=== PATIENT | male | born 1940 | race Caucasian/White ===

== ENCOUNTER 2016-07-23 20:40 | Inpatient (IN) | payer MEDICARE, OTHER ==
[~2016-07-23] VITALS: Ht 177.8 cm; Wt 120.0 kg
[~2016-07-23 20:40] MED LIST: ACET325T PO; ATOR10TA15 PO; BAZACRE TOP; CULT10CA4 PO; DILT60TA PO; DULC10SU3 PR; FLEEENE3 PR; ISOS30TA3 PO; LEVO137T2 PO; LEXA10TA PO; LOSA25TA PO; MILKSUS PO; MULTTAB62 PO; NIAC500 PO; PIPE4INJ IV; SOTA120T PO; SPIR25 PO; SPIRCAP INH; VANC500I3 PO; VENTAER INH; WARF-23 PO
[2016-07-23 21:45] VITALS: BP 111/61; PULSE 67; RESP 24; TEMP 100.3; O2SAT 99
[2016-07-23 21:53] VITALS: O2SAT 100
--- NOTE | 2016-07-23 21:55 | PD ---
HPI Chief Complaint: Abdominal Pain Time Seen by Provider: 21:49 Travel History International Travel<30 days: No Contact w/Intl Traveler<30days: No Traveled to known affect area: No History of Present Illness HPI Patient comes in complaining of low back pain ongoing for approximately 3 weeks abdominal pain going on for 5 days. Patient states he was recently on antibiotics for UTI last dose was yesterday. Patient states he has not been eating or drinking much in the past for 5 days secondary to the abdominal discomfort. Patient describes a cramping aching pain throughout his abdomen. Patient denies anything making it better or worse. Patient denies any chest pain, shortness of breath, nausea, vomiting, or headaches. Patient reports continues to pass gas but not as much as normal. Patient's at bedside reports patient did have a small bowel movement yesterday and states patient's complaining of abdominal pain ever since being on recent antibiotic of Macrobid. Patient reports frequent urinary incontinence secondary to muscular dystrophy and is wheelchair-bound. Patient reports history of chronic back pain , hypothyroidism, A. fib, COPD, hyperlipidemia, diverticulitis, hypothyroidism, pneumonia, and recurrent UTIs. PFSH Past Medical History Arthritis: Yes Atrial Fibrillation: Yes Autoimmune Disease: No Blood Disorders: No Anxiety: Yes Depression: Yes Heart Rhythm Problems: Yes (A-FIB) Cancer: No Cardiac Catheterization: Yes (HAS 60% IN ONE ARTERY MONITORED FOR SINCE 2003) Cardiovascular Problems: Yes (A-FIB RVR, CHF ) High Cholesterol: Yes Chest Pain: Yes Congestive Heart Failure: Yes COPD: Yes Diabetes: Yes Diminished Hearing: No Endocrine: No Gastrointestinal Disorders: Yes (enterocolitis due to c-diff, CONSTIOATION, HEMORRHOIDS, NAUSEA/VOMITING) GERD: Yes Genitourinary: No Hypertension: Yes Immune Disorder: No Implanted Vascular Access Dvce: Yes Musculoskeletal: Yes (MUSCULAR DYSTROPHY) Neurologic: No Psychiatric: No Respiratory: Yes (RESPIRATORY FAILURE, PNEUMONIA ) Pneumonia: Yes Thyroid Disease: Yes (LESION ON THYROID) Past Surgical History Abdominal Surgery: Yes (DIVERTICULITIS;HERNIA) Appendectomy: Yes Cardiac Surgery: Yes (CARDIAC CATHETERIZATION ', PACEMAKER) Ear Surgery: No Endocrine Surgery: No Eye Surgery: No Genitourinary Surgery: No Gynecologic Surgery: No Oral Surgery: No Pacemaker: Yes Thoracic Surgery: No Other Surgery: Yes Social History Alcohol Use: No Tobacco Use: No Substance Use: No Allergies-Medications (Allergen,Severity, Reaction): Coded Allergies: No Known Allergies (Verified , PER H/P, 07/23/16) Reported Meds & Prescriptions Reported Meds & Active Scripts Active Vancomycin Inj (Vancomycin HCl) 500 Mg Inj 125 Mg PO QID 9 Days until 01/04/16 Reported Piperacillin-Tazobactam Inj 4-0.5 Gm Inj 4.5 Gm IV Q6HR 9 Days Milk of Magnesia Liq (Magnesium Hydroxide) 400 Mg/5 Ml Susp 30 Ml PO DAILY PRN Fleet Enema Rectal (Sodium Phosphates Rectal) 7-19 Gm/118 Ml Enem 1 Applic DC ON 4TH DAY PRN Dulcolax Supp (Bisacodyl) 10 Mg Supp 10 Mg DC DAILY PRN Maryjo Protect (Skin Protectants, Misc.) 1 Cre Cre 1 Applic TOP Q8HR Apply to buttocks q-shift and prn rash Multi-Vitamin/Minerals (Multiple Vitamins W/ Minerals) 1 Tab Tab 1 Tab PO DAILY Sotalol (Sotalol HCl) 120 Mg Tab 120 Mg PO BID Acetaminophen 325 Mg Tab 325 Mg PO Q6HR Culturelle (Lactobacillus Rhamnosus (GG)) 10 B Cell Cap 1 Cap PO DAILY Lexapro (Escitalopram Oxalate) 10 Mg Tab 10 Mg PO DAILY Diltiazem (Diltiazem HCl) 60 Mg Tab 60 Mg PO TID Warfarin 5 Mg Tab 5 Mg PO DAILY Spiriva Handihaler (Tiotropium Inh) 18 Mcg Cap 2 Puff INH DAILY 1 capsule = 18 mcg Ventolin Hfa 18 GM Inh (Albuterol Sulfate) 90 Mcg/Act Aer 2 Puff INH Q6HR PRN Aldactone (Spironolactone) 25 Mg Tab 25 Mg PO BID @,18 Losartan (Losartan Potassium) 25 Mg Tab 25 Mg PO DAILY Atorvastatin (Atorvastatin Calcium) 10 Mg Tab 10 Mg PO HS Isosorbide Mononitrate ER (Isosorbide Mononitrate) 30 Mg Adam 30 Mg PO DAILY Niaspan (Niacin) 500 Mg Tab 500 Mg PO HS Levothyroxine (Levothyroxine Sodium) 137 Mcg Tab 137 Mcg PO DAILY Review of Systems Except as stated in HPI: all other systems reviewed are Neg Physical Exam Narrative GENERAL: Well-developed, overly nourished, in no acute distress, and non-ill appearing. SKIN: Focused skin assessment warm and dry. HEAD: Atraumatic. Normocephalic. EYES: Pupils equal and round. EOMI. No scleral icterus. No injection or drainage. ENT: No nasal bleeding or discharge. Mucous membranes pink and moist. NECK: Trachea midline. Supple. No nuclear rigidity. CARDIOVASCULAR: Regular rate and rhythm. No murmur appreciated. RESPIRATORY: No accessory muscle use. No respiratory distress. Clear to auscultation. Breath sounds equal bilaterally. GASTROINTESTINAL: Abdomen soft, nondistended. Hepatic and splenic margins not palpable. Hypoactive bowel sounds 4. No pulsatile mass. Patient reports there is palpation tenderness over suprapubic. MUSCULOSKELETAL: No obvious deformities. No clubbing. No cyanosis. Full range of motion bilateral upper extremities. There is no tenderness crepitus or midline lumbar spine. Patient reports tenderness to palpation right lower paravertebral spell muscle. NEUROLOGICAL: Awake and alert. No obvious cranial nerve deficits. Motor grossly within normal limits. Normal speech. PSYCHIATRIC: Appropriate mood and affect; insight and judgment normal. Data Data Last Documented VS Vital Signs Date Time Temp Pulse Resp B/P Pulse Ox O2 Delivery O2 Flow Rate FiO2 07/23/16 22:45 68 18 113/68 99 Room Air 07/23/16 21:53 2 07/23/16 21:45 100.3 Orders Complete Blood Count With Diff (07/23/16 21:46) Comprehensive Metabolic Panel (07/23/16 21:46) Lipase (07/23/16 21:46) Prothrombin Time / Inr (Pt) (07/23/16 21:46) Act Partial Throm Time (Ptt) (07/23/16 21:46) Urinalysis - C+S If Indicated (07/23/16 21:46) Ct Abd/Pel W/O Iv Contrast (07/23/16 21:46) Iv Access Insert/Monitor (07/23/16 21:46) Ecg Monitoring (07/23/16 21:46) Oximetry (07/23/16 21:46) Morphine Inj (Morphine Inj) (07/23/16 22:00) Ondansetron Inj (Zofran Inj) (07/23/16 22:00) Sodium Chloride 0.9% Flush (Ns Flush) (07/23/16 22:00) Sodium Chlorid 0.9% 500 Ml Inj (Ns 500 M (07/23/16 22:00) Lactic Acid (07/23/16 22:52) Blood Culture (07/23/16 22:52) Acetaminophen (Tylenol) (07/23/16 23:00) Labs Laboratory Tests Test 07/23/16 21:55 White Blood Count 13.1 TH/MM3 Red Blood Count 4.67 MIL/MM3 Hemoglobin 12.3 GM/DL Hematocrit 37.0 % Mean Corpuscular Volume 79.3 FL Mean Corpuscular Hemoglobin 26.3 PG Mean Corpuscular Hemoglobin 33.2 % Concent Red Cell Distribution Width 14.8 % Platelet Count 212 TH/MM3 Mean Platelet Volume 8.0 FL Neutrophils (%) (Auto) 85.0 % Lymphocytes (%) (Auto) 6.2 % Monocytes (%) (Auto) 8.5 % Eosinophils (%) (Auto) 0.1 % Basophils (%) (Auto) 0.2 % Neutrophils # (Auto) 11.1 TH/MM3 Lymphocytes # (Auto) 0.8 TH/MM3 Monocytes # (Auto) 1.1 TH/MM3 Eosinophils # (Auto) 0.0 TH/MM3 Basophils # (Auto) 0.0 TH/MM3 CBC Comment DIFF FINAL Differential Comment MDM Medical Decision Making Medical Screen Exam Complete: Yes Emergency Medical Condition: Yes Interpretation(s) CT abdomen and pelvis read by the radiologist shows: 1. Stranding associated with the right kidney with mild pelvocaliectasis. This can relate to a recently passed stone or could relate to an acute inflammatory or infectious process. 2. 5.1 cm ascending aortic aneurysm partially seen. 3. Cholelithiasis. No acute inflammation. 4. 2.5 cm splenic cyst or hemangioma is stable. 5. Exophytic 4.5 cm lesion from the lower pole the left kidney not felt to relate to a simple cyst. This could relate to a complex cyst or solid lesion. Ultrasound of the kidneys as an outpatient as suggested. 6. Diverticulosis of the colon without acute abnormality. Differential Diagnosis UTI, colitis, colitis, dehydration, constipation, ileus, obstruction, mass, other Narrative Course Patient was seen and examined. Initial laboratory radiological studies were ordered. IV was established. Patient was on cardiac monitoring and continuous pulse ox monitoring. Patient was given IV fluids, Zofran, and morphine for pain. Patient was signed out to Dr. Liu at the end of my shift. Please see his documentation for final diagnosis and disposition. Gurdeep Merino July 23, 2016 21:55
[2016-07-23] MEDS ORDERED: MORPHINE SULFATE 4 MG/ML INJ IV PUSH ONE (22:00)
[2016-07-23] MEDS ORDERED: ONDANSETRON HCL 4 MG/2 ML VIAL IVP ONE (22:00)
[2016-07-23] MEDS ORDERED: SODIUM CHLORIDE 0.9% FLUSH 10 ML FLUSH IV FLUSH PRN (22:00)
[2016-07-23] MEDS ORDERED: SODIUM CHLORID 0.9% 500 ML INJ 500 ML IV ONE (22:00)
[2016-07-23 22:33] LABS: AUTOMATED NEUTROPHIL # 11.1 TH/MM3 (1.8-7.7); BASOPHIL % 0.2 % (0.0-2.0); EOSINOPHIL % 0.1 % (0.0-4.0); HEMO FLAGS DIFF FINAL; LYMPH % 6.2 % (9.0-44.0); LYMPHOCYTE # 0.8 TH/MM3 (1.0-4.8); MEAN CELL VOLUME 79.3 FL (80.0-100.0); MEAN CORPUSCULAR HEMOGLOBIN 26.3 PG (27.0-34.0); MEAN CORPUSCULAR HGB CONC 33.2 % (32.0-36.0); MONO % 8.5 % (0.0-8.0); PLATELET COUNT 212 TH/MM3 (150-450); RED BLOOD COUNT 4.67 MIL/MM3 (4.50-5.90); RED CELL DISTRIBUTION WIDTH 14.8 % (11.6-17.2); WHITE BLOOD COUNT 13.1 TH/MM3 (4.0-11.0)
--- NOTE | 2016-07-23 22:39 | RADRPT ---
EXAM DATE/TIME: 07/23/2016 22:19 [facility] COMPARISON: CT ABDOMEN & PELVIS W/O CONTRAST, September 13, 2015, 17:00. INDICATIONS : Diffuse abdominal pain. ORAL CONTRAST: No oral contrast ingested. RADIATION DOSE: 22.00 CTDIvol (mGy) MEDICAL HISTORY : Hypertension. Gastroesophageal reflux disease. Diverticulitis.COPD. Diabetes. Hernia. SURGICAL HISTORY : Pacemaker. Appendectomy. ENCOUNTER: Initial ACUITY: 1 week PAIN SCALE: 5/10 LOCATION: All quadrants. TECHNIQUE: Volumetric scanning of the abdomen and pelvis was performed. Using automated exposure control and ad justment of the mA and/or kV according to patient size, radiation dose was kept as low as reasonably achievable to obtain optimal diagnostic quality images. FINDINGS: LOWER LUNGS: Bibasilar atelectasis. Mild cardiomegaly. Coronary artery atherosclerotic calcifications. Aneurysmal change of the visualized portions of the ascending aorta. This measures 5.1 cm. LIVER: Homogeneous density without lesion. There is no dilation of the biliary tree. Multiple small gallsto melida layering within an otherwise normal-appearing gallbladder. SPLEEN: A 2.5 cm low-density lesion is stable when compared to the prior study. PANCREAS: Within normal limits. KIDNEYS: There is stranding involving the perinephric fat on the right. This is asymmetrical. It is more prono unced adjacent to the upper pole. Mild pelvocaliectasis without lauren hydronephrosis or hydroureter. No renal or ureteral stones observed. There is an exophytic lesion from the lower pole of the left ki dney which measures 4.5 cm in size. Hounsfield units are 12. Left upper pole renal cyst is also noted . ADRENAL GLANDS: Within normal limits. VASCULAR: There is no aortic aneurysm. BOWEL/MESENTERY: The stomach, small bowel, and colon demonstrate no acute abnormality. There is no free intraperitone al air or fluid. Colonic diverticulosis. No acute inflammation appreciated. ABDOMINAL WALL: Within normal limits. RETROPERITONEUM: There is no lymphadenopathy. BLADDER: No wall thickening or mass. There is a diverticulum arising from the right anterolateral portion of t he urinary bladder. No bladder stones. REPRODUCTIVE: Within normal limits. INGUINAL: There is no lymphadenopathy or hernia. MUSCULOSKELETAL: Within normal limits for patient age. CONCLUSION: 1. Stranding associated with the right kidney with mild pelvocaliectasis. This can relate to a recent ly passed stone or could relate to an acute inflammatory or infectious process. 2. 5.1 cm ascending aortic aneurysm partially seen. 3. Cholelithiasis. No acute inflammation. 4. 2.5 cm splenic cyst or hemangioma is stable. 5. Exophytic 4.5 cm lesion from the lower pole the left kidney not felt to relate to a simple cyst. T his could relate to a complex cyst or solid lesion. Ultrasound of the kidneys as an outpatient as sug gested. 6. Diverticulosis of the colon without acute abnormality. Enrique Henderson Jr., MD on July 23, 2016 at 22:29 Board Certified Radiologist. This report was verified electronically.
[2016-07-23 22:45] VITALS: BP 113/68; PULSE 68; RESP 18; O2SAT 99
--- NOTE | 2016-07-23 22:51 | PD ---
Physical Exam Date Seen by Provider: July 23, 2016 Time Seen by Provider: 22:49 Narrative The patient is a 76-year-old male was initially evaluated by the mid-level provider. Please refer to the initial history, physical, diagnostic evaluation , treatment modality plan. The patient was signed out 11 PM with UA pending. Data Data Last Documented VS Vital Signs Date Time Temp Pulse Resp B/P Pulse Ox O2 Delivery O2 Flow Rate FiO2 07/23/16 22:45 68 18 113/68 99 Room Air 07/23/16 21:53 2 07/23/16 21:45 100.3 Orders Complete Blood Count With Diff (07/23/16 21:46) Comprehensive Metabolic Panel (07/23/16 21:46) Lipase (07/23/16 21:46) Prothrombin Time / Inr (Pt) (07/23/16 21:46) Act Partial Throm Time (Ptt) (07/23/16 21:46) Urinalysis - C+S If Indicated (07/23/16 21:46) Ct Abd/Pel W/O Iv Contrast (07/23/16 21:46) Iv Access Insert/Monitor (07/23/16 21:46) Ecg Monitoring (07/23/16 21:46) Oximetry (07/23/16 21:46) Morphine Inj (Morphine Inj) (07/23/16 22:00) Ondansetron Inj (Zofran Inj) (07/23/16 22:00) Sodium Chloride 0.9% Flush (Ns Flush) (07/23/16 22:00) Sodium Chlorid 0.9% 500 Ml Inj (Ns 500 M (07/23/16 22:00) Lactic Acid (07/23/16 22:52) Blood Culture (07/23/16 22:52) Acetaminophen (Tylenol) (07/23/16 23:00) Urine Culture (07/23/16 23:03) Ceftriaxone Inj (Rocephin Inj) (07/23/16 23:45) Admit Order (Ed Use Only) (07/23/16 23:47) Admit To Inpatient (07/23/16 ) Vital Signs (Adult) Q4H (07/23/16 23:47) Activity Oob With Assistance (07/23/16 23:47) Loan Interviewer / Telemetry .CONTINUOUS (07/23/16 23:47) Intake + Output HENNA.QSHIFT (07/23/16 23:47) Diet Heart Healthy (07/24/16 Breakfast) Sodium Chloride 0.9% Flush (Ns Flush) (07/24/16 00:00) Sodium Chloride 0.9% Flush (Ns Flush) (07/24/16 09:00) Basic Metabolic Panel (Bmp) (07/24/16 06:00) Complete Blood Count With Diff (07/24/16 06:00) Pt Request For Service (07/23/16 23:47) Case Management Consult (07/23/16 23:47) Naloxone Inj (Narcan Inj) (07/24/16 00:00) Inpatient Certification (07/23/16 ) Piperacil-Tazo 4.5 Gm Premix (Zosyn 4.5 (07/24/16 00:00) ^ Watch For Or Notify (07/23/16 23:50) Labs Laboratory Tests Test 07/23/16 07/23/16 21:55 23:03 White Blood Count 13.1 TH/MM3 Red Blood Count 4.67 MIL/MM3 Hemoglobin 12.3 GM/DL Hematocrit 37.0 % Mean Corpuscular Volume 79.3 FL Mean Corpuscular Hemoglobin 26.3 PG Mean Corpuscular Hemoglobin 33.2 % Concent Red Cell Distribution Width 14.8 % Platelet Count 212 TH/MM3 Mean Platelet Volume 8.0 FL Neutrophils (%) (Auto) 85.0 % Lymphocytes (%) (Auto) 6.2 % Monocytes (%) (Auto) 8.5 % Eosinophils (%) (Auto) 0.1 % Basophils (%) (Auto) 0.2 % Neutrophils # (Auto) 11.1 TH/MM3 Lymphocytes # (Auto) 0.8 TH/MM3 Monocytes # (Auto) 1.1 TH/MM3 Eosinophils # (Auto) 0.0 TH/MM3 Basophils # (Auto) 0.0 TH/MM3 CBC Comment DIFF FINAL Differential Comment Prothrombin Time 52.2 SEC Prothromb Time International 4.4 RATIO Ratio Activated Partial 59.9 SEC Thromboplast Time Sodium Level 131 MEQ/L Potassium Level 4.8 MEQ/L Chloride Level 96 MEQ/L Carbon Dioxide Level 30.3 MEQ/L Anion Gap 5 MEQ/L Blood Urea Nitrogen 40 MG/DL Creatinine 0.91 MG/DL Estimat Glomerular Filtration 81 ML/MIN Rate Random Glucose 156 MG/DL Calcium Level 9.1 MG/DL Total Bilirubin 0.7 MG/DL Aspartate Amino Transf 25 U/L (AST/SGOT) Alanine Aminotransferase 22 U/L (ALT/SGPT) Alkaline Phosphatase 122 U/L Total Protein 6.9 GM/DL Albumin 2.8 GM/DL Lipase 65 U/L Urine Color LIGHT-ORANGE Urine Turbidity CLOUDY Urine pH 6.0 Urine Specific [place] 1.012 Urine Protein 100 mg/dL Urine Glucose (UA) NEG mg/dL Urine Ketones NEG mg/dL Urine Occult Blood MOD Urine Nitrite NEG Urine Bilirubin NEG Urine Urobilinogen LESS THAN 2.0 MG/DL Urine Leukocyte Esterase LARGE Urine RBC 121 /hpf Urine WBC /hpf Urine WBC Clumps MANY Urine Bacteria MANY /hpf Microscopic Urinalysis Comment CULTURE INDICATED MDM Medical Record Reviewed: Yes Supervised Visit with KIKE: Yes Interpretation(s) CT of the abdomen and pelvis reveals stranding associated with the right kidney with mild pelvocaliectasis. This can related to recently passed stone or could relate to an acute inflammatory infectious process. 5.1 cm ascending a aneurysm partially seen. Cholelithiasis, no acute inflammation. 2.5 splenic cyst or hemangioma is stable. Exophytic 4.5 cm lesion from the lower pole of the left kidney not felt to relate to a simple cyst. This could relate to a complex cyst or solid lesion. Ultrasound of the kidneys as an outpatient as suggested. Diverticulosis of the colon without acute abnormality. Laboratory Tests Test 07/23/16 07/23/16 21:55 23:03 White Blood Count 13.1 TH/MM3 Red Blood Count 4.67 MIL/MM3 Hemoglobin 12.3 GM/DL Hematocrit 37.0 % Mean Corpuscular Volume 79.3 FL Mean Corpuscular Hemoglobin 26.3 PG Mean Corpuscular Hemoglobin 33.2 % Concent Red Cell Distribution Width 14.8 % Platelet Count 212 TH/MM3 Mean Platelet Volume 8.0 FL Neutrophils (%) (Auto) 85.0 % Lymphocytes (%) (Auto) 6.2 % Monocytes (%) (Auto) 8.5 % Eosinophils (%) (Auto) 0.1 % Basophils (%) (Auto) 0.2 % Neutrophils # (Auto) 11.1 TH/MM3 Lymphocytes # (Auto) 0.8 TH/MM3 Monocytes # (Auto) 1.1 TH/MM3 Eosinophils # (Auto) 0.0 TH/MM3 Basophils # (Auto) 0.0 TH/MM3 CBC Comment DIFF FINAL Differential Comment Prothrombin Time 52.2 SEC Prothromb Time International 4.4 RATIO Ratio Activated Partial 59.9 SEC Thromboplast Time Sodium Level 131 MEQ/L Potassium Level 4.8 MEQ/L Chloride Level 96 MEQ/L Carbon Dioxide Level 30.3 MEQ/L Anion Gap 5 MEQ/L Blood Urea Nitrogen 40 MG/DL Creatinine 0.91 MG/DL Estimat Glomerular Filtration 81 ML/MIN Rate Random Glucose 156 MG/DL Calcium Level 9.1 MG/DL Total Bilirubin 0.7 MG/DL Aspartate Amino Transf 25 U/L (AST/SGOT) Alanine Aminotransferase 22 U/L (ALT/SGPT) Alkaline Phosphatase 122 U/L Total Protein 6.9 GM/DL Albumin 2.8 GM/DL Lipase 65 U/L Urine Color LIGHT-ORANGE Urine Turbidity CLOUDY Urine pH 6.0 Urine Specific [place] 1.012 Urine Protein 100 mg/dL Urine Glucose (UA) NEG mg/dL Urine Ketones NEG mg/dL Urine Occult Blood MOD Urine Nitrite NEG Urine Bilirubin NEG Urine Urobilinogen LESS THAN 2.0 MG/DL Urine Leukocyte Esterase LARGE Urine RBC 121 /hpf Urine WBC /hpf Urine WBC Clumps MANY Urine Bacteria MANY /hpf Microscopic Urinalysis Comment CULTURE INDICATED Differential Diagnosis Differential diagnoses includes UTI, pyelonephritis, cholecystitis, AAA, pancreatitis, partial small bowel obstruction, constipation, chronic back pain. Narrative Course I, Dr. Liu, have reviewed the advance practice practitioner's documentation and am in agreement, met with the patient face to face, made the diagnosis, and the medical decision making was done by me. *My assessment and Findings: The patient is a 76-year-old male was initially evaluated by the mid-level provider, please refer to the initial history, physical, diagnostic evaluation, and treatment modality plan. CT the abdomen and pelvis was reviewed. Patient did have a temperature of 100.3 and mildly elevated white count, was unable to pass urine. Therefore, Mishra catheter was placed, the patient had 200 cc of output with thick and purulent urine. Therefore, UA was sent to lab which reveals innumerable WBCs consistent with infection. CT of the abdomen and pelvis reveals no free changes consistent with pyelonephritis, the patient just finished antibiotics yesterday, will need IV antibiotics. Therefore, patient was administered Rocephin 1 g intravenously. The patient will be admitted for pyelonephritis and urinary retention, he just finished antibiotics and failed outpatient therapy. Sepsis Criteria SIRS Criteria (2 or more): WBC > 33251, < 4000 or > 10% bands Physician Communication Physician Communication [facility] a Behavioral Hospitalist were paged for admission. I discussed the patient with Dr. Hurtado who agrees with admission. Diagnosis Primary Impression: Pyelonephritis Additional Impression: Urinary retention Condition: Stable Danny Liu MD July 23, 2016 22:51
[2016-07-23 22:54] LABS: INTERNATIONAL NORMALIZED RATIO 4.4 RATIO; PROTHROMBIN TIME - PATIENT 52.2 SEC (9.8-11.6)
[2016-07-23 22:55] LABS: APTT (PATIENT) 59.9 SEC (24.3-30.1)
[2016-07-23] MEDS ORDERED: ACETAMINOPHEN 325 MG TAB PO ONE (23:00)
[2016-07-23 23:19] LABS: BACTERIA, URINE MANY /hpf; BLOOD, URINE MOD (NEG); COMMENT (UR) CULTURE INDICATED; CULTURE IF INDICATED CULTURE INDICATED; GLUCOSE,URINE NEG (NEG); KETONE, URINE NEG (NEG); NITRITE,URINE NEG (NEG)
[2016-07-23 23:20] LABS: URINE COLOR LIGHT-ORANGE (YELLW/STRAW)
[2016-07-23 23:31] LABS: ALT (GPT) 22 U/L (12-78); ANION GAP 5 MEQ/L (5-15); AST (GOT) 25 U/L (15-37); BICARBONATE 30.3 MEQ/L (21.0-32.0); BLOOD UREA NITROGEN 40 MG/DL (7-18); CHLORIDE 96 MEQ/L (98-107); GLOMERULAR FILTRATION RATE 81 ML/MIN (>89); POTASSIUM 4.8 MEQ/L (3.5-5.1); SODIUM (NA) 131 MEQ/L (136-145)
[2016-07-23 23:34] LABS: ALKALINE PHOSPHATASE 122 U/L (45-117); TOTAL BILIRUBIN ADULT 0.7 MG/DL (0.2-1.0)
[2016-07-23] MEDS ORDERED: cefTRIAXone INJ 1,000 MG in SODIUM CHLORIDE 0.9% INJ 100 ML IV ONE (23:45)
[2016-07-24] VITALS (7 sets, daily range): BP systolic 88–141; BP diastolic 51–63; PULSE 62–69; RESP 16–20; TEMP 95.5–98.8; O2SAT 95–100
[2016-07-24] MEDS ORDERED: NALOXONE HCL 0.4 MG/ML AMP IV PRN
[2016-07-24] MEDS ORDERED: SODIUM CHLORIDE 0.9% FLUSH 10 ML FLUSH IV FLUSH PRN
[2016-07-24] MEDS: PIPERACIL-TAZO 4.5 GM PREMIX 100 ML IV SCH ×4 (01:35→20:02)
--- NOTE | 2016-07-24 05:07 | HHI.HP ---
[facility] Service [place] [facility] Primary Care Physician Michael Arreola MD Admission Diagnosis pyelonephritis felt outpatient therapy, urinary retention Diagnoses: Chief Complaint: Pain in my abdomen Travel History International Travel<30 Days: No Contact w/Intl Traveler <30 Da: No Traveled to Known Affected Are: No History of Present Illness History from patient, ER physician communication, and review of medical records. Patient is extremely poor historian at the time of my exam. He is sleeping and clearly his sleeping pattern is that of a severe sleep apnea patient. He would wake up in between to answer questions and falls right back asleep. When he is awake though, he is appropriate and alert. He tells me that he came to the hospital because he was having pain in the lower abdomen. Bilaterally. She states the pain was there for 3 weeks. Also reports of pain in his bilateral flank pain. Denies any nausea. Denies vomiting. Reports of diarrhea as well. No fever. Not able to quantify the amount of diarrhea. As per ER report, patient was started on Macrobid as an outpatient for this. He also does have history of urinary frequency secondary to muscular dystrophy and is wheelchair-bound. Review of Systems ROS Limitations: Poor Historian (limited ROS as above) Past Family Social History Past Medical History Diabetes CHF Atrial fibrillation COPD Sleep apnea Hyperlipidemia Chronic back pain History of diverticulitis Hypothyroidism History of recurrent UTIs History of pneumonia History of C. difficile History of muscular dystrophy Past Surgical History Pacemaker placement Coronary angiogram Left knee surgery Allergies: Coded Allergies: No Known Allergies (Verified , PER H/P, 07/23/16) Family History Unknown. Patient is not able to recall Social History Denies smoking/alcohol abuse/drug abuse. Physical Exam Vital Signs Vital Signs Date Time Temp Pulse Resp B/P Pulse Ox O2 Delivery O2 Flow Rate FiO2 07/24/16 04:53 98.8 18 141/51 97 07/24/16 00:16 62 16 108/56 100 Room Air 07/23/16 22:45 68 18 113/68 99 Room Air 07/23/16 21:53 100 2 07/23/16 21:45 100.3 67 24 111/61 99 Physical Exam GENERAL: This is a well-nourished, well-developed patient, in no apparent distress. He however is quite sleepy and required multiple prompting to answer questions. Also definitely has sleep apnea. SKIN: No rashes, ecchymoses or lesions. Cool and dry. HEAD: Atraumatic. Normocephalic. No temporal or scalp tenderness. EYES: No scleral icterus. No injection or drainage. ENT: Nose without bleeding, purulent drainage or septal hematoma. Airway patent. NECK: Trachea midline. No JVD CARDIOVASCULAR: Irregularly irregular, has systolic murmur at precordium mostly at the aortic and pulmonic area. RESPIRATORY: Clear to auscultation. Decreased air entry bilaterally. GASTROINTESTINAL: Abdomen soft, non-tender, nondistended. No hepato-splenomegaly , or palpable masses. No guarding. MUSCULOSKELETAL: Extremities without clubbing, cyanosis, or edema. No calf tenderness. NEUROLOGICAL: Somewhat sleepy. But is oriented to time place and person. Normal speech. Laboratory Laboratory Tests Test 07/23/16 07/23/16 07/23/16 21:55 23:03 23:20 White Blood Count 13.1 Red Blood Count 4.67 Hemoglobin 12.3 Hematocrit 37.0 Mean Corpuscular Volume 79.3 Mean Corpuscular Hemoglobin 26.3 Mean Corpuscular Hemoglobin 33.2 Concent Red Cell Distribution Width 14.8 Platelet Count 212 Mean Platelet Volume 8.0 Neutrophils (%) (Auto) 85.0 Lymphocytes (%) (Auto) 6.2 Monocytes (%) (Auto) 8.5 Eosinophils (%) (Auto) 0.1 Basophils (%) (Auto) 0.2 Neutrophils # (Auto) 11.1 Lymphocytes # (Auto) 0.8 Monocytes # (Auto) 1.1 Eosinophils # (Auto) 0.0 Basophils # (Auto) 0.0 CBC Comment DIFF FINAL Differential Comment Prothrombin Time 52.2 Prothromb Time International 4.4 Ratio Activated Partial 59.9 Thromboplast Time Sodium Level 131 Potassium Level 4.8 Chloride Level 96 Carbon Dioxide Level 30.3 Anion Gap 5 Blood Urea Nitrogen 40 Creatinine 0.91 Estimat Glomerular Filtration 81 Rate Random Glucose 156 Calcium Level 9.1 Total Bilirubin 0.7 Aspartate Amino Transf 25 (AST/SGOT) Alanine Aminotransferase 22 (ALT/SGPT) Alkaline Phosphatase 122 Total Protein 6.9 Albumin 2.8 Lipase 65 Urine Color LIGHT-ORANGE Urine Turbidity CLOUDY Urine pH 6.0 Urine Specific [place] 1.012 Urine Protein 100 Urine Glucose (UA) NEG Urine Ketones NEG Urine Occult Blood MOD Urine Nitrite NEG Urine Bilirubin NEG Urine Urobilinogen LESS THAN 2.0 Urine Leukocyte Esterase LARGE Urine RBC 121 Urine WBC Urine WBC Clumps MANY Urine Bacteria MANY Microscopic Urinalysis Comment CULTURE INDICATED Lactic Acid Level 0.9 Date/Time Procedure Status Source Growth 07/23/16 23:20 Aerobic Blood Culture Received Blood Peripheral Pending 07/23/16 23:20 Anaerobic Blood Culture Received Blood Peripheral Pending 07/23/16 23:03 Urine Culture Received Urine Clean Catch Pending Result Diagram: 07/23/16215407/23/162154 Imaging Last 48 hours Impressions Chest X-Ray 07/24/16 0000 Signed Impressions: Service Date/Time: July 05:23 - CONCLUSION: Basilar infiltrates and probable small effusions Sherwin Castillo MD Abdomen/Pelvis CT 07/23/162145 Signed Impressions: Service Date/Time: Saturday, July 23, 2016 22:19 - CONCLUSION: 1. Stranding associated with the right kidney with mild pelvocaliectasis. This can relate to a recently passed stone or could relate to an acute inflammatory or infectious process. 2. 5.1 cm ascending aortic aneurysm partially seen. 3. Cholelithiasis. No acute inflammation. 4. 2.5 cm splenic cyst or hemangioma is stable. 5. Exophytic 4.5 cm lesion from the lower pole the left kidney not felt to relate to a simple cyst. This could relate to a complex cyst or solid lesion. Ultrasound of the kidneys as an outpatient as suggested. 6. Diverticulosis of the colon without acute abnormality. Enrique Henderson Jr., MD Assessment and Plan Problem List: (1) Pyelonephritis ICD Code: N12 Status: Acute (2) Urinary retention ICD Code: R33.9 Status: Acute Assessment and Plan Impression: Pyelonephritisfailed outpatient therapy Supratherapeutic INR Leukocytosis with left shift. Possible urinary retention. Patient's Mishra catheter was placed in ER. I am not sure how much was drained immediately at the time of insertion. However patient's CDU nurse reported that patient had 1550 in the back upon arrival to CDU. Diabetes CHF Atrial fibrillation COPD Sleep apnea Hyperlipidemia Chronic back pain History of diverticulitis Hypothyroidism History of recurrent UTIs History of pneumonia History of C. difficile History of muscular dystrophy Plan: Patient was started on Rocephin in ER. Was started on Zosyn 4.5 g IV every 6 hours for pseudomonas coverage. Patient is Mishra catheter just placed in ER likely. We'll need to find out whether this was secondary to urinary retention as well. Patient has had 1550 of urine draining by the time he arrived CDU. Hydrate patient already. We'll monitor fingersticks and cover with sliding-scale coverage. Hold long-acting insulin and oral hypoglycemics. Hold Coumadin. Will monitor INR. Obtain patient's med rec. Orders have been written to do so. DVT prophylaxiscurrently supratherapeutic. Discussed Condition With Patient, BARB Maguire, Nursing staff Physician Certification 2 Midnight Certification Type: Admission for Inpatient Services Order for Inpatient Services The services are ordered in accordance with Medicare regulations or non- Medicare payer requirements, as applicable. In the case of services not specified as inpatient-only, they are appropriately provided as inpatient services in accordance with the 2-midnight benchmark. Estimated LOS (days): 3 days is the estimated time the patient will need to remain in the hospital, assuming treatment plan goals are met and no additional complications. Post-Hospital Plan: Home Veronica Hurtado MD Jul 24, 2016 05:06
--- NOTE | 2016-07-24 05:43 | RADRPT ---
EXAM DATE/TIME: 07/24/2016 05:23 [facility] COMPARISON: CT ABDOMEN & PELVIS W/O CONTRAST, July 23, 2016, 22:19. CHEST SINGLE AP, December 27, 2015, 11:55. INDICATIONS : Shortness of breath. MEDICAL HISTORY : Diabetes mellitus type II. Chronic obstructive pulmonary disease. Congestive heart failure. SURGICAL HISTORY : Pacemaker. ENCOUNTER: Initial ACUITY: 1 day PAIN SCORE: Non-responsive. LOCATION: Bilateral chest FINDINGS: Pacemaker device is noted with control pack over the left chest. Basilar infiltrates and effusions ar e present. The cardiac rotation, the cardiac contours appear stable. CONCLUSION: Basilar infiltrates and probable small effusions Sherwin Castillo MD on July 24, 2016 at 5:40 Board Certified Radiologist. This report was verified electronically.
[2016-07-24 07:28] LABS: AUTOMATED NEUTROPHIL # 13.4 TH/MM3 (1.8-7.7); BASOPHIL % 0.1 % (0.0-2.0); EOSINOPHIL % 0.1 % (0.0-4.0); HEMATOCRIT 36.9 % (39.0-51.0); HEMO FLAGS DIFF FINAL; LYMPH % 6.4 % (9.0-44.0); MEAN CELL VOLUME 81.6 FL (80.0-100.0); MEAN CORPUSCULAR HEMOGLOBIN 25.7 PG (27.0-34.0); MEAN CORPUSCULAR HGB CONC 31.6 % (32.0-36.0); MONO % 8.5 % (0.0-8.0); NEUT % 84.9 % (16.0-70.0); PLATELET COUNT 199 TH/MM3 (150-450); RED BLOOD COUNT 4.52 MIL/MM3 (4.50-5.90); RED CELL DISTRIBUTION WIDTH 14.6 % (11.6-17.2); WHITE BLOOD COUNT 15.8 TH/MM3 (4.0-11.0)
[2016-07-24 07:47] LABS: BICARBONATE 28.3 MEQ/L (21.0-32.0); POTASSIUM 4.6 MEQ/L (3.5-5.1)
[2016-07-24] MEDS: SODIUM CHLORIDE 0.9% FLUSH 10 ML FLUSH IV FLUSH SCH ×2 (10:54→20:27)
[2016-07-24] MEDS ORDERED: BISACODYL 10 MG SUPP RECTAL PRN (17:00)
[2016-07-24] MEDS ORDERED: MAGNESIUM HYDROXIDE SUSP 30 ML CUP PO PRN (17:00)
--- NOTE | 2016-07-24 17:14 | HHI.PR ---
Subjective Remarks seen with at bedside no fever or chills no complains, per though with poor po appetite abdominal pain resolved with insertion of cortez catheter Objective Vitals Vital Signs Date Time Temp Pulse Resp B/P Pulse Ox O2 Delivery O2 Flow Rate FiO2 07/24/16 16:00 96.2 64 18 106/63 95 07/24/16 14:30 95.5 63 20 96/55 97 07/24/16 11:34 97.6 63 18 102/56 98 07/24/16 08:02 97.8 64 18 88/54 98 07/24/16 04:53 98.8 18 141/51 97 07/24/16 00:16 62 16 108/56 100 Room Air 07/23/16 22:45 68 18 113/68 99 Room Air 07/23/16 21:53 100 2 07/23/16 21:45 100.3 67 24 111/61 99 I/O 07/23/16 07/23/16 07/23/16 07/24/16 07/24/16 07/24/16 07:00 15:00 23:00 07:00 15:00 23:00 Output Total 1550 ml 350 ml Balance -1550 ml -350 ml Output Urine Total 1550 ml 350 ml Result Diagram: 07/24/16 0632 07/24/16 0632 Imaging Last Impressions Chest X-Ray 07/24/16 0000 Signed Impressions: Service Date/Time: July 05:23 - CONCLUSION: Basilar infiltrates and probable small effusions Sherwin Castillo MD Abdomen/Pelvis CT 07/23/16 2146 Signed Impressions: Service Date/Time: Saturday, July 23, 2016 22:19 - CONCLUSION: 1. Stranding associated with the right kidney with mild pelvocaliectasis. This can relate to a recently passed stone or could relate to an acute inflammatory or infectious process. 2. 5.1 cm ascending aortic aneurysm partially seen. 3. Cholelithiasis. No acute inflammation. 4. 2.5 cm splenic cyst or hemangioma is stable. 5. Exophytic 4.5 cm lesion from the lower pole the left kidney not felt to relate to a simple cyst. This could relate to a complex cyst or solid lesion. Ultrasound of the kidneys as an outpatient as suggested. 6. Diverticulosis of the colon without acute abnormality. Enrique Henderson Jr., MD Objective Remarks awake and alert, NAD anicteric, very dry oral lungs no rales or wheezes regular rhythm abdomen soft, good bowel sousnds, no tenderness, no CVA tenderness cortez in place extremities no edema, no calf swelling, good peripheral pulses Urinary Catheter: Yes Assessment to: Continue Cortez insert reason: Obstruction/Retention Date of Insertion: Jul 24, 2016 A/P Problem List: (1) Pyelonephritis ICD Code: N12 Status: Acute (2) Urinary retention ICD Code: R33.9 Status: Acute Assessment and Plan 76 years old male with history of muscular dystrophy, total care but baseline states continent of urine and stools, history of recurrent UTI had 3 different courses of antiibotics this past month came in with increasing abdominal discomfort, incomplete bladder emptying sensation with difficulty initiating urine on ER- cortez inserted Acute Urinary retention-likely underlying neurogenic bladder keep cortez. Start Flomax 0,4 mg po hs . trial voiding in 3 days. d/w with and patient that if fails- will require chronic cortez. states he ff up with Dr. Morejon as OP. GEt US of kidney/bladder. REcurrent UTI by history. Continue on Zosyn. Review old admissions- history of Pseudomonas UTI.. FF C and S CRISTAL- pre renal- patient appears dry from obstructive uropathy- gentle IVF. FF BMP. Hold Torsemide for now History of atrial fibrillation S/P PM placement. continue on meds Coumadin excess- recheck INR in am History of Muscular dystrophy. neuro stable History of BALJIT- instructed to bring Bipap for use here reviewed meds with . on Torsemide 10 mg - Mw,W, F- hold for now continue . Atorvastatin 10, Ismo 30, synthrif 137, sotalol 120 bid, singulari Coumadin 4 mg/6 mg- on hold due to elevated NR ASA 81 mg, Vit D, Lexapro. Lyle Corey MD Jul 24, 2016 17:14
[2016-07-24] MEDS ORDERED: ALBUTEROL SULFATE 90 MCG/ACT HFA 18 GM INHALER INH PRN (17:45)
[2016-07-24] MEDS: SODIUM CHLOR 0.9% 1000 ML INJ 1,000 ML IV SCH (18:02)
[2016-07-24] MEDS: ACETAMINOPHEN 325 MG TAB PO SCH (18:03)
--- NOTE | 2016-07-24 18:55 | RADRPT ---
EXAM DATE/TIME: 07/24/2016 18:03 [facility] COMPARISON: No previous studies available for comparison. INDICATIONS : Obstruction. MEDICAL HISTORY : Congestive heart failure. Hypercholesterolemia. Hypertension. Thyroid disease. Atrial fibrillation. H yperlipidemia. COPD. Asthma. GERD. Arthritis. Muscular dystrophy. SURGICAL HISTORY : Appendectomy. Cardiac catheterization. Pacemaker. Hernia repair. ENCOUNTER: Initial ACUITY: 3 days PAIN SCORE: 3/10 LOCATION: Bilateral flank MEASUREMENTS: RIGHT KIDNEY: 13.9 x 7.8 x 7.1 cm LEFT KIDNEY: 13.8 x 5.2 x 6.8 cm FINDINGS: RIGHT KIDNEY: Renal cortex is normal in thickness and echotexture. No hydronephrosis, stone, or mass. LEFT KIDNEY: Renal cortex is normal in thickness and echotexture. No hydronephrosis, stone, or mass. 2 anechoic f oci are seen involving the left kidney consistent with simple cysts. The largest is exophytic from th e lower pole measuring 5 cm. Within the midpole this measures 2.7 cm BLADDER: Urinary bladder not visualized. CONCLUSION: 1. 2 small simple cysts involve the left kidney correlate to the findings on the recent CT. 2. No hydronephrosis involving either kidney. 3. Urinary bladder not visualized. Enrique Henderson Jr., MD on July 24, 2016 at 18:51 Board Certified Radiologist. This report was verified electronically.
[2016-07-24] MEDS: ATORVASTATIN 10 MG TAB PO SCH (20:35)
[2016-07-24] MEDS: TAMSULOSIN HCL 0.4 MG CAP PO SCH (20:35)
[2016-07-24] MEDS: SOTALOL HCL 80 MG TAB PO SCH (20:40)
[2016-07-24] MEDS ORDERED: SOTALOL 120 MG PO SCH (21:00)
[2016-07-25] VITALS (9 sets, daily range): BP systolic 99–148; BP diastolic 56–81; PULSE 59–69; RESP 18–21; TEMP 96.4–97.2; O2SAT 95–100
[2016-07-25] MEDS: PIPERACIL-TAZO 4.5 GM PREMIX 100 ML IV SCH ×5 (00:53→23:21)
[2016-07-25] MEDS: ACETAMINOPHEN 325 MG TAB PO SCH ×5 (00:55→23:22)
[2016-07-25] MEDS: LEVOTHYROXINE SODIUM 112 MCG TAB PO SCH (05:00)
[2016-07-25] MEDS: LEVOTHYROXINE SODIUM 25 MCG TAB PO SCH (05:00)
[2016-07-25] MEDS: SODIUM CHLORIDE 0.9% FLUSH 10 ML FLUSH IV FLUSH SCH ×2 (07:59→20:54)
[2016-07-25] MEDS: ISOSORBIDE MONONITRATE 30 MG TAB PO SCH (08:23)
[2016-07-25] MEDS: TIOTROPIUM BROMIDE 18 MCG INH INH SCH (08:23)
[2016-07-25] MEDS: MULTIVITAMINS/MINERALS THERAPEUTIC TAB PO SCH (08:23)
[2016-07-25] MEDS: LACTOBACILLUS ACIDOPHILUS TAB PO SCH (08:23)
[2016-07-25] MEDS: TAMSULOSIN HCL 0.4 MG CAP PO SCH (08:23)
[2016-07-25] MEDS: SOTALOL HCL 80 MG TAB PO SCH ×2 (08:23→20:54)
[2016-07-25] MEDS: ESCITALOPRAM OXALATE 10 MG TAB PO SCH (08:23)
--- NOTE | 2016-07-25 08:30 | HHI.PR ---
Subjective Remarks awake and alert, no abdominal pain feeling short of breath- requesting for nebulizers Objective Vitals Vital Signs Date Time Temp Pulse Resp B/P Pulse Ox O2 Delivery O2 Flow Rate FiO2 07/25/16 04:49 97.2 60 18 104/57 97 07/25/16 04:17 60 07/25/16 00:04 96.9 60 21 148/81 95 07/24/16 20:36 97.5 69 17 125/55 97 07/24/16 16:00 96.2 64 18 106/63 95 07/24/16 14:30 95.5 63 20 96/55 97 07/24/16 11:34 97.6 63 18 102/56 98 I/O 07/24/16 07/24/16 07/24/16 07/25/16 07/25/16 07/25/16 07:00 15:00 23:00 07:00 15:00 23:00 Intake Total 240 ml 1125 ml Output Total 1550 ml 350 ml 500 ml 500 ml Balance -1550 ml -350 ml -260 ml 625 ml Intake Oral 240 ml 360 ml IV Total 765 ml Output Urine Total 1550 ml 350 ml 500 ml 500 ml Result Diagram: 07/24/16 0632 07/24/16 0632 Imaging Last Impressions Renal Ultrasound 07/24/16 0000 Signed Impressions: Service Date/Time: July 18:03 - CONCLUSION: 1. 2 small simple cysts involve the left kidney correlate to the findings on the recent CT. 2. No hydronephrosis involving either kidney. 3. Urinary bladder not visualized. Enrique Henderson Jr., MD Chest X-Ray 07/24/16 0000 Signed Impressions: Service Date/Time: July 05:23 - CONCLUSION: Basilar infiltrates and probable small effusions Sherwin Castillo MD Abdomen/Pelvis CT 07/23/16 2146 Signed Impressions: Service Date/Time: Saturday, July 23, 2016 22:19 - CONCLUSION: 1. Stranding associated with the right kidney with mild pelvocaliectasis. This can relate to a recently passed stone or could relate to an acute inflammatory or infectious process. 2. 5.1 cm ascending aortic aneurysm partially seen. 3. Cholelithiasis. No acute inflammation. 4. 2.5 cm splenic cyst or hemangioma is stable. 5. Exophytic 4.5 cm lesion from the lower pole the left kidney not felt to relate to a simple cyst. This could relate to a complex cyst or solid lesion. Ultrasound of the kidneys as an outpatient as suggested. 6. Diverticulosis of the colon without acute abnormality. Enrique Henderson Jr., MD Objective Remarks awake and alert, NAD, appears anxious anicteric, very dry oral lungs no rales or wheezes, good air exchange regular rhythm abdomen soft, good bowel sounds, no tenderness, no CVA tenderness cortez in place extremities no edema, no calf swelling, good peripheral pulses moves toes freely Urinary Catheter: Yes Assessment to: Continue Cortez insert reason: Obstruction/Retention Date of Insertion: Jul 24, 2016 A/P Problem List: (1) Pyelonephritis ICD Code: N12 Status: Acute (2) Urinary retention ICD Code: R33.9 Status: Acute Assessment and Plan 76 years old male with history of muscular dystrophy, total care - baseline states continent of urine and stools, history of recurrent UTI had 3 different courses of antibotics this past month came in with increasing abdominal discomfort, incomplete bladder emptying sensation with difficulty initiating urine on ER- cortez inserted- drained large amount of urine Acute Urinary retention- keep cortez. Possible Neurogenic bladder with history of Muscular dystrophy Started Flomax 0,4 mg po hs 07/24. . trial voiding in next few days days. d/w with and patient that if fails- will require chronic cortez. states he ff up with Dr. Morejon as OP.- consulted REcurrent UTI by history. Continue on Zosyn. Review old admissions- history of Pseudomonas UTI.. FF C and S CRISTAL- pre renal- patient appears dry from obstructive uropathy- gentle IVF. FF BMP. Hold Torsemide for now History of atrial fibrillation S/P PM placement. in SR. continue on meds- decrease sotalol to 80 mg po bid with borderline BPs Coumadin excess- recheck INR today History of Muscular dystrophy. neuro stable History of BALJIT- instructed to bring Bipap for use here. prn nebulization. continue MDIs. continue home meds reviewed meds with . on Torsemide 10 mg - Mw,W, F- hold for now continue . Atorvastatin 10, Ismo 30, [id number], sotalol 120 bid- decrease dose, Singulair. oumadin 4 mg/6 mg- on hold due to elevated NR ASA 81 mg, Vit D, Lexapro. Lyle Corey MD Jul 25, 2016 08:30
[2016-07-25] MEDS ORDERED: NON-FORMULARY DRUG (Levothyroxine 137 MCG) PO SCH (09:00)
[2016-07-25] MEDS ORDERED: NON-FORMULARY DRUG (Lactobacillus Rhamnosus (GG) (Culturelle) 1 CAP) PO SCH (09:00)
[2016-07-25] MEDS ORDERED: MINERALS PO SCH (09:00)
[2016-07-25] MEDS ORDERED: MULTIPLE VITAMINS PO SCH (09:00)
[2016-07-25] MEDS: RESP: ALBUTEROL 2.5 MG/IPRATROPIUM 0.5 MG NEB (SCH) NEB ×4 (09:27→19:23)
[2016-07-25] MEDS ORDERED: RESP: ALBUTEROL 2.5 MG/IPRATROPIUM 0.5 MG NEB (SCH) NEB (12:00)
[2016-07-25] MEDS: SODIUM CHLOR 0.9% 1000 ML INJ 1,000 ML IV SCH (13:06)
--- NOTE | 2016-07-25 19:21 | MB ---
cc: SRINIVAS VILLALPANDO MD DATE OF CONSULTATION: 07/25/2016 REASON FOR CONSULTATION 1. Urinary retention. 2. UTI. 3. History muscular dystrophy. HISTORY OF PRESENT ILLNESS The patient is a 76-year-old male with a history of muscular dystrophy who came to the hospital yesterday with complaints of pain in his lower abdomen and across his lower back. He states the pain has been there for about three weeks. Denied any fevers, chills, nausea or vomiting at that time. The patient stated that he has been having a difficult time urinating and dribbling from time to time. The patient had a Mishra catheter placed for an unknown amount but approximately 1500 came out while sitting down in the ER. He was started on Flomax and Urology was consulted for acute urinary retention. The patient is known to Dr. Morejon and he was last seen approximately six months ago. The patient denies any trouble urinating but he does urinate quite frequently. Denies taking any medications for his prostate in the past. He denies hematuria or a history of kidney stones. He currently still states he has lower back pain but he thinks it is related to him laying in the bed. He is not sure if he has felt better once the catheter was placed yesterday morning. He had a renal ultrasound done which shows a simple renal cyst but no evidence of any hydronephrosis. REVIEW OF SYSTEMS See HPI otherwise review of systems was performed and otherwise was negative. PAST HISTORY Significant for - 1. Diabetes. 2. CHF. 3. Atrial fibrillation. 4. COPD. 5. Sleep apnea. 6. Hyperlipidemia. 7. Chronic back pain. 8. History of diverticulitis. 9. Hypothyroid. 10. History of recurrent UTIs. 11. Muscular dystrophy. 12. C. Diff. PAST SURGICAL HISTORY 1. He has had a pacemaker placement. 2. Coronary angiogram. 3. Left knee surgery. ALLERGIES NO KNOWN DRUG ALLERGIES. FAMILY HISTORY Denies urolithiasis. Negative genitourinary issues. SOCIAL HISTORY Denies smoking, alcohol or drug abuse. He is wheelchair bound. PHYSICAL EXAMINATION VITAL SIGNS: Temperature 96.6, pulse 59, respiratory rate 19, BP 102/58, satting 96% on room air. GENERAL: He is alert and oriented x3, in no acute distress, a pleasant and cooperative gentleman. HEAD, EYES, EARS, NOSE AND THROAT: Head is normocephalic, atraumatic. Mucous membranes are pink and moist. SKIN: No ulcers or rashes visible. LUNGS: Clear to auscultation bilaterally. No wheezes, rales or rhonchi. HEART: Regular, rate and rhythm. No murmurs, gallops or rubs. ABDOMEN: Soft but obese, nontender, nondistended. Positive bowel sounds. GENITOURINARY: His penis is uncircumcised. His testes are descended bilaterally, normal in size and consistency with a Mishra catheter draining clear yellow urine. EXTREMITIES: Nontender with 2+ edema. No clubbing or cyanosis. PSYCHIATRIC: Flat affect. LABORATORY DATA White count of 15.8, hemoglobin 11.7, hematocrit 36.9, platelet count 199. Calcium 134, potassium 4.6, chloride 99, bicarb 28.3, BUN 43, creatinine 0.75, glucose 142. Urine showed large leukocyte esterase, moderate blood with many bacteria. His urine and blood are both growing gram-negative rods. IMAGING STUDIES Renal ultrasound images were reviewed, agree with radiologist's report. The patient has a small simple cyst on his left kidney. No evidence of hydronephrosis or stones. CT of the abdomen and pelvis without contrast was evaluated. It notes he had some stranding of the right kidney with no evidence of hydronephrosis or hydroureter. ASSESSMENT The patient is a 76-year-old male with a history of muscular dystrophy who presents with bilateral flank pain with urinary retention and found to have urosepsis. PLAN I recommend continue Mishra catheter for a minimum of one week and then undergo a void trial. Recommend continuing Flomax 0.4 mg daily. Continue Zosyn as prescribed pending the results of the cultures. He can followup with Dr. Morejon as an outpatient. Srinivas Villalpando MD EMJoann/TIO /5:54 PM /6:20 PM
[2016-07-25] MEDS: ATORVASTATIN 10 MG TAB PO SCH (20:54)
[2016-07-25] MEDS: MONTELUKAST SODIUM 10 MG TAB PO SCH (20:54)
[2016-07-26] VITALS (8 sets, daily range): BP systolic 109–152; BP diastolic 63–83; PULSE 60–69; RESP 17–21; TEMP 95.7–97.4; O2SAT 96–99
[2016-07-26 01:25] LABS: HEMATOCRIT 31.6 % (39.0-51.0); MEAN CELL VOLUME 79.7 FL (80.0-100.0); MEAN CORPUSCULAR HEMOGLOBIN 26.5 PG (27.0-34.0); MEAN CORPUSCULAR HGB CONC 33.2 % (32.0-36.0); PLATELET COUNT 229 TH/MM3 (150-450); RED BLOOD COUNT 3.97 MIL/MM3 (4.50-5.90); RED CELL DISTRIBUTION WIDTH 14.6 % (11.6-17.2); REVIEW FLAG FINAL; WHITE BLOOD COUNT 11.4 TH/MM3 (4.0-11.0)
[2016-07-26 01:30] LABS: INTERNATIONAL NORMALIZED RATIO 2.2 RATIO; PROTHROMBIN TIME - PATIENT 24.7 SEC (9.8-11.6)
[2016-07-26 01:35] LABS: BICARBONATE 29.2 MEQ/L (21.0-32.0); POTASSIUM 4.3 MEQ/L (3.5-5.1)
[2016-07-26] MEDS: SODIUM CHLOR 0.9% 1000 ML INJ 1,000 ML IV SCH ×2 (03:20→06:25)
[2016-07-26] MEDS: LEVOTHYROXINE SODIUM 112 MCG TAB PO SCH (06:12)
[2016-07-26] MEDS: ACETAMINOPHEN 325 MG TAB PO SCH ×3 (06:12→16:30)
[2016-07-26] MEDS: LEVOTHYROXINE SODIUM 25 MCG TAB PO SCH (06:12)
[2016-07-26] MEDS: PIPERACIL-TAZO 4.5 GM PREMIX 100 ML IV SCH ×2 (06:13→11:52)
[2016-07-26] MEDS ORDERED: ENOXAPARIN SODIUM 40 MG/0.4 ML SYRINGE SQ SCH (08:45)
--- NOTE | 2016-07-26 08:48 | HHI.PR ---
Subjective Remarks no respiratory complains no fever or chills good po, no nausea or vomiting calmer now Objective Vitals Vital Signs Date Time Temp Pulse Resp B/P Pulse Ox O2 Delivery O2 Flow Rate FiO2 07/26/16 04:08 96.9 68 17 118/68 98 07/26/16 00:00 97.4 66 21 109/63 99 07/25/16 20:49 96.4 69 21 109/63 99 07/25/16 16:00 96.6 59 19 102/58 96 07/25/16 15:42 99 Nasal Cannula 2.00 07/25/16 12:00 96.7 60 19 99/56 97 I/O 07/25/16 07/25/16 07/25/16 07/26/16 07/26/16 07/26/16 07:00 15:00 23:00 07:00 15:00 23:00 Intake Total 1125 ml 200 ml 1469 ml 818 ml Output Total 500 ml 240 ml 1050 ml Balance 625 ml 200 ml 1229 ml -232 ml Intake Oral 360 ml 200 ml 380 ml 360 ml IV Total 765 ml 1089 ml 458 ml Output Urine Total 500 ml 240 ml 1050 ml Bladder Scan Volume Amount 966 ml # Voids 1 # Bowel Movements 1 Result Diagram: 07/26/16 0055 07/26/16 0055 Imaging Last Impressions Renal Ultrasound 07/24/16 0000 Signed Impressions: Service Date/Time: July 18:03 - CONCLUSION: 1. 2 small simple cysts involve the left kidney correlate to the findings on the recent CT. 2. No hydronephrosis involving either kidney. 3. Urinary bladder not visualized. Enrique Henderson Jr., MD Chest X-Ray 07/24/16 0000 Signed Impressions: Service Date/Time: July 05:23 - CONCLUSION: Basilar infiltrates and probable small effusions Sherwin Castillo MD Abdomen/Pelvis CT 07/23/16 2146 Signed Impressions: Service Date/Time: Saturday, July 23, 2016 22:19 - CONCLUSION: 1. Stranding associated with the right kidney with mild pelvocaliectasis. This can relate to a recently passed stone or could relate to an acute inflammatory or infectious process. 2. 5.1 cm ascending aortic aneurysm partially seen. 3. Cholelithiasis. No acute inflammation. 4. 2.5 cm splenic cyst or hemangioma is stable. 5. Exophytic 4.5 cm lesion from the lower pole the left kidney not felt to relate to a simple cyst. This could relate to a complex cyst or solid lesion. Ultrasound of the kidneys as an outpatient as suggested. 6. Diverticulosis of the colon without acute abnormality. Enrique Henderson Jr., MD Objective Remarks awake and alert, NAD, calm anicteric, very dry oral lungs no rales or wheezes, good air exchange regular rhythm abdomen soft, good bowel sounds, no tenderness, no CVA tenderness cortez in place extremities no edema, no calf swelling, good peripheral pulses moves toes freely Urinary Catheter: Yes Assessment to: Continue Cortez insert reason: Obstruction/Retention Date of Insertion: Jul 24, 2016 A/P Problem List: (1) Pyelonephritis ICD Code: N12 Status: Acute (2) Urinary retention ICD Code: R33.9 Status: Acute Assessment and Plan 76 years old male with history of muscular dystrophy is a total care - baseline states continent of urine and stools, history of recurrent UTI had 3 different courses of antibiotics this past month came in with increasing abdominal discomfort, incomplete bladder emptying sensation with difficulty initiating urine on ER- cortez inserted- drained large amount of urine Acute Urinary retention- likely underlying Neurogenic bladder with history of Muscular dystrophy keep cortez. Started Flomax 0,4 mg po hs 07/24. . trial voiding next few days - d/w with and patient that if fails- will require chronic cortez. states he ff up with Dr. Morejon as OP. Bladder US/Renal US - no hydronephrosis seen by Dr. Fagan Klebsiella sepsis secondary to UTI underlying likely neurogenic bladder- Review old admissions- history of recurrent UTI - Pseudomonas UTI.. FF C and S ID consult for recommendation-- duration need for ? PICC currently on Zosyn recheck Blood cultures to ensure clearance CRISTAL- pre renal- patient appears dry from obstructive uropathy- gentle IVF. FF BMP. Hold Torsemide for now History of atrial fibrillation S/P PM placement. in SR. continue on meds- on sotalol 120 mg bid as OP - decrease here to 80 mg po bid - d borderline BPs Coumadin excess- corrected- as OP on 4 mg/6 mg restart Coumadin today. FF INR on antibiotics. start at 5 mg daily History of Muscular dystrophy. neuro stable- most;y WC bound History of BALJIT- instructed to bring Bipap for use here. prn nebulization. continue MDIs. continue home meds Hyperglycemia on labs- states history of "borderline diabetes" last A1C- 6.0 place on ADA diet. FF blood sugar bid and record DVT prophylaxis - Patient on coumadin 07/25 reviewed meds with . on Torsemide 10 mg - Mw,W, F- hold for now continue . Atorvastatin 10, Ismo 30, [id number], sotalol 120 bid- decrease dose, Singulair. hold Coumadin 4 mg/6 mg- on hold due to elevated NR ASA 81 mg, Vit D, Lexapro. Lyle Corey MD Jul 26, 2016 08:48
[2016-07-26] MEDS: SODIUM CHLORIDE 0.9% FLUSH 10 ML FLUSH IV FLUSH SCH ×2 (09:00→21:00)
[2016-07-26] MEDS: RESP: ALBUTEROL 2.5 MG/IPRATROPIUM 0.5 MG NEB (SCH) NEB ×4 (09:16→20:49)
[2016-07-26] MEDS: SOTALOL HCL 80 MG TAB PO SCH ×2 (09:42→22:01)
[2016-07-26] MEDS: ISOSORBIDE MONONITRATE 30 MG TAB PO SCH (09:43)
[2016-07-26] MEDS: MULTIVITAMINS/MINERALS THERAPEUTIC TAB PO SCH (09:43)
[2016-07-26] MEDS: LACTOBACILLUS ACIDOPHILUS TAB PO SCH (09:43)
[2016-07-26] MEDS: ESCITALOPRAM OXALATE 10 MG TAB PO SCH (09:43)
[2016-07-26] MEDS: TAMSULOSIN HCL 0.4 MG CAP PO SCH (09:43)
[2016-07-26] MEDS: TIOTROPIUM BROMIDE 18 MCG INH INH SCH (09:45)
--- NOTE | 2016-07-26 14:41 | PD.ID.CON ---
History of Present Illness Service ID Consult Requested By Reason for Consult Evaluation and Mment of Sepsis, Kleb Pneumo bacteremia in a patient with pacemaker. Primary Care Physician Michael Arreola MD Diagnoses: History of Present Illness Mr. Walker is a 76-year-old male with past medical history significant for muscular dystrophy, recurrent urinary tract infections, multiple courses of antibiotics, history of C. difficile, coronary artery disease, CHF, atrial fibrillation, status post pacemaker placement in 2003. At baseline patient is mostly bedbound and his family transports him using a wheelchair. Patient can use his upper extremity for using the remote of the wheelchair but is unable to use his upper extremities for transfer self from one place to another. Patient reports that approximately for 3 weeks now he has been on Macrobid for urinary tract infection with not much improvement. Patient's daughter reports that his urine color has been yellowish goins in color despite antibiotics and his urologist was made aware of this. Patient presented to the emergency department with abdominal pain and discomfort in the suprapubic area and dribbling possibly overflow incontinence. Patient wears diapers at baseline. Upon presentation when a Mishra catheter was placed in the emergency department 1500 cc of urine was collected. Patient was started on Flomax and urology was consulted for acute urinary retention. Patient reports frequent wetting of his diapers. Denies taking any medications for prostate issues. Is unsure if patient has been worked up for neurogenic bladder given his muscular dystrophy and neurological issues. Patient reports a chronic back pain. A CT of the abdomen pelvis was done which showed stranding of the right kidney. Urology has been consulted. On presentation patient met sepsis criteria and blood cultures and urine cultures were obtained. Blood cultures and urine cultures on admission are now positive for Klebsiella pneumonia which is pretty pansensitive. Rashes disease is consulted for evaluation and management of sepsis, clubbing or bacteremia and patient with pacemaker. Review of Systems Constitutional: COMPLAINS OF: Fever, DENIES: Diaphoretic episodes, Fatigue, Weight gain, Weight loss, Chills, Dizziness, Change in appetite, Night Sweats Endocrine: DENIES: Heat/cold intolerance, Polydipsia, Polyuria, Polyphagia Eyes: DENIES: Blurred vision, Diplopia, Eye inflammation, Eye pain, Vision loss , Photosensitivity, Double Vision Ears, nose, mouth, throat: DENIES: Tinnitus, Hearing loss, Vertigo, Nasal discharge, Oral lesions, Throat pain, Hoarseness, Ear Pain, Running Nose, Epistaxis, Sinus Pain, Toothache, Odynophagia Respiratory: DENIES: Apneas, Cough, Snoring, Wheezing, Hemoptysis, Sputum production, Shortness of breath Cardiovascular: DENIES: Chest pain, Palpitations, Syncope, Dyspnea on Exertion , PND, Lower Extremity Edema, Orthopnea, Claudication Gastrointestinal: COMPLAINS OF: Abdominal pain, DENIES: Black stools, Bloody stools, Constipation, Diarrhea, Nausea, Vomiting, Difficulty Swallowing, Anorexia Genitourinary: COMPLAINS OF: Urinary frequency, Urinary incontinence, DENIES: Sexual dysfunction, Urgency, Hematuria, Dysuria, Nocturia, Penile Discharge, Testicular Pain, Testicular Swelling Musculoskeletal: COMPLAINS OF: Back pain, DENIES: Joint pain, Muscle aches, Stiffness, Joint Swelling, Neck pain Integumentary: DENIES: Abnormal pigmentation, Nail changes, Pruritus, Rash Hematologic/lymphatic: DENIES: Bruising, Lymphadenopathy Immunologic/allergic: DENIES: Eczema, Urticaria Psychiatric: DENIES: Anxiety, Confusion, Mood changes, Depression, Hallucinations, Agitation, Suicidal Ideation, Homicidal Ideation, Delusions Except as stated in HPI: all other systems reviewed are Neg Lower limb not much function is wheel chair dependent. Past Family Social History Allergies: Coded Allergies: No Known Allergies (Verified , PER H/P, 07/23/16) Past Medical History 1. Diabetes. 2. CHF. 3. Atrial fibrillation. 4. COPD. 5. Sleep apnea. 6. Hyperlipidemia. 7. Chronic back pain. 8. History of diverticulitis. 9. Hypothyroid. 10. History of recurrent UTIs. 11. Muscular dystrophy. 12. C. Diff. Past Surgical History 1. He has had a pacemaker placement. 2. Coronary angiogram. 3. Left knee surgery. Reported Medications Reported Meds & Active Scripts Active Reported Piperacillin-Tazobactam Inj 4-0.5 Gm Inj 4.5 Gm IV Q6HR 9 Days Milk of Magnesia Liq (Magnesium Hydroxide) 400 Mg/5 Ml Susp 30 Ml PO DAILY PRN Fleet Enema Rectal (Sodium Phosphates Rectal) 7-19 Gm/118 Ml Enem 1 Applic KS ON 4TH DAY PRN Dulcolax Supp (Bisacodyl) 10 Mg Supp 10 Mg KS DAILY PRN Maryjo Protect (Skin Protectants, Misc.) 1 Cre Cre 1 Applic TOP Q8HR Apply to buttocks q-shift and prn rash Multi-Vitamin/Minerals (Multiple Vitamins W/ Minerals) 1 Tab Tab 1 Tab PO DAILY Acetaminophen 325 Mg Tab 325 Mg PO Q6HR Culturelle (Lactobacillus Rhamnosus (GG)) 10 B Cell Cap 1 Cap PO DAILY Lexapro (Escitalopram Oxalate) 10 Mg Tab 10 Mg PO DAILY Warfarin 5 Mg Tab 5 Mg PO DAILY Spiriva Handihaler (Tiotropium Inh) 18 Mcg Cap 2 Puff INH DAILY 1 capsule = 18 mcg Ventolin Hfa 18 GM Inh (Albuterol Sulfate) 90 Mcg/Act Aer 2 Puff INH Q6HR PRN Losartan (Losartan Potassium) 25 Mg Tab 25 Mg PO DAILY Atorvastatin (Atorvastatin Calcium) 10 Mg Tab 10 Mg PO HS Isosorbide Mononitrate ER (Isosorbide Mononitrate) 30 Mg Adam 30 Mg PO DAILY Levothyroxine (Levothyroxine Sodium) 137 Mcg Tab 137 Mcg PO DAILY Active Ordered Medications Current Medications Medications (Trade) Dose Ordered Sig/Yolanda Route Start Time Stop Time Status Last Admin (NS Flush) 2 ml UNSCH PRN IV FLUSH 07/24/16 00:00 (NS Flush) 2 ml BID IV FLUSH 07/24/16 09:00 07/24/16 10:54 Naloxone HCl 0.4 mg 0.4 mg UNSCH PRN IV 07/24/16 00:00 Piperacillin Sod/ Tazobactam Sod 100 ml @ 200 mls/hr Q6H IV 07/24/16 00:00 07/26/16 11:52 (NS 1000 ml Inj) 1,000 ml @ 60 mls/hr [id number] IV 07/24/16 18:00 07/25/16 13:06 (Tylenol) 325 mg Q6HR PO 07/24/16 18:00 07/26/16 11:51 (Ventolin Hfa Inh) 2 puff Q6HR PRN INH 07/24/16 17:45 (Lipitor) 10 mg HS PO 07/24/16 21:00 07/25/16 20:54 (Dulcolax Supp) 10 mg DAILY PRN RECTAL 07/24/16 17:00 (Lexapro) 10 mg DAILY PO 07/25/16 09:00 07/26/16 09:43 (Imdur) 30 mg DAILY PO 07/25/16 09:00 07/26/16 09:43 (Milk Of Magnesia Liq) 30 ml DAILY PRN PO 07/24/16 17:00 (Spiriva Inh) 18 mcg DAILY INH 07/25/16 09:00 07/26/16 09:45 (Betapace) 80 mg Q12HR PO 07/24/16 21:00 07/26/16 09:42 (Flomax) 0.4 mg DAILY PO 07/24/16 21:00 07/26/16 09:43 (Theragran M Tab) 1 tab DAILY PO 07/25/16 09:00 07/26/16 09:43 (Lactinex) 1 tab DAILY PO 07/25/16 09:00 07/26/16 09:43 (Synthroid) 112 mcg DAILY@06 PO 07/25/16 06:00 07/26/16 06:12 (Synthroid) 25 mcg DAILY@06 PO 07/25/16 06:00 07/26/16 06:12 (Singulair) 10 mg HS PO 07/25/16 21:00 07/25/16 20:54 (Coumadin) 4 mg DAILY@16 PO 07/26/16 16:00 (Coumadin Booklet) 1 ONCE ONCE OTHER 07/26/16 16:00 07/26/16 16:01 Family History reviewed and MD Social History Denies smoking, alcohol or drug abuse. He is wheelchair bound. Physical Exam Vital Signs Vital Signs Date Time Temp Pulse Resp B/P Pulse Ox O2 Delivery O2 Flow Rate FiO2 07/26/16 12:00 95.7 69 20 130/73 97 07/26/16 09:16 98 Nasal Cannula 2.00 07/26/16 08:00 96.1 62 20 125/69 96 07/26/16 04:08 96.9 68 17 118/68 98 07/26/16 00:00 97.4 66 21 109/63 99 07/25/16 20:49 96.4 69 21 109/63 99 07/25/16 16:00 96.6 59 19 102/58 96 07/25/16 15:42 99 Nasal Cannula 2.00 Physical Exam GENERAL: This is a well-nourished, well-developed patient, in no apparent distress. SKIN: No rashes, ecchymoses or lesions. Cool and dry. HEAD: Atraumatic. Normocephalic. No temporal or scalp tenderness. EYES: Pupils equal round and reactive. Extraocular motions intact. No scleral icterus. No injection or drainage. ENT: Nose without bleeding, purulent drainage or septal hematoma. Throat without erythema, tonsillar hypertrophy or exudate. Uvula midline. Airway patent. NECK: Trachea midline. Supple, nontender, no meningeal signs. CARDIOVASCULAR: HUs audible. RESPIRATORY: Clear to auscultation. Breath sounds equal bilaterally. No wheezes , rales, or rhonchi. GASTROINTESTINAL: Abdomen soft, non-tender, nondistended. MUSCULOSKELETAL: Extremities without clubbing, cyanosis, or edema. Chronic discoloration and skin changes. NEUROLOGICAL: Awake and alert. Grossly non focal Psych cooperative IV line sites with no e/o infection. Laboratory Laboratory Tests Test 07/26/16 00:55 White Blood Count 11.4 Red Blood Count 3.97 Hemoglobin 10.5 Hematocrit 31.6 Mean Corpuscular Volume 79.7 Mean Corpuscular Hemoglobin 26.5 Mean Corpuscular Hemoglobin 33.2 Concent Red Cell Distribution Width 14.6 Platelet Count 229 Mean Platelet Volume 7.9 Prothrombin Time 24.7 Prothromb Time International 2.2 Ratio Sodium Level 135 Potassium Level 4.3 Chloride Level 100 Carbon Dioxide Level 29.2 Anion Gap 6 Blood Urea Nitrogen 41 Creatinine 0.65 Estimat Glomerular Filtration 119 Rate Random Glucose 225 Calcium Level 8.4 Thyroid Stimulating Hormone 0.505 3rd Gen Date/Time Procedure Status Source Growth 07/26/16 11:00 Aerobic Blood Culture Received Blood Peripheral Pending 07/26/16 11:00 Anaerobic Blood Culture Received Blood Peripheral Pending 07/23/16 23:20 Aerobic Blood Culture - Final Complete Blood Peripheral Klebsiella Pneumoniae 07/23/16 23:20 Anaerobic Blood Culture - Final Complete Klebsiella Pneumoniae 07/23/16 23:03 Urine Culture - Final Complete Urine Clean Catch Klebsiella Pneumoniae Result Diagram: 07/26/16 0055 07/26/16 0055 Imaging Last Impressions Renal Ultrasound 07/24/16 0000 Signed Impressions: Service Date/Time: July 18:03 - CONCLUSION: 1. 2 small simple cysts involve the left kidney correlate to the findings on the recent CT. 2. No hydronephrosis involving either kidney. 3. Urinary bladder not visualized. Enrique Henderson Jr., MD Chest X-Ray 07/24/16 0000 Signed Impressions: Service Date/Time: July 05:23 - CONCLUSION: Basilar infiltrates and probable small effusions Sherwin Castillo MD Abdomen/Pelvis CT 07/23/16 2146 Signed Impressions: Service Date/Time: Saturday, July 23, 2016 22:19 - CONCLUSION: 1. Stranding associated with the right kidney with mild pelvocaliectasis. This can relate to a recently passed stone or could relate to an acute inflammatory or infectious process. 2. 5.1 cm ascending aortic aneurysm partially seen. 3. Cholelithiasis. No acute inflammation. 4. 2.5 cm splenic cyst or hemangioma is stable. 5. Exophytic 4.5 cm lesion from the lower pole the left kidney not felt to relate to a simple cyst. This could relate to a complex cyst or solid lesion. Ultrasound of the kidneys as an outpatient as suggested. 6. Diverticulosis of the colon without acute abnormality. Enrique Henderson Jr., MD Assessment and Plan Assessment and Plan Sepsis present on admission Klebsiella pneumoniae bacteremia Kleb pneumo cystitis, pyelonephritis. Acute retention of urine: ? BPH, ? neurogenic bladder Recs DC Zosyn IV Start Ceftriaxone IV Follow cultures Follow clinically. If repeat cultures positive will need endovascular workup as patient has a pacemaker. No PICC. Possible discharge on oral antibiotics if bacteremia is transient. d/w hospitalist. Sarita Heath MD Jul 26, 2016 14:41
[2016-07-26] MEDS ORDERED: WARFARIN SOD 4 MG TAB PO SCH (16:00)
[2016-07-26] MEDS: cefTRIAXone INJ 2,000 MG in SODIUM CHLORIDE 0.9% INJ 100 ML IV SCH (16:30)
[2016-07-26] MEDS: ATORVASTATIN 10 MG TAB PO SCH (22:01)
[2016-07-26] MEDS: MONTELUKAST SODIUM 10 MG TAB PO SCH (22:01)
[2016-07-27] VITALS (9 sets, daily range): BP systolic 124–155; BP diastolic 69–81; PULSE 59–62; RESP 18–20; TEMP 96–99.3; O2SAT 95–100
[2016-07-27] MEDS: ACETAMINOPHEN 325 MG TAB PO SCH ×6 (02:01→23:17)
[2016-07-27 05:05] LABS: INTERNATIONAL NORMALIZED RATIO 1.6 RATIO; PROTHROMBIN TIME - PATIENT 17.7 SEC (9.8-11.6)
[2016-07-27] MEDS: LEVOTHYROXINE SODIUM 25 MCG TAB PO SCH (06:25)
[2016-07-27] MEDS: LEVOTHYROXINE SODIUM 112 MCG TAB PO SCH (06:25)
--- NOTE | 2016-07-27 08:05 | HHI.PR ---
Subjective Remarks no complains, slept well, no nausea or vomiting no fever or chills Objective Vitals Vital Signs Date Time Temp Pulse Resp B/P Pulse Ox O2 Delivery O2 Flow Rate FiO2 07/27/16 07:25 18 07/27/16 04:00 96.7 60 19 124/72 97 07/27/16 00:00 96.0 62 19 130/79 97 07/26/16 20:49 96 BiPAP 3.00 07/26/16 20:00 95.8 64 19 152/83 97 07/26/16 16:00 97.0 60 20 115/69 98 07/26/16 12:00 95.7 69 20 130/73 97 07/26/16 09:16 98 Nasal Cannula 2.00 I/O 07/26/16 07/26/16 07/26/16 07/27/16 07/27/16 07/27/16 07:00 15:00 23:00 07:00 15:00 23:00 Intake Total 818 ml 784 ml 240 ml 1050 ml Output Total 1050 ml 1150 ml 550 ml Balance -232 ml 784 ml -910 ml 500 ml Intake Oral 360 ml 240 ml 240 ml IV Total 458 ml 784 ml 810 ml Output Urine Total 1050 ml 1150 ml 550 ml Bladder Scan Volume Amount 966 ml # Bowel Movements 3 Result Diagram: 07/26/16 0055 07/26/16 0055 Imaging Last Impressions Renal Ultrasound 07/24/16 0000 Signed Impressions: Service Date/Time: July 18:03 - CONCLUSION: 1. 2 small simple cysts involve the left kidney correlate to the findings on the recent CT. 2. No hydronephrosis involving either kidney. 3. Urinary bladder not visualized. Enrique Henderson Jr., MD Chest X-Ray 07/24/16 0000 Signed Impressions: Service Date/Time: July 05:23 - CONCLUSION: Basilar infiltrates and probable small effusions Sherwin Castillo MD Abdomen/Pelvis CT 07/23/166 Signed Impressions: Service Date/Time: Saturday, July 23, 2016 22:19 - CONCLUSION: 1. Stranding associated with the right kidney with mild pelvocaliectasis. This can relate to a recently passed stone or could relate to an acute inflammatory or infectious process. 2. 5.1 cm ascending aortic aneurysm partially seen. 3. Cholelithiasis. No acute inflammation. 4. 2.5 cm splenic cyst or hemangioma is stable. 5. Exophytic 4.5 cm lesion from the lower pole the left kidney not felt to relate to a simple cyst. This could relate to a complex cyst or solid lesion. Ultrasound of the kidneys as an outpatient as suggested. 6. Diverticulosis of the colon without acute abnormality. Enrique Henderson Jr., MD Objective Remarks awake and alert, NAD, anicteric, very dry oral lungs no rales or wheezes, good air exchange regular rhythm abdomen soft, good bowel sounds, no tenderness, no CVA tenderness cortez in place extremities no edema, no calf swelling, good peripheral pulses moves toes freely Urinary Catheter: Yes Assessment to: Continue Cortez insert reason: Obstruction/Retention Date of Insertion: Jul 24, 2016 A/P Problem List: (1) Pyelonephritis ICD Code: N12 Status: Acute (2) Urinary retention ICD Code: R33.9 Status: Acute Assessment and Plan 76 years old male with history of muscular dystrophy is a total care - baseline states continent of urine and stools, history of recurrent UTI had 3 different courses of antibiotics this past month came in with increasing abdominal discomfort, incomplete bladder emptying sensation with difficulty initiating urine on ER- cortez inserted- drained large amount of urine Acute Urinary retention- likely underlying Neurogenic bladder with history of Muscular dystrophy Started Flomax 0,4 mg po hs 07/24. . Bladder US/Renal US - no hydronephrosis seen by Dr. Fagan plan to keep cortez for 1 week then voiding trial Klebsiella sepsis secondary to UTI underlying likely neurogenic bladder- Review old admissions- history of recurrent UTI - Pseudomonas UTI.. FF C and S ID consult for recommendation-- duration need for ? PICC on Zosyn- changed to Ceftriaxone 2 gm IV daily recheck Blood cultures to ensure clearance CRISTAL- pre renal- patient appears dry from obstructive uropathy- gentle IVF. FF BMP. Hold Torsemide for now History of atrial fibrillation S/P PM placement. in SR. continue on meds- on sotalol 120 mg bid as OP - decrease here to 80 mg po bid - d borderline BPs Coumadin excess- corrected- as OP on 4 mg/6 mg restart Coumadin today. FF INR on antibiotics. start at 5 mg daily History of Muscular dystrophy. neuro stable- most;y WC bound History of BALJIT- instructed to bring Bipap for use here. prn nebulization. continue MDIs. continue home meds Hypothyroidism on synthroid Hyperglycemia on labs- states history of "borderline diabetes" last A1C- 6.0 place on ADA diet. FF blood sugar bid and record DVT prophylaxis - Patient on coumadin 07/25 reviewed meds with . on Torsemide 10 mg - Mw,W, F- hold for now continue . Atorvastatin 10, Ismo 30, [id number], sotalol 120 bid- decrease dose, Singulair. hold Coumadin 4 mg/6 mg- on hold due to elevated NR ASA 81 mg, Vit D, Lexapro. Lyle Corey MD Jul 27, 2016 08:05 Lyle Corey MD Jul 27, 2016 08:05
[2016-07-27] MEDS: TIOTROPIUM BROMIDE 18 MCG INH INH SCH (08:14)
[2016-07-27] MEDS: MULTIVITAMINS/MINERALS THERAPEUTIC TAB PO SCH (08:16)
[2016-07-27] MEDS: ISOSORBIDE MONONITRATE 30 MG TAB PO SCH (08:16)
[2016-07-27] MEDS: ESCITALOPRAM OXALATE 10 MG TAB PO SCH (08:16)
[2016-07-27] MEDS: LACTOBACILLUS ACIDOPHILUS TAB PO SCH (08:16)
[2016-07-27] MEDS: TAMSULOSIN HCL 0.4 MG CAP PO SCH (08:16)
[2016-07-27] MEDS: SOTALOL HCL 80 MG TAB PO SCH ×2 (08:16→20:51)
[2016-07-27] MEDS: SODIUM CHLORIDE 0.9% FLUSH 10 ML FLUSH IV FLUSH SCH ×2 (08:17→20:52)
[2016-07-27] MEDS: RESP: ALBUTEROL 2.5 MG/IPRATROPIUM 0.5 MG NEB (SCH) NEB ×4 (08:24→20:09)
[2016-07-27 09:57] LABS: HEMOGLOBIN A1b 1.9 %; HEMOGLOBIN Ao 82.6 %; HEMOGLOBIN LA1C 2.8 %; HEMOGLOBIN P3 6.3 %
[2016-07-27] MEDS: SODIUM CHLOR 0.9% 1000 ML INJ 1,000 ML IV SCH (12:40)
[2016-07-27] MEDS: cefTRIAXone INJ 2,000 MG in SODIUM CHLORIDE 0.9% INJ 100 ML IV SCH (14:39)
[2016-07-27] MEDS: WARFARIN SOD 5 MG TAB PO SCH (16:08)
[2016-07-27] MEDS: MONTELUKAST SODIUM 10 MG TAB PO SCH (20:51)
[2016-07-27] MEDS: ATORVASTATIN 10 MG TAB PO SCH (20:52)
[2016-07-28] VITALS (9 sets, daily range): BP systolic 124–157; BP diastolic 67–83; PULSE 58–67; RESP 17–20; TEMP 97.5–98.4; O2SAT 95–100
[2016-07-28] MEDS: SODIUM CHLOR 0.9% 1000 ML INJ 1,000 ML IV SCH ×2 (04:00→16:14)
[2016-07-28] MEDS: LEVOTHYROXINE SODIUM 25 MCG TAB PO SCH (06:54)
[2016-07-28] MEDS: LEVOTHYROXINE SODIUM 112 MCG TAB PO SCH (06:54)
[2016-07-28] MEDS: ACETAMINOPHEN 325 MG TAB PO SCH ×3 (06:55→18:00)
--- NOTE | 2016-07-28 07:51 | HHI.PR ---
Subjective Remarks slept well overnight, no fever or chills complains of discomfort - bed uncomfortable- has hospital bed at home with an air bed Objective Vitals Vital Signs Date Time Temp Pulse Resp B/P Pulse Ox O2 Delivery O2 Flow Rate FiO2 07/28/16 04:00 97.6 61 17 157/77 97 07/28/16 00:17 18 07/28/16 00:00 98.4 60 17 131/71 100 07/27/16 20:09 99 Nasal Cannula 3.00 07/27/16 20:00 99.3 62 18 155/76 100 07/27/16 16:35 96.4 61 20 144/69 96 07/27/16 12:00 96.0 60 20 135/81 95 07/27/16 08:24 99 Nasal Cannula 3.00 07/27/16 08:10 59 07/27/16 08:00 96.1 59 20 135/77 100 I/O 07/27/16 07/27/16 07/27/16 07/28/16 07/28/16 07/28/16 07:00 15:00 23:00 07:00 15:00 23:00 Intake Total 1050 ml 655 ml 240 ml 240 ml Output Total 550 ml 300 ml 850 ml Balance 500 ml 655 ml -60 ml -610 ml Intake Oral 240 ml 240 ml 240 ml 240 ml IV Total 810 ml 415 ml Output Urine Total 550 ml 300 ml 850 ml # Bowel Movements 1 Result Diagram: 07/26/16 0055 07/26/16 0055 Imaging Last Impressions Renal Ultrasound 07/24/16 0000 Signed Impressions: Service Date/Time: July 18:03 - CONCLUSION: 1. 2 small simple cysts involve the left kidney correlate to the findings on the recent CT. 2. No hydronephrosis involving either kidney. 3. Urinary bladder not visualized. Enrique Henderson Jr., MD Chest X-Ray 07/24/16 0000 Signed Impressions: Service Date/Time: July 05:23 - CONCLUSION: Basilar infiltrates and probable small effusions Sherwin Castillo MD Abdomen/Pelvis CT 07/23/16 2146 Signed Impressions: Service Date/Time: Saturday, July 23, 2016 22:19 - CONCLUSION: 1. Stranding associated with the right kidney with mild pelvocaliectasis. This can relate to a recently passed stone or could relate to an acute inflammatory or infectious process. 2. 5.1 cm ascending aortic aneurysm partially seen. 3. Cholelithiasis. No acute inflammation. 4. 2.5 cm splenic cyst or hemangioma is stable. 5. Exophytic 4.5 cm lesion from the lower pole the left kidney not felt to relate to a simple cyst. This could relate to a complex cyst or solid lesion. Ultrasound of the kidneys as an outpatient as suggested. 6. Diverticulosis of the colon without acute abnormality. Enrique Henderson Jr., MD Objective Remarks awake and alert, NAD, anicteric, lungs no rales or wheezes, good air exchange regular rhythm abdomen soft, good bowel sounds, no tenderness, no CVA tenderness cortez in place extremities no edema, no calf swelling, good peripheral pulses moves toes and feet Urinary Catheter: Yes Cortez insert reason: Obstruction/Retention Date of Insertion: Jul 24, 2016 A/P Problem List: (1) Pyelonephritis ICD Code: N12 Status: Acute (2) Urinary retention ICD Code: R33.9 Status: Acute Assessment and Plan 76 years old male with history of muscular dystrophy is a total care - baseline states continent of urine and stools, history of recurrent UTI had 3 different courses of antibiotics this past month came in with increasing abdominal discomfort, incomplete bladder emptying sensation with difficulty initiating urine on ER- cortez inserted- drained large amount of urine Acute Urinary retention- likely underlying Neurogenic bladder with history of Muscular dystrophy Started Flomax 0,4 mg po hs 07/24. . Bladder US/Renal US - no hydronephrosis seen by Dr. Fagan plan to keep cortez - pl;aced 07/24 for 1 week then voiding trial Klebsiella sepsis secondary to UTI underlying likely neurogenic bladder- Review old admissions- history of recurrent UTI - Pseudomonas UTI.. FF C and S ID consult for recommendation-- duration need for ? PICC on Ceftriaxone 2 gm IV daily- 07/26 (received Zosyn prior) repeat blood cultures so far no growth- ff CRISTAL- pre renal- patient appears dry from obstructive uropathy- gentle IVF. FF BMP. Hold Torsemide for now History of atrial fibrillation S/P PM placement. in SR. continue on meds- on sotalol 120 mg bid as OP - decrease here to 80 mg po bid - borderline BPs Coumadin excess- corrected- as OP on 4 mg/6 mg restart Coumadin today. FF INR on antibiotics. started t 5 mg daily History of Muscular dystrophy. neuro stable- mostly WC bound History of BALJIT- instructed to bring Bipap for use here. prn nebulization. continue MDIs. continue home meds Hypothyroidism on synthroid DM type 2- A1C - 6.4 states history of "borderline diabetes" last A1C- 6.0 place on ADA diet. FF blood sugar bid and record states was on metformin in the past and developed pain- which was attributed to this drug trail of Actos daily and monitor DVT prophylaxis - Patient on coumadin 07/25 reviewed meds with . on Torsemide 10 mg - Mw,W, F- hold for now continue . Atorvastatin 10, Ismo 30, [id number], sotalol 120 bid- decrease dose, Singulair. hold Coumadin 4 mg/6 mg- on hold due to elevated NR ASA 81 mg, Vit D, Lexapro. Lyle Corey MD Jul 28, 2016 07:51
[2016-07-28] MEDS: RESP: ALBUTEROL 2.5 MG/IPRATROPIUM 0.5 MG NEB (SCH) NEB ×4 (08:02→19:27)
[2016-07-28] MEDS: ESCITALOPRAM OXALATE 10 MG TAB PO SCH (08:32)
[2016-07-28] MEDS: LACTOBACILLUS ACIDOPHILUS TAB PO SCH (08:32)
[2016-07-28] MEDS: SOTALOL HCL 80 MG TAB PO SCH ×2 (08:32→22:02)
[2016-07-28] MEDS: ISOSORBIDE MONONITRATE 30 MG TAB PO SCH (08:32)
[2016-07-28] MEDS: TAMSULOSIN HCL 0.4 MG CAP PO SCH (08:32)
[2016-07-28] MEDS: TIOTROPIUM BROMIDE 18 MCG INH INH SCH (08:33)
[2016-07-28] MEDS: SODIUM CHLORIDE 0.9% FLUSH 10 ML FLUSH IV FLUSH SCH ×2 (08:33→22:01)
[2016-07-28] MEDS: MULTIVITAMINS/MINERALS THERAPEUTIC TAB PO SCH (08:33)
[2016-07-28] MEDS: PIOGLITAZONE HCL 15 MG TAB PO SCH (09:56)
[2016-07-28 10:39] LABS: AUTOMATED NEUTROPHIL # 5.7 TH/MM3 (1.8-7.7); BASOPHIL % 0.3 % (0.0-2.0); EOSINOPHIL # 0.1 TH/MM3 (0-0.4); HEMATOCRIT 32.6 % (39.0-51.0); HEMO FLAGS DIFF FINAL; LYMPH % 16.9 % (9.0-44.0); LYMPHOCYTE # 1.3 TH/MM3 (1.0-4.8); MEAN CELL VOLUME 81.7 FL (80.0-100.0); MEAN CORPUSCULAR HEMOGLOBIN 25.8 PG (27.0-34.0); MEAN CORPUSCULAR HGB CONC 31.6 % (32.0-36.0); MONO % 9.1 % (0.0-8.0); NEUT % 72.7 % (16.0-70.0); PLATELET COUNT 236 TH/MM3 (150-450); RED BLOOD COUNT 3.99 MIL/MM3 (4.50-5.90); RED CELL DISTRIBUTION WIDTH 14.9 % (11.6-17.2); WHITE BLOOD COUNT 7.9 TH/MM3 (4.0-11.0)
[2016-07-28 11:04] LABS: BICARBONATE 30.5 MEQ/L (21.0-32.0)
[2016-07-28 11:10] LABS: INTERNATIONAL NORMALIZED RATIO 1.7 RATIO; PROTHROMBIN TIME - PATIENT 19.8 SEC (9.8-11.6)
--- NOTE | 2016-07-28 14:03 | HHI.IDPN ---
Subjective Subjective Remarks Mr. Walker is a 76-year-old male with past medical history significant for muscular dystrophy, recurrent urinary tract infections, multiple courses of antibiotics, history of C. difficile, coronary artery disease, CHF, atrial fibrillation, status post pacemaker placement in 2003. At baseline patient is mostly bedbound and his family transports him using a wheelchair. Patient can use his upper extremity for using the remote of the wheelchair but is unable to use his upper extremities for transfer self from one place to another. Patient reports that approximately for 3 weeks now he has been on Macrobid for urinary tract infection with not much improvement. Patient's daughter reports that his urine color has been yellowish goins in color despite antibiotics and his urologist was made aware of this. Patient presented to the emergency department with abdominal pain and discomfort in the suprapubic area and dribbling possibly overflow incontinence. Patient wears diapers at baseline. Upon presentation when a Mishra catheter was placed in the emergency department 1500 cc of urine was collected. Patient was started on Flomax and urology was consulted for acute urinary retention. Patient reports frequent wetting of his diapers. Denies taking any medications for prostate issues. Is unsure if patient has been worked up for neurogenic bladder given his muscular dystrophy and neurological issues. Patient reports a chronic back pain. A CT of the abdomen pelvis was done which showed stranding of the right kidney. Urology has been consulted. On presentation patient met sepsis criteria and blood cultures and urine cultures were obtained. Blood cultures and urine cultures on admission are now positive for Klebsiella pneumonia which is pretty pansensitive. Rashes disease is consulted for evaluation and management of sepsis, clubbing or bacteremia and patient with pacemaker. Overnight events reviewed. No fever No rash No diarrhea Complains of back pain. Antibiotics Ceftriaxone IV Lines Line sites with no e.o infection Past Medical History reviewed. Allergies: Coded Allergies: No Known Allergies (Verified , PER H/P, 07/23/16) Objective . Vital Signs Date Time Temp Pulse Resp B/P Pulse Ox O2 Delivery O2 Flow Rate FiO2 07/28/16 12:00 97.8 58 20 124/67 98 07/28/16 09:27 64 07/28/16 08:11 97 Nasal Cannula 3.00 07/28/16 08:00 98.1 60 20 132/72 95 07/28/16 07:55 18 07/28/16 04:00 97.6 61 17 157/77 97 07/28/16 00:00 98.4 60 17 131/71 100 07/27/16 20:09 99 Nasal Cannula 3.00 07/27/16 20:00 99.3 62 18 155/76 100 07/27/16 16:35 96.4 61 20 144/69 96 07/27/16 07/27/16 07/28/16 15:00 23:00 07:00 Intake Total 655 ml 240 ml 240 ml Output Total 300 ml 850 ml Balance 655 ml -60 ml -610 ml Intake Oral 240 ml 240 ml 240 ml IV Total 415 ml Output Urine Total 300 ml 850 ml # Bowel Movements 1 . Laboratory Tests Test 07/28/16 10:04 White Blood Count 7.9 TH/MM3 Red Blood Count 3.99 MIL/MM3 Hemoglobin 10.3 GM/DL Hematocrit 32.6 % Mean Corpuscular Volume 81.7 FL Mean Corpuscular Hemoglobin 25.8 PG Mean Corpuscular Hemoglobin 31.6 % Concent Red Cell Distribution Width 14.9 % Platelet Count 236 TH/MM3 Mean Platelet Volume 7.5 FL Neutrophils (%) (Auto) 72.7 % Lymphocytes (%) (Auto) 16.9 % Monocytes (%) (Auto) 9.1 % Eosinophils (%) (Auto) 1.0 % Basophils (%) (Auto) 0.3 % Neutrophils # (Auto) 5.7 TH/MM3 Lymphocytes # (Auto) 1.3 TH/MM3 Monocytes # (Auto) 0.7 TH/MM3 Eosinophils # (Auto) 0.1 TH/MM3 Basophils # (Auto) 0.0 TH/MM3 CBC Comment DIFF FINAL Differential Comment Laboratory Tests Test 07/28/16 10:04 Sodium Level 140 MEQ/L Potassium Level 4.0 MEQ/L Chloride Level 105 MEQ/L Carbon Dioxide Level 30.5 MEQ/L Anion Gap 5 MEQ/L Blood Urea Nitrogen 14 MG/DL Creatinine 0.42 MG/DL Estimat Glomerular Filtration 197 ML/MIN Rate Random Glucose 182 MG/DL Calcium Level 8.4 MG/DL Microbiology Date/Time Procedure Status Source Growth 07/26/16 10:53 Aerobic Blood Culture - Preliminary Resulted Blood Peripheral NO GROWTH IN 2 DAYS 07/26/16 10:53 Anaerobic Blood Culture - Preliminary Resulted Blood Peripheral NO GROWTH IN 2 DAYS 07/26/16 11:00 Aerobic Blood Culture - Preliminary Resulted Blood Peripheral NO GROWTH IN 2 DAYS 07/26/16 11:00 Anaerobic Blood Culture - Final Resulted Blood Peripheral QNS - SEE AEROBE REPORT Imaging Last Impressions Renal Ultrasound 07/24/16 0000 Signed Impressions: Service Date/Time: July 18:03 - CONCLUSION: 1. 2 small simple cysts involve the left kidney correlate to the findings on the recent CT. 2. No hydronephrosis involving either kidney. 3. Urinary bladder not visualized. Enrique Henderson Jr., MD Chest X-Ray 07/24/16 0000 Signed Impressions: Service Date/Time: July 05:23 - CONCLUSION: Basilar infiltrates and probable small effusions Sherwin Castillo MD Abdomen/Pelvis CT [id number]/23/162145 Signed Impressions: Service Date/Time: Saturday, July 23, 2016 22:19 - CONCLUSION: 1. Stranding associated with the right kidney with mild pelvocaliectasis. This can relate to a recently passed stone or could relate to an acute inflammatory or infectious process. 2. 5.1 cm ascending aortic aneurysm partially seen. 3. Cholelithiasis. No acute inflammation. 4. 2.5 cm splenic cyst or hemangioma is stable. 5. Exophytic 4.5 cm lesion from the lower pole the left kidney not felt to relate to a simple cyst. This could relate to a complex cyst or solid lesion. Ultrasound of the kidneys as an outpatient as suggested. 6. Diverticulosis of the colon without acute abnormality. Enrique Henderson Jr., MD Physical Exam GENERAL: This is a well-nourished, well-developed patient, in no apparent distress. SKIN: No rashes, ecchymoses or lesions. Cool and dry. HEAD: Atraumatic. Normocephalic. No temporal or scalp tenderness. EYES: Pupils equal round and reactive. Extraocular motions intact. No scleral icterus. No injection or drainage. ENT: Nose without bleeding, purulent drainage or septal hematoma. Throat without erythema, tonsillar hypertrophy or exudate. Uvula midline. Airway patent. NECK: Trachea midline. Supple, nontender, no meningeal signs. CARDIOVASCULAR: HS audible. RESPIRATORY: Clear to auscultation. Breath sounds equal bilaterally. No wheezes , rales, or rhonchi. GASTROINTESTINAL: Abdomen soft, non-tender, nondistended. MUSCULOSKELETAL: Extremities without clubbing, cyanosis, or edema. Chronic discoloration and skin changes. NEUROLOGICAL: Awake and alert. Grossly non focal Psych cooperative IV line sites with no e/o infection. Assessment & Plan Remarks Sepsis present on admission Klebsiella pneumoniae bacteremia Kleb pneumo cystitis, pyelonephritis. Acute retention of urine: ? BPH, ? neurogenic bladder Recs Continue Ceftriaxone IV If back pain persists will d.w Radiology about MRI or other imaging of spine for infection. Follow cultures Follow clinically. If repeat cultures positive will need endovascular workup as patient has a pacemaker. No PICC. Possible discharge on oral antibiotics if bacteremia is transient. d/w hospitalist. Sarita Heath MD Jul 28, 2016 14:03
[2016-07-28] MEDS: cefTRIAXone INJ 2,000 MG in SODIUM CHLORIDE 0.9% INJ 100 ML IV SCH (15:24)
[2016-07-28] MEDS ORDERED: WARFARIN SOD 2 MG TAB PO ONE (16:00)
[2016-07-28] MEDS: WARFARIN SOD 5 MG TAB PO SCH (16:09)
[2016-07-28] MEDS: MONTELUKAST SODIUM 10 MG TAB PO SCH (22:02)
[2016-07-28] MEDS: ATORVASTATIN 10 MG TAB PO SCH (22:02)
[2016-07-29] VITALS: BP 158/85; PULSE 65; RESP 20; TEMP 98.1; O2SAT 97
[2016-07-29] MEDS: ACETAMINOPHEN 325 MG TAB PO SCH ×5 (01:02→18:03)
[2016-07-29 04:00] VITALS: BP 182/94; PULSE 60; RESP 18; TEMP 99.3; O2SAT 96
[2016-07-29] MEDS: LEVOTHYROXINE SODIUM 25 MCG TAB PO SCH (04:55)
[2016-07-29] MEDS: LEVOTHYROXINE SODIUM 112 MCG TAB PO SCH (04:56)
[2016-07-29 08:00] VITALS: BP 140/71; PULSE 61; RESP 17; TEMP 96.6; O2SAT 94
[2016-07-29] MEDS: PIOGLITAZONE HCL 15 MG TAB PO SCH (08:00)
--- NOTE | 2016-07-29 08:03 | HHI.PR ---
Subjective Remarks patient had a good night, much more comfortable now with an air mattress no complains of pain BP up early 4 am some loose stools rechecked now- 140/71 patient feels that he can't lay still [facility]- claustrophobic- told him that we can give him something prior but states does not matter he can;t lay still Objective Vitals Vital Signs Date Time Temp Pulse Resp B/P Pulse Ox O2 Delivery O2 Flow Rate FiO2 07/29/16 04:00 99.3 60 18 182/94 96 07/29/16 00:00 98.1 65 20 158/85 97 07/28/16 20:00 97.5 61 18 138/77 95 07/28/16 16:00 97.9 67 20 140/83 97 07/28/16 15:49 98 own cpap 3.00 07/28/16 13:16 18 07/28/16 12:00 97.8 58 20 124/67 98 07/28/16 09:27 64 07/28/16 08:11 97 Nasal Cannula 3.00 I/O 07/28/16 07/28/16 07/28/16 07/29/16 07/29/16 07/29/16 07:00 15:00 23:00 07:00 15:00 23:00 Intake Total 240 ml 1337 ml 488 ml 502 ml Output Total 850 ml Balance -610 ml 1337 ml 488 ml 502 ml Intake Oral 240 ml IV Total 1337 ml 488 ml 502 ml Output Urine Total 850 ml # Bowel Movements 1 Result Diagram: 07/28/16 1004 07/28/16 1004 Imaging Last Impressions Renal Ultrasound 07/24/16 0000 Signed Impressions: Service Date/Time: July 18:03 - CONCLUSION: 1. 2 small simple cysts involve the left kidney correlate to the findings on the recent CT. 2. No hydronephrosis involving either kidney. 3. Urinary bladder not visualized. Enrique Henderson Jr., MD Chest X-Ray 07/24/16 0000 Signed Impressions: Service Date/Time: July 05:23 - CONCLUSION: Basilar infiltrates and probable small effusions Sherwin Castillo MD Abdomen/Pelvis CT 07/23/16 2146 Signed Impressions: Service Date/Time: Saturday, July 23, 2016 22:19 - CONCLUSION: 1. Stranding associated with the right kidney with mild pelvocaliectasis. This can relate to a recently passed stone or could relate to an acute inflammatory or infectious process. 2. 5.1 cm ascending aortic aneurysm partially seen. 3. Cholelithiasis. No acute inflammation. 4. 2.5 cm splenic cyst or hemangioma is stable. 5. Exophytic 4.5 cm lesion from the lower pole the left kidney not felt to relate to a simple cyst. This could relate to a complex cyst or solid lesion. Ultrasound of the kidneys as an outpatient as suggested. 6. Diverticulosis of the colon without acute abnormality. nErique Henderson Jr., MD Objective Remarks awake and alert, NAD, anicteric, lungs no rales or wheezes, good air exchange regular rhythm abdomen soft, good bowel sounds, no tenderness, no CVA tenderness cortez in place extremities no edema, no calf swelling, good peripheral pulses moves toes and feet Urinary Catheter: Yes Assessment to: Continue Cortez insert reason: Obstruction/Retention Date of Insertion: Jul 24, 2016 A/P Problem List: (1) Pyelonephritis ICD Code: N12 Status: Acute (2) Urinary retention ICD Code: R33.9 Status: Acute Assessment and Plan 76 years old male with history of muscular dystrophy is a total care - baseline states continent of urine and stools, history of recurrent UTI had 3 different courses of antibiotics this past month came in with increasing abdominal discomfort, incomplete bladder emptying sensation with difficulty initiating urine on ER- cortez inserted- drained large amount of urine Acute Urinary retention- likely underlying Neurogenic bladder with history of Muscular dystrophy Started Flomax 0,4 mg po hs 07/24. . Bladder US/Renal US - no hydronephrosis seen by Dr. Fagan plan to keep cortez - placed 07/24 for 1 week then voiding trial Klebsiella sepsis secondary to UTI underlying likely neurogenic bladder- Review old admissions- history of recurrent UTI - Pseudomonas UTI.. ID ff, Ordered for Ceretec scan on Ceftriaxone 2 gm IV daily- 07/26 (received Zosyn prior) repeat blood cultures so far no growth-- continue to ff Diarrhea- loose stools reported. start Lactinex 1 tab po bid CRISTAL- pre renal- patient appears dry from obstructive uropathy- gentle IVF. FF BMP. Hold Torsemide for now History of atrial fibrillation S/P PM placement. in SR. continue on meds- rate controlled on sotalol 120 mg bid as OP - decrease here to 80 mg po bid - borderline BPs on admission Coumadin excess- corrected- as OP on 4 mg/6 mg restarted Coumadin 5 mg 6/5- ff INR History of Muscular dystrophy. neuro stable- mostly WC bound History of BALJIT- on home BiPAP at hs. prn nebulization. continue MDIs. continue home meds Hypothyroidism on synthroid DM type 2- A1C - 6.4 states history of "borderline diabetes" last A1C- 6.0 place on ADA diet. FF blood sugar bid and record states was on metformin in the past and developed pain- which was attributed to this drug started on Actos 15 mg daily 07/28- ff DVT prophylaxis - Patient on coumadin- ff INR 6/2 reviewed meds with . on Torsemide 10 mg - Mw,W, F- hold for now continue . Atorvastatin 10, Ismo 30, [id number], sotalol 120 bid- decrease dose, Singulair. hold Coumadin 4 mg/6 mg- on hold due to elevated NR ASA 81 mg, Vit D, Lexapro. Lyle Corey MD Jul 29, 2016 08:03
[2016-07-29] MEDS: RESP: ALBUTEROL 2.5 MG/IPRATROPIUM 0.5 MG NEB (SCH) NEB (08:05)
[2016-07-29] MEDS: TIOTROPIUM BROMIDE 18 MCG INH INH SCH (08:32)
[2016-07-29] MEDS: LACTOBACILLUS ACIDOPHILUS TAB PO SCH ×3 (08:33→20:00)
[2016-07-29] MEDS: TAMSULOSIN HCL 0.4 MG CAP PO SCH (08:33)
[2016-07-29] MEDS: SOTALOL HCL 80 MG TAB PO SCH ×2 (08:33→20:00)
[2016-07-29] MEDS: ISOSORBIDE MONONITRATE 30 MG TAB PO SCH (08:33)
[2016-07-29] MEDS: ESCITALOPRAM OXALATE 10 MG TAB PO SCH (08:34)
[2016-07-29] MEDS: SODIUM CHLORIDE 0.9% FLUSH 10 ML FLUSH IV FLUSH SCH ×2 (08:34→20:00)
[2016-07-29] MEDS: MULTIVITAMINS/MINERALS THERAPEUTIC TAB PO SCH (08:38)
[2016-07-29 10:03] LABS: PROTHROMBIN TIME - PATIENT 22.9 SEC (9.8-11.6)
[2016-07-29] MEDS: RESP: ALBUTEROL 2.5 MG/IPRATROPIUM 0.5 MG NEB (PRN) NEB (11:06)
[2016-07-29 12:00] VITALS: BP 139/78; PULSE 62; RESP 18; TEMP 97.5; O2SAT 95
[2016-07-29] MEDS: SODIUM CHLOR 0.9% 1000 ML INJ 1,000 ML IV SCH (14:23)
[2016-07-29] MEDS ORDERED: LEVO750T3 PO (14:48)
--- NOTE | 2016-07-29 14:54 | HHI.IDPN ---
Subjective Subjective Remarks Mr. Walker is a 76-year-old male with past medical history significant for muscular dystrophy, recurrent urinary tract infections, multiple courses of antibiotics, history of C. difficile, coronary artery disease, CHF, atrial fibrillation, status post pacemaker placement in 2003. At baseline patient is mostly bedbound and his family transports him using a wheelchair. Patient can use his upper extremity for using the remote of the wheelchair but is unable to use his upper extremities for transfer self from one place to another. Patient reports that approximately for 3 weeks now he has been on Macrobid for urinary tract infection with not much improvement. Patient's daughter reports that his urine color has been yellowish goins in color despite antibiotics and his urologist was made aware of this. Patient presented to the emergency department with abdominal pain and discomfort in the suprapubic area and dribbling possibly overflow incontinence. Patient wears diapers at baseline. Upon presentation when a Mishra catheter was placed in the emergency department 1500 cc of urine was collected. Patient was started on Flomax and urology was consulted for acute urinary retention. Patient reports frequent wetting of his diapers. Denies taking any medications for prostate issues. Is unsure if patient has been worked up for neurogenic bladder given his muscular dystrophy and neurological issues. Patient reports a chronic back pain. A CT of the abdomen pelvis was done which showed stranding of the right kidney. Urology has been consulted. On presentation patient met sepsis criteria and blood cultures and urine cultures were obtained. Blood cultures and urine cultures on admission are now positive for Klebsiella pneumonia which is pretty pansensitive. Rashes disease is consulted for evaluation and management of sepsis, clubbing or bacteremia and patient with pacemaker. Overnight events reviewed. No fever No rash No diarrhea Back pain better. Antibiotics Ceftriaxone IV Lines Line sites with no e.o infection Past Medical History reviewed. Allergies: Coded Allergies: No Known Allergies (Verified , PER H/P, 07/23/16) Objective . Vital Signs Date Time Temp Pulse Resp B/P Pulse Ox O2 Delivery O2 Flow Rate FiO2 07/29/16 13:04 18 07/29/16 12:00 97.5 62 18 139/78 95 07/29/16 08:08 Nasal Cannula 3.00 07/29/16 08:00 96.6 61 17 140/71 94 07/29/16 04:00 99.3 60 18 182/94 96 07/29/16 00:00 98.1 65 20 158/85 97 07/28/16 20:00 97.5 61 18 138/77 95 07/28/16 16:00 97.9 67 20 140/83 97 07/28/16 15:49 98 own cpap 3.00 07/28/16 07/28/16 07/29/16 15:00 23:00 07:00 Intake Total 1337 ml 488 ml 502 ml Balance 1337 ml 488 ml 502 ml IV Total 1337 ml 488 ml 502 ml . Laboratory Tests Test 07/28/16 10:04 White Blood Count 7.9 TH/MM3 Red Blood Count 3.99 MIL/MM3 Hemoglobin 10.3 GM/DL Hematocrit 32.6 % Mean Corpuscular Volume 81.7 FL Mean Corpuscular Hemoglobin 25.8 PG Mean Corpuscular Hemoglobin 31.6 % Concent Red Cell Distribution Width 14.9 % Platelet Count 236 TH/MM3 Mean Platelet Volume 7.5 FL Neutrophils (%) (Auto) 72.7 % Lymphocytes (%) (Auto) 16.9 % Monocytes (%) (Auto) 9.1 % Eosinophils (%) (Auto) 1.0 % Basophils (%) (Auto) 0.3 % Neutrophils # (Auto) 5.7 TH/MM3 Lymphocytes # (Auto) 1.3 TH/MM3 Monocytes # (Auto) 0.7 TH/MM3 Eosinophils # (Auto) 0.1 TH/MM3 Basophils # (Auto) 0.0 TH/MM3 CBC Comment DIFF FINAL Differential Comment Laboratory Tests Test 07/28/16 10:04 Sodium Level 140 MEQ/L Potassium Level 4.0 MEQ/L Chloride Level 105 MEQ/L Carbon Dioxide Level 30.5 MEQ/L Anion Gap 5 MEQ/L Blood Urea Nitrogen 14 MG/DL Creatinine 0.42 MG/DL Estimat Glomerular Filtration 197 ML/MIN Rate Random Glucose 182 MG/DL Calcium Level 8.4 MG/DL Imaging Last Impressions Renal Ultrasound 07/24/16 0000 Signed Impressions: Service Date/Time: July 18:03 - CONCLUSION: 1. 2 small simple cysts involve the left kidney correlate to the findings on the recent CT. 2. No hydronephrosis involving either kidney. 3. Urinary bladder not visualized. Enrique Henderson Jr., MD Chest X-Ray 07/24/16 0000 Signed Impressions: Service Date/Time: July 05:23 - CONCLUSION: Basilar infiltrates and probable small effusions Sherwin Castillo MD Abdomen/Pelvis CT 07/23/162145 Signed Impressions: Service Date/Time: Saturday, July 23, 2016 22:19 - CONCLUSION: 1. Stranding associated with the right kidney with mild pelvocaliectasis. This can relate to a recently passed stone or could relate to an acute inflammatory or infectious process. 2. 5.1 cm ascending aortic aneurysm partially seen. 3. Cholelithiasis. No acute inflammation. 4. 2.5 cm splenic cyst or hemangioma is stable. 5. Exophytic 4.5 cm lesion from the lower pole the left kidney not felt to relate to a simple cyst. This could relate to a complex cyst or solid lesion. Ultrasound of the kidneys as an outpatient as suggested. 6. Diverticulosis of the colon without acute abnormality. Enrique Henderson Jr., MD Physical Exam GENERAL: This is a well-nourished, well-developed patient, in no apparent distress. SKIN: No rashes, ecchymoses or lesions. Cool and dry. HEAD: Atraumatic. Normocephalic. No temporal or scalp tenderness. EYES: Pupils equal round and reactive. Extraocular motions intact. No scleral icterus. No injection or drainage. ENT: Nose without bleeding, purulent drainage or septal hematoma. Throat without erythema, tonsillar hypertrophy or exudate. Uvula midline. Airway patent. NECK: Trachea midline. Supple, nontender, no meningeal signs. CARDIOVASCULAR: HS audible. RESPIRATORY: Clear to auscultation. Breath sounds equal bilaterally. No wheezes , rales, or rhonchi. GASTROINTESTINAL: Abdomen soft, non-tender, nondistended. MUSCULOSKELETAL: Extremities without clubbing, cyanosis, or edema. Chronic discoloration and skin changes. NEUROLOGICAL: Awake and alert. Grossly non focal Psych cooperative IV line sites with no e/o infection. Assessment & Plan Remarks Sepsis present on admission Klebsiella pneumoniae bacteremia Kleb pneumo cystitis, pyelonephritis. Acute retention of urine: ? BPH, ? neurogenic bladder Recs Continue Ceftriaxone IV (if remains in hospital continue Ceftriaxone IV till stop date 08/06/16). If repeat blood cultures positive please call ID thru call center.If repeat cultures positive will need endovascular workup as patient has a pacemaker. If repeat blood cultures negative and patient cleared for Discharge by other MDs on board discharge on oral levaquin provided repeat blood cultures are negative. Follow cultures Follow clinically. Plan d.w pt, his and . Will sign off please call back if any change in clinical condition or questions. Sarita Heath MD Jul 29, 2016 14:54
[2016-07-29] MEDS: cefTRIAXone INJ 2,000 MG in SODIUM CHLORIDE 0.9% INJ 100 ML IV SCH (15:06)
[2016-07-29] MEDS: WARFARIN SOD 5 MG TAB PO SCH (15:39)
[2016-07-29 16:00] VITALS: BP 139/85; PULSE 65; RESP 17; TEMP 96; O2SAT 97
[2016-07-29 20:00] VITALS: BP 158/81; PULSE 66; RESP 20; TEMP 95.7; O2SAT 96
[2016-07-29] MEDS: MONTELUKAST SODIUM 10 MG TAB PO SCH (20:00)
[2016-07-29] MEDS: ATORVASTATIN 10 MG TAB PO SCH (21:00)
[2016-07-30] VITALS: BP 132/79; PULSE 73; RESP 16; TEMP 98.5; O2SAT 96
[2016-07-30] MEDS: ACETAMINOPHEN 325 MG TAB PO SCH ×3 (00:49→12:27)
[2016-07-30] MEDS: SODIUM CHLOR 0.9% 1000 ML INJ 1,000 ML IV SCH (02:14)
[2016-07-30] MEDS: LEVOTHYROXINE SODIUM 25 MCG TAB PO SCH (05:02)
[2016-07-30] MEDS: LEVOTHYROXINE SODIUM 112 MCG TAB PO SCH (05:02)
[2016-07-30] MEDS: TIOTROPIUM BROMIDE 18 MCG INH INH SCH (07:46)
[2016-07-30] MEDS: ISOSORBIDE MONONITRATE 30 MG TAB PO SCH (07:47)
[2016-07-30] MEDS: PIOGLITAZONE HCL 15 MG TAB PO SCH (07:48)
[2016-07-30] MEDS: LACTOBACILLUS ACIDOPHILUS TAB PO SCH ×2 (07:48→09:00)
[2016-07-30] MEDS: ESCITALOPRAM OXALATE 10 MG TAB PO SCH (07:48)
[2016-07-30] MEDS: SOTALOL HCL 80 MG TAB PO SCH (07:48)
[2016-07-30] MEDS: TAMSULOSIN HCL 0.4 MG CAP PO SCH (07:48)
[2016-07-30] MEDS: MULTIVITAMINS/MINERALS THERAPEUTIC TAB PO SCH (07:49)
[2016-07-30] MEDS: SODIUM CHLORIDE 0.9% FLUSH 10 ML FLUSH IV FLUSH SCH (07:51)
[2016-07-30 08:00] VITALS: BP 168/88; PULSE 60; RESP 19; TEMP 95.4; O2SAT 97
--- NOTE | 2016-07-30 08:36 | HHI.PR ---
Subjective Remarks no complains- no fever or chills, nausea, vomiting or flank discomfort Objective Vitals Vital Signs Date Time Temp Pulse Resp B/P Pulse Ox O2 Delivery O2 Flow Rate FiO2 07/30/16 00:00 98.5 73 16 132/79 96 07/29/16 20:00 95.7 66 20 158/81 96 07/29/16 16:00 96.0 65 17 139/85 97 07/29/16 13:04 18 07/29/16 12:00 97.5 62 18 139/78 95 I/O 07/29/16 07/29/16 07/29/16 07/30/16 07/30/16 07/30/16 06:59 14:59 22:59 06:59 14:59 22:59 Intake Total 502 ml 1200 ml 492 ml 535 ml Output Total 900 ml 500 ml Balance 502 ml 300 ml -8 ml 535 ml Intake Oral 1200 ml 120 ml IV Total 502 ml 372 ml 535 ml Output Urine Total 900 ml 500 ml # Bowel Movements 3 1 Result Diagram: 07/28/16 1004 07/28/16 1004 Imaging Last Impressions Renal Ultrasound 07/24/16 0000 Signed Impressions: Service Date/Time: July 18:03 - CONCLUSION: 1. 2 small simple cysts involve the left kidney correlate to the findings on the recent CT. 2. No hydronephrosis involving either kidney. 3. Urinary bladder not visualized. Enrique Henderson Jr., MD Chest X-Ray 07/24/16 0000 Signed Impressions: Service Date/Time: July 05:23 - CONCLUSION: Basilar infiltrates and probable small effusions Sherwin Castillo MD Abdomen/Pelvis CT 07/23/16 2146 Signed Impressions: Service Date/Time: Saturday, July 23, 2016 22:19 - CONCLUSION: 1. Stranding associated with the right kidney with mild pelvocaliectasis. This can relate to a recently passed stone or could relate to an acute inflammatory or infectious process. 2. 5.1 cm ascending aortic aneurysm partially seen. 3. Cholelithiasis. No acute inflammation. 4. 2.5 cm splenic cyst or hemangioma is stable. 5. Exophytic 4.5 cm lesion from the lower pole the left kidney not felt to relate to a simple cyst. This could relate to a complex cyst or solid lesion. Ultrasound of the kidneys as an outpatient as suggested. 6. Diverticulosis of the colon without acute abnormality. Enrique Henderson Jr., MD Objective Remarks awake and alert, NAD, anicteric, lungs no rales or wheezes, good air exchange regular rhythm abdomen soft, good bowel sounds, no tenderness, no CVA tenderness cortez in place extremities no edema, no calf swelling, good peripheral pulses moves toes and feet Urinary Catheter: Yes Assessment to: Continue Cortez insert reason: Obstruction/Retention Date of Insertion: Jul 24, 2016 A/P Problem List: (1) Pyelonephritis ICD Code: N12 Status: Acute (2) Urinary retention ICD Code: R33.9 Status: Acute Assessment and Plan 76 years old male with history of muscular dystrophy is a total care - baseline states continent of urine and stools, history of recurrent UTI had 3 different courses of antibiotics this past month came in with increasing abdominal discomfort, incomplete bladder emptying sensation with difficulty initiating urine on ER- cortez inserted- drained large amount of urine Acute Urinary retention- likely underlying Neurogenic bladder with history of Muscular dystrophy Started Flomax 0,4 mg po hs 07/24. . Bladder US/Renal US - no hydronephrosis seen by Dr. Fagan plan to keep cortez - placed 07/24 for 1 week then voiding trial Klebsiella sepsis secondary to UTI underlying likely neurogenic bladder- Review old admissions- history of recurrent UTI - Pseudomonas UTI.. on Ceftriaxone 2 gm IV daily- 07/26 (received Zosyn prior) x 14 days. Ceretec scan cancelled repeat blood cultures- 07/26 x 3 days-- continue to ff if negative- can switch to po antibiotics- Levaquin 750 mg po daily x 8 days Diarrhea- resolved On Lactinex 1 tab po bid CRISTAL- pre renal- patient appears dry from obstructive uropathy- resolved. Hold Torsemide for now History of atrial fibrillation S/P PM placement. in SR. continue on meds- rate controlled on sotalol 120 mg bid as OP - decrease here to 80 mg po bid - HR controlled Coumadin excess- corrected- as OP on 4 mg/6 mg restarted Coumadin 5 mg 6/5- ff INR - check now History of Muscular dystrophy. neuro stable- mostly WC bound History of BALJIT- on home BiPAP at hs. prn nebulization. continue MDIs. continue home meds Hypothyroidism on synthroid DM type 2- A1C - 6.4 states history of "borderline diabetes" last A1C- 6.0 place on ADA diet. FF blood sugar bid and record states was on metformin in the past and developed pain- which was attributed to this drug started on Actos 15 mg daily 07/28- ff - readings improved- monitor and adjust DVT prophylaxis - Patient on coumadin- ff INR- recheck as OP DC today with home health care 07/25 reviewed meds with . on Torsemide 10 mg - Mw,W, F- hold for now continue . Atorvastatin 10, Ismo 30, [id number], sotalol 120 bid- decrease dose, Singulair. hold Coumadin 4 mg/6 mg- on hold due to elevated NR ASA 81 mg, Vit D, Lexapro. Lyle Corey MD Jul 30, 2016 08:36
[2016-07-30] MEDS ORDERED: COUM5TAB PO (09:04)
[2016-07-30] MEDS ORDERED: LOSARTAN 25 MG TAB PO SCH (09:30)
[2016-07-30] MEDS: RESP: ALBUTEROL 2.5 MG/IPRATROPIUM 0.5 MG NEB (PRN) NEB ×2 (09:35→14:02)
--- NOTE | 2016-07-30 10:55 | HHI.FF ---
Face to Face Verification Diagnosis: (1) Pyelonephritis (2) coumadin therapy Home Health Nursing Order: Medical education Signs/symptoms of disease process Wound care and dressing changes Nursing assessment with vital signs Internal Consultant Order: To Evaluate: Living conditions/environment, Support services I have seen patient Ricki Walker on 07/30/16. My clinical findings support the need for the requested home health care services because: Ltd mobility - disease progression Limited ability to care for self Need for psychosocial assistance I certify that my clinical findings support that this patient is homebound because: Unsteady gait/balance Need for psychosocial assistance Lyle Corey MD Jul 30, 2016 10:55
--- NOTE | 2016-07-30 10:58 | HHI.DS ---
Discharge Summary Admission Date July 23, 2016 at 23:49 Discharge Date: Jul 30, 2016 Admitting Diagnosis pyelonephritis felt outpatient therapy, urinary retention (1) Pyelonephritis ICD Code: N12 Diagnosis: Principal (2) Urinary retention ICD Code: R33.9 Diagnosis: Principal Procedures none Brief History - From Admission History from patient, ER physician communication, and review of medical records. Patient is extremely poor historian at the time of my exam. He is sleeping and clearly his sleeping pattern is that of a severe sleep apnea patient. He would wake up in between to answer questions and falls right back asleep. When he is awake though, he is appropriate and alert. He tells me that he came to the hospital because he was having pain in the lower abdomen. Bilaterally. She states the pain was there for 3 weeks. Also reports of pain in his bilateral flank pain. Denies any nausea. Denies vomiting. Reports of diarrhea as well. No fever. Not able to quantify the amount of diarrhea. As per ER report, patient was started on Macrobid as an outpatient for this. He also does have history of urinary frequency secondary to muscular dystrophy and is wheelchair-bound. CBC/BMP: 07/28/16 1004 07/28/16 1004 Significant Findings Laboratory Tests Test 07/28/16 07/29/16 10:04 08:57 Red Blood Count 3.99 MIL/MM3 (4.50-5.90) Hemoglobin 10.3 GM/DL (13.0-17.0) Hematocrit 32.6 % (39.0-51.0) Mean Corpuscular Hemoglobin 25.8 PG (27.0-34.0) Mean Corpuscular Hemoglobin 31.6 % Concent (32.0-36.0) Neutrophils (%) (Auto) 72.7 % (16.0-70.0) Monocytes (%) (Auto) 9.1 % (0.0-8.0) Prothrombin Time 19.8 SEC 22.9 SEC (9.8-11.6) (9.8-11.6) Creatinine 0.42 MG/DL (0.60-1.30) Random Glucose 182 MG/DL (74-106) Calcium Level 8.4 MG/DL (8.5-10.1) Imaging Last Impressions Renal Ultrasound 07/24/16 0000 Signed Impressions: Service Date/Time: July 18:03 - CONCLUSION: 1. 2 small simple cysts involve the left kidney correlate to the findings on the recent CT. 2. No hydronephrosis involving either kidney. 3. Urinary bladder not visualized. Enrique Henderson Jr., MD Chest X-Ray 07/24/16 0000 Signed Impressions: Service Date/Time: , July 24, 2016 05:23 - CONCLUSION: Basilar infiltrates and probable small effusions Sherwin Castillo MD Abdomen/Pelvis CT [id number]/23/162145 Signed Impressions: Service Date/Time: Saturday, July 23, 2016 22:19 - CONCLUSION: 1. Stranding associated with the right kidney with mild pelvocaliectasis. This can relate to a recently passed stone or could relate to an acute inflammatory or infectious process. 2. 5.1 cm ascending aortic aneurysm partially seen. 3. Cholelithiasis. No acute inflammation. 4. 2.5 cm splenic cyst or hemangioma is stable. 5. Exophytic 4.5 cm lesion from the lower pole the left kidney not felt to relate to a simple cyst. This could relate to a complex cyst or solid lesion. Ultrasound of the kidneys as an outpatient as suggested. 6. Diverticulosis of the colon without acute abnormality. Enrique Henderson Jr., MD PE at Discharge awake and alert, NAD, anicteric, lungs no rales or wheezes, good air exchange regular rhythm abdomen soft, good bowel sounds, no tenderness, no CVA tenderness cortez in place extremities no edema, no calf swelling, good peripheral pulses moves toes and feet Pt update on day of discharge no complains, no flank pain, grossly clear urine Hospital Course 76 years old male with history of muscular dystrophy is a total care - baseline states continent of urine and stools, history of recurrent UTI had 3 different courses of antibiotics this past month came in with increasing abdominal discomfort, incomplete bladder emptying sensation with difficulty initiating urine on ER- cortez inserted- drained large amount of urine Acute Urinary retention- likely underlying Neurogenic bladder with history of Muscular dystrophy Started Flomax 0,4 mg po hs 07/24. . Bladder US/Renal US - no hydronephrosis seen by Dr. Fagan plan to keep cortez - placed 07/24 for 1 week then voiding trial Klebsiella sepsis secondary to UTI underlying likely neurogenic bladder- Review old admissions- history of recurrent UTI - Pseudomonas UTI.. on Ceftriaxone 2 gm IV daily- 07/26 (received Zosyn prior) x 14 days. Ceretec scan cancelled repeat blood cultures- 07/26 x 3 days-- continue to ff if negative- can switch to po antibiotics- Levaquin 750 mg po daily x 8 days Diarrhea- resolved On Lactinex 1 tab po bid CRISTAL- pre renal- patient appears dry from obstructive uropathy- resolved. Hold Torsemide for now History of atrial fibrillation S/P PM placement. in SR. continue on meds- rate controlled on sotalol 120 mg bid as OP - decrease here to 80 mg po bid - HR controlled Coumadin excess- corrected- as OP on 4 mg/6 mg restarted Coumadin 5 mg 07/28- ff INR - check now History of Muscular dystrophy. neuro stable- mostly WC bound History of BALJIT- on home BiPAP at hs. prn nebulization. continue MDIs. continue home meds Hypothyroidism on synthroid DM type 2- A1C - 6.4 states history of "borderline diabetes" last A1C- 6.0 place on ADA diet. FF blood sugar bid and record states was on metformin in the past and developed pain- which was attributed to this drug started on Actos 15 mg daily 07/28- ff - readings improved- monitor and adjust DVT prophylaxis - Patient on coumadin- ff INR- recheck as OP DC today with home health care Pt Condition on Discharge: Stable Discharge Disposition: Disch w/ Home Health Serv Discharge Time: <= 30 minutes Discharge Instructions DIET: Follow Instructions for: Heart Healthy Diet Speech Therapy-Diet Recommends: Regular Activities you can perform: See Additionl Instruction Other Activity Instructions: resume home activity Follow up Referrals: Appointment for Follow Up - 08/12/16 with Macrina Savage MD PCP Follow-up - 08/01/16 with Michael Arreola MD Urology - 08/04/16 with Bruce Morejon M.d. New Orders: PT/INR - 07/31/16 New Medications: Levofloxacin (Levofloxacin) 750 Mg Tablet 750 MG PO DAILY Kleb pneumo bacteremia Days 8 Ref 0 TAB Warfarin (Coumadin) 5 Mg Tab 5 MG PO DAILY@16 ARR Days 30 TAB Continued Medications: Albuterol 18 GM Inh (Ventolin Hfa 18 GM Inh) 90 Mcg/Act Aer 2 PUFF INH Q6HR PRN SHORTNESS OF BREATH #1 Ref 0 INHALER Atorvastatin (Atorvastatin) 10 Mg Tab 10 MG PO HS Cholesterol Management #30 Ref 0 TAB Escitalopram (Lexapro) 10 Mg Tab 10 MG PO DAILY #30 Ref 0 TAB Isosorbide Mononitrate ER (Isosorbide Mononitrate ER) 30 Mg Adam 30 MG PO DAILY Prevent Chest Pain #30 Ref 0 TAB Lactobacillus Rhamnosus (GG) (Culturelle) 10 B Cell Cap 1 CAP PO DAILY Nutritional Supplement Ref 0 CAP Levothyroxine (Levothyroxine) 137 Mcg Tab 137 MCG PO DAILY Thyroid #30 Ref 0 TAB Losartan (Losartan) 25 Mg Tab 25 MG PO DAILY Blood Pressure Management #30 Ref 0 TAB Skin Protectants, Misc. (Maryjo Protect) 1 Cre Cre 1 APPLIC TOP Q8HR Apply to buttocks q-shift and prn rash Tiotropium Inh (Spiriva Handihaler) 18 Mcg Cap 2 PUFF INH DAILY 1 capsule = 18 mcg COPD #30 Ref 0 CAP Warfarin (Warfarin) 5 Mg Tab 5 MG PO DAILY Blood Clot Prevention #30 Ref 0 TAB Discontinued Medications: Piperacillin-Tazobactam Inj (Piperacillin-Tazobactam Inj) 4-0.5 Gm Inj 4.5 GM IV Q6HR Infection Days 9 Ref 0 Lyle Shin MD Jul 30, 2016 10:58
[2016-07-30 12:00] VITALS: BP 148/82; PULSE 59; RESP 17; TEMP 95.4; O2SAT 95
[2016-07-30 14:02] VITALS: O2SAT 97
--- NOTE | 2016-08-05 12:13 | PQ ---
Physician Query Response Document PATIENT: FABIANO PALACIOS : 1940 ADMIT DATE: 07/23/2016 11:49 PM DISCH DATE: 07/30/2016 2:46 PM RESPONDING PROVIDER #: [email or web address] QUERY TEXT: Conflicting Documentation Clarification A single mention or documentation of multiple diagnoses for the same clinical presentation appears in the record. Please clarify the diagnosis/diagnoses: Sepsis vs bacteremia. Please also document if the condition is: -- Confirmed and current -- Confirmed, treated and resolved -- Ruled out -- Other, please specify If you have any additional questions/comments and/or concerns, please do not hesitate to reach out to the CDI/Coding Hotline, Ext. [phone]. The patient's Clinical Indicators include: ID Consultation dictated 07/26/16: Assessment and Plan : Sepsis present on admission Klebsiella pneumoniae bacteremia Kleb pneumo cystitis, pyelonephritis. History of Present Illness: On presentation patient met sepsis criteria and blood cultures and urin e cultures were obtained. Blood cultures and urine cultures on admission are now positive for Klebsie lla pneumonia which is pretty pansensitive. Rashes disease is consulted for evaluation and management of sepsis, clubbing or bacteremia and patient with pacemaker. Query created by: Siobhan Bojorquez on 07/31/2016 11:33 AM RESPONSE TEXT: Sepsis can be present without bacteremia. It is appropriate to document sepsis and bacteremia separat gerson as individual diagnosis. Electronically signed by: Sarita Heath MD 08/05/2016 12:08 PM
== END 2016-07-30 14:46 | disposition home health service (06) | DRG 872 ==
LOC: NEPE 20:40 → NEDA 23:49 → NEPGCP 07-24 00:34 → N07A 07-24 14:18
PROVIDERS: ADMIT Internal Medicine; ATTEND Internal Medicine
DX: A41.89 Other specified sepsis (principal); N17.9 Acute kidney failure, unspecified; G71.0 Muscular dystrophy; E11.65 Type 2 diabetes mellitus with hyperglycemia; N12 Tubulo-interstitial nephritis, not specified as acute or chronic; I48.91 Unspecified atrial fibrillation; Z79.01 Long term (current) use of anticoagulants; N31.9 Neuromuscular dysfunction of bladder, unspecified; R33.9 Retention of urine, unspecified; Z99.3 Dependence on wheelchair; R35.0 Frequency of micturition; Z87.440 Personal history of urinary (tract) infections; G47.33 Obstructive sleep apnea (adult) (pediatric); Z95.0 Presence of cardiac pacemaker; I25.10 Atherosclerotic heart disease of native coronary artery without angina pectoris; R19.7 Diarrhea, unspecified; G89.29 Other chronic pain; M54.5 Low back pain; E78.5 Hyperlipidemia, unspecified; E03.9 Hypothyroidism, unspecified; J44.9 Chronic obstructive pulmonary disease, unspecified
CPT/HCPCS: 71010; 74176; 76775; 76937; 80048; 80053; 81001; 82948; 83036; 83605; 83690; 84443; 85025; 85027; 85610; 85730; 87040; 87077; 87086; 87149; 87186; 87205; 94640; 94664; 96361; 96374; 96375; G8987-GP; G8988-GP; J0696; J2270; J2405; J2543; J7030; J7040

== ENCOUNTER 2016-10-22 14:43 | Emergency (ER) | payer MEDICARE, OTHER ==
[~2016-10-22] VITALS: Ht 177.8 cm; Wt 118.0 kg
[~2016-10-22 14:43] MED LIST changes: +COUM5TAB PO; -DILT60TA PO; +LEVO750T3 PO; -NIAC500 PO; -PIPE4INJ IV; -SOTA120T PO; -SPIR25 PO; -VANC500I3 PO
[2016-10-22 15:00] VITALS: BP 149/81; PULSE 69; RESP 16; TEMP 98.2; O2SAT 97
--- NOTE | 2016-10-22 15:27 | PD ---
HPI Chief Complaint: Complaint Time Seen by Provider: 15:27 Travel History International Travel<30 days: No Contact w/Intl Traveler<30days: No Traveled to known affect area: No History of Present Illness HPI 76-year-old male who is wheelchair-bound and has an indwelling Mishra catheter came in for hematuria since past 2 days. Patient says that his catheter was changed by the home nurse and since then he has been having intermittent bleeding. Today the bleeding has been significant where he is passing large clots. Denies any pain. Patient is on Coumadin. He came in to make sure everything was okay. Vital signs were stable. Patient was started on the Mishra catheter about a month ago for bladder issues PFS Past Medical History Narrative Medical List of his past medical, surgical, social and family history reviewed from the nursing note. Arthritis: Yes Atrial Fibrillation: Yes Autoimmune Disease: No Blood Disorders: No Anxiety: Yes Depression: Yes Heart Rhythm Problems: Yes (A-FIB) Cancer: No Cardiac Catheterization: Yes (HAS 60% IN ONE ARTERY MONITORED FOR SINCE 2003) Cardiovascular Problems: Yes (A-FIB RVR, CHF , pace maker 07/24) High Cholesterol: Yes Chest Pain: Yes Congestive Heart Failure: Yes COPD: Yes Cerebrovascular Accident: No Diabetes: Yes Diminished Hearing: No Endocrine: No Gastrointestinal Disorders: Yes (enterocolitis due to c-diff, CONSTIOATION, HEMORRHOIDS, NAUSEA/VOMITING) GERD: Yes Genitourinary: Yes Hypertension: Yes Immune Disorder: No Implanted Vascular Access Dvce: Yes Musculoskeletal: Yes (MUSCULAR DYSTROPHY) Neurologic: No Psychiatric: No Reproductive: No Respiratory: Yes (RESPIRATORY FAILURE, PNEUMONIA ) Pneumonia: Yes Thyroid Disease: Yes (LESION ON THYROID) Past Surgical History Abdominal Surgery: Yes (DIVERTICULITIS;HERNIA) Appendectomy: Yes Cardiac Surgery: Yes (CARDIAC CATHETERIZATION '03, PACEMAKER) Ear Surgery: No Endocrine Surgery: No Eye Surgery: No Genitourinary Surgery: No Gynecologic Surgery: No Oral Surgery: No Pacemaker: Yes Thoracic Surgery: No Other Surgery: Yes Social History Alcohol Use: No Tobacco Use: No Substance Use: No Allergies-Medications (Allergen,Severity, Reaction): Coded Allergies: No Known Allergies (Verified , PER H/P, 10/22/16) Comments no known drug allergies. Reported Meds & Prescriptions Reported Meds & Active Scripts Active Keflex (Cephalexin) 500 Mg Capsule 500 Mg PO Q6H Reported Sotalol (Sotalol HCl) 120 Mg Tab 120 Mg PO BID Duoneb (Ipratropium-Albuterol Neb) 0.5-2.5 Mg/3 Ml Neb 1 Nebule INH Q4HR NEB Mucinex DM (Dextromethorphan-Guaifenesin) 30-600 Mg Tab 1 Tab PO BID PRN Ambien (Zolpidem Tartrate) 10 Mg Tab 10 Mg PO HS PRN Tylenol (Acetaminophen) 325 Mg Tab 325 Mg PO TID Magnesium Oxide 250 Mg Tab 250 Mg PO DAILY Vitamin D3 (Cholecalciferol) 50,000 Unit Cap 50,000 Units PO Q7D Aspirin EC (Aspirin) 81 Mg Tabdr 81 Mg PO DAILY Coumadin (Warfarin) 6 Mg Tab 6 Mg PO DIRECTED Coumadin (Warfarin) 4 Mg Tab 4 Mg PO DAILY Torsemide 10 Mg Tab 10 Mg PO DIRECTED Singulair (Montelukast Sodium) 10 Mg Tab 10 Mg PO HS Culturelle (Lactobacillus Rhamnosus (GG)) 10 B Cell Cap 1 Cap PO DAILY Spiriva Handihaler (Tiotropium Inh) 18 Mcg Cap 2 Puff INH DAILY 1 capsule = 18 mcg Ventolin Hfa 18 GM Inh (Albuterol Sulfate) 90 Mcg/Act Aer 2 Puff INH Q6HR PRN Atorvastatin (Atorvastatin Calcium) 10 Mg Tab 10 Mg PO HS Isosorbide Mononitrate ER (Isosorbide Mononitrate) 30 Mg Adam 30 Mg PO DAILY Levothyroxine (Levothyroxine Sodium) 137 Mcg Tab 137 Mcg PO DAILY Narrative Medication List of his home medications reviewed from the nursing note. Review of Systems Except as stated in HPI: all other systems reviewed are Neg Physical Exam Narrative GENERAL: Awake, alert, obese, wheelchair-bound SKIN: Focused skin assessment warm/dry. HEAD: Atraumatic. Normocephalic. EYES: Pupils equal and round. No scleral icterus. No injection or drainage. ENT: No nasal bleeding or discharge. Mucous membranes pink and moist. NECK: Trachea midline. No JVD. CARDIOVASCULAR: Regular rate and rhythm. No murmur appreciated. RESPIRATORY: No accessory muscle use. Clear to auscultation. Breath sounds equal bilaterally. GASTROINTESTINAL: Abdomen soft, non-tender, nondistended. Hepatic and splenic margins not palpable. Indwelling Mishra catheter which has gross hematuria with clots. MUSCULOSKELETAL: No obvious deformities. No clubbing. No cyanosis. No edema. NEUROLOGICAL: Awake and alert. No obvious cranial nerve deficits. Motor grossly within normal limits. Normal speech. PSYCHIATRIC: Appropriate mood and affect; insight and judgment normal. Data Data Last Documented VS Vital Signs Date Time Temp Pulse Resp B/P (MAP) Pulse Ox O2 Delivery O2 Flow Rate FiO2 10/22/16 19:23 10/22/16 19:04 58 18 99 10/22/16 17:37 Nasal Cannula 2.00 10/22/16 15:00 98.2 Orders Orders Complete Blood Count With Diff (10/22/16 15:31) Basic Metabolic Panel (Bmp) (10/22/16 15:31) Urinalysis - C+S If Indicated (10/22/16 15:31) Ecg Monitoring (10/22/16 15:31) Iv Access Insert/Monitor (10/22/16 15:31) Sodium Chloride 0.9% Flush (Ns Flush) (10/22/16 15:45) Prothrombin Time / Inr (Pt) (10/22/16 15:31) Cath, Hematuria 24f 3way Ea (10/22/16 15:31) Urine Culture (10/22/16 16:30) Labs Laboratory Tests Test 10/22/16 16:24 10/22/16 16:30 White Blood Count 6.8 TH/MM3 Red Blood Count 4.32 MIL/MM3 Hemoglobin 11.6 GM/DL Hematocrit 35.4 % Mean Corpuscular Volume 81.9 FL Mean Corpuscular Hemoglobin 26.8 PG Mean Corpuscular Hemoglobin Concent 32.7 % Red Cell Distribution Width 14.8 % Platelet Count 215 TH/MM3 Mean Platelet Volume 7.5 FL Neutrophils (%) (Auto) 61.9 % Lymphocytes (%) (Auto) 27.2 % Monocytes (%) (Auto) 7.3 % Eosinophils (%) (Auto) 3.0 % Basophils (%) (Auto) 0.6 % Neutrophils # (Auto) 4.3 TH/MM3 Lymphocytes # (Auto) 1.8 TH/MM3 Monocytes # (Auto) 0.5 TH/MM3 Eosinophils # (Auto) 0.2 TH/MM3 Basophils # (Auto) 0.0 TH/MM3 CBC Comment DIFF FINAL Differential Comment Prothrombin Time 27.7 SEC Prothromb Time International Ratio 2.4 RATIO Blood Urea Nitrogen 22 MG/DL Creatinine 0.43 MG/DL Random Glucose 119 MG/DL Calcium Level 8.5 MG/DL Sodium Level 137 MEQ/L Potassium Level 4.4 MEQ/L Chloride Level 99 MEQ/L Carbon Dioxide Level 32.0 MEQ/L Anion Gap 6 MEQ/L Estimat Glomerular Filtration Rate 192 ML/MIN Urine Color YELLOW Urine Turbidity CLOUDY Urine pH 7.5 Urine Specific [place] 1.015 Urine Protein NEG mg/dL Urine Glucose (UA) NEG mg/dL Urine Ketones NEG mg/dL Urine Occult Blood LARGE Urine Nitrite POS Urine Bilirubin NEG Urine Leukocyte Esterase LARGE Urine RBC INNUM /hpf Urine WBC 20-24 /hpf Urine Squamous Epithelial Cells 0-5 /hpf Urine Bacteria MOD /hpf Microscopic Urinalysis Comment CULTURE INDICATED MDM Medical Decision Making Medical Screen Exam Complete: Yes Emergency Medical Condition: Yes Medical Record Reviewed: Yes Differential Diagnosis Elevated INR, bladder tumor, renal cell carcinoma, traumatic hematuria Narrative Course 3:50 PM awaiting for the CT and blood test. A 3-way hematuria catheter is ordered for continuous bladder irrigation. Case been signed over to the oncoming ER physician. Procedures EKG Prior to Arrival: No Scripts Cephalexin (Keflex) 500 Mg Capsule 500 MG PO Q6H for Infection, #28 CAP 0 Refills Prov: Eduard Ladd MD 10/22/16 Cait Francis MD Oct 22, 2016 15:27
[2016-10-22] MEDS ORDERED: SODIUM CHLORIDE 0.9% FLUSH 10 ML FLUSH IVF PRN (15:45)
--- NOTE | 2016-10-22 16:28 | PD ---
Physical Exam Date Seen by Provider: Oct 22, 2016 Time Seen by Provider: 16:26 Narrative This 76-year-old male presented with complaint of hematuria. He has had a indwelling catheter for about [address] Morejon on a regular basis. He had cystoscopy done about 2 months ago. 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 He had a routine changing of his catheter last Thursday and since then has had intermittent bleeding. Earlier today he had gross hematuria with clots. He has had a urinary tract infection in the past. Data Data Last Documented VS Vital Signs Date Time Temp Pulse Resp B/P (MAP) Pulse Ox O2 Delivery O2 Flow Rate FiO2 10/22/16 17:37 68 16 153/83 (106) 99 Nasal Cannula 2.00 10/22/16 15:00 98.2 Orders Orders Complete Blood Count With Diff (10/22/16 15:31) Basic Metabolic Panel (Bmp) (10/22/16 15:31) Urinalysis - C+S If Indicated (10/22/16 15:31) Ecg Monitoring (10/22/16 15:31) Iv Access Insert/Monitor (10/22/16 15:31) Sodium Chloride 0.9% Flush (Ns Flush) (10/22/16 15:45) Prothrombin Time / Inr (Pt) (10/22/16 15:31) Cath, Hematuria 24f 3way Ea (10/22/16 15:31) Urine Culture (10/22/16 16:30) Labs Laboratory Tests Test 10/22/16 16:24 10/22/16 16:30 White Blood Count 6.8 TH/MM3 Red Blood Count 4.32 MIL/MM3 Hemoglobin 11.6 GM/DL Hematocrit 35.4 % Mean Corpuscular Volume 81.9 FL Mean Corpuscular Hemoglobin 26.8 PG Mean Corpuscular Hemoglobin Concent 32.7 % Red Cell Distribution Width 14.8 % Platelet Count 215 TH/MM3 Mean Platelet Volume 7.5 FL Neutrophils (%) (Auto) 61.9 % Lymphocytes (%) (Auto) 27.2 % Monocytes (%) (Auto) 7.3 % Eosinophils (%) (Auto) 3.0 % Basophils (%) (Auto) 0.6 % Neutrophils # (Auto) 4.3 TH/MM3 Lymphocytes # (Auto) 1.8 TH/MM3 Monocytes # (Auto) 0.5 TH/MM3 Eosinophils # (Auto) 0.2 TH/MM3 Basophils # (Auto) 0.0 TH/MM3 CBC Comment DIFF FINAL Differential Comment Prothrombin Time 27.7 SEC Prothromb Time International Ratio 2.4 RATIO Blood Urea Nitrogen 22 MG/DL Creatinine 0.43 MG/DL Random Glucose 119 MG/DL Calcium Level 8.5 MG/DL Sodium Level 137 MEQ/L Potassium Level 4.4 MEQ/L Chloride Level 99 MEQ/L Carbon Dioxide Level 32.0 MEQ/L Anion Gap 6 MEQ/L Estimat Glomerular Filtration Rate 192 ML/MIN Urine Color YELLOW Urine Turbidity CLOUDY Urine pH 7.5 Urine Specific [place] 1.015 Urine Protein NEG mg/dL Urine Glucose (UA) NEG mg/dL Urine Ketones NEG mg/dL Urine Occult Blood LARGE Urine Nitrite POS Urine Bilirubin NEG Urine Leukocyte Esterase LARGE Urine RBC INNUM /hpf Urine WBC 20-24 /hpf Urine Squamous Epithelial Cells 0-5 /hpf Urine Bacteria MOD /hpf Microscopic Urinalysis Comment CULTURE INDICATED MDM Medical Record Reviewed: Yes Supervised Visit with KIKE: No Differential Diagnosis Differential includes coagulopathy, UTI, hematuria secondary to Butler Narrative Course His INR is 2.4. Urine does show some white cells along with innumerable red cells. Patient had an indwelling Butler in reluctant to treat the infection at this time. I will write a prescription for Keflex but told him only to take it if he develops a fever. His hemoglobin is stable. Catheter is draining clear urine Diagnosis Primary Impression: hematuria secondary to indwelling Butler Additional Impression: UTI (urinary tract infection) Scripts Cephalexin (Keflex) 500 Mg Capsule 500 MG PO Q6H for Infection, #28 CAP 0 Refills Prov: Eduard Ladd MD 10/22/16 Disposition: DISCHARGE HOME Condition: Stable Eduard Ladd MD Oct 22, 2016 16:28
[2016-10-22 16:41] LABS: AUTOMATED NEUTROPHIL # 4.3 TH/MM3 (1.8-7.7); BASOPHIL % 0.6 % (0.0-2.0); EOSINOPHIL # 0.2 TH/MM3 (0-0.4); HEMATOCRIT 35.4 % (39.0-51.0); HEMO FLAGS DIFF FINAL; LYMPH % 27.2 % (9.0-44.0); LYMPHOCYTE # 1.8 TH/MM3 (1.0-4.8); MEAN CELL VOLUME 81.9 FL (80.0-100.0); MEAN CORPUSCULAR HEMOGLOBIN 26.8 PG (27.0-34.0); MEAN CORPUSCULAR HGB CONC 32.7 % (32.0-36.0); MONO % 7.3 % (0.0-8.0); NEUT % 61.9 % (16.0-70.0); PLATELET COUNT 215 TH/MM3 (150-450); RED BLOOD COUNT 4.32 MIL/MM3 (4.50-5.90); RED CELL DISTRIBUTION WIDTH 14.8 % (11.6-17.2); WHITE BLOOD COUNT 6.8 TH/MM3 (4.0-11.0)
[2016-10-22 16:44] LABS: BLOOD, URINE LARGE (NEG); GLUCOSE,URINE NEG (NEG); KETONE, URINE NEG (NEG); NITRITE,URINE POS (NEG); PH, URINE 7.5 (5.0-8.5)
[2016-10-22 16:50] LABS: POTASSIUM 4.4 MEQ/L (3.5-5.1)
[2016-10-22] MEDS ORDERED: ASPI81TA11 PO (16:50)
[2016-10-22] MEDS ORDERED: TORS10TA2 PO (16:50)
[2016-10-22] MEDS ORDERED: COUM4TAB PO (16:50)
[2016-10-22] MEDS ORDERED: COUM6TAB PO (16:50)
[2016-10-22] MEDS ORDERED: MONT10TA2 PO (16:50)
[2016-10-22] MEDS ORDERED: solatol PO (16:50)
[2016-10-22] MEDS ORDERED: MUCI30TA2 PO (16:57)
[2016-10-22] MEDS ORDERED: TYLE325T PO (16:57)
[2016-10-22] MEDS ORDERED: MAGN250T11 PO (16:57)
[2016-10-22] MEDS ORDERED: CHOL1CAP34 PO (16:57)
[2016-10-22] MEDS ORDERED: AMBI10TA PO (16:57)
[2016-10-22 16:58] LABS: URINE COLOR YELLOW (YELLW/STRAW)
[2016-10-22] MEDS ORDERED: IPRASOL INH (16:58)
[2016-10-22 16:59] LABS: BACTERIA, URINE MOD /hpf; RBC, URINE INNUM /hpf (0-3); SQUAMOUS EPITHELIAL CELL URINE 0-5 /hpf (0-5)
[2016-10-22 17:00] LABS: COMMENT (UR) CULTURE INDICATED; CULTURE IF INDICATED CULTURE INDICATED
[2016-10-22 17:06] LABS: INTERNATIONAL NORMALIZED RATIO 2.4 RATIO; PROTHROMBIN TIME - PATIENT 27.7 SEC (9.8-11.6)
[2016-10-22 17:37] VITALS: BP 153/83; PULSE 68; RESP 16; O2SAT 99
[2016-10-22] MEDS ORDERED: CEPH-460 PO (17:58)
[2016-10-22 19:04] VITALS: BP 150/80; PULSE 58; RESP 18; O2SAT 99
[2016-10-24] MEDS ORDERED: SOTA120T PO (11:01)
== END 2016-10-22 19:25 | disposition home or self-care (01) ==
LOC: PHED 14:43
DX: R31.9 Hematuria, unspecified (principal); Z96.0 Presence of urogenital implants; N39.0 Urinary tract infection, site not specified; E11.9 Type 2 diabetes mellitus without complications; G71.0 Muscular dystrophy; I11.0 Hypertensive heart disease with heart failure; I50.9 Heart failure, unspecified; I48.91 Unspecified atrial fibrillation; J44.9 Chronic obstructive pulmonary disease, unspecified; K21.9 Gastro-esophageal reflux disease without esophagitis; Z79.01 Long term (current) use of anticoagulants; Z88.6 Allergy status to analgesic agent; Z95.0 Presence of cardiac pacemaker; B95.2 Enterococcus as the cause of diseases classified elsewhere
CPT/HCPCS: 80048; 81001; 85025; 85610; 87077; 87086; 87186; 99283

== ENCOUNTER 2017-01-26 15:14 | Emergency (ER) | payer MEDICARE, OTHER ==
[~2017-01-26 15:14] MED LIST changes: -ACET325T PO; +AMBI10TA PO; +ASPI81TA23 PO; -BAZACRE TOP; +CEPH-460 PO; +CHOL1CAP34 PO; +COUM4TAB PO; -COUM5TAB PO; +COUM6TAB PO; -DULC10SU3 PR; -FLEEENE3 PR; +HUMIBIDDM PO; +IPRASOL INH; -LEVO750T3 PO; -LEXA10TA PO; -LOSA25TA PO; +MAGN250T11 PO; -MILKSUS PO; +MONT10TA2 PO; -MULTTAB62 PO; +SOTA120T PO; +TORS10TA2 PO; +TYLE325T PO; -WARF-23 PO
[2017-01-26 15:45] VITALS: BP 149/87; PULSE 69; RESP 20; TEMP 97.9; O2SAT 99
--- NOTE | 2017-01-26 15:55 | PD ---
HPI Chief Complaint: Respiratory Symptoms Time Seen by Provider: 15:35 Travel History International Travel<30 days: No Contact w/Intl Traveler<30days: No Traveled to known affect area: No History of Present Illness HPI This 76-year-old male is complaining of that he feels a little bit short of breath. He has a nurse that comes to his house to check on him and she says that she felt some fluid in his lungs. He's been having some left-sided chest pain off and on for the last few weeks. It's a left-sided pain that lasts for a couple minutes at a time. He is not ambulatory. He has muscular dystrophy and is confined to bed. He does have some cardiac history he has a pacemaker in place. He does not have a history of myocardial infarction no he has had a does apparently have a blockage that they were not able to stand. He also sees Dr. stokes pulmonary issues. He was a smoker 30 years ago for about 30 years and apparently has some COPD. He has not been ambulatory since July 25, 2015. Recently has had several bouts of pneumonia and C. difficile. He is on home oxygen PFS Past Medical History Arthritis: Yes Atrial Fibrillation: Yes Autoimmune Disease: No Blood Disorders: No Anxiety: Yes Depression: Yes Heart Rhythm Problems: Yes (A-FIB) Cancer: No Cardiac Catheterization: Yes (HAS 60% IN ONE ARTERY MONITORED FOR SINCE 2003) Cardiovascular Problems: Yes (A-FIB RVR, CHF , pace maker 07/24) High Cholesterol: Yes Chest Pain: Yes Congestive Heart Failure: Yes COPD: Yes Cerebrovascular Accident: No Diabetes: Yes Patient Takes Glucophage: Yes Diminished Hearing: No Diverticulitis: Yes Endocrine: No Gastrointestinal Disorders: Yes (enterocolitis due to c-diff, CONSTIOATION, HEMORRHOIDS, NAUSEA/VOMITING) GERD: Yes Glaucoma: Yes Genitourinary: Yes (currently has cath for urinary retention 10/22/16) Hypertension: Yes Immune Disorder: No Implanted Vascular Access Dvce: Yes Musculoskeletal: Yes (MUSCULAR DYSTROPHY) Neurologic: No Psychiatric: No Reproductive: No Respiratory: Yes (RESPIRATORY FAILURE, PNEUMONIA ) Immunizations Current: No Pneumonia: Yes Thyroid Disease: Yes (LESION ON THYROID) Tetanus Vaccination: < 5 Years Influenza Vaccination: Yes Past Surgical History Abdominal Surgery: Yes (DIVERTICULITIS;HERNIA) Appendectomy: Yes Cardiac Surgery: Yes (CARDIAC CATHETERIZATION ', PACEMAKER) Ear Surgery: No Endocrine Surgery: No Eye Surgery: No Genitourinary Surgery: No Gynecologic Surgery: No Neurologic Surgery: No Oral Surgery: No Pacemaker: Yes Thoracic Surgery: No Other Surgery: Yes Social History Alcohol Use: No (occassionally wine ) Tobacco Use: No (quit 40 years ago) Substance Use: No Allergies-Medications (Allergen,Severity, Reaction): Coded Allergies: No Known Allergies (Verified Adverse Reaction, Unknown, PER H/P, 01/26/17) Reported Meds & Prescriptions Reported Meds & Active Scripts Active Reported Lexapro (Escitalopram Oxalate) 10 Mg Tab 10 Mg PO DAILY Sotalol (Sotalol HCl) 120 Mg Tab 120 Mg PO BID Duoneb (Ipratropium-Albuterol Neb) 0.5-2.5 Mg/3 Ml Neb 1 Nebule INH Q4HR NEB Mucinex DM (Dextromethorphan-Guaifenesin) 30-600 Mg Tab 1 Tab PO BID PRN Ambien (Zolpidem Tartrate) 10 Mg Tab 10 Mg PO HS PRN Tylenol (Acetaminophen) 325 Mg Tab 325 Mg PO TID Magnesium Oxide 250 Mg Tab 250 Mg PO DAILY Vitamin D3 (Cholecalciferol) 50,000 Unit Cap 50,000 Units PO Q7D Aspirin EC (Aspirin) 81 Mg Tabdr 81 Mg PO DAILY Coumadin (Warfarin) 6 Mg Tab 6 Mg PO DIRECTED Coumadin (Warfarin) 4 Mg Tab 4 Mg PO DAILY Torsemide 10 Mg Tab 10 Mg PO DIRECTED Singulair (Montelukast Sodium) 10 Mg Tab 10 Mg PO HS Culturelle (Lactobacillus Rhamnosus (GG)) 10 B Cell Cap 1 Cap PO DAILY Spiriva Handihaler (Tiotropium Inh) 18 Mcg Cap 2 Puff INH DAILY 1 capsule = 18 mcg Ventolin Hfa 18 GM Inh (Albuterol Sulfate) 90 Mcg/Act Aer 2 Puff INH Q6HR PRN Atorvastatin (Atorvastatin Calcium) 10 Mg Tab 10 Mg PO HS Isosorbide Mononitrate ER (Isosorbide Mononitrate) 30 Mg Adam 30 Mg PO DAILY Levothyroxine (Levothyroxine Sodium) 137 Mcg Tab 137 Mcg PO DAILY Review of Systems General / Constitutional: No: Fever, Chills Eyes: No: Diploplia, Blurred Vision HENT: No: Headaches, Vertigo Cardiovascular: Positive: Chest Pain or Discomfort Respiratory: Positive: Shortness of Breath, No: Cough Gastrointestinal: No: Nausea, Vomiting Genitourinary: No: Urgency, Frequency Musculoskeletal: No: Myalgias, Arthralgias Skin: No Rash, No Itching Neurologic: Positive: Weakness Endocrine: No: Heat Intolerance, Cold Intolerance Hematologic/Lymphatic: No: Easy Bruising Physical Exam Narrative GENERAL: Well-developed male SKIN: Focused skin assessment warm/dry. HEAD: Atraumatic. Normocephalic. EYES: Pupils equal and round. No scleral icterus. No injection or drainage. ENT: No nasal bleeding or discharge. Mucous membranes pink and moist. NECK: Trachea midline. No JVD. CARDIOVASCULAR: Regular rate and rhythm. No murmur appreciated. RESPIRATORY: No accessory muscle use. Clear to auscultation. Breath sounds equal bilaterally. GASTROINTESTINAL: Abdomen soft, non-tender, nondistended. Hepatic and splenic margins not palpable. MUSCULOSKELETAL: No obvious deformities. No clubbing. No cyanosis. 1+ edema. NEUROLOGICAL: Awake and alert. No obvious cranial nerve deficits. He has symmetric weakness.Normal speech. PSYCHIATRIC: Appropriate mood and affect; insight and judgment normal. Data Data Last Documented VS Vital Signs Date Time Temp Pulse Resp B/P (MAP) Pulse Ox O2 Delivery O2 Flow Rate FiO2 01/26/17 15:49 (107) 01/26/17 15:48 99 Nasal Cannula 2.00 01/26/17 15:45 97.9 69 20 Orders Orders Electrocardiogram (01/26/17 15:55) Complete Blood Count With Diff (01/26/17 15:55) Comprehensive Metabolic Panel (01/26/17 15:55) Troponin I (01/26/17 15:55) B-Type Natriuretic Peptide (01/26/17 15:55) Prothrombin Time / Inr (Pt) (01/26/17 15:55) Act Partial Throm Time (Ptt) (01/26/17 15:55) Urinalysis - C+S If Indicated (01/26/17 15:55) Magnesium (Mg) (01/26/17 15:55) Chest, Single Ap (01/26/17 15:55) MDM Medical Decision Making Medical Screen Exam Complete: Yes Emergency Medical Condition: Yes Medical Record Reviewed: Yes Differential Diagnosis Differential includes pneumonia, CHF, COPD exacerbation Narrative Course Lab work x-ray and EKG have been ordered. EKG shows electronic atrial pacemaker and moderate intraventricular conduction delay Eduard Ladd MD Jan 26, 2017 15:55
[2017-01-26] MEDS ORDERED: LEXA10TA PO (15:59)
--- NOTE | 2017-01-26 16:29 | RADRPT ---
EXAM DATE/TIME: 01/26/2017 16:08 [facility] COMPARISON: CHEST SINGLE AP, December 27, 2015, 11:55. CT ABDOMEN & PELVIS W/O CONTRAST, July 23, 2016, 22:19. C HEST SINGLE AP, July 24, 2016, 5:23. INDICATIONS : Shortness of breath. MEDICAL HISTORY : Hypertension. Congestive heart failure. Chronic obstructive pulmonary disease. Asthma. Muscular dystrophy. SURGICAL HISTORY : Pacemaker. Cardiac catheterization. ENCOUNTER: Initial ACUITY: 1 day PAIN SCORE: 0/10 LOCATION: Bilateral chest FINDINGS: Portable AP view of the chest demonstrates a stable cardiac silhouette size at the upper limits for n ormal. Left chest wall pacing device remains present. There are persistent low lung volumes bilateral ly with linear opacities at both lung bases. No effusion, consolidation, or pneumothorax is identifie d. Bones and soft tissues demonstrate no acute finding. CONCLUSION: Stable low lung volumes with likely chronic atelectasis at the lung bases. Sherwin Rodriguez MD on January 26, 2017 at 16:25 Board Certified Radiologist. This report was verified electronically.
[2017-01-26 16:40] LABS: BASOPHIL % 0.3 % (0.0-2.0); EOSINOPHIL # 0.2 TH/MM3 (0-0.4); EOSINOPHIL % 2.2 % (0.0-4.0); HEMATOCRIT 37.6 % (39.0-51.0); HEMO FLAGS DIFF FINAL; LYMPH % 30.3 % (9.0-44.0); LYMPHOCYTE # 2.1 TH/MM3 (1.0-4.8); MEAN CELL VOLUME 82.1 FL (80.0-100.0); MEAN CORPUSCULAR HEMOGLOBIN 26.7 PG (27.0-34.0); MEAN CORPUSCULAR HGB CONC 32.6 % (32.0-36.0); NEUT % 59.2 % (16.0-70.0); PLATELET COUNT 214 TH/MM3 (150-450); RED BLOOD COUNT 4.58 MIL/MM3 (4.50-5.90); RED CELL DISTRIBUTION WIDTH 14.8 % (11.6-17.2); WHITE BLOOD COUNT 6.9 TH/MM3 (4.0-11.0)
[2017-01-26 16:47] LABS: CHLORIDE 99 MEQ/L (98-107); SODIUM (NA) 135 MEQ/L (136-145)
[2017-01-26 16:51] LABS: ANION GAP 3 MEQ/L (5-15); BICARBONATE 32.6 MEQ/L (21.0-32.0); BLOOD UREA NITROGEN 23 MG/DL (7-18); MAGNESIUM 2.2 MG/DL (1.5-2.5)
[2017-01-26 16:54] LABS: ALT (GPT) 26 U/L (12-78); AST (GOT) 31 U/L (15-37); GLOMERULAR FILTRATION RATE 215 ML/MIN (>89)
[2017-01-26 16:56] LABS: TOTAL BILIRUBIN ADULT 0.4 MG/DL (0.2-1.0)
[2017-01-26 16:57] LABS: ALKALINE PHOSPHATASE 100 U/L (45-117)
[2017-01-26 17:12] LABS: POTASSIUM 4.9 MEQ/L (3.5-5.1)
[2017-01-26 17:15] LABS: APTT (PATIENT) 37.6 SEC (24.3-30.1); INTERNATIONAL NORMALIZED RATIO 2.2 RATIO; PROTHROMBIN TIME - PATIENT 22.6 SEC (9.8-11.6)
[2017-01-26 17:27] LABS: GLUCOSE,URINE NEG (NEG); KETONE, URINE NEG (NEG); NITRITE,URINE POS (NEG)
[2017-01-26 17:56] VITALS: BP 147/97; PULSE 68; RESP 16; O2SAT 99
[2017-01-26 18:08] LABS: BLOOD, URINE TRACE (NEG)
[2017-01-26 18:19] LABS: URINE COLOR YELLOW (YELLW/STRAW)
[2017-01-26 18:20] LABS: BACTERIA, URINE FEW /hpf; COMMENT (UR) CULTURE INDICATED; CULTURE IF INDICATED CULTURE INDICATED; RBC, URINE 0-3 /hpf (0-3)
--- NOTE | 2017-01-26 18:56 | PD ---
Data Data Last Documented VS Vital Signs Date Time Temp Pulse Resp B/P (MAP) Pulse Ox O2 Delivery O2 Flow Rate FiO2 01/26/17 17:56 68 16 147/97 (114) 99 Nasal Cannula 2.00 01/26/17 15:45 97.9 Orders Orders Electrocardiogram (01/26/17 15:55) Complete Blood Count With Diff (01/26/17 15:55) Comprehensive Metabolic Panel (01/26/17 15:55) Troponin I (01/26/17 15:55) B-Type Natriuretic Peptide (01/26/17 15:55) Prothrombin Time / Inr (Pt) (01/26/17 15:55) Act Partial Throm Time (Ptt) (01/26/17 15:55) Urinalysis - C+S If Indicated (01/26/17 15:55) Magnesium (Mg) (01/26/17 15:55) Chest, Single Ap (01/26/17 15:55) Urine Culture (01/26/17 17:00) Ed Discharge Order (01/26/17 18:53) Labs Laboratory Tests Test 01/26/17 16:15 01/26/17 17:00 White Blood Count 6.9 TH/MM3 Red Blood Count 4.58 MIL/MM3 Hemoglobin 12.3 GM/DL Hematocrit 37.6 % Mean Corpuscular Volume 82.1 FL Mean Corpuscular Hemoglobin 26.7 PG Mean Corpuscular Hemoglobin Concent 32.6 % Red Cell Distribution Width 14.8 % Platelet Count 214 TH/MM3 Mean Platelet Volume 7.8 FL Neutrophils (%) (Auto) 59.2 % Lymphocytes (%) (Auto) 30.3 % Monocytes (%) (Auto) 8.0 % Eosinophils (%) (Auto) 2.2 % Basophils (%) (Auto) 0.3 % Neutrophils # (Auto) 4.0 TH/MM3 Lymphocytes # (Auto) 2.1 TH/MM3 Monocytes # (Auto) 0.6 TH/MM3 Eosinophils # (Auto) 0.2 TH/MM3 Basophils # (Auto) 0.0 TH/MM3 CBC Comment DIFF FINAL Differential Comment Prothrombin Time 22.6 SEC Prothromb Time International Ratio 2.2 RATIO Activated Partial Thromboplast Time 37.6 SEC Blood Urea Nitrogen 23 MG/DL Creatinine 0.39 MG/DL Random Glucose 128 MG/DL Total Protein 7.1 GM/DL Albumin 3.3 GM/DL Calcium Level 8.5 MG/DL Magnesium Level 2.2 MG/DL Alkaline Phosphatase 100 U/L Aspartate Amino Transf (AST/SGOT) 31 U/L Alanine Aminotransferase (ALT/SGPT) 26 U/L Total Bilirubin 0.4 MG/DL Sodium Level 135 MEQ/L Potassium Level 4.9 MEQ/L Chloride Level 99 MEQ/L Carbon Dioxide Level 32.6 MEQ/L Anion Gap 3 MEQ/L Estimat Glomerular Filtration Rate 215 ML/MIN Troponin I LESS THAN 0.02 NG/ML B-Type Natriuretic Peptide 57 PG/ML Urine Color YELLOW Urine Turbidity CLEAR Urine pH 7.0 Urine Specific [place] 1.010 Urine Protein NEG mg/dL Urine Glucose (UA) NEG mg/dL Urine Ketones NEG mg/dL Urine Occult Blood TRACE Urine Nitrite POS Urine Bilirubin NEG Urine Leukocyte Esterase MOD Urine RBC 0-3 /hpf Urine WBC 3-5 /hpf Urine WBC Clumps FEW Urine Bacteria FEW /hpf Microscopic Urinalysis Comment CULTURE INDICATED MDM Supervised Visit with KIKE: No Narrative Course This case is checked out to me by Dr. Owens at 4 PM. I have reviewed the entirety of the workup and discussed with the patient. Patient feels fine at this time He is asymptomatic. He only came to the ER because a home health nurse listened to his lungs and thought he had fluid in his lungs. He is not short of breath His chest x-ray shows no pulmonary edema or pleural effusion I reviewed all his labs which essentially look fine. Cardiac enzymes are normal. He has had 3 weeks of very atypical left upper chest discomfort. Symptoms are nonexertional. They only last 30 seconds and resolved. He has an appointment with his finance officer in 3 weeks. I advised him to call there tomorrow to see if they want to move that up. I do not feel he needs emergent inpatient evaluation of it and the patient does not want to stay in the hospital regardless. Patient has caught infections in the hospital and only wants to stay there if it is absolutely mandatory Patient's urine will be cultured but he has no urinary symptoms and I'm not going to place him on antibiotics now Diagnosis Primary Impression: Atypical chest pain Additional Impression: Muscular dystrophy Additional Instruction: The patient was advised to follow up with their physician and return if they worsen. Med/Other Pt SpecificInfo: Other Disposition: 01 DISCHARGE HOME Condition: Stable Kocisko,Chidi J. MD Jan 26, 2017 18:56
[2017-01-26 19:19] VITALS: BP 154/87; PULSE 63; RESP 16; O2SAT 98
--- NOTE | 2017-01-27 14:41 | EKG ---
Date Performed: 01/26/2017 Time Performed: 15:30:51 PTAGE: 76 years EKG: ELECTRONIC ATRIAL PACEMAKER MODERATE INTRAVENTRICULAR CONDUCTION DELAY ABNORMAL ECG Compare d to prior tracing no significant change PREVIOUS TRACING : 12/27/2015 11.32 DOCTOR: Lucille Salcedo Interpretating Date/Time 01/27/2017 14:35:51
== END 2017-01-26 19:20 | disposition home or self-care (01) ==
LOC: PHED 15:14
DX: R07.89 Other chest pain (principal); G71.0 Muscular dystrophy; I11.0 Hypertensive heart disease with heart failure; I50.9 Heart failure, unspecified; I48.91 Unspecified atrial fibrillation; E78.00 Pure hypercholesterolemia, unspecified; B96.5 Pseudomonas (aeruginosa) (mallei) (pseudomallei) as the cause of diseases classified elsewhere; N39.0 Urinary tract infection, site not specified; Z79.01 Long term (current) use of anticoagulants; Z87.891 Personal history of nicotine dependence; Z95.0 Presence of cardiac pacemaker
CPT/HCPCS: 71010; 80053; 81001; 83735; 83880; 84484; 85025; 85610; 85730; 87077; 87086; 87186; 93005

== ENCOUNTER 2017-10-19 04:13 | Inpatient (IN) ==
--- NOTE | 2017-10-19 05:04 | ED ---
HPI General Chief complaint: Respiratory Symptoms Stated complaint: SOB Time Seen by Provider: 10/19/17 04:32 Source: patient Limitations: no limitations History of Present Illness HPI narrative: The patient is a 77 year old male who presents to the [facility] emergency department with a history of not feeling well since approximately 11 PM last night according to his . She reports that he began to complain of chills. Later in the night he began to have night sweats. Then he began to have a sensation of difficulty urinating, lower abdominal pain and finally chest pain prior to arrival. His reports that intermittently he did have shortness of breath and appeared anxious, therefore she gave him his Lexapro. The patient reports a history of CHF and COPD. The patient is on nasal cannula oxygen at home at night. The patient has a history of muscular dystrophy and uses a power wheelchair for mobility. The patient has a suprapubic catheter in place. The patient has continued to have normal urine output throughout the night according to his , however he seemed to be leaking urine around his suprapubic catheter and through his urethra. He has had the suprapubic catheter since February 2017. He last had a changed on September 28. He has not had any known fevers. He denies having any chest pain on arrival. The patient does however report having shortness of breath and is noted on room air to have O2 saturations as low as 75%. On review of systems otherwise, he denies having any worsening cough or congestion,neck pain, vomiting, diarrhea, urinary symptoms, or neurologic symptoms. Related Data Home Medications Medication Instructions Recorded Confirmed Lactobacillus rhamnosus GG 1 cap PO DAILY 10/19/17 10/19/17 [Culturelle] acetaminophen [Tylenol] 325 mg PO Q4-6H PRN 10/19/17 10/19/17 albuterol sulfate [Ventolin HFA] 2 puff INHALATION Q6H PRN 10/19/17 10/19/17 aspirin [Aspir-81] 81 mg PO DAILY 10/19/17 10/19/17 atorvastatin 10 mg PO DAILY 10/19/17 10/19/17 ergocalciferol (vitamin D2) 50,000 unit PO QWEEK 10/19/17 10/19/17 [Vitamin D2] escitalopram oxalate [Lexapro] 10 mg PO DAILY 10/19/17 10/19/17 guaifenesin [Mucinex] 1,200 mg PO DAILY 10/19/17 10/19/17 isosorbide mononitrate 30 mg PO DAILY 10/19/17 10/19/17 levothyroxine 137 mcg PO DAILY 10/19/17 10/19/17 magnesium 500 mg PO HS 10/19/17 10/19/17 montelukast [Singulair] 10 mg PO QPM 10/19/17 10/19/17 sotalol [Betapace] 120 mg/m2 PO BID 10/19/17 10/19/17 tiotropium bromide [Spiriva with 1 cap INHALATION DAILY 10/19/17 10/19/17 HandiHaler] torsemide 10 mg PO DIRECTED 10/19/17 10/19/17 warfarin 3 mg PO DIRECTED 10/19/17 10/19/17 warfarin 4 mg PO [id number] 10/19/17 10/19/17 zolpidem 10 mg PO HS 10/19/17 10/19/17 Allergies Allergy/AdvReac Type Severity Reaction Status Date / Time No Known Allergies Allergy Verified 10/19/17 04:47 Review of Systems ROS: all other systems reviewed are negative (Except for that which is mentioned in the HPI) [facility] Medical History Medical History Acute diverticulitis (Acute) Artificial pacemaker (Acute) Atrial fibrillation (Acute) CHF (congestive heart failure) (Acute) COPD (chronic obstructive pulmonary disease) (Acute) Diabetes (Acute) HTN (hypertension) (Acute) Muscular dystrophy (Acute) PNA (pneumonia) (Acute) Suprapubic catheter (Acute) UTI (urinary tract infection) (Acute) Surgical History Surgical History History of appendectomy (Acute) Hx of cardiac cath (Acute) Social History Social History Substance History: No History of Abuse Second Hand Smoke Exposure: No Smoking Status: Former smoker Tobacco Type: Cigarettes How Often Do You Have a Drink Containing Alcohol: Never [facility] within the Last 8 Weeks: No Recent Out of Country Travel within the Last 8 Weeks: No Immunization History Tetanus Immunization: Unsure Hx Influenza Vaccine This Season: No Exam Const General: cooperative, well developed and acute distress (Related to respiratory distress.) moderate Nutritional Appearance: obese Orientation: alert, awake and oriented x3 HENMT Head: normocephalic and atraumatic Nose: no nasal discharge and no epistaxis Mouth: moist mucous membranes Throat: posterior oropharynx normal and uvula midline Eyes Sclera: normal sclerae Pupils: PERRL Neck Neck: no meningeal signs, trachea midline and no JVD Resp Effort & Inspection: no audible wheezes, labored, respiratory distress, tachypneic, tripod positioning and uses accessory muscles Auscultation: other (The patient has decreased breath sounds bilateral bases, scattered crackles are audible. No wheezes are audible, however the patient has poor air movement noted.) Cardio Rate: tachycardic (Tachycardic rhythm in the low 100s, no pulse deficits to the extremities on simultaneous auscultation and palpation of his radial artery) Rhythm: regular rhythm Heart Sounds: no gallops, no murmurs and no rubs GI Inspection: non-distended Palpation: soft, no hepatosplenomegaly and nontender Skin General: other (The patient is cool, diaphoretic.) Neuro General: alert, awake and oriented x3 Cranial Nerves: other (Grossly unchanged from baseline related to his history of muscular dystrophy according to his . No facial asymmetry.) Speech: speech normal Motor: no movement abnormalities noted Extrem General: normal to inspection (No calf tenderness on palpation. 2+ pulses in all 4 extremities.), no clubbing, no cyanosis and edema (1+ edema bilateral lower extremities.) Laterality: bilaterally Psych Mood: congruent mood Affect: normal affect Judgment: judgment good Procedures Catheter Insertion (Urinary) Date of Insertion: 10/19/17 Time of Insertion: 05:42 Replacement of catheter present on admission: Yes Reason for placing indwelling catheter: Acute urinary retention Patient has the following: history of catheter associated urinary tract infection Bladder scan/ultrasound used before catheterization: No Antiseptic solution prep: Povidone-Iodine Topical anesthesia used: No Catheter type/location: Suprapubic Size (Kenyan): 16 Catheter balloon size (mL): 10 Results: successfully catheterized-immediate flow Procedure performed: without complications Additional Comments: The patient had leakage out of his urethra and around the suprapubic catheter site. The patient had a suprapubic catheter replaced by me with a 16 Kenyan, same size as the one previously in place. Course Initial Documented Vital Signs Pulse Rate 106 H 10/19/17 04:25 Last Documented Vital Signs Temperature 98.1 F 10/19/17 15:00 Pulse Rate 66 10/19/17 17:00 Respiratory Rate 27 H 10/19/17 15:41 Blood Pressure 112/54 L 10/19/17 15:00 Pulse Oximetry 95 10/19/17 15:46 Sign Out Sign Out Data: Patient Sign Out occurred on 10/19/17 at 07:12. Patient's care was discussed, and care was transferred from Candida Arteaga MD to Tianna Calix MD. Sign Out Comment: The patient's chemistries and CT scan of the abdomen and pelvis are pending at the conclusion of my shift. Patient's case will be checked out to the oncoming emergency physician to disposition the patient. The patient will clearly be admitted to the hospital for hypoxemia on room air associated with bilateral pleural effusions, history of congestive heart failure and COPD. Last updated by Candida Arteaga MD at 10/19/17 07:03 Post-Handoff Eval: I took over the patient's care from Dr Arteaga. At time of check out, patient's BP was in the 70s and the nitrolgycerin had been removed from his chest. He was given a 250 cc bolus NS and his BP responded appropriately, maintaining a systolic of the 120s-140s. Labs showed slight leukocytosis and a troponin of 0.11 (likely type 2, secondary to demand) but were otherwise unremarkable. He' d been given rocephin and azithromycin to cover him for COPD exacerbation/UTI/ possible pneumonia by the preceding physician. CT was unable to be done secondary to patient discomfort lying flat/without Bipap. He was re-evaluated and had a soft, nontender abdomen. He reports that his abdominal pain immediately improved after his suprapubic catheter was replaced by Dr Arteaga and his bladder was no longer distended, thus CT will not be done at this time. He has been admitted to the resident service under Dr Tyler to the intermediate care unit. Medical Decision Making MDM Narrative Medical decision making narrative: During the course of the patient's emergency department visit, the patient's history, examination, and differential diagnosis were reviewed with the patient. The patient was placed on a bus monitor with oximetry and frequent blood pressure monitoring. The patient had IV access obtained and blood work sent for analysis. Diagnostic evaluation was started regarding this shortness of breath, hypoxemia on room air. The patient was initially provided aspirin 324 mg p.o. 1 as the last time he took aspirin 81 mg was yesterday morning, nitroglycerin 1 inch to the chest wall , Lasix 40 mg IV, DuoNeb 3, Solu-Medrol 125 mg IV. On reevaluation, the patient's shortness of breath had improved, however he continued to have leakage around his suprapubic catheter site and through his urethra. Suprapubic catheter was replaced by me with the same size catheter, 16 Kenyan. Immediately he had out approximately 800 mL of urine, blood-tinged. The patient's blood pressure briefly dropped down into the 80s systolic. Nitroglycerin was removed from the chest. The patient was resting comfortably. He had no complaints at this point. The patient's case was checked out to the oncoming emergency physician at the conclusion of my shift. The patient was pending chemistry results. The patient 's initial diagnostic evaluation was remarkable for a white count of 14.3, chest x-ray that showed bilateral pleural effusions and what appeared to be fluid overload which was initially treated with Lasix. The patient also has a history of COPD and appeared to be retaining on his ABG, therefore he was also treated for a COPD exacerbation with Solu-Medrol, duo nebs 3, antibiotic coverage with Rocephin and Zithromax. Medical Screen Exam Complete: Yes Emergency Medical Condition: Yes Differential Diagnosis Differential Diagnosis: Congestive heart failure exacerbation, versus COPD exacerbation, versus pneumonia, versus pulmonary embolism, versus acute coronary syndrome Medical Records Medical records reviewed: Yes I reviewed the patient's medical records. Lab Data Lab results reviewed: Yes I reviewed the patient's lab results. Result diagrams: 10/19/17 04:30 10/19/17 05:50 Lab Results 10/19/17 10/19/17 10/19/17 Range/Units 04:28 04:30 04:30 WBC 14.3 H (4.0-11.0) th/mm3 RBC 5.17 (4.50-5.90) mil/mm3 Hgb 14.3 (13.0-17.0) gm/dL Hct 44.4 (39.0-51.0) % MCV 85.9 (80.0-100.0) fL MCH 27.6 (27.0-34.0) pg MCHC 32.1 (32.0-36.0) % RDW 15.4 (11.6-17.2) % Plt Count 274 (150-450) th/mm3 MPV 8.3 (7.0-11.0) fL Neut % (Auto) 65.7 (16.0-70.0) % Lymph % (Auto) 26.7 (9.0-44.0) % [place] % (Auto) 5.3 (0.0-8.0) % Eos % (Auto) 1.9 (0.0-4.0) % Baso % (Auto) 0.4 (0.0-2.0) % Neut # (Auto) 9.4 H (1.8-7.7) th/mm3 Lymph # (Auto) 3.8 (1.0-4.8) th/mm3 [place] # (Auto) 0.8 (0.0-0.9) th/mm3 Eos # (Auto) 0.3 (0.0-0.4) th/mm3 Baso # (Auto) 0.1 (0.0-0.2) th/mm3 WBC Differential . Differential Comment Auto diff final PT 23.3 H (9.8-11.6) sec INR 2.3 Ratio APTT 34.3 H (24.3-30.1) sec Puncture Site Patient Temperature O2 Saturation (90-100) % ABG pH (7.380-7.420) ABG pCO2 (38-42) mmHg ABG pO2 (61-120) mmHg ABG HCO3 (22-26) mmol/L ABG O2 Content (12.0-20.0) Vol % ABG Base Excess (-2-2) mmol/L ABG Methemoglobin (0-2) % Shmuel Test Hemoglobin (12.0-16.0) G/DL Carboxyhemoglobin (0-4) % O2 Delivery Device Vent Setting Inspired O2 % Critical Value Sodium (136-145) meq/L Potassium (3.5-5.1) meq/L Chloride (98-107) meq/L Carbon Dioxide (21.0-32.0) meq/L Anion Gap (5-15) meq/L BUN (7-18) mg/dL Creatinine (0.60-1.30) mg/dL Estimated GFR (>89) mL/min POC Glucose 229 H (68-110) mg/dl Random Glucose (74-106) mg/dL Lactic Acid (0.4-2.0) mmol/L Calcium (8.5-10.1) mg/dL Magnesium (1.5-2.5) mg/dL Total Bilirubin (0.2-1.0) mg/dL AST (15-37) U/L ALT (12-78) U/L Alkaline Phosphatase (45-117) U/L Total Creatine Kinase (39-308) U/L Troponin I (0.02-0.05) ng/mL B-Natriuretic Peptide (0-100) pg/mL Total Protein (6.4-8.2) g/dL Albumin (3.4-5.0) g/dL Lipase (73-393) U/L Urine Color (Yellw/Straw) Urine Clarity (Clear) Urine pH (5.0-8.5) Ur Specific Molt (1.002-1.035) Urine Protein (Neg-Trace) mg/dL Urine Glucose (UA) (Negative) mg/dL Urine Ketones (Negative) mg/dL Urine Occult Blood (Negative) Urine Nitrate (Negative) Urine Bilirubin (Negative) Urine Urobilinogen (Less than 2) mg/dL Ur Leukocyte Esterase (Negative) Urine RBC (0-3) /hpf Urine WBC (0-5) /hpf Urine WBC Clumps (None) Urine Bacteria (None) /hpf Micro UA Comment Ur Microscopic Review Urine Culture Comments 10/19/17 10/19/17 10/19/17 Range/Units 04:30 04:36 05:50 WBC (4.0-11.0) th/mm3 RBC (4.50-5.90) mil/mm3 Hgb (13.0-17.0) gm/dL Hct (39.0-51.0) % MCV (80.0-100.0) fL MCH (27.0-34.0) pg MCHC (32.0-36.0) % RDW (11.6-17.2) % Plt Count (150-450) th/mm3 MPV (7.0-11.0) fL Neut % (Auto) (16.0-70.0) % Lymph % (Auto) (9.0-44.0) % [place] % (Auto) (0.0-8.0) % Eos % (Auto) (0.0-4.0) % Baso % (Auto) (0.0-2.0) % Neut # (Auto) (1.8-7.7) th/mm3 Lymph # (Auto) (1.0-4.8) th/mm3 [place] # (Auto) (0.0-0.9) th/mm3 Eos # (Auto) (0.0-0.4) th/mm3 Baso # (Auto) (0.0-0.2) th/mm3 WBC Differential Differential Comment PT (9.8-11.6) sec INR Ratio APTT (24.3-30.1) sec Puncture Site Left radial Patient Temperature 98.6 O2 Saturation 90 (90-100) % ABG pH 7.33 L (7.380-7.420) ABG pCO2 68 H* (38-42) mmHg ABG pO2 65 (61-120) mmHg ABG HCO3 35 H (22-26) mmol/L ABG O2 Content 17.5 (12.0-20.0) Vol % ABG Base Excess 8.8 H (-2-2) mmol/L ABG Methemoglobin 0.6 (0-2) % Shmuel Test Present Hemoglobin 13.8 (12.0-16.0) G/DL Carboxyhemoglobin 1.4 (0-4) % O2 Delivery Device Bipap Vent Setting 14/7 Inspired O2 60 % Critical Value Yes Sodium 135 L (136-145) meq/L Potassium 4.3 (3.5-5.1) meq/L Chloride 94 L (98-107) meq/L Carbon Dioxide 33.0 H (21.0-32.0) meq/L Anion Gap 8 (5-15) meq/L BUN 22 H (7-18) mg/dL Creatinine 0.53 L (0.60-1.30) mg/dL Estimated GFR Greater than 89 (>89) mL/min POC Glucose (68-110) mg/dl Random Glucose 227 H (74-106) mg/dL Lactic Acid (0.4-2.0) mmol/L Calcium 8.6 (8.5-10.1) mg/dL Magnesium 1.7 (1.5-2.5) mg/dL Total Bilirubin 0.4 (0.2-1.0) mg/dL AST 26 (15-37) U/L ALT 33 (12-78) U/L Alkaline Phosphatase 113 (45-117) U/L Total Creatine Kinase 48 (39-308) U/L Troponin I 0.11 H (0.02-0.05) ng/mL B-Natriuretic Peptide 113 H (0-100) pg/mL Total Protein 7.4 (6.4-8.2) g/dL Albumin 3.3 L (3.4-5.0) g/dL Lipase 102 (73-393) U/L Urine Color (Yellw/Straw) Urine Clarity (Clear) Urine pH (5.0-8.5) Ur Specific Molt (1.002-1.035) Urine Protein (Neg-Trace) mg/dL Urine Glucose (UA) (Negative) mg/dL Urine Ketones (Negative) mg/dL Urine Occult Blood (Negative) Urine Nitrate (Negative) Urine Bilirubin (Negative) Urine Urobilinogen (Less than 2) mg/dL Ur Leukocyte Esterase (Negative) Urine RBC (0-3) /hpf Urine WBC (0-5) /hpf Urine WBC Clumps (None) Urine Bacteria (None) /hpf Micro UA Comment Ur Microscopic Review Urine Culture Comments 10/19/17 10/19/17 10/19/17 Range/Units 05:50 05:50 13:27 WBC (4.0-11.0) th/mm3 RBC (4.50-5.90) mil/mm3 Hgb (13.0-17.0) gm/dL Hct (39.0-51.0) % MCV (80.0-100.0) fL MCH (27.0-34.0) pg MCHC (32.0-36.0) % RDW (11.6-17.2) % Plt Count (150-450) th/mm3 MPV (7.0-11.0) fL Neut % (Auto) (16.0-70.0) % Lymph % (Auto) (9.0-44.0) % [place] % (Auto) (0.0-8.0) % Eos % (Auto) (0.0-4.0) % Baso % (Auto) (0.0-2.0) % Neut # (Auto) (1.8-7.7) th/mm3 Lymph # (Auto) (1.0-4.8) th/mm3 [place] # (Auto) (0.0-0.9) th/mm3 Eos # (Auto) (0.0-0.4) th/mm3 Baso # (Auto) (0.0-0.2) th/mm3 WBC Differential Differential Comment PT (9.8-11.6) sec INR Ratio APTT (24.3-30.1) sec Puncture Site Patient Temperature O2 Saturation (90-100) % ABG pH (7.380-7.420) ABG pCO2 (38-42) mmHg ABG pO2 (61-120) mmHg ABG HCO3 (22-26) mmol/L ABG O2 Content (12.0-20.0) Vol % ABG Base Excess (-2-2) mmol/L ABG Methemoglobin (0-2) % Shmuel Test Hemoglobin (12.0-16.0) G/DL Carboxyhemoglobin (0-4) % O2 Delivery Device Vent Setting Inspired O2 % Critical Value Sodium (136-145) meq/L Potassium (3.5-5.1) meq/L Chloride (98-107) meq/L Carbon Dioxide (21.0-32.0) meq/L Anion Gap (5-15) meq/L BUN (7-18) mg/dL Creatinine (0.60-1.30) mg/dL Estimated GFR (>89) mL/min POC Glucose (68-110) mg/dl Random Glucose (74-106) mg/dL Lactic Acid 1.7 (0.4-2.0) mmol/L Calcium (8.5-10.1) mg/dL Magnesium (1.5-2.5) mg/dL Total Bilirubin (0.2-1.0) mg/dL AST (15-37) U/L ALT (12-78) U/L Alkaline Phosphatase (45-117) U/L Total Creatine Kinase (39-308) U/L Troponin I 0.55 H (0.02-0.05) ng/mL B-Natriuretic Peptide (0-100) pg/mL Total Protein (6.4-8.2) g/dL Albumin (3.4-5.0) g/dL Lipase (73-393) U/L Urine Color Yellow (Yellw/Straw) Urine Clarity Cloudy H (Clear) Urine pH 8.0 (5.0-8.5) Ur Specific Molt 1.009 (1.002-1.035) Urine Protein 100 H (Neg-Trace) mg/dL Urine Glucose (UA) Negative (Negative) mg/dL Urine Ketones Negative (Negative) mg/dL Urine Occult Blood Large H (Negative) Urine Nitrate Negative (Negative) Urine Bilirubin Negative (Negative) Urine Urobilinogen Less than 2 (Less than 2) mg/dL Ur Leukocyte Esterase Large H (Negative) Urine RBC (0-3) /hpf Urine WBC (0-5) /hpf Urine WBC Clumps Many H (None) Urine Bacteria Rare H (None) /hpf Micro UA Comment Cath-culture ind Ur Microscopic Review Not Reportable Urine Culture Comments Cath-cult indicated 10/19/17 Range/Units 16:58 WBC (4.0-11.0) th/mm3 RBC (4.50-5.90) mil/mm3 Hgb (13.0-17.0) gm/dL Hct (39.0-51.0) % MCV (80.0-100.0) fL MCH (27.0-34.0) pg MCHC (32.0-36.0) % RDW (11.6-17.2) % Plt Count (150-450) th/mm3 MPV (7.0-11.0) fL Neut % (Auto) (16.0-70.0) % Lymph % (Auto) (9.0-44.0) % [place] % (Auto) (0.0-8.0) % Eos % (Auto) (0.0-4.0) % Baso % (Auto) (0.0-2.0) % Neut # (Auto) (1.8-7.7) th/mm3 Lymph # (Auto) (1.0-4.8) th/mm3 [place] # (Auto) (0.0-0.9) th/mm3 Eos # (Auto) (0.0-0.4) th/mm3 Baso # (Auto) (0.0-0.2) th/mm3 WBC Differential Differential Comment PT (9.8-11.6) sec INR Ratio APTT (24.3-30.1) sec Puncture Site Patient Temperature O2 Saturation (90-100) % ABG pH (7.380-7.420) ABG pCO2 (38-42) mmHg ABG pO2 (61-120) mmHg ABG HCO3 (22-26) mmol/L ABG O2 Content (12.0-20.0) Vol % ABG Base Excess (-2-2) mmol/L ABG Methemoglobin (0-2) % Shmuel Test Hemoglobin (12.0-16.0) G/DL Carboxyhemoglobin (0-4) % O2 Delivery Device Vent Setting Inspired O2 % Critical Value Sodium (136-145) meq/L Potassium (3.5-5.1) meq/L Chloride (98-107) meq/L Carbon Dioxide (21.0-32.0) meq/L Anion Gap (5-15) meq/L BUN (7-18) mg/dL Creatinine (0.60-1.30) mg/dL Estimated GFR (>89) mL/min POC Glucose 210 H (68-110) mg/dl Random Glucose (74-106) mg/dL Lactic Acid (0.4-2.0) mmol/L Calcium (8.5-10.1) mg/dL Magnesium (1.5-2.5) mg/dL Total Bilirubin (0.2-1.0) mg/dL AST (15-37) U/L ALT (12-78) U/L Alkaline Phosphatase (45-117) U/L Total Creatine Kinase (39-308) U/L Troponin I (0.02-0.05) ng/mL B-Natriuretic Peptide (0-100) pg/mL Total Protein (6.4-8.2) g/dL Albumin (3.4-5.0) g/dL Lipase (73-393) U/L Urine Color (Yellw/Straw) Urine Clarity (Clear) Urine pH (5.0-8.5) Ur Specific Molt (1.002-1.035) Urine Protein (Neg-Trace) mg/dL Urine Glucose (UA) (Negative) mg/dL Urine Ketones (Negative) mg/dL Urine Occult Blood (Negative) Urine Nitrate (Negative) Urine Bilirubin (Negative) Urine Urobilinogen (Less than 2) mg/dL Ur Leukocyte Esterase (Negative) Urine RBC (0-3) /hpf Urine WBC (0-5) /hpf Urine WBC Clumps (None) Urine Bacteria (None) /hpf Micro UA Comment Ur Microscopic Review Urine Culture Comments Imaging Data Radiologist's impression: Chest X-Ray 10/19/17 04:33 CONCLUSION: Bilateral airspace opacities and small to moderate right, small left pleural effusions, potentially on the basis of failure. No pneumothorax. ECG Data Attestation: I personally reviewed and interpreted this ECG as follows: Interpretation: Patient had an EKG done on arrival. The patient's EKG shows a sinus tachycardia rate of 102, QRS duration 145 ms, QTC 412 ms. Left bundle branch block is noted. This is compared to prior EKGs done at this facility. The last one done at this facility appears to be from January 2017 and shows an intraventricular conduction delay at that time. Discharge Plan Discharge Disposition Patient Disposition: 30 Still Patient Discharge Condition Condition: Fair Discharge Details Diagnosis: Acute and chronic respiratory failure ([id number]), Acute UTI, Acute exacerbation of chronic obstructive pulmonary disease (COPD), Pleural effusion Physicians Team ED Provider: Tianna Calix Primary Care Provider: Roni Fernandez Attending Provider: Homa Tyler Other Providers: Sarah Real Status ED Status: Left Department Discharge Information Discharge Date/Time: 10/19/17 10:40
[2017-10-19 05:09] LABS: Baso # (Auto) 0.1 th/mm3 (0.0-0.2); Baso % (Auto) 0.4 % (0.0-2.0); Eos # (Auto) 0.3 th/mm3 (0.0-0.4); Eos % (Auto) 1.9 % (0.0-4.0); Hematocrit 44.4 % (39.0-51.0); Hemoglobin 14.3 gm/dL (13.0-17.0); Lymph # (Auto) 3.8 th/mm3 (1.0-4.8); Lymph % (Auto) 26.7 % (9.0-44.0); Mean Corpuscular HGB Conc 32.1 % (32.0-36.0); Mean Corpuscular Hemoglobin 27.6 pg (27.0-34.0); Mean Corpuscular Volume 85.9 fL (80.0-100.0); Mean Platelet Volume 8.3 fL (7.0-11.0); Mono # (Auto) 0.8 th/mm3 (0.0-0.9); Mono % (Auto) 5.3 % (0.0-8.0); Neut # (Auto) 9.4 th/mm3 (1.8-7.7); Neut % (Auto) 65.7 % (16.0-70.0); Platelet Count 274 th/mm3 (150-450); Red Blood Count 5.17 mil/mm3 (4.50-5.90); Red Cell Distribution Width 15.4 % (11.6-17.2); White Blood Count 14.3 th/mm3 (4.0-11.0)
[2017-10-19] MEDS ORDERED: MethylPREDNISolone Sod Succinate Inj 125 MG/2 ML Vial IV.PUSH ONE (05:09)
--- NOTE | 2017-10-19 05:15 | XR ---
EXAM DATE: 10/19/2017 4:57 AM EDT AGE/SEX: 77 years / Male INDICATIONS: Shortness of breath. CLINICAL DATA: This is the patient's initial encounter. Patient reports that signs and symptoms have been present for 1 day and indicates a pain score of 0/10. MEDICAL/SURGICAL HISTORY: Hypertension. Congestive heart failure. Chronic obstructive pulmona ry disease. Asthma. MS. Pacemaker. COMPARISON: [facility], CHEST SINGLE AP, 01/26/2017. . FINDINGS: Right greater the left bilateral airspace opacities are present. There are small moderate right and s mall left pleural effusions. These findings are new. No pneumothorax demonstrated. Heart size stable, upper limits of normal. Patient has had previous coronary artery bypass graft oper ation. Cardiac pacer is present. CONCLUSION: Bilateral airspace opacities and small to moderate right, small left pleural effusions, potentially o n the basis of failure. No pneumothorax. Electronically signed by: Sherwin Davenport MD 10/19/2017 5:14 AM EDT
[2017-10-19 05:19] LABS: Activated Partial Thrombo Time 34.3 sec (24.3-30.1); INR 2.3 Ratio; Prothrombin Time 23.3 sec (9.8-11.6)
[2017-10-19 05:24] LABS: ABG Base Excess 8.8 mmol/L (-2-2); ABG PCO2 68 mmHg (38-42); ABG PO2 65 mmHg (61-120)
[2017-10-19 06:51] LABS: Albumin 3.3 g/dL (3.4-5.0); Anion Gap 8 meq/L (5-15); Aspartate Aminotransferase 26 U/L (15-37); Blood Urea Nitrogen 22 mg/dL (7-18); Calcium 8.6 mg/dL (8.5-10.1); Chloride 94 meq/L (98-107); Glomerular Filtration Rate Greater Than 89 mL/min (>89); Glucose,Random 227 mg/dL (74-106); Lipase 102 U/L (73-393); Magnesium 1.7 mg/dL (1.5-2.5); Potassium 4.3 meq/L (3.5-5.1); Sodium 135 meq/L (136-145)
[2017-10-19 06:53] LABS: Alanine Aminotransferase 33 U/L (12-78)
[2017-10-19] MEDS ORDERED: Sodium Chlor 0.9% Inj 250 ML IV.SIG ONE (06:54)
[2017-10-19 06:56] LABS: Alkaline Phosphatase 113 U/L (45-117); Total Protein 7.4 g/dL (6.4-8.2); Troponin I 0.11 ng/mL (0.02-0.05)
[2017-10-19] MEDS ORDERED: Azithromycin Inj 500 MG in Sodium Chlor 0.9% Inj 250 ML IV.SIG ONE (06:57)
[2017-10-19 07:06] LABS: Creatine Kinase 48 U/L (39-308)
[2017-10-19 07:08] LABS: Bacteria,Urine Rare /hpf; Bilirubin,Urine Negative (Negative); Clarity,Urine Cloudy (Clear); Color,Urine Yellow (Yellw/Straw); Glucose,Urine (UA) Negative (Negative); Leukocyte Esterase,Urine Large (Negative); Nitrite,Urine Negative (Negative); Specific Gravity,Urine 1.009 (1.002-1.035)
[2017-10-19] MEDS ORDERED: Bisacodyl 10 MG Supp RECTAL PRN (09:23)
[2017-10-19] MEDS ORDERED: Acetaminophen 325 MG Tablet PO PRN (09:23)
[2017-10-19] MEDS ORDERED: Non-Formulary Drug (Albuterol Sulfate 2 PUFF) INHALATION PRN (09:32)
[2017-10-19] MEDS: MethylPREDNISolone Sod Succinate Inj 125 MG/2 ML Vial IV.PUSH SCH ×2 (11:07→17:41)
[2017-10-19] MEDS: Isosorbide Mononitrate 30 MG ER 24HR Tablet (Imdur) PO SCH (11:07)
[2017-10-19] MEDS: Escitalopram 10 MG Tablet PO SCH (11:13)
[2017-10-19] MEDS: Levothyroxine 112 MCG Tablet PO SCH (11:52)
--- NOTE | 2017-10-19 11:56 | ECG ---
Date Performed: 10/19/2017 Time Performed: 04:26:47 PTAGE: 77 years EKG: SINUS TACHYCARDIA MARKED LEFT AXIS DEVIATION LEFT BUNDLE BRANCH BLOCK ABNORMAL ECG Compared to PREVIOUS TRACING , rate faster, LBBB present DOCTOR: Sarah Real Interpretating Date/Time 10/19/2017 11:56:07
--- NOTE | 2017-10-19 14:48 | P.HPFP ---
History of Present Illness Primary Care Physician: Roni Fernandez <Homa Tyler - 10/19/17 20:53> Roni Fernandez <Octavia Dalton V - 10/19/17 14:48> Chief Complaint: shortness of breath <Octavia Dalton V - 10/19/17 14:48> History of Present Illness: Mr. Walker is a 77-year-old male with a past medical history of CHF, COPD, hypertension, muscular dystrophy, coronary artery disease, with a chronic suprapubic catheter who presented to emergency department this morning complaining of of chills, night sweats, and severe shortness of breath. When seen and evaluated patient was on BiPAP and unable to provide history. The history was obtained from his with permission from the patient. Patient's states patient was not feeling well last night around 11, he was making a lot of urine during the day but overnight he seemed to slow down his urine production, she thinks her suprapubic catheter was kinked, or obstructed. She gave him doses of Lasix and patient went to bed. Around 3 in the morning patient woke up with chills, the bed completely wet from sweats, and complaining of abdominal pain and shortness of breath. explains his shortness of breath was severe, and he was in distress, asking to go to the hospital. Prior to this episode patient denies shortness of breath, abdominal pain, or fevers and chills. Patient has a history of recurrent UTIs due to the chronic use of catheter, however since his new suprapubic catheter was placed on February 2017 he has been getting less infections. Patient also has a history of recurrent pneumonias in the past. 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 Patient's mobility is limited at baseline. He uses electronic devices to help with movement. Pt's medications reviewed. <Octavia Dalton V - 10/19/17 19:16> - Diagnosis (1) Acute and chronic respiratory failure ([id number]) (2) UTI (urinary tract infection) due to urinary indwelling catheter (3) Elevated troponin level (4) Acute exacerbation of chronic obstructive pulmonary disease (COPD) (5) Pleural effusion (6) HTN (hypertension) (7) Anxiety (8) CHF (congestive heart failure) (9) Atrial fibrillation (10) Hypothyroidism (11) Nutrition, metabolism, and development symptoms (12) DVT prophylaxis <Homa Tyler 10/19/17 20:53> (1) Acute and chronic respiratory failure ([id number]) (2) UTI (urinary tract infection) due to urinary indwelling catheter (3) Elevated troponin level (4) Acute exacerbation of chronic obstructive pulmonary disease (COPD) (5) Pleural effusion (6) HTN (hypertension) (7) Anxiety (8) CHF (congestive heart failure) (9) Atrial fibrillation (10) Hypothyroidism (11) Nutrition, metabolism, and development symptoms (12) DVT prophylaxis <Marcelino Norris,Octavia Bejarano 10/19/17 19:18> Inpatient Certification: I certify that the inpatient services were ordered in accordance with Medicare regulations governing the order. This includes certification that hospital inpatient services are reasonable and necessary and in the case of services not specified as inpatient-only under 42 CFR 419.22(n), that they are appropriately provided as inpatient services in accordance to with the 2-midnight benchmark under 43 CFR 412.3(e) <Homa Tyler 10/19/17 20:53> I certify that the inpatient services were ordered in accordance with Medicare regulations governing the order. This includes certification that hospital inpatient services are reasonable and necessary and in the case of services not specified as inpatient-only under 42 CFR 419.22(n), that they are appropriately provided as inpatient services in accordance to with the 2-midnight benchmark under 43 CFR 412.3(e) <Marcelino NorrisOctavia Bejarano 10/19/17 14:48> Estimated Total Length of Stay (Days): 3 <Marcelino NorrisOctavia Bejarano 10/19/17 14: 48> Plans for Post Hospital Care: Home <Marcelino NorrisOctavia Bejarano 10/19/17 14:48> Review of Systems Constitutional: Reports chills, Reports night sweats, Denies body ache(s), Denies fever(s), Denies headache(s) <Marcelino NorrisOctavia Bejarano 10/19/17 14:48> Cardiovascular: Reports excessive sweating, Reports shortness of breath, Reports shortness of breath with activity, Denies chest pain, Denies leg swelling <Octavia Dalton V 10/19/17 14:48> Respiratory: Reports shortness of breath, Denies cough <Octavia Dalton V 10/19/17 14:48> Gastrointestinal: Reports abdominal pain, Denies change in bowel habits, Denies constipation, Denies nausea, Denies vomiting <Octavia Dalton V 14:48> Genitourinary: Reports decreased urination, Reports other (Pt was urinating from his penis, instead of catherer ), Denies blood in urine <Octavia Dalton V 10/19/17 14:48> Musculoskeletal: Reports abnormal walking, Reports back pain, Reports decreased muscle mass (All chronic issues due to Muscular dystrophy), Reports limited joint movement, Reports muscle weakness <Octavia Dalton V 10/19/17 14: 48> Skin/Breast: Reports new lesions (New lip lesion, was about to see dermatology today) <Octavia Dalton V 10/19/17 14:48> Neurologic: Reports abnormal walking, Reports weakness, Denies headache(s), Denies radiating pain <Octavia Dalton V 10/19/17 14:48> Psychiatric: Reports anxiety <Octavia Dalton V 10/19/17 14:48> Allergic/Immunologic: Reports seasonal runny nose <Octavia Dalton V 14:48> PMFSH - History History Provided By: Family Member <Octavia Dalton V 10/19/17 14:48> - Medical History Medical History: Medical History (Last Reviewed 10/19/17 @ 16:52 by Cristhian Coleman) Acute diverticulitis Artificial pacemaker CHF (congestive heart failure) COPD (chronic obstructive pulmonary disease) Diabetes HTN (hypertension) Muscular dystrophy PNA (pneumonia) UTI (urinary tract infection) Atrial fibrillation Suprapubic catheter <Homa Tyler - 10/19/17 20:53> Medical History (Last Reviewed 10/19/17 @ 16:52 by Cristhian Coleman) Acute diverticulitis Artificial pacemaker CHF (congestive heart failure) COPD (chronic obstructive pulmonary disease) Diabetes HTN (hypertension) Muscular dystrophy PNA (pneumonia) UTI (urinary tract infection) Atrial fibrillation Suprapubic catheter <Octavia Dalton V 10/19/17 19:16> - Surgical History Surgical History: Surgical History (Last Updated 10/19/17 @ 18:53 by Octavia Norris MD, R1 ) History of appendectomy History of colon resection Hx of cardiac cath <NayeliHoma - 10/19/17 20:53> Surgical History (Last Updated 10/19/17 @ 18:53 by Octavia Norris MD, R1 ) History of appendectomy History of colon resection Hx of cardiac cath <Octavia Dalton V - 10/19/17 19:16> - Tobacco History Second Hand Smoke Exposure: No <Marcelino Octavia Norris V 10/19/17 14:48> Tobacco Use In Past 30 Days: No <Marcelino Octavia Norris V 10/19/17 14:48> Smoking Status: Former smoker <Octavia Dalton V 10/19/17 14:48> Tobacco Type: Cigarettes <Marcelino NorrisOctavia Bejarano 10/19/17 14:48> - Alcohol History How Often Do You Have a Drink Containing Alcohol: Never <Octavia Dalton V 10/19/17 14:48> - Substance Use History Substance History: No History of Abuse <Octavia Dalton V 10/19/17 14:48 > - Travel History Recent Travel in the [facility] Within the Last 8 Weeks: No <Octavia Dalton V 10/19/17 14:48> Recent Travel Out of the Country Within the Last 8 Weeks: No <Marcelino Octavia Norris V 10/19/17 14:48> - Immunization History Tetanus Immunization: Unsure <Octavia Dalton V 10/19/17 14:48> Hx Influenza Vaccine This Season: No <Octavia Dalton V 10/19/17 14:48> Medications and Allergies Allergies Allergy/AdvReac Type Severity Reaction Status Date / Time No Known Allergies Allergy Verified 10/19/17 04:47 <NayeliRenatae - 10/19/17 20:53> Home Medications Medication Instructions Recorded Confirmed Type Lactobacillus rhamnosus GG 1 cap PO DAILY 10/19/17 10/19/17 History [Culturelle] acetaminophen [Tylenol] 325 mg PO Q4-6H PRN 10/19/17 10/19/17 History albuterol sulfate [Ventolin HFA] 2 puff INHALATION Q6H PRN 10/19/17 10/19/17 History aspirin [Aspir-81] 81 mg PO DAILY 10/19/17 10/19/17 History atorvastatin 10 mg PO DAILY 10/19/17 10/19/17 History ergocalciferol (vitamin D2) 50,000 unit PO QWEEK 10/19/17 10/19/17 History [Vitamin D2] escitalopram oxalate [Lexapro] 10 mg PO DAILY 10/19/17 10/19/17 History guaifenesin [Mucinex] 1,200 mg PO DAILY 10/19/17 10/19/17 History isosorbide mononitrate 30 mg PO DAILY 10/19/17 10/19/17 History levothyroxine 137 mcg PO DAILY 10/19/17 10/19/17 History magnesium 500 mg PO HS 10/19/17 10/19/17 History montelukast [Singulair] 10 mg PO QPM 10/19/17 10/19/17 History sotalol [Betapace] 120 mg/m2 PO BID 10/19/17 10/19/17 History tiotropium bromide [Spiriva with 1 cap INHALATION DAILY 10/19/17 10/19/17 History HandiHaler] torsemide 10 mg PO DIRECTED 10/19/17 10/19/17 History warfarin 3 mg PO DIRECTED 10/19/17 10/19/17 History warfarin 4 mg PO [id number] 10/19/17 10/19/17 History zolpidem 10 mg PO HS 10/19/17 10/19/17 History <Homa Tyler - 10/19/17 20:53> Active Medications: Active Medications Acetaminophen (Tylenol) 650 mg PO Q4H PRN PRN Reason: Temp > 100.4 Al Hydroxide/Mg Hydroxide (Milk Of Magnesia Liq) 30 ml PO Q12H PRN PRN Reason: Mild Constipation Albuterol (Albuterol Neb (Yolanda)) 2.5 mg NEB Q6HR NEB YOLANDA Last Admin: 10/19/17 15:38 Dose: 2.5 mg Albuterol (Duoneb Neb (Yolanda)) 1 ampul NEB Q6HR ALT NEB YOLANDA Aspirin (Ecotrin) 81 mg PO DAILY [facility] Last Admin: 10/19/17 10:01 Dose: Not Given Atorvastatin Calcium (Lipitor) 10 mg PO DAILY [facility] Last Admin: 10/19/17 11:13 Dose: 10 mg Bisacodyl (Dulcolax Supp) 10 mg RECTAL DAILY PRN PRN Reason: SEVERE CONSITIPATION Escitalopram Oxalate (Lexapro) 10 mg PO DAILY [facility] Last Admin: 10/19/17 11:13 Dose: 10 mg Guaifenesin (Mucinex Er) 1,200 mg PO DAILY [facility] Ceftriaxone Sodium 1,000 mg/ (Sodium Chloride) 100 mls @ 200 mls/hr IV.SIG Q24H [facility] Azithromycin 500 mg/ Sodium (Chloride) 250 mls @ 250 mls/hr IV.SIG Q24H [facility] Isosorbide Mononitrate (Imdur) 30 mg PO DAILY [facility] Last Admin: 10/19/17 11:07 Dose: 30 mg Lactulose (Lactulose Liq) 30 ml PO DAILY PRN PRN Reason: SEVERE CONSITIPATION Levothyroxine Sodium (Synthroid) 112 mcg PO DAILY@0600 [facility] Last Admin: 10/19/17 11:52 Dose: Not Given Levothyroxine Sodium (Synthroid) 25 mcg PO DAILY@0600 [facility] Last Admin: 10/19/17 11:52 Dose: Not Given Magnesium Oxide (Mag-Ox) 400 mg PO [facility] Methylprednisolone Sodium Succinate (Solumedrol Inj) 60 mg IV.PUSH Q6H [facility] Last Admin: 10/19/17 17:41 Dose: 60 mg Miscellaneous (Pill Splitter) 1 each OTHER UNSCH PRN PRN Reason: SEE LABEL COMMENTS Montelukast Sodium (Singulair) 10 mg PO QPM [facility] Last Admin: 10/19/17 17:44 Dose: 10 mg Ondansetron HCl (Zofran Inj) 4 mg IV.PUSH Q6H PRN PRN Reason: NAUSEA OR VOMITING Pantoprazole Sodium (Protonix) 40 mg PO DAILY [facility] Last Admin: 10/19/17 11:52 Dose: Not Given Patient Own Medication ( Lactobacillus Rhamnosus Gg [ Culturelle] 1 Cap) 0 each PO DAILY [facility] Senna/Docusate Sodium (Laura-Colace) 1 tab PO BID [facility] Sennosides (Senokot) 17.2 mg PO Q12H PRN PRN Reason: Moderate Constipation Sodium Chloride (Ns Flush) 2 ml IV.FLUSH UNSCH PRN PRN Reason: FLUSH AFTER USING IV ACCESS Sotalol HCl (Betapace) 120 mg PO BID [facility] Last Admin: 10/19/17 17:40 Dose: 120 mg Tiotropium Turner (Spiriva 18 Mcg Inh) 18 mcg INH DAILY [facility] Last Admin: 10/19/17 17:41 Dose: 18 mcg Torsemide (Demadex) 10 mg PO MoWeFr [facility] Last Admin: 10/19/17 17:40 Dose: 10 mg Warfarin Sodium (Coumadin) 4 mg PO SuTuThSa [facility] Warfarin Sodium (Coumadin) 3 mg PO MoWeFr [facility] Last Admin: 10/19/17 17:40 Dose: 3 mg Zolpidem Tartrate (Ambien) 10 mg PO HS [facility] <Homa Tyler - 10/19/17 20:53> Active Medications Acetaminophen (Tylenol) 650 mg PO Q4H PRN PRN Reason: Temp > 100.4 Al Hydroxide/Mg Hydroxide (Milk Of Magnesia Liq) 30 ml PO Q12H PRN PRN Reason: Mild Constipation Albuterol (Albuterol Neb ([facility])) 2.5 mg NEB Q6HR NEB [facility] Albuterol (Duoneb Neb (Formerly [facility])) 1 ampul NEB Q6HR ALT NEB [facility] Aspirin (Ecotrin) 81 mg PO DAILY [facility] Last Admin: 10/19/17 10:01 Dose: Not Given Atorvastatin Calcium (Lipitor) 10 mg PO DAILY [facility] Last Admin: 10/19/17 11:13 Dose: 10 mg Bisacodyl (Dulcolax Supp) 10 mg RECTAL DAILY PRN PRN Reason: SEVERE CONSITIPATION Escitalopram Oxalate (Lexapro) 10 mg PO DAILY [facility] Last Admin: 10/19/17 11:13 Dose: 10 mg Guaifenesin (Mucinex Er) 1,200 mg PO DAILY [facility] Ceftriaxone Sodium 1,000 mg/ (Sodium Chloride) 100 mls @ 200 mls/hr IV.SIG Q24H [facility] Azithromycin 500 mg/ Sodium (Chloride) 250 mls @ 250 mls/hr IV.SIG Q24H [facility] Isosorbide Mononitrate (Imdur) 30 mg PO DAILY [facility] Last Admin: 10/19/17 11:07 Dose: 30 mg Lactulose (Lactulose Liq) 30 ml PO DAILY PRN PRN Reason: SEVERE CONSITIPATION Levothyroxine Sodium (Synthroid) 112 mcg PO DAILY@0600 [facility] Last Admin: 10/19/17 11:52 Dose: Not Given Levothyroxine Sodium (Synthroid) 25 mcg PO DAILY@0600 [facility] Last Admin: 10/19/17 11:52 Dose: Not Given Magnesium Oxide (Mag-Ox) 400 mg PO HS [facility] Methylprednisolone Sodium Succinate (Solumedrol Inj) 60 mg IV.PUSH Q6H [facility] Last Admin: 10/19/17 11:07 Dose: 60 mg Miscellaneous (Pill Splitter) 1 each OTHER UNSCH PRN PRN Reason: SEE LABEL COMMENTS Montelukast Sodium (Singulair) 10 mg PO QPM [facility] Ondansetron HCl (Zofran Inj) 4 mg IV.PUSH Q6H PRN PRN Reason: NAUSEA OR VOMITING Pantoprazole Sodium (Protonix) 40 mg PO DAILY [facility] Last Admin: 10/19/17 11:52 Dose: Not Given Patient Own Medication ( Lactobacillus Rhamnosus Gg [ Culturelle] 1 Cap) 0 each PO DAILY [facility] Senna/Docusate Sodium (Laura-Colace) 1 tab PO BID [facility] Sennosides (Senokot) 17.2 mg PO Q12H PRN PRN Reason: Moderate Constipation Sodium Chloride (Ns Flush) 2 ml IV.FLUSH UNSCH PRN PRN Reason: FLUSH AFTER USING IV ACCESS Sotalol HCl (Betapace) 120 mg PO BID [facility] Tiotropium Turner (Spiriva 18 Mcg Inh) 18 mcg INH DAILY [facility] Torsemide (Demadex) 10 mg PO MoWeFr [facility] Warfarin Sodium (Coumadin) 4 mg PO SuTuThSa [facility] Warfarin Sodium (Coumadin) 3 mg PO MoWeFr [facility] Zolpidem Tartrate (Ambien) 10 mg PO HS [facility] <Octavia Dalton V - 10/19/17 14:48> Exam Vital signs: Vital Signs 10/19/17 04:25 10/19/17 04:30 10/19/17 04:33 Temperature 97.4 F L Pulse Rate 106 H 90 94 H Respiratory Rate 30 H 30 H Blood Pressure 167/110 H Pulse Oximetry 95 94 L 10/19/17 05:50 10/19/17 06:50 10/19/17 07:34 Temperature Pulse Rate 76 73 Respiratory Rate 40 H 26 H Blood Pressure 106/52 L 82/55 L Pulse Oximetry 94 L 96 96 10/19/17 07:55 10/19/17 08:38 10/19/17 09:54 Temperature Pulse Rate 66 64 Respiratory Rate 20 24 Blood Pressure 143/69 H 107/68 Pulse Oximetry 95 94 L 97 10/19/17 12:00 10/19/17 12:38 10/19/17 12:41 Temperature Pulse Rate 63 Respiratory Rate Blood Pressure Pulse Oximetry 96 96 10/19/17 13:00 10/19/17 14:00 10/19/17 15:00 Temperature 98.1 F Pulse Rate 65 60 59 L Respiratory Rate Blood Pressure 112/54 L Pulse Oximetry 97 10/19/17 15:41 10/19/17 15:46 10/19/17 16:00 Temperature Pulse Rate 61 72 Respiratory Rate 27 H Blood Pressure Pulse Oximetry 95 10/19/17 17:00 10/19/17 18:00 Temperature Pulse Rate 66 61 Respiratory Rate Blood Pressure Pulse Oximetry Intake & Output 10/19/17 10/19/17 10/20/17 06:59 18:59 06:59 Intake Total 840 / 840 Output Total 200 / 200 Balance 640 / 640 Weight 125.645 kg 125.645 kg Intake: IV 600 / 600 Azithromycin Inj 500 MG In NS 250 / 250 Inj 250 ML @ 250 mls/hr IV.SIG ONCE ONE Rx#:[id number] NS Inj 250 ML @ Wide Open IV. 250 / 250 SIG BOLUS ONE Rx#:[id number] Rocephin Inj 1,000 MG In NS Inj 100 / 100 100 ML @ 200 mls/hr IV.SIG ONCE ONE Rx#:[id number] Oral 240 / 240 Output: Urine 200 / 200 Other: Date of Last Bowel Movement 10/19/17 # Bowel Movements 1 Weight On Admission 125.645 kg <Homa Tyler - 10/19/17 20:53> Vital Signs 10/19/17 04:25 10/19/17 04:30 10/19/17 04:33 Temperature 97.4 F L Pulse Rate 106 H 90 94 H Respiratory Rate 30 H 30 H Blood Pressure 167/110 H Pulse Oximetry 95 94 L 10/19/17 05:50 10/19/17 06:50 10/19/17 07:34 Temperature Pulse Rate 76 73 Respiratory Rate 40 H 26 H Blood Pressure 106/52 L 82/55 L Pulse Oximetry 94 L 96 96 10/19/17 07:55 10/19/17 08:38 10/19/17 09:54 Temperature Pulse Rate 66 64 Respiratory Rate 20 24 Blood Pressure 143/69 H 107/68 Pulse Oximetry 95 94 L 97 10/19/17 12:38 10/19/17 12:41 Temperature Pulse Rate Respiratory Rate Blood Pressure Pulse Oximetry 96 96 Intake & Output 10/18/17 10/19/17 10/19/17 18:59 06:59 18:59 Intake Total 600 / 600 Balance 600 / 600 Weight 125.645 kg 125.645 kg Intake: IV 600 / 600 Azithromycin Inj 500 MG In NS 250 / 250 Inj 250 ML @ 250 mls/hr IV.SIG ONCE ONE Rx#:[id number] NS Inj 250 ML @ Wide Open IV. 250 / 250 SIG BOLUS ONE Rx#:[id number] Rocephin Inj 1,000 MG In NS Inj 100 / 100 100 ML @ 200 mls/hr IV.SIG ONCE ONE Rx#:[id number] Other: Weight On Admission 125.645 kg <Octavia Dalton V - 10/19/17 14:48> Narrative: GENERAL: Obese white male, on Bipap, alert, nodding Y or N for questions. SKIN: Warm and dry. HEAD: Normocephalic and atraumatic. EYES: No scleral icterus. No injection or drainage. ENT: No nasal drainage noted. Airway patent. NECK: Supple, trachea midline. No JVD. CARDIOVASCULAR: Regular rate and rhythm without murmurs, gallops, or rubs. No tachycardia at this time. RESPIRATORY: On Bi-pap. Increased work of breathing noted, poor air movement w/ decreased breath sounds on bases, no wheezing or rhonchi. No accessory muscle use. ABDOMEN/GI: obese abdomen, soft, non-tender to palpation suprapubic catheter in place w/ minimal bleeding, no drainage of urine around catheter.Bowel sounds present, no rebound, no guarding. Bloody urine noted on catheter. EXTREMITIES: Minimal edema of bilateral LE. NEUROLOGICAL: Awake and alert. Decreased movement and muscle strength. Unable to assess speech. <Octavia Dalton V - 10/19/17 19:16> Results - Labs Result diagrams: 10/19/17 04:30 10/19/17 05:50 <Homa Tyler - 10/19/17 20:53> Abnormal lab results 10/19/17 10/19/17 10/19/17 Range/Units 04:28 04:30 04:30 WBC 14.3 H (4.0-11.0) th/mm3 Neut # (Auto) 9.4 H (1.8-7.7) th/mm3 PT 23.3 H (9.8-11.6) sec APTT 34.3 H (24.3-30.1) sec ABG pH (7.380-7.420) ABG pCO2 (38-42) mmHg ABG HCO3 (22-26) mmol/L ABG Base Excess (-2-2) mmol/L Sodium (136-145) meq/L Chloride (98-107) meq/L Carbon Dioxide (21.0-32.0) meq/L BUN (7-18) mg/dL Creatinine (0.60-1.30) mg/dL POC Glucose 229 H (68-110) mg/dl Random Glucose (74-106) mg/dL Troponin I (0.02-0.05) ng/mL B-Natriuretic Peptide (0-100) pg/mL Albumin (3.4-5.0) g/dL Urine Clarity (Clear) Urine Protein (Neg-Trace) mg/dL Urine Occult Blood (Negative) Ur Leukocyte Esterase (Negative) Urine WBC Clumps (None) Urine Bacteria (None) /hpf 10/19/17 10/19/17 10/19/17 Range/Units 04:30 04:36 05:50 WBC (4.0-11.0) th/mm3 Neut # (Auto) (1.8-7.7) th/mm3 PT (9.8-11.6) sec APTT (24.3-30.1) sec ABG pH 7.33 L (7.380-7.420) ABG pCO2 68 H* (38-42) mmHg ABG HCO3 35 H (22-26) mmol/L ABG Base Excess 8.8 H (-2-2) mmol/L Sodium 135 L (136-145) meq/L Chloride 94 L (98-107) meq/L Carbon Dioxide 33.0 H (21.0-32.0) meq/L BUN 22 H (7-18) mg/dL Creatinine 0.53 L (0.60-1.30) mg/dL POC Glucose (68-110) mg/dl Random Glucose 227 H (74-106) mg/dL Troponin I 0.11 H (0.02-0.05) ng/mL B-Natriuretic Peptide 113 H (0-100) pg/mL Albumin 3.3 L (3.4-5.0) g/dL Urine Clarity (Clear) Urine Protein (Neg-Trace) mg/dL Urine Occult Blood (Negative) Ur Leukocyte Esterase (Negative) Urine WBC Clumps (None) Urine Bacteria (None) /hpf 10/19/17 10/19/17 10/19/17 Range/Units 05:50 13:27 16:58 WBC (4.0-11.0) th/mm3 Neut # (Auto) (1.8-7.7) th/mm3 PT (9.8-11.6) sec APTT (24.3-30.1) sec ABG pH (7.380-7.420) ABG pCO2 (38-42) mmHg ABG HCO3 (22-26) mmol/L ABG Base Excess (-2-2) mmol/L Sodium (136-145) meq/L Chloride (98-107) meq/L Carbon Dioxide (21.0-32.0) meq/L BUN (7-18) mg/dL Creatinine (0.60-1.30) mg/dL POC Glucose 210 H (68-110) mg/dl Random Glucose (74-106) mg/dL Troponin I 0.55 H (0.02-0.05) ng/mL B-Natriuretic Peptide (0-100) pg/mL Albumin (3.4-5.0) g/dL Urine Clarity Cloudy H (Clear) Urine Protein 100 H (Neg-Trace) mg/dL Urine Occult Blood Large H (Negative) Ur Leukocyte Esterase Large H (Negative) Urine WBC Clumps Many H (None) Urine Bacteria Rare H (None) /hpf Short CBC 10/19/17 Range/Units 04:30 WBC 14.3 H (4.0-11.0) th/mm3 Hgb 14.3 (13.0-17.0) gm/dL Hct 44.4 (39.0-51.0) % Plt Count 274 (150-450) th/mm3 BMP 10/19/17 05:50 Sodium 135 L Potassium 4.3 Chloride 94 L Carbon Dioxide 33.0 H BUN 22 H Creatinine 0.53 L Calcium 8.6 Cardiac Enzymes 10/19/17 10/19/17 Range/Units 05:50 13:27 Total Creatine Kinase 48 (39-308) U/L Troponin I 0.11 H 0.55 H (0.02-0.05) ng/mL Liver Function 10/19/17 Range/Units 05:50 Total Bilirubin 0.4 (0.2-1.0) mg/dL AST 26 (15-37) U/L ALT 33 (12-78) U/L Alkaline Phosphatase 113 (45-117) U/L Albumin 3.3 L (3.4-5.0) g/dL Urine 10/19/17 Range/Units 05:50 Urine Color Yellow (Yellw/Straw) Urine Clarity Cloudy H (Clear) Urine pH 8.0 (5.0-8.5) Ur Specific [place] 1.009 (1.002-1.035) Urine Protein 100 H (Neg-Trace) mg/dL Urine Glucose (UA) Negative (Negative) mg/dL <Homa Tyler - 10/19/17 20:53> Abnormal lab results 10/19/17 10/19/17 10/19/17 Range/Units 04:28 04:30 04:30 WBC 14.3 H (4.0-11.0) th/mm3 Neut # (Auto) 9.4 H (1.8-7.7) th/mm3 PT 23.3 H (9.8-11.6) sec APTT 34.3 H (24.3-30.1) sec ABG pH (7.380-7.420) ABG pCO2 (38-42) mmHg ABG HCO3 (22-26) mmol/L ABG Base Excess (-2-2) mmol/L Sodium (136-145) meq/L Chloride (98-107) meq/L Carbon Dioxide (21.0-32.0) meq/L BUN (7-18) mg/dL Creatinine (0.60-1.30) mg/dL POC Glucose 229 H (68-110) mg/dl Random Glucose (74-106) mg/dL Troponin I (0.02-0.05) ng/mL B-Natriuretic Peptide (0-100) pg/mL Albumin (3.4-5.0) g/dL Urine Clarity (Clear) Urine Protein (Neg-Trace) mg/dL Urine Occult Blood (Negative) Ur Leukocyte Esterase (Negative) Urine WBC Clumps (None) Urine Bacteria (None) /hpf 10/19/17 10/19/17 10/19/17 Range/Units 04:30 04:36 05:50 WBC (4.0-11.0) th/mm3 Neut # (Auto) (1.8-7.7) th/mm3 PT (9.8-11.6) sec APTT (24.3-30.1) sec ABG pH 7.33 L (7.380-7.420) ABG pCO2 68 H* (38-42) mmHg ABG HCO3 35 H (22-26) mmol/L ABG Base Excess 8.8 H (-2-2) mmol/L Sodium 135 L (136-145) meq/L Chloride 94 L (98-107) meq/L Carbon Dioxide 33.0 H (21.0-32.0) meq/L BUN 22 H (7-18) mg/dL Creatinine 0.53 L (0.60-1.30) mg/dL POC Glucose (68-110) mg/dl Random Glucose 227 H (74-106) mg/dL Troponin I 0.11 H (0.02-0.05) ng/mL B-Natriuretic Peptide 113 H (0-100) pg/mL Albumin 3.3 L (3.4-5.0) g/dL Urine Clarity (Clear) Urine Protein (Neg-Trace) mg/dL Urine Occult Blood (Negative) Ur Leukocyte Esterase (Negative) Urine WBC Clumps (None) Urine Bacteria (None) /hpf 10/19/17 10/19/17 Range/Units 05:50 13:27 WBC (4.0-11.0) th/mm3 Neut # (Auto) (1.8-7.7) th/mm3 PT (9.8-11.6) sec APTT (24.3-30.1) sec ABG pH (7.380-7.420) ABG pCO2 (38-42) mmHg ABG HCO3 (22-26) mmol/L ABG Base Excess (-2-2) mmol/L Sodium (136-145) meq/L Chloride (98-107) meq/L Carbon Dioxide (21.0-32.0) meq/L BUN (7-18) mg/dL Creatinine (0.60-1.30) mg/dL POC Glucose (68-110) mg/dl Random Glucose (74-106) mg/dL Troponin I 0.55 H (0.02-0.05) ng/mL B-Natriuretic Peptide (0-100) pg/mL Albumin (3.4-5.0) g/dL Urine Clarity Cloudy H (Clear) Urine Protein 100 H (Neg-Trace) mg/dL Urine Occult Blood Large H (Negative) Ur Leukocyte Esterase Large H (Negative) Urine WBC Clumps Many H (None) Urine Bacteria Rare H (None) /hpf Short CBC 10/19/17 Range/Units 04:30 WBC 14.3 H (4.0-11.0) th/mm3 Hgb 14.3 (13.0-17.0) gm/dL Hct 44.4 (39.0-51.0) % Plt Count 274 (150-450) th/mm3 BMP 10/19/17 05:50 Sodium 135 L Potassium 4.3 Chloride 94 L Carbon Dioxide 33.0 H BUN 22 H Creatinine 0.53 L Calcium 8.6 Cardiac Enzymes 10/19/17 10/19/17 Range/Units 05:50 13:27 Total Creatine Kinase 48 (39-308) U/L Troponin I 0.11 H 0.55 H (0.02-0.05) ng/mL Liver Function 10/19/17 Range/Units 05:50 Total Bilirubin 0.4 (0.2-1.0) mg/dL AST 26 (15-37) U/L ALT 33 (12-78) U/L Alkaline Phosphatase 113 (45-117) U/L Albumin 3.3 L (3.4-5.0) g/dL Urine 10/19/17 Range/Units 05:50 Urine Color Yellow (Yellw/Straw) Urine Clarity Cloudy H (Clear) Urine pH 8.0 (5.0-8.5) Ur Specific [place] 1.009 (1.002-1.035) Urine Protein 100 H (Neg-Trace) mg/dL Urine Glucose (UA) Negative (Negative) mg/dL <Octavia Dalton V - 10/19/17 14:48> - Imaging Impressions Chest X-Ray 10/19/17 04:33 CONCLUSION: Bilateral airspace opacities and small to moderate right, small left pleural effusions, potentially on the basis of failure. No pneumothorax. <Homa Tyler - 10/19/17 20:53> Impressions Chest X-Ray 10/19/17 04:33 CONCLUSION: Bilateral airspace opacities and small to moderate right, small left pleural effusions, potentially on the basis of failure. No pneumothorax. <Octavia Dalton V - 10/19/17 14:48> Caprini VTE Risk Assessment Caprini VTE Risk Assessment: Moderate/High Risk (score >= 2) <Octavia Dalton V 10/19/17 19:16> Caprini Risk Assessment Model: Point Value = 1 Point Value = 2 Point Value = 3 Point Value = 5 Age 41-60 Minor surgery BMI > 25 kg/m2 Swollen legs Varicose veins or History of unexplained or recurrent spontaneous Oral contraceptives or hormone replacement Sepsis (< 1 month) Serious lung disease, including pneumonia (< 1 month) Abnormal pulmonary function Acute myocardial infarction Congestive heart failure (< 1 month) History of inflammatory bowel disease Medical patient at bed rest Age 61-74 Arthroscopic surgery Major open surgery (> 45 min) Laparoscopic surgery (> 45 min) Malignancy Confined to bed (> 72 hours) Immobilizing plaster cast Central venous access Age >= 75 History of VTE Family history of VTE Factor V Leiden Prothrombin [id number] Lupus anticoagulant Anticardiolipin antibodies Elevated serum homocysteine Heparin-induced thrombocytopenia Other congenital or acquired thrombophilia Stroke (< 1 month) Elective arthroplasty Hip, pelvis, or leg fracture Acute spinal cord injury (< 1 month) <Homa Tyler - 10/19/17 20:53> Point Value = 1 Point Value = 2 Point Value = 3 Point Value = 5 Age 41-60 Minor surgery BMI > 25 kg/m2 Swollen legs Varicose veins or History of unexplained or recurrent spontaneous Oral contraceptives or hormone replacement Sepsis (< 1 month) Serious lung disease, including pneumonia (< 1 month) Abnormal pulmonary function Acute myocardial infarction Congestive heart failure (< 1 month) History of inflammatory bowel disease Medical patient at bed rest Age 61-74 Arthroscopic surgery Major open surgery (> 45 min) Laparoscopic surgery (> 45 min) Malignancy Confined to bed (> 72 hours) Immobilizing plaster cast Central venous access Age >= 75 History of VTE Family history of VTE Factor V Leiden Prothrombin [id number] Lupus anticoagulant Anticardiolipin antibodies Elevated serum homocysteine Heparin-induced thrombocytopenia Other congenital or acquired thrombophilia Stroke (< 1 month) Elective arthroplasty Hip, pelvis, or leg fracture Acute spinal cord injury (< 1 month) <Octavia Dalton V - 10/19/17 19:16> Prophylaxis Regimen: Total Risk Factor Score Risk Level Prophylaxis Regimen 0-1 Low Early ambulation 2 Moderate Order ONE of the following: *Sequential Compression Device (SCD) *Heparin 5000 units SQ BID 3-4 Higher Order ONE of the following medications: *Heparin 5000 units SQ TID *Enoxaparin/Lovenox 40 mg SQ daily (WT < 150 kg, CrCl > 30 mL/min) *Enoxaparin/Lovenox 30 mg SQ daily (WT < 150 kg, CrCl > 10-29 mL/min) *Enoxaparin/Lovenox 30 mg SQ BID (WT < 150 kg, CrCl > 30 mL/min) AND/OR *Sequential Compression Device (SCD) 5 or more Highest Order ONE of the following medications: *Heparin 5000 units SQ TID (Preferred with Epidurals) *Enoxaparin/Lovenox 40 mg SQ daily (WT < 150 kg, CrCl > 30 mL/min) *Enoxaparin/Lovenox 30 mg SQ daily (WT < 150 kg, CrCl > 10-29 mL/min) *Enoxaparin/Lovenox 30 mg SQ BID (WT < 150 kg, CrCl > 30 mL/min) AND *Sequential Compression Device (SCD) <Homa Tyler - 10/19/17 20:53> Total Risk Factor Score Risk Level Prophylaxis Regimen 0-1 Low Early ambulation 2 Moderate Order ONE of the following: *Sequential Compression Device (SCD) *Heparin 5000 units SQ BID 3-4 Higher Order ONE of the following medications: *Heparin 5000 units SQ TID *Enoxaparin/Lovenox 40 mg SQ daily (WT < 150 kg, CrCl > 30 mL/min) *Enoxaparin/Lovenox 30 mg SQ daily (WT < 150 kg, CrCl > 10-29 mL/min) *Enoxaparin/Lovenox 30 mg SQ BID (WT < 150 kg, CrCl > 30 mL/min) AND/OR *Sequential Compression Device (SCD) 5 or more Highest Order ONE of the following medications: *Heparin 5000 units SQ TID (Preferred with Epidurals) *Enoxaparin/Lovenox 40 mg SQ daily (WT < 150 kg, CrCl > 30 mL/min) *Enoxaparin/Lovenox 30 mg SQ daily (WT < 150 kg, CrCl > 10-29 mL/min) *Enoxaparin/Lovenox 30 mg SQ BID (WT < 150 kg, CrCl > 30 mL/min) AND *Sequential Compression Device (SCD) <Octavia Dalton V - 10/19/17 14:48> Assessment and Plan - Assessment (1) Acute and chronic respiratory failure ([id number]) Code(s): J96.20 - Acute and chronic respiratory failure, unspecified whether with hypoxia or hypercapnia Status: Acute (2) UTI (urinary tract infection) due to urinary indwelling catheter Code(s): T83.511A - Infection and inflammatory reaction due to indwelling urethral catheter, initial encounter; N39.0 - Urinary tract infection, site not specified Status: Acute (3) Elevated troponin level Code(s): R74.8 - Abnormal levels of other serum enzymes Status: Acute (4) Acute exacerbation of chronic obstructive pulmonary disease (COPD) Code(s): J44.1 - Chronic obstructive pulmonary disease with (acute) exacerbation Status: Chronic (5) Pleural effusion Code(s): J90 - Pleural effusion, not elsewhere classified Status: Chronic (6) HTN (hypertension) Code(s): I10 - Essential (primary) hypertension Status: Acute (7) Anxiety Code(s): F41.9 - Anxiety disorder, unspecified Status: Acute (8) CHF (congestive heart failure) Code(s): I50.9 - Heart failure, unspecified Status: Acute (9) Atrial fibrillation Code(s): I48.91 - Unspecified atrial fibrillation Status: Acute (10) Hypothyroidism Code(s): E03.9 - Hypothyroidism, unspecified Status: Chronic (11) Nutrition, metabolism, and development symptoms Code(s): R63.8 - Other symptoms and signs concerning food and fluid intake Status: Acute (12) DVT prophylaxis Status: Acute <Homa Tyler - 10/19/17 20:53> (1) Acute and chronic respiratory failure ([id number]) Code(s): J96.20 - Acute and chronic respiratory failure, unspecified whether with hypoxia or hypercapnia Status: Acute Plan: Pt presenting to ED with acute respiratory distress. Found to have an O2 saturation of 75% on RA and increased work of breathing. Chest X ray 10/19: Bilateral airspace opacities and small to moderate right, small left pleural effusions, potentially on the basis of failure. No pneumothorax. Due to patient being on Bipap, a CT chest was not obtained. At time of admission DDx include, but not limited to: community acquired pneumonia vs COPD exacerbation vs PE vs CHF exacerbation. ABG: pH 7.33, pCO2 68, pO2 65, HCO3 35, WBC 14.3 During ED course pt received one time dose of Lasix 40mg IV, DuoNeb 3, Solu- Medrol 125 mg IV, antibiotic coverage with Rocephin and Zithromax - Continue Solumedrol 60mg IV q 6hrs - Alternate DuoNebs and Albuterol breathing treatments q 3hrs - Continue Rocephin 1,000 mg IV q 24hrs (10/19-) - Continue Azithromycin 500mg IV q24hrs - Repeat ABG - F/U am labs - Continue Warfarin home dose ( INR 2.3) (2) UTI (urinary tract infection) due to urinary indwelling catheter Code(s): T83.511A - Infection and inflammatory reaction due to indwelling urethral catheter, initial encounter; N39.0 - Urinary tract infection, site not specified Status: Acute Plan: Pt presented with obstructed suprapubic urinary catheter, it was replaced this morning in ED and 800mL of urine collected. Pt with Hx of UTI' in the past, abdominal pain that resolved after catheter replacement. - UA w/ urine protein, blood, large Leukocyte esterase, many WBC clumps, and rare bacteria. - WBC 14.3 - Continue to treat with Rocephin at the moment - F/U urine cultures and adjust accordingly (3) Elevated troponin level Code(s): R74.8 - Abnormal levels of other serum enzymes Status: Acute Plan: Pt presented with severe shortness of breath. He has a history of severe CAD according to , but unable to stent in the past. EKG similar to old one, with bundle branch block. Patient was initially provided aspirin 324 mg p.o. 1 as the last time he took aspirin 81 mg was yesterday morning, nitroglycerin 1 inch to the chest wall. The patient's blood pressure briefly dropped down into the 80s systolic. Nitroglycerin was removed from the chest No acute EKG changes observed on admission. DD include ACS vs strain of heart due to respiratory exacerbation. Troponin at 5:50 am 0.11 -> 13:30 increased to 0.55 - Cardiology consulted, appreciate recommendations - F/U 3rd troponin this evening (4) Acute exacerbation of chronic obstructive pulmonary disease (COPD) Code(s): J44.1 - Chronic obstructive pulmonary disease with (acute) exacerbation Status: Chronic Plan: Please see plan above for shortness of breath. We will resume the following home medications as well: - Singulair 10mg PO q HS - Mucinex 1,200 PO daily (5) Pleural effusion Code(s): J90 - Pleural effusion, not elsewhere classified Status: Chronic Plan: Pleural effusions noted on Chest X-ray today, this finding seem to be chronic in nature but could be contributing to the patient shortness of breath. Will attempt to get a CT scan if possible once patient's breathing is improved. (6) HTN (hypertension) Code(s): I10 - Essential (primary) hypertension Status: Acute Plan: Chronic in nature. Will monitor closely and continue pt's home medications - Aspirin 81 mg PO daily - Sotalol 120mg PO BID - isosorbide mononitrate 30mg PO extended release daily (7) Anxiety Code(s): F41.9 - Anxiety disorder, unspecified Status: Acute Plan: Pt is currently on anxiety medications at home. This evening pt was re- evaluated and had a RR of 45, he was still on bipap and pointed to his head when asked what was going on. His daughter said he meant "it was all in his head ". I asked patient if he was having increased anxiety due to his current situation and he nodded yes. Pt was given one dose of Ativan 1mg IV this evening Will continue home medication: Escitalopram 10mg PO daily (8) CHF (congestive heart failure) Code(s): I50.9 - Heart failure, unspecified Status: Acute Plan: Pt with chronic CHF that could be contributing to this patient's shortness of breath. He received one dose of 40mg Lasix on ED. BNP on admission was 113. At this point we will continue patient's home medication of Torsemide 10mg M,W, F. - If patient's shortness of breath worsens, will consider adding Lasix as needed , and repeating BNP, and chest X-ray - Possible CT chest if patient's breathing improves (9) Atrial fibrillation Code(s): I48.91 - Unspecified atrial fibrillation Status: Acute Plan: Pt with history of A fib apparently well controlled on home medications Will continue: - Warfarin: 3mg M/W/F, 4mg T/Th/Sa/Finley - Sotalol 120mg BID po (10) Hypothyroidism Code(s): E03.9 - Hypothyroidism, unspecified Status: Chronic Plan: Pt currently stable on home medications. Will continue home dose. - Levothyroxine 137mg po daily (11) Nutrition, metabolism, and development symptoms Code(s): R63.8 - Other symptoms and signs concerning food and fluid intake Status: Acute Plan: Diet: Cardiac Fluids: PO GI prophylaxis: 40mg Protonix PO daily Electrolytes: monitor and replace as needed (12) DVT prophylaxis Status: Acute Plan: Continue with Warfarin home dose: - 3mg M/W/F - 4mg T/Th/Sa/Finley - Due to muscle dystrophy, pt is at high risk of DVT, will also add SCDs bilateral and compression socks. <Octavia Dalton V - 10/19/17 19:18> - Assessment and Plan 77 yr old male with complex PMH of muscular dystrophy, COPD, CHF, Afib, HTN, hypothyroidism, Anxiety, and with a chronic suprapubic catheter, presented to the ED with chills, night sweats, and severe shortness of breath. He was found to have an O2 Sat of 75% on RA, and a chest x-rays with opacifications and chronic pleural effusions. Pt is currently on Bipap. At this moment the etiology of this shortness of breath includes a DDx of CAP, COPD vs CHF exacerbation vs PE. His shortness of breath also seems to be increased by his underlying anxiety. Pt was also found to have an obstructed catheter and a UTI, currently on Rocephin while awaiting cultures. Pt was also found to have elevated troponin x2. Pt is currently being treated appropriately for his several acute and chronic issues. We will continue to monitor his progress closely and made adjustments as needed. Pt discussed with Dr. Tyler and senior residents Dr. Flower and Dr. Brenner. <Octavia Dalton V - 10/19/17 20:14> - Attending Attestation Patient seen, examined, and discussed with resident team. I agree with assessment and management as documented and discussed with me. Pt seen with and daughter at bedside. He remains on BiPAP, with 35% FiO2. He feels breathing is improved, but is breathing at 45 breaths/min. and daughter report increased cough and sputum production for the past month. Additional documentation: FamHx: Mother with muscular disease. Also fam hx of Hyperlipidemia and DM. Additional diagnoses: Muscular dystrophy: This is contributing to respiratory difficulty. Daughter reports he has difficulty coughing up phlegm. Contnue BiPAP, resp support. CAD: Continue chronic management. Cardiology consulted for elevated troponin. for elevated troponin - pt's blood pressure dropped significantly in ER after receiving NTG. Pt does take Imdur daily. I certify that inpatient admission is appropriate and two midnight stay is warranted based on documentation by resident team. <Homa Tyler - 10/19/17 20:53> H&P: Quality - VTE Deep Vein Thrombosis/Pulmonary Embolism Present on Admission: No <Octavia Dalton V - 10/19/17 14:48> <Octavia Dalton V - Last Filed: 10/19/17 19:18> (1) Acute and chronic respiratory failure ([id number]) Qualifiers: Respiratory failure complication: hypoxia and hypercapnia Qualified Code(s): J96.21 - Acute and chronic respiratory failure with hypoxia; J96.22 - Acute and chronic respiratory failure with hypercapnia <Vey,Homa - Last Filed: 10/19/17 20:53> (1) Acute and chronic respiratory failure ([id number]) Qualifiers: Respiratory failure complication: hypoxia and hypercapnia Qualified Code(s): J96.21 - Acute and chronic respiratory failure with hypoxia; J96.22 - Acute and chronic respiratory failure with hypercapnia <Octavia Dalton V - Last Filed: 10/19/17 19:18> (1) Acute and chronic respiratory failure ([id number]) Qualifiers: Respiratory failure complication: hypoxia and hypercapnia Qualified Code(s): J96.21 - Acute and chronic respiratory failure with hypoxia; J96.22 - Acute and chronic respiratory failure with hypercapnia <Vey,Homa - Last Filed: 10/19/17 20:53> (1) Acute and chronic respiratory failure ([id number]) Qualifiers: Respiratory failure complication: hypoxia and hypercapnia Qualified Code(s): J96.21 - Acute and chronic respiratory failure with hypoxia; J96.22 - Acute and chronic respiratory failure with hypercapnia
[2017-10-19] MEDS: Tiotropium Bromide 18 MCG/ACT Inhaler INH SCH (17:41)
[2017-10-19] MEDS: Montelukast 10 MG Tablet PO SCH (17:44)
[2017-10-19 21:12] LABS: ABG Base Excess 8.9 mmol/L (-2-2); ABG PCO2 49 mmHg (38-42); ABG PO2 78 mmHG (61-120)
[2017-10-19] MEDS: Magnesium Oxide 400 MG Tablet PO SCH (21:54)
[2017-10-19] MEDS: Senna/Docusate Sodium 8.6/50 MG Tablet PO SCH (21:55)
[2017-10-20] MEDS: MethylPREDNISolone Sod Succinate Inj 125 MG/2 ML Vial IV.PUSH SCH ×4 (01:34→17:50)
[2017-10-20 04:26] LABS: Baso % (Auto) 0.1 % (0.0-2.0); Hematocrit 35.8 % (39.0-51.0); Hemoglobin 11.8 gm/dL (13.0-17.0); Lymph # (Auto) 0.9 th/mm3 (1.0-4.8); Lymph % (Auto) 12.2 % (9.0-44.0); Mean Corpuscular HGB Conc 32.8 % (32.0-36.0); Mean Corpuscular Hemoglobin 27.7 pg (27.0-34.0); Mean Corpuscular Volume 84.4 fL (80.0-100.0); Mono # (Auto) 0.1 th/mm3 (0.0-0.9); Mono % (Auto) 1.8 % (0.0-8.0); Neut % (Auto) 85.9 % (16.0-70.0); Platelet Count 183 th/mm3 (150-450); Red Blood Count 4.24 mil/mm3 (4.50-5.90); Red Cell Distribution Width 15.1 % (11.6-17.2)
[2017-10-20 04:57] LABS: Alanine Aminotransferase 25 U/L (12-78); Albumin 2.9 g/dL (3.4-5.0); Anion Gap 10 meq/L (5-15); Aspartate Aminotransferase 21 U/L (15-37); Blood Urea Nitrogen 28 mg/dL (7-18); Calcium 8.5 mg/dL (8.5-10.1); Chloride 95 meq/L (98-107); Glomerular Filtration Rate Greater Than 89 mL/min (>89); Glucose,Random 173 mg/dL (74-106); Potassium 4.2 meq/L (3.5-5.1); Sodium 137 meq/L (136-145)
[2017-10-20 05:00] LABS: Alkaline Phosphatase 98 U/L (45-117); Total Protein 6.6 g/dL (6.4-8.2)
[2017-10-20] MEDS: Levothyroxine 112 MCG Tablet PO SCH (05:34)
[2017-10-20] MEDS ORDERED: Azithromycin Inj 500 MG in Sodium Chlor 0.9% Inj 250 ML IV.SIG SCH (07:00)
[2017-10-20] MEDS ORDERED: Azithromycin 250 MG Tablet PO SCH (09:00)
[2017-10-20] MEDS: Escitalopram 10 MG Tablet PO SCH (10:07)
[2017-10-20] MEDS: guaiFENesin 600 MG ER Tablet PO SCH (10:07)
[2017-10-20] MEDS: Isosorbide Mononitrate 30 MG ER 24HR Tablet (Imdur) PO SCH (10:07)
[2017-10-20] MEDS: LACTOBACILLUS RHAMNOSUS GG PO SCH (10:07)
--- NOTE | 2017-10-20 10:07 | P.DCO ---
- Physical Therapy Order: Evaluate and treat, Improve ambulation, Strength and gait training - Certification I have seen patient Ricki Walker on 10/20/17. My clinical findings support the need for the requested home health care services because: Limited mobility due to disease progression, Deconditioned with increased weakness I certify that my clinical findings support that this patient is homebound because: Hx COPD - exertion dyspnea/weakness, Non-ambulatory: confined to bed or chair
[2017-10-20] MEDS: Senna/Docusate Sodium 8.6/50 MG Tablet PO SCH ×2 (10:08→21:07)
[2017-10-20] MEDS: Tiotropium Bromide 18 MCG/ACT Inhaler INH SCH (10:08)
--- NOTE | 2017-10-20 11:51 | P.PNFP ---
Subjective Interval history: Patient was seen and examined this morning. He is feeling better today and is on BIPAP at time of examination. He denies chest pain, shortness of breath, nausea, vomiting. He tolerated breakfast this morning but is requesting cardiac and diabetic diet. Patient notes he is on 2L/min nasal cannula rate. <Ruthy Brenner - 10/20/17 14:52> Results - Labs Result diagrams: 10/22/17 06:10 10/22/17 06:10 <Homa Tyler - 10/22/17 15:26> Abnormal lab results 10/21/17 10/22/17 10/22/17 Range/Units 15:21 06:10 06:10 WBC 3.1 L (4.0-11.0) th/mm3 RBC 4.30 L (4.50-5.90) mil/mm3 Hgb 11.9 L (13.0-17.0) gm/dL Hct 35.8 L (39.0-51.0) % PT 26.7 H (9.8-11.6) sec Sodium 135 L (136-145) meq/L Potassium 3.2 L (3.5-5.1) meq/L Chloride 93 L (98-107) meq/L Carbon Dioxide 34.2 H (21.0-32.0) meq/L BUN 22 H (7-18) mg/dL Creatinine 0.51 L (0.60-1.30) mg/dL Random Glucose 218 H (74-106) mg/dL Calcium 8.4 L (8.5-10.1) mg/dL AST 38 H (15-37) U/L Albumin 3.0 L (3.4-5.0) g/dL TSH 0.229 L (0.358-3.740) uIU/mL 10/22/17 Range/Units 10:05 WBC (4.0-11.0) th/mm3 RBC (4.50-5.90) mil/mm3 Hgb (13.0-17.0) gm/dL Hct (39.0-51.0) % PT 26.4 H (9.8-11.6) sec Sodium (136-145) meq/L Potassium (3.5-5.1) meq/L Chloride (98-107) meq/L Carbon Dioxide (21.0-32.0) meq/L BUN (7-18) mg/dL Creatinine (0.60-1.30) mg/dL Random Glucose (74-106) mg/dL Calcium (8.5-10.1) mg/dL AST (15-37) U/L Albumin (3.4-5.0) g/dL TSH (0.358-3.740) uIU/mL Short CBC 10/22/17 Range/Units 06:10 WBC 3.1 L (4.0-11.0) th/mm3 Hgb 11.9 L (13.0-17.0) gm/dL Hct 35.8 L (39.0-51.0) % Plt Count 177 (150-450) th/mm3 BMP 10/22/17 06:10 Sodium 135 L Potassium 3.2 L Chloride 93 L Carbon Dioxide 34.2 H BUN 22 H Creatinine 0.51 L Calcium 8.4 L Liver Function 10/22/17 Range/Units 06:10 Total Bilirubin 0.4 (0.2-1.0) mg/dL AST 38 H (15-37) U/L ALT 54 (12-78) U/L Alkaline Phosphatase 79 (45-117) U/L Albumin 3.0 L (3.4-5.0) g/dL <Homa Tyler - 10/22/17 15:26> Abnormal lab results 10/19/17 10/19/17 10/19/17 Range/Units 13:27 16:58 20:29 RBC (4.50-5.90) mil/mm3 Hgb (13.0-17.0) gm/dL Hct (39.0-51.0) % Neut % (Auto) (16.0-70.0) % Lymph # (Auto) (1.0-4.8) th/mm3 ABG pH (7.380-7.420) ABG pCO2 (38-42) mmHg ABG HCO3 (22-26) mmol/L ABG Base Excess (-2-2) mmol/L Hemoglobin (12.0-16.0) G/DL Chloride (98-107) meq/L BUN (7-18) mg/dL Creatinine (0.60-1.30) mg/dL POC Glucose 210 H (68-110) mg/dl Random Glucose (74-106) mg/dL Troponin I 0.55 H 0.46 H (0.02-0.05) ng/mL Albumin (3.4-5.0) g/dL 10/19/17 10/20/17 10/20/17 Range/Units 21:05 04:01 04:01 RBC 4.24 L (4.50-5.90) mil/mm3 Hgb 11.8 L D (13.0-17.0) gm/dL Hct 35.8 L (39.0-51.0) % Neut % (Auto) 85.9 H (16.0-70.0) % Lymph # (Auto) 0.9 L (1.0-4.8) th/mm3 ABG pH 7.45 H (7.380-7.420) ABG pCO2 49 H (38-42) mmHg ABG HCO3 33 H (22-26) mmol/L ABG Base Excess 8.9 H (-2-2) mmol/L Hemoglobin 11.9 L (12.0-16.0) G/DL Chloride 95 L (98-107) meq/L BUN 28 H (7-18) mg/dL Creatinine 0.46 L (0.60-1.30) mg/dL POC Glucose (68-110) mg/dl Random Glucose 173 H (74-106) mg/dL Troponin I (0.02-0.05) ng/mL Albumin 2.9 L (3.4-5.0) g/dL Short CBC 10/20/17 Range/Units 04:01 WBC 7.0 D (4.0-11.0) th/mm3 Hgb 11.8 L D (13.0-17.0) gm/dL Hct 35.8 L (39.0-51.0) % Plt Count 183 D (150-450) th/mm3 BMP 10/20/17 04:01 Sodium 137 Potassium 4.2 Chloride 95 L Carbon Dioxide 32.0 BUN 28 H Creatinine 0.46 L Calcium 8.5 Cardiac Enzymes 10/19/17 10/19/17 Range/Units 13:27 20:29 Troponin I 0.55 H 0.46 H (0.02-0.05) ng/mL Liver Function 10/20/17 Range/Units 04:01 Total Bilirubin 0.4 (0.2-1.0) mg/dL AST 21 (15-37) U/L ALT 25 (12-78) U/L Alkaline Phosphatase 98 (45-117) U/L Albumin 2.9 L (3.4-5.0) g/dL <Ruthy Brenner L - 10/20/17 11:51> Physical Exam Vital signs: Vital Signs 10/21/17 16:00 10/21/17 16:51 10/21/17 17:00 Temperature Pulse Rate 62 81 84 Respiratory Rate 16 Blood Pressure Pulse Oximetry 10/21/17 18:00 10/21/17 19:00 10/21/17 19:46 Temperature 98.6 F Pulse Rate 62 70 64 Respiratory Rate 16 19 Blood Pressure 127/68 Pulse Oximetry 99 96 10/21/17 20:00 10/21/17 21:00 10/21/17 22:00 Temperature Pulse Rate 64 64 66 Respiratory Rate Blood Pressure Pulse Oximetry 99 10/21/17 23:00 10/22/17 00:00 10/22/17 00:40 Temperature 98.3 F Pulse Rate 60 82 83 Respiratory Rate 20 20 Blood Pressure 149/71 H Pulse Oximetry 96 10/22/17 01:00 10/22/17 02:00 10/22/17 03:00 Temperature 97.4 F L Pulse Rate 82 84 62 Respiratory Rate 16 Blood Pressure 159/73 H Pulse Oximetry 99 10/22/17 04:00 10/22/17 05:00 10/22/17 06:00 Temperature Pulse Rate 60 82 69 Respiratory Rate Blood Pressure Pulse Oximetry 10/22/17 07:00 10/22/17 08:00 10/22/17 08:37 Temperature 98.2 F Pulse Rate 57 L 57 L 89 Respiratory Rate 16 Blood Pressure 152/85 H Pulse Oximetry 96 10/22/17 08:41 10/22/17 11:00 10/22/17 12:28 Temperature 98.4 F Pulse Rate 84 84 Respiratory Rate 14 Blood Pressure 161/86 H Pulse Oximetry 99 96 Intake & Output 10/21/17 10/22/17 10/22/17 18:59 06:59 18:59 Intake Total 1420 / 1420 480 / 480 Output Total 2099 / 2099 1050 / 1050 Balance -680 / -680 -570 / -570 Weight 129.5 kg Intake: IV 100 / 100 Rocephin Inj 1,000 MG In NS Inj 100 / 100 100 ML @ 200 mls/hr IV.SIG Q24H [facility] Rx#:[id number] Oral 1320 / 1320 480 / 480 Output: Urine 1050 / 1050 Urine Amount (Catheter) 2099 Suprapubic 2099 Other: Date of Last Bowel Movement 10/21/17 10/21/17 10/21/17 # Bowel Movements 1 <Renata Tylere - 10/22/17 15:26> Vital Signs 10/19/17 12:00 10/19/17 12:38 10/19/17 13:00 Temperature Pulse Rate 63 65 Respiratory Rate Blood Pressure Pulse Oximetry 96 10/19/17 14:00 10/19/17 15:00 10/19/17 15:41 Temperature 98.1 F Pulse Rate 60 59 L 61 Respiratory Rate 27 H Blood Pressure 112/54 L Pulse Oximetry 97 10/19/17 15:46 10/19/17 16:00 10/19/17 17:00 Temperature Pulse Rate 72 66 Respiratory Rate Blood Pressure Pulse Oximetry 95 10/19/17 18:00 10/19/17 19:00 10/19/17 20:00 Temperature 98.6 F Pulse Rate 61 61 66 Respiratory Rate 24 Blood Pressure 105/55 L Pulse Oximetry 94 L 94 L 10/19/17 21:00 10/19/17 21:24 10/19/17 22:00 Temperature Pulse Rate 62 68 62 Respiratory Rate 22 Blood Pressure Pulse Oximetry 10/19/17 23:00 10/20/17 00:00 10/20/17 01:43 Temperature 98.6 F Pulse Rate 61 62 64 Respiratory Rate 22 Blood Pressure 102/59 L Pulse Oximetry 94 L 10/20/17 02:00 10/20/17 03:00 10/20/17 03:30 Temperature 98.2 F Pulse Rate 62 62 60 Respiratory Rate 24 16 Blood Pressure 106/62 Pulse Oximetry 97 10/20/17 04:00 10/20/17 05:00 10/20/17 06:00 Temperature Pulse Rate 60 60 60 Respiratory Rate Blood Pressure Pulse Oximetry 10/20/17 07:55 10/20/17 10:43 Temperature Pulse Rate 68 70 Respiratory Rate 24 24 Blood Pressure Pulse Oximetry 96 95 Intake & Output 10/19/17 10/20/17 10/20/17 18:59 06:59 18:59 Intake Total 840 / 840 580 / 580 250 / 250 Output Total 200 / 200 750 / 750 Balance 640 / 640 -170 / -170 250 / 250 Weight 125.645 kg 128.5 kg Intake: IV 600 / 600 100 / 100 250 / 250 Azithromycin Inj 500 MG In NS 250 / 250 250 / 250 Inj 250 ML @ 250 mls/hr IV.SIG Q24H [facility] Rx#:[id number] NS Inj 250 ML @ Wide Open IV. 250 / 250 SIG [facility] Rx#:[id number] Rocephin Inj 1,000 MG In NS Inj 100 / 100 100 / 100 100 ML @ 200 mls/hr IV.SIG Q24H [facility] Rx#:[id number] Oral 240 / 240 480 / 480 Output: Urine 200 / 200 Urine Amount (Catheter) 750 / 750 Suprapubic 750 / 750 Other: Date of Last Bowel Movement 10/19/17 10/19/17 # Bowel Movements 1 1 Weight On Admission 125.645 kg <Ruthy Brenner - 10/20/17 11:51> Narrative: GENERAL: Patient is an obese male on Bipap in [facility]. He is talking and breathing over Bipap and asking to have it removed. Pt switched to 5L NC during exam and O2 sat remained >95%. SKIN: Warm and dry. No obvious rashes or ecchymoses noted. HEAD: Atraumatic. Normocephalic. EYES: Pupils equal and round. No scleral icterus. No injection or drainage. ENT: No nasal bleeding or discharge. Mucous membranes pink and moist. NECK: Trachea midline. No JVD. CARDIOVASCULAR: Regular rate and rhythm. No murmurs. RESPIRATORY: He did have some accessory use. No accessory muscle use. Diffuse wheezing on anterior lung rowe. Breath sounds equal bilaterally. GASTROINTESTINAL: Abdomen soft, non-tender, obese. MUSCULOSKELETAL: Extremities without clubbing, cyanosis, or edema. No obvious deformities. 1+ pitting edema to midshin. NEUROLOGICAL: Awake and alert. No obvious cranial nerve deficits. Motor grossly within normal limits. Moving all extremities spontaneously. Normal speech. PSYCHIATRIC: Appropriate mood and affect; insight and judgment normal. <Ruthy Brenner - 10/20/17 14:52> - Urinary Catheter Management Suprapubic Cath placed during this visit: no <Homa Tyler - 10/22/17 15:26> yes, but has since been removed by the nurse <Ruthy Brenner Rocio - 10/20/17 14:52> Reason for continuing: Chronic Urinary Retention <Ameya Brennersurinder Chan - 10/20/17 11:51> Insertion date: 10/19/17 <JordinRuthy L - 10/20/17 11:51> Insertion time: 06:01 <JordinAmeyasurinder Chan - 10/20/17 11:51> Removal date: 10/19/17 <JordinAmeyasurinder Chan - 10/20/17 11:51> Removal time: 06:00 <JordinAmeyasurinder Chan - 10/20/17 11:51> Assessment and Plan - Assessment (1) Acute and chronic respiratory failure ([id number]) Code(s): J96.20 - Acute and chronic respiratory failure, unspecified whether with hypoxia or hypercapnia Status: Acute (2) Acute exacerbation of chronic obstructive pulmonary disease (COPD) Code(s): J44.1 - Chronic obstructive pulmonary disease with (acute) exacerbation Status: Chronic (3) Community acquired bacterial pneumonia Code(s): J15.9 - Unspecified bacterial pneumonia Status: Acute (4) UTI (urinary tract infection) due to urinary indwelling catheter Code(s): T83.511A - Infection and inflammatory reaction due to indwelling urethral catheter, initial encounter; N39.0 - Urinary tract infection, site not specified Status: Acute (5) Elevated troponin level Code(s): R74.8 - Abnormal levels of other serum enzymes Status: Acute (6) Pleural effusion Code(s): J90 - Pleural effusion, not elsewhere classified Status: Chronic (7) HTN (hypertension) Code(s): I10 - Essential (primary) hypertension Status: Acute (8) Anxiety Code(s): F41.9 - Anxiety disorder, unspecified Status: Acute (9) CHF (congestive heart failure) Code(s): I50.9 - Heart failure, unspecified Status: Acute (10) Atrial fibrillation Code(s): I48.91 - Unspecified atrial fibrillation Status: Acute (11) Hypothyroidism Code(s): E03.9 - Hypothyroidism, unspecified Status: Chronic (12) Suprapubic catheter Code(s): Z93.59 - Other cystostomy status Status: Chronic (13) Nutrition, metabolism, and development symptoms Code(s): R63.8 - Other symptoms and signs concerning food and fluid intake Status: Acute (14) DVT prophylaxis Status: Acute <Homa Tyler - 10/22/17 15:26> (1) Acute and chronic respiratory failure ([id number]) Code(s): J96.20 - Acute and chronic respiratory failure, unspecified whether with hypoxia or hypercapnia Status: Acute Plan: Patient presented 10/20 with acute respiratory distress requiring continuous Bipap. He was found to have an O2 saturation of 75% on RA and increased work of breathing warranting ICU admission. Baseline is 2L/min O2 via nasal cannula with CPAP while sleeping. Clinically respiratory status is improving. Patient code status is No Code DNR, confirmed at time of admission. Chest x-ray 10/19: Bilateral airspace opacities and small to moderate right, small left pleural effusions, potentially on the basis of failure. No pneumothorax. Due to patient being on Bipap, a CT chest was not obtained. At time of admission DDx include, but not limited to: community acquired pneumonia vs COPD exacerbation vs PE vs CHF exacerbation. Admission ABG: pH 7.33, pCO2 68, pO2 65 , HCO3 35. WBC on admission was 14.3. Follow up ABG: pH 7.45, pCO2 49, pO2 78, HCO3 33. During ED course pt received one time dose of Lasix 40mg IV, DuoNeb 3, Solu- Medrol 125 mg IV, antibiotic coverage with Rocephin and Zithromax Plan: - Continue Solumedrol 60mg IV q 6hrs for now. Will decrease frequency tomorrow if clinically stable. - Monitor respiratory status closely. ABG improving. On NC this morning. - Alternate DuoNebs and Albuterol breathing treatments q 4hrs - Continue Rocephin 1,000 mg IV q 24hrs (10/19- current) - Continue Azithromycin 500mg IV q24hrs (10/19- current) - F/U am labs - Warfarin to be adjusted to accommodate antibiotic effects on vitamin K (see below) (2) Acute exacerbation of chronic obstructive pulmonary disease (COPD) Code(s): J44.1 - Chronic obstructive pulmonary disease with (acute) exacerbation Status: Chronic Plan: Patient has a history of muscular dystrophy and reported known COPD. He is on tiotropium and PRN albuterol at home. Will continue Duonebs and albuterol as noted above. Will continue tiotropium once clinically improved (i.e., tolerating nasal cannula). Please see plan above.We will resume the following home medications as well: - Singulair 10mg PO q HS - Mucinex 1,200 PO daily (3) Community acquired bacterial pneumonia Code(s): J15.9 - Unspecified bacterial pneumonia Status: Acute Plan: Management as above (4) UTI (urinary tract infection) due to urinary indwelling catheter Code(s): T83.511A - Infection and inflammatory reaction due to indwelling urethral catheter, initial encounter; N39.0 - Urinary tract infection, site not specified Status: Acute Plan: Pt presented with obstructed suprapubic urinary catheter, it was replaced this morning in ED and 800mL of urine collected. Pt with Hx of UTI in the past, abdominal pain that resolved after catheter replacement. - UA w/ urine protein, blood, large Leukocyte esterase, many WBC clumps, and rare bacteria. - WBC 14.3 on admission - Continue to treat with Rocephin at the moment - F/U urine cultures and adjust accordingly (5) Elevated troponin level Code(s): R74.8 - Abnormal levels of other serum enzymes Status: Acute Plan: Patient has known history of CAD with severe shortness of breath on admission. He reportedly had recommendations for cardiac stenting but could not have stents in the past (unclear reason for this). Old EKGs show LBBB with new EKGs showing the same. Troponin levels 0.11 --> 0.55 --> 0.46 with stable EKG findings noted. No chest pain. Given stable troponin, suspect respiratory failure to be causative but will monitor patient closely for status changes. Of note, patient did have aspirin 81 mg and 324mg on 10/19 with attempts at nitropaste in ED upon arrival. This was discontinued given hypotension. Cardiology consulted given cardiac history and above findings, appreciate recommendations. (6) Pleural effusion Code(s): J90 - Pleural effusion, not elsewhere classified Status: Chronic Plan: Pleural effusions noted on Chest X-ray today, this finding seem to be chronic in nature but could be contributing to the patient shortness of breath. Will consider a CT chest if clinically worsens. (7) HTN (hypertension) Code(s): I10 - Essential (primary) hypertension Status: Acute Plan: Chronic in nature. Will monitor closely and continue pt's home medications - Aspirin 81 mg PO daily - Sotalol 120mg PO BID - isosorbide mononitrate 30mg PO extended release daily (8) Anxiety Code(s): F41.9 - Anxiety disorder, unspecified Status: Acute Plan: Pt is currently on anxiety medications at home. He did have some anxiety on day 1 of hospitalization but this has improved. Patient was given one dose of Ativan 1mg IV this evening Will continue home medication: Escitalopram 10mg PO daily (9) CHF (congestive heart failure) Code(s): I50.9 - Heart failure, unspecified Status: Acute Plan: Pt with chronic CHF that could be contributing to this patient's shortness of breath. Unclear which type of CHF he has. He received one dose of 40mg Lasix in ED on 10/19. BNP on admission was 113. He was given Lasix 40mg IV dose on 10/20 given increased weight (3kg increase on I/Os, inadequate fluid output). At this point we will continue patient's home medication of Torsemide 10mg M,, and offer PRN Lasix IV as needed to improve fluid status. (10) Atrial fibrillation Code(s): I48.91 - Unspecified atrial fibrillation Status: Acute Plan: Pt with history of A fib apparently well controlled on home medications Will continue: - Warfarin: Patient's home regimen is 4 mg /Guerda/Thu/Thu and 3 mg Thu/Thu/Thu. Will check INR daily. INR 2.3 on admission. Will decrease warfarin to 3mg daily for now and monitor INR closely (vit K production reduced with gut priscilla effects of antibiotics). For now patient will receive 3mg warfarin daily. - Sotalol 120mg BID po (11) Hypothyroidism Code(s): E03.9 - Hypothyroidism, unspecified Status: Chronic Plan: Pt currently stable on home medications. Will continue home dose. - Levothyroxine 137mg po daily (12) Suprapubic catheter Code(s): Z93.59 - Other cystostomy status Status: Chronic Plan: Patient with chronic suprapubic catheter which was changed on 10/19 in ED due to obstruction. UA abnormal and UTI being treated as noted. Will continue chronic indwelling catheter while inpatient and at discharge. Monitor I/Os closely (13) Nutrition, metabolism, and development symptoms Code(s): R63.8 - Other symptoms and signs concerning food and fluid intake Status: Acute Plan: Diet: Cardiac and diabetic Fluids: PO GI prophylaxis: 40mg Protonix PO daily Electrolytes: monitor and replace as needed (14) DVT prophylaxis Status: Acute Plan: Continue with Warfarin home dose: - 3mg // - 4mg ///Finley - Due to muscle dystrophy, pt is at high risk of DVT, will also add SCDs bilateral and compression socks. <Ruthy Brenner - 10/20/17 13:55> - Assessment and Plan 77-yr-old male with complex PMH of muscular dystrophy, COPD, CHF, Afib, HTN, hypothyroidism, anxiety, and with a chronic suprapubic catheter, who presented on 10/19 with shortness of breath and chills. He was hypoxic to O2 sat of 75% on RA, and CXR showing opacifications and chronic pleural effusions. Pt is currently on Bipap. He was admitted to [facility] due to increased respiratory requirements. He is currently being treated for COPD exacerbation, PNA, and mild CHF exacerbation. PE also on differential but low given clinical improvement on Bipap. He also had obstructed catheter on admission and evidence of UTI, with culture to follow. We will continue to monitor his progress closely and made adjustments as needed. <Ruthy Brenner - 10/20/17 14:52> Discussed Condition With: Patient was seen and discussed with Dr. Tyler, Dr. Flower , and Dr. Benson. <Ruthy Brenner - 10/20/17 14:52> Discharge Planning: Anticipate discharge in 2-3 days pending clinical improvement. <Ruthy Brenner - 10/20/17 14:52> - Attending Attestation Patient seen and examined, discussed with resident team on day of documentation. I agree with assessment and management as documented and discussed with me. Pt seen with at bedside. He feels he is doing better but is still on BiPAP. Provide one dose of lasix IV as patient with minimal edema. <Homa Tyler - 10/22/17 15:26> <Ruthy Brenner L - Last Filed: 10/20/17 13:55> (1) Acute and chronic respiratory failure ([id number]) Qualifiers: Respiratory failure complication: hypoxia and hypercapnia Qualified Code(s): J96.21 - Acute and chronic respiratory failure with hypoxia; J96.22 - Acute and chronic respiratory failure with hypercapnia <oHma Tyler - Last Filed: 10/22/17 15:26> (1) Acute and chronic respiratory failure ([id number]) Qualifiers: Respiratory failure complication: hypoxia and hypercapnia Qualified Code(s): J96.21 - Acute and chronic respiratory failure with hypoxia; J96.22 - Acute and chronic respiratory failure with hypercapnia <Ruthy Brenner L - Last Filed: 10/20/17 13:55> (1) Acute and chronic respiratory failure ([id number]) Qualifiers: Respiratory failure complication: hypoxia and hypercapnia Qualified Code(s): J96.21 - Acute and chronic respiratory failure with hypoxia; J96.22 - Acute and chronic respiratory failure with hypercapnia <Homa Tyler - Last Filed: 10/22/17 15:26> (1) Acute and chronic respiratory failure ([id number]) Qualifiers: Respiratory failure complication: hypoxia and hypercapnia Qualified Code(s): J96.21 - Acute and chronic respiratory failure with hypoxia; J96.22 - Acute and chronic respiratory failure with hypercapnia
--- NOTE | 2017-10-20 16:11 | ECG ---
Date Performed: 10/19/2017 Time Performed: 20:57:28 PTAGE: 77 years EKG: Sinus rhythm with PVC(s) Left bundle branch block Since the previous tracing, no significant change noted Abnorma l ECG PREVIOUS TRACING : 10/19/2017 04.26 DOCTOR: Tc Phillip Interpretating Date/Time 10/20/2017 16:10:26
[2017-10-20] MEDS: Montelukast 10 MG Tablet PO SCH (17:50)
[2017-10-20] MEDS: Ciprofloxacin 250 MG Tablet PO SCH (21:06)
[2017-10-20] MEDS: Magnesium Oxide 400 MG Tablet PO SCH (21:07)
[2017-10-21 06:09] LABS: INR 2.2 Ratio; Prothrombin Time 22.3 sec (9.8-11.6)
[2017-10-21] MEDS: MethylPREDNISolone Sod Succinate Inj 125 MG/2 ML Vial IV.PUSH SCH ×5 (06:11→23:36)
[2017-10-21] MEDS: Levothyroxine 112 MCG Tablet PO SCH (06:11)
--- NOTE | 2017-10-21 06:19 | XR ---
EXAM DATE: 10/21/2017 6:07 AM EDT AGE/SEX: 77 years / Male INDICATIONS: Shortness of breath. CLINICAL DATA: This is the patient's subsequent encounter. Patient reports that signs and symptoms h ave been present for 3 days and indicates a pain score of 0/10. MEDICAL/SURGICAL HISTORY: . Hypertension. Congestive heart failure. Chronic obstructive pulmon mary kate disease. Asthma. MS. Pacemaker. COMPARISON: [facility] [place], CHEST 1V SINGLE AP, 10/19/2017. . FINDINGS: Small effusions and mild parenchymal consolidation again noted at both bases, both sides slightly imp roved in the interim. No pneumothorax demonstrated. Heart size stable, upper limits of normal. Cardiac pacer again noted. Patient has had previous CABG. CONCLUSION: Modestly improved bibasilar consolidation and small effusions. Electronically signed by: Sherwin Davenport MD 10/21/2017 6:17 AM EDT
[2017-10-21 06:20] LABS: Baso % (Auto) 0.1 % (0.0-2.0); Hematocrit 34.2 % (39.0-51.0); Hemoglobin 11.4 gm/dL (13.0-17.0); Lymph # (Auto) 0.7 th/mm3 (1.0-4.8); Lymph % (Auto) 14.1 % (9.0-44.0); Mean Corpuscular HGB Conc 33.3 % (32.0-36.0); Mean Corpuscular Volume 84.1 fL (80.0-100.0); Mean Platelet Volume 8.4 fL (7.0-11.0); Mono # (Auto) 0.2 th/mm3 (0.0-0.9); Mono % (Auto) 4.1 % (0.0-8.0); Neut % (Auto) 81.7 % (16.0-70.0); Platelet Count 178 th/mm3 (150-450); Red Blood Count 4.07 mil/mm3 (4.50-5.90); Red Cell Distribution Width 15.1 % (11.6-17.2); White Blood Count 4.9 th/mm3 (4.0-11.0)
[2017-10-21 06:24] LABS: Anion Gap 7 meq/L (5-15); Aspartate Aminotransferase 17 U/L (15-37); Blood Urea Nitrogen 27 mg/dL (7-18); Calcium 8.7 mg/dL (8.5-10.1); Carbon Dioxide 32.6 meq/L (21.0-32.0); Chloride 97 meq/L (98-107); Glomerular Filtration Rate Greater Than 89 mL/min (>89); Glucose,Random 204 mg/dL (74-106); Magnesium 1.9 mg/dL (1.5-2.5); Potassium 3.7 meq/L (3.5-5.1); Sodium 137 meq/L (136-145)
[2017-10-21 06:25] LABS: Alanine Aminotransferase 23 U/L (12-78); Phosphorus 1.8 mg/dL (2.5-4.9)
[2017-10-21 06:27] LABS: Alkaline Phosphatase 82 U/L (45-117); Total Protein 6.3 g/dL (6.4-8.2)
[2017-10-21] MEDS ORDERED: Potassium Phosphate 500 MG Soluble Tablet PO ONE (07:13)
[2017-10-21] MEDS: Senna/Docusate Sodium 8.6/50 MG Tablet PO SCH ×2 (10:29→23:09)
[2017-10-21] MEDS: Escitalopram 10 MG Tablet PO SCH (10:30)
[2017-10-21] MEDS: guaiFENesin 600 MG ER Tablet PO SCH (10:30)
[2017-10-21] MEDS: Isosorbide Mononitrate 30 MG ER 24HR Tablet (Imdur) PO SCH (10:30)
[2017-10-21] MEDS: Ciprofloxacin 250 MG Tablet PO SCH ×2 (10:34→21:00)
[2017-10-21] MEDS: Tiotropium Bromide 18 MCG/ACT Inhaler INH SCH (10:35)
--- NOTE | 2017-10-21 11:12 | P.PNFP ---
Subjective Interval history: Pt seen and examined this morning. He states he feels good, he is eating and drinking ok, he has been using NC vs Bipap intermittently yesterday as he does at home. He was using 3L O2 NC while talking to us. He became short of breath when talking without pausing. He states he wants to go home. We discussed his UTI results, as well as his oxygen requirements and probably need to stay for an extra day. He denied any chest pain, eating/drinking ok, no nausea, no fevers or chills. He has not have a BM in two days, he usually gets two a day. He states he also cleans his suprapubic catheter every day with Vaseline and gauze. <Octavia Dalton V - 10/21/17 14:50> Results - Labs Result diagrams: 10/22/17 06:10 10/22/17 06:10 <Homa Tyler - 10/23/17 16:59> Abnormal lab results 10/19/17 10/21/17 10/21/17 Range/Units 05:50 04:46 04:46 RBC 4.07 L (4.50-5.90) mil/mm3 Hgb 11.4 L (13.0-17.0) gm/dL Hct 34.2 L (39.0-51.0) % Neut % (Auto) 81.7 H (16.0-70.0) % Lymph # (Auto) 0.7 L (1.0-4.8) th/mm3 PT 22.3 H (9.8-11.6) sec Chloride (98-107) meq/L Carbon Dioxide (21.0-32.0) meq/L BUN (7-18) mg/dL Creatinine (0.60-1.30) mg/dL Random Glucose (74-106) mg/dL Phosphorus (2.5-4.9) mg/dL Total Protein (6.4-8.2) g/dL Albumin (3.4-5.0) g/dL Urine Clarity Cloudy H (Clear) Urine Protein 100 H (Neg-Trace) mg/dL Urine Occult Blood Large H (Negative) Ur Leukocyte Esterase Large H (Negative) Urine WBC Clumps Many H (None) Urine Bacteria Rare H (None) /hpf 10/21/17 Range/Units 04:46 RBC (4.50-5.90) mil/mm3 Hgb (13.0-17.0) gm/dL Hct (39.0-51.0) % Neut % (Auto) (16.0-70.0) % Lymph # (Auto) (1.0-4.8) th/mm3 PT (9.8-11.6) sec Chloride 97 L (98-107) meq/L Carbon Dioxide 32.6 H (21.0-32.0) meq/L BUN 27 H (7-18) mg/dL Creatinine 0.53 L (0.60-1.30) mg/dL Random Glucose 204 H (74-106) mg/dL Phosphorus 1.8 L (2.5-4.9) mg/dL Total Protein 6.3 L (6.4-8.2) g/dL Albumin 3.0 L (3.4-5.0) g/dL Urine Clarity (Clear) Urine Protein (Neg-Trace) mg/dL Urine Occult Blood (Negative) Ur Leukocyte Esterase (Negative) Urine WBC Clumps (None) Urine Bacteria (None) /hpf Short CBC 10/21/17 Range/Units 04:46 WBC 4.9 (4.0-11.0) th/mm3 Hgb 11.4 L (13.0-17.0) gm/dL Hct 34.2 L (39.0-51.0) % Plt Count 178 (150-450) th/mm3 BMP 10/21/17 04:46 Sodium 137 Potassium 3.7 Chloride 97 L Carbon Dioxide 32.6 H BUN 27 H Creatinine 0.53 L Calcium 8.7 Liver Function 10/21/17 Range/Units 04:46 Total Bilirubin 0.4 (0.2-1.0) mg/dL AST 17 (15-37) U/L ALT 23 (12-78) U/L Alkaline Phosphatase 82 (45-117) U/L Albumin 3.0 L (3.4-5.0) g/dL Urine 10/19/17 Range/Units 05:50 Urine Color Yellow (Yellw/Straw) Urine Clarity Cloudy H (Clear) Urine pH 8.0 (5.0-8.5) Ur Specific [place] 1.009 (1.002-1.035) Urine Protein 100 H (Neg-Trace) mg/dL Urine Glucose (UA) Negative (Negative) mg/dL <Octavia Dalton V - 10/21/17 11:12> - Imaging Impressions Chest X-Ray 10/21/17 06:00 CONCLUSION: Modestly improved bibasilar consolidation and small effusions. <Octavia Dalton V - 10/21/17 11:12> Physical Exam Vital signs: Intake & Output 10/22/17 10/23/17 10/23/17 18:59 06:59 18:59 Other: Date of Last Bowel Movement 10/21/17 <Homa Tyler - 10/23/17 16:59> Vital Signs 10/20/17 13:24 10/20/17 15:00 10/20/17 15:45 Temperature 98 F Pulse Rate 61 62 Respiratory Rate 19 20 Blood Pressure 126/61 Pulse Oximetry 97 98 96 10/20/17 15:46 10/20/17 17:00 10/20/17 18:00 Temperature Pulse Rate 68 68 59 L Respiratory Rate 18 Blood Pressure Pulse Oximetry 10/20/17 19:00 10/20/17 19:53 10/20/17 20:00 Temperature 98.1 F Pulse Rate 58 L 58 L 62 Respiratory Rate 16 22 Blood Pressure 139/66 Pulse Oximetry 98 3 L 10/20/17 21:00 10/20/17 22:00 10/20/17 22:36 Temperature Pulse Rate 56 L 62 60 Respiratory Rate 20 Blood Pressure Pulse Oximetry 10/20/17 23:00 10/21/17 00:00 10/21/17 01:00 Temperature 98.4 F Pulse Rate 62 64 64 Respiratory Rate 20 Blood Pressure 119/56 L Pulse Oximetry 99 6 L 10/21/17 02:00 10/21/17 02:48 10/21/17 03:00 Temperature 98 F Pulse Rate 64 60 59 L Respiratory Rate 16 20 Blood Pressure 153/68 H Pulse Oximetry 99 10/21/17 04:00 10/21/17 04:58 10/21/17 05:00 Temperature Pulse Rate 62 60 62 Respiratory Rate 20 Blood Pressure Pulse Oximetry 10/21/17 05:27 10/21/17 06:00 10/21/17 07:34 Temperature Pulse Rate 62 68 Respiratory Rate 16 Blood Pressure Pulse Oximetry 97 95 Intake & Output 10/20/17 10/21/17 10/21/17 18:59 06:59 18:59 Intake Total 730 / 730 480 / 480 Output Total 950 / 950 1350 / 1350 Balance -220 / -220 -870 / -870 Weight 129 kg Intake: IV 250 / 250 Azithromycin Inj 500 MG In NS 250 / 250 Inj 250 ML @ 250 mls/hr IV.SIG Q24H FARHAD Rx#:[id number] Oral 480 / 480 480 / 480 Output: Urine 200 / 200 Urine Amount (Catheter) 750 / 750 1350 / 1350 Suprapubic 750 / 750 1350 / 1350 Other: Date of Last Bowel Movement 10/19/17 10/20/17 # Bowel Movements 1 0 <Octavia Dalton V 10/21/17 11:12> Narrative: GENERAL: Patient is an obese male on NC in [facility]. He is talking full sentences. SKIN: Warm and dry. No obvious rashes or ecchymoses noted. HEAD: Atraumatic. Normocephalic. EYES: Pupils equal and round. No scleral icterus. No injection or drainage. ENT: No nasal bleeding or discharge. Mucous membranes pink and moist. NECK: Trachea midline. No JVD. CARDIOVASCULAR: Regular rate and rhythm. No murmurs. RESPIRATORY: Improved respiratory effort. No accessory muscle use. Diffuse wheezing on anterior lung rowe. Breath sounds equal bilaterally. GASTROINTESTINAL: Abdomen soft, non-tender, obese. Suprapubic catheter in place under pannus. No drainage or blood. MUSCULOSKELETAL: Extremities without clubbing, cyanosis. 1+ pitting edema to midshin. NEUROLOGICAL: Awake and alert. No obvious cranial nerve deficits. Normal speech. PSYCHIATRIC: Appropriate mood and affect; insight and judgment normal. <Octavia Dalton V - 10/21/17 14:50> - Urinary Catheter Management Suprapubic Cath placed during this visit: no <Homa Tyler - 10/23/17 16:59> yes, but has since been removed by the nurse <Octavia Dalton V 10/21/17 14:50> Reason for continuing: Chronic Urinary Retention <Octavia Dalton V 11:12> Insertion date: 10/19/17 <Octavia Dalton V 10/21/17 11:12> Insertion time: 06:01 <Octavia Dalton V - 10/21/17 11:12> Removal date: 10/19/17 <Octavia Dalton V - 10/21/17 11:12> Removal time: 06:00 <Octavia Dalton V - 10/21/17 11:12> Assessment and Plan - Assessment (1) Acute and chronic respiratory failure ([id number]) Code(s): J96.20 - Acute and chronic respiratory failure, unspecified whether with hypoxia or hypercapnia Status: Acute (2) Acute exacerbation of chronic obstructive pulmonary disease (COPD) Code(s): J44.1 - Chronic obstructive pulmonary disease with (acute) exacerbation Status: Chronic (3) Community acquired bacterial pneumonia Code(s): J15.9 - Unspecified bacterial pneumonia Status: Acute (4) UTI (urinary tract infection) due to urinary indwelling catheter Code(s): T83.511A - Infection and inflammatory reaction due to indwelling urethral catheter, initial encounter; N39.0 - Urinary tract infection, site not specified Status: Acute (5) Elevated troponin level Code(s): R74.8 - Abnormal levels of other serum enzymes Status: Acute (6) Pleural effusion Code(s): J90 - Pleural effusion, not elsewhere classified Status: Chronic (7) HTN (hypertension) Code(s): I10 - Essential (primary) hypertension Status: Acute (8) Anxiety Code(s): F41.9 - Anxiety disorder, unspecified Status: Acute (9) CHF (congestive heart failure) Code(s): I50.9 - Heart failure, unspecified Status: Acute (10) Atrial fibrillation Code(s): I48.91 - Unspecified atrial fibrillation Status: Acute (11) Hypothyroidism Code(s): E03.9 - Hypothyroidism, unspecified Status: Chronic (12) Suprapubic catheter Code(s): Z93.59 - Other cystostomy status Status: Chronic (13) Nutrition, metabolism, and development symptoms Code(s): R63.8 - Other symptoms and signs concerning food and fluid intake Status: Acute (14) DVT prophylaxis Status: Acute <Homa Tyler - 10/23/17 16:59> (1) Acute and chronic respiratory failure ([id number]-[id number]) Code(s): J96.20 - Acute and chronic respiratory failure, unspecified whether with hypoxia or hypercapnia Status: Acute Plan: Patient presented 10/20 with acute respiratory distress requiring continuous Bipap. He was found to have an O2 saturation of 75% on RA and increased work of breathing warranting ICU admission. Baseline is 2L/min O2 via nasal cannula with CPAP while sleeping. Clinically respiratory status is improving. Patient code status is No Code DNR, confirmed at time of admission. Chest x-ray 10/19: Bilateral airspace opacities and small to moderate right, small left pleural effusions, potentially on the basis of failure. No pneumothorax. Due to patient being on Bipap, a CT chest was not obtained. At time of admission DDx include, but not limited to: community acquired pneumonia vs COPD exacerbation vs PE vs CHF exacerbation. Admission ABG: pH 7.33, pCO2 68, pO2 65 , HCO3 35. WBC on admission was 14.3. Follow up ABG: pH 7.45, pCO2 49, pO2 78, HCO3 33. During ED course pt received one time dose of Lasix 40mg IV, DuoNeb 3, Solu- Medrol 125 mg IV, antibiotic coverage with Rocephin and Zithromax Plan: - Continue Solumedrol 60mg IV q 6hrs for now. Will decrease frequency tomorrow if clinically stable. - Monitor respiratory status closely. ABG improving. On NC this morning. - Alternate DuoNebs and Albuterol breathing treatments q 4hrs - Continue Rocephin 1,000 mg IV q 24hrs (10/19- current) - Discontinue Azithromycin 500mg IV q24hrs (10/19- 10/20) -> Switched to Ciprofloxacin yesterday 250mg q8hrs (10/20-current). This Ab provides better coverage for both CAP and UTI - F/U am labs - Warfarin to be adjusted to accommodate antibiotic effects on vitamin K (see below) INR today 2.2 (2) Acute exacerbation of chronic obstructive pulmonary disease (COPD) Code(s): J44.1 - Chronic obstructive pulmonary disease with (acute) exacerbation Status: Chronic Plan: Patient has a history of muscular dystrophy and reported known COPD. He is on tiotropium and PRN albuterol at home. Will continue Duonebs and albuterol as noted above. Will continue tiotropium once clinically improved (i.e., tolerating nasal cannula). Please see plan above.We will resume the following home medications as well: - Singulair 10mg PO q HS - Mucinex 1,200 PO daily (3) Community acquired bacterial pneumonia Code(s): J15.9 - Unspecified bacterial pneumonia Status: Acute Plan: Management as above (4) UTI (urinary tract infection) due to urinary indwelling catheter Code(s): T83.511A - Infection and inflammatory reaction due to indwelling urethral catheter, initial encounter; N39.0 - Urinary tract infection, site not specified Status: Acute Plan: Pt presented with obstructed suprapubic urinary catheter, it was replaced this morning in ED and 800mL of urine collected. Pt with Hx of UTI in the past, abdominal pain that resolved after catheter replacement. - UA w/ urine protein, blood, large Leukocyte esterase, many WBC clumps, and rare bacteria. - WBC 14.3 on admission - Continue to treat with Rocephin at the moment - Urine growing Staph Aureus (pansensitive), Pseudomonas and Proteus (awaiting sensitivities). Will adjust Ab accordingly (5) Elevated troponin level Code(s): R74.8 - Abnormal levels of other serum enzymes Status: Acute Plan: Patient has known history of CAD with severe shortness of breath on admission. He reportedly had recommendations for cardiac stenting but could not have stents in the past (unclear reason for this). Old EKGs show LBBB with new EKGs showing the same. Troponin levels 0.11 --> 0.55 --> 0.46 with stable EKG findings noted. No chest pain. Given stable troponin, suspect respiratory failure to be causative but will monitor patient closely for status changes. Of note, patient did have aspirin 81 mg and 324mg on 10/19 with attempts at nitropaste in ED upon arrival. This was discontinued given hypotension. Cardiology consulted given cardiac history and above findings, appreciate recommendations. -No recurrence of chest pain. (6) Pleural effusion Code(s): J90 - Pleural effusion, not elsewhere classified Status: Chronic Plan: Pleural effusions noted on Chest X-ray today, this finding seem to be chronic in nature but could be contributing to the patient shortness of breath. Will consider a CT chest if clinically worsens. (7) HTN (hypertension) Code(s): I10 - Essential (primary) hypertension Status: Acute Plan: Chronic in nature. Will monitor closely and continue pt's home medications - Aspirin 81 mg PO daily - Sotalol 120mg PO BID - isosorbide mononitrate 30mg PO extended release daily Blood pressures well controlled (8) Anxiety Code(s): F41.9 - Anxiety disorder, unspecified Status: Acute Plan: Pt is currently on anxiety medications at home. He did have some anxiety on day 1 of hospitalization but this has improved. Patient was given one dose of Ativan 1mg IV on day of admission. Not acute events since then Will continue home medication: Escitalopram 10mg PO daily (9) CHF (congestive heart failure) Code(s): I50.9 - Heart failure, unspecified Status: Acute Plan: Pt with chronic CHF that could be contributing to this patient's shortness of breath. Unclear which type of CHF he has. He received one dose of 40mg Lasix in ED on 10/19. BNP on admission was 113. He was given Lasix 40mg IV dose on 10/20 given increased weight (3kg increase on I/Os, inadequate fluid output). At this point we will continue patient's home medication of Torsemide 10mg M,W, F and offer PRN Lasix IV as needed to improve fluid status. (10) Atrial fibrillation Code(s): I48.91 - Unspecified atrial fibrillation Status: Acute Plan: Pt with history of A fib apparently well controlled on home medications Will continue: - Warfarin: Patient's home regimen is 4 mg /Guerda/Thu/Thu and 3 mg Thu/Thu/Thu. Will check INR daily. INR 2.3 on admission. Will decrease warfarin to 3mg daily for now and monitor INR closely (vit K production reduced with gut priscilla effects of antibiotics). For now patient will receive 3mg warfarin daily. - Sotalol 120mg BID po (11) Hypothyroidism Code(s): E03.9 - Hypothyroidism, unspecified Status: Chronic Plan: Pt currently stable on home medications. Will continue home dose. - Levothyroxine 137mg po daily (12) Suprapubic catheter Code(s): Z93.59 - Other cystostomy status Status: Chronic Plan: Patient with chronic suprapubic catheter which was changed on 10/19 in ED due to obstruction. UA abnormal and UTI being treated as noted. Will continue chronic indwelling catheter while inpatient and at discharge. Monitor I/Os closely -Catheter care with Vaseline and gauze BID (13) Nutrition, metabolism, and development symptoms Code(s): R63.8 - Other symptoms and signs concerning food and fluid intake Status: Acute Plan: Diet: Cardiac and diabetic Fluids: PO GI prophylaxis: 40mg Protonix PO daily Electrolytes: monitor and replace as needed (14) DVT prophylaxis Status: Acute Plan: Continue with Warfarin 3mg daily - Due to muscle dystrophy, pt is at high risk of DVT, will also add SCDs bilateral and compression socks. <Marcelino NorrisVeronica - 10/21/17 14:30> - Assessment and Plan 77-yr-old male with complex PMH of muscular dystrophy, COPD, CHF, Afib, HTN, hypothyroidism, anxiety, and with a chronic suprapubic catheter, who presented on 10/19 with shortness of breath and chills. He was hypoxic to O2 sat of 75% on RA, and CXR showing opacifications and chronic pleural effusions. Pt is currently on Bipap. He was admitted to [facility] due to increased respiratory requirements. He is currently being treated for COPD exacerbation, PNA, and mild CHF exacerbation. PE also on differential but low given clinical improvement on Bipap. He also had obstructed catheter on admission and evidence of UTI, with cultures now growing Staph Aureus, Pseudomonas, and Proteus. Awaiting final sensitivities. We will continue to monitor his progress closely and made adjustments as needed. Pt improving clinically, will consider discharge home tomorrow. Pt discusses with Dr. Tyler and Dr. Flower <Octavia Dalton V - 10/21/17 14:50> - Attending Attestation Patient seen and examined, discussed with resident team on day of documentation. I agree with assessment and management as documented and discussed with me. Pt feels breathing is improving. He has been tolerating nasal cannula for longer. He is looking forward to urology consult, for input regarding frequency of changing his suprapubic catheter. <Homa Tyler - 10/23/17 16:59> <Octavia Dalton V - Last Filed: 10/21/17 14:30> (1) Acute and chronic respiratory failure ([id number]) Qualifiers: Respiratory failure complication: hypoxia and hypercapnia Qualified Code(s): J96.21 - Acute and chronic respiratory failure with hypoxia; J96.22 - Acute and chronic respiratory failure with hypercapnia <Vey,Homa - Last Filed: 10/23/17 16:59> (1) Acute and chronic respiratory failure ([id number]) Qualifiers: Respiratory failure complication: hypoxia and hypercapnia Qualified Code(s): J96.21 - Acute and chronic respiratory failure with hypoxia; J96.22 - Acute and chronic respiratory failure with hypercapnia <Marcelino NorrisVeronica - Last Filed: 10/21/17 14:30> (1) Acute and chronic respiratory failure ([id number]) Qualifiers: Respiratory failure complication: hypoxia and hypercapnia Qualified Code(s): J96.21 - Acute and chronic respiratory failure with hypoxia; J96.22 - Acute and chronic respiratory failure with hypercapnia <Vey,Homa - Last Filed: 10/23/17 16:59> (1) Acute and chronic respiratory failure ([id number]) Qualifiers: Respiratory failure complication: hypoxia and hypercapnia Qualified Code(s): J96.21 - Acute and chronic respiratory failure with hypoxia; J96.22 - Acute and chronic respiratory failure with hypercapnia
--- NOTE | 2017-10-21 15:47 | MB ---
cc: Alysia Junior MD,Homa Arreola,Michael Khan,Herbert Kelly MD DATE: 10/21/2017 HISTORY OF PRESENT ILLNESS: Mr. Walker is a pleasant 77-year-old gentleman known to me with history of mild to moderate coronary artery disease by cardiac catheterization in 2012, history of paroxysmal atrial fibrillation, sick sinus syndrome, status post permanent pacemaker placement. History of chronic obstructive pulmonary disease, pulmonary hypertension and obstructive sleep apnea. History of diastolic heart failure in the past. History of muscular dystrophy with atonic urinary bladder requiring suprapubic tube for draining his urine. He came in with progressive shortness of breath and being anxious and was found to be hypoxic and hypercapnic and was treated with BiPAP. Because of his prior cardiac history and non-troponin specific elevation and respiratory distress, Cardiology consult was called. Denies chest pain. He is breathing better compared to when he came. Denies palpitations, dizziness or syncope. Denies orthopnea or PND. He has chronic lower extremity edema which is relatively controlled with his p.o. diuretics. He is wheelchair bound and cannot ambulate because of his muscular dystrophy. PAST MEDICAL AND SURGICAL HISTORY: 1. As mentioned above, history of hyperlipidemia, valvular heart disease (mild to moderate). Status post permanent pacemaker. History of hypertension. 2. Bilateral carpal tunnel surgery in 1981. 3. Appendectomy in 1979. 4. Inguinal herniorrhaphy 1958. 5. Dual-chamber permanent pacemaker placement in 07/2015. 6. Suprapubic catheter placement 02/2017. SOCIAL HISTORY: He did smoke in the past. He has a 45 pack-year history of smoking, stopped 1983. Denies ETOH abuse or recreational drug abuse. He is and lives with his . FAMILY HISTORY: Positive for hypertension, coronary artery disease, cancer and diabetes. ALLERGIES: NO KNOWN DRUG ALLERGIES. REVIEW OF SYSTEMS: A 12-point system review was unremarkable. He has problems with a suprapubic tube which was apparently clotted or kinked and was not working, and he was pulling on it and he felt the bladder was distended and before he came. Denies fever. He was found to have Pseudomonas in his urine and being treated for it. MEDICATIONS AT HOME: Include the followin. Ecotrin 81 mg p.o. daily. 2. Ambien 5 mg p.o. at bedtime p.r.n. with insomnia. 3. Atorvastatin 10 mg p.o. at bedtime. 4. Coumadin 4 mg daily, except Thursday, Thursday and Thursday 6 mg. 5. DuoNebs inhaler p.r.n. 6. Imdur 30 mg p.o. daily. 7. Levothyroxine 0.137 mg p.o. daily. 8. Lexapro 10 mg p.o. daily. 9. Magnesium oxide 250 mg b.i.d. 10. Mucinex 600 mg daily. 11. Singulair 10 mg p.o. daily. 12. O2 by 2 liters by nasal cannula at home. 13. Sotalol 120 mg p.o. b.i.d. 14. Spiriva inhalers. 15. Torsemide 10 mg on Thursday, Thursday and Thursday. 16. Tylenol 325 mg p.o. p.r.n. with pain. 17. Ventolin inhalers. 18. Vitamin D2 supplements. PHYSICAL EXAMINATION: GENERAL: A 77-year-old gentleman lying in bed, in no apparent distress. Alert and oriented x3. Answers questions appropriately. VITAL SIGNS: Blood pressure is 145/66, pulse of 68 beats per minute and regular, respiration 14 per minute, afebrile. HEENT: Head is normocephalic. Pupils equal, reactive. Throat is within normal limits. NECK: Supple. No carotid bruit. No thyromegaly. No jugular venous distention noted. LUNGS: Diminished air entry bilaterally, more at the right base, and the right upper lung is the one that is moving air the best. ABDOMEN: Obese, but lax, nontender. Normoactive bowel sounds. No organomegaly. No masses felt. EXTREMITIES: No clubbing or cyanosis. There is trace ankle edema. Hyperpigmentation above the medial malleolus secondary to venous insufficiency. Pulses 2+ bilaterally. RECTAL: Deferred. NEUROLOGIC: Alert and oriented x3. Severe lower extremity weakness. ASSESSMENT AND RECOMMENDATIONS: 1. Respiratory distress with patchy infiltrates by x-ray as well as pleural effusion. BNP was 113 upon admission, indicating unlikely left heart failure. He was given 2 doses of diuretics already and currently aggressively managing his chronic obstructive pulmonary disease/possible infection as well as his urinary tract infection. I would continue current therapy. I would continue with his home torsemide for now and try to match his I's and O's, and if needed can do p.r.n. use of IV diuretics as long as we are watching his electrolytes carefully. Continue the rest of his home medications. 2. Coronary artery disease and nonspecific troponin elevation. He never had any significant coronary artery disease, and the troponin elevation might be secondary to demand ischemia at the time of admission from his hypoxia. No acute ischemic changes on his EKG, and he denies any chest pain, and I would continue home medications. 3. Hyperlipidemia. Continue atorvastatin. 4. Chronic obstructive pulmonary disease/pulmonary hypertension. Continue current regimen. Aggressive pulmonary toileting as well as steroids and antibiotics on board. 5. Obstructive sleep apnea on CPAP therapy. 6. Mild to moderate valvular heart disease, stable. He will be followed as an outpatient. 7. Paroxysmal atrial fibrillation status post permanent pacing. Maintained in sinus using sotalol and will continue the same. He is on Coumadin for anticoagulation. Monitor his INR, keep it between 2.0-3.0. 8. Atonic bladder and urinary retention and urinary tract infection. He is complaining that his suprapubic tube is not working and would consider urological evaluation. 9. History of autonomic dysfunction, currently stable. Can continue same regimen. Consider lower extremity elastic stockings to use at home as well. 10. Continue as planned, and I will be following him intermittently or as needed. Thank you for allowing me to participate in the care of Mr. Walker. Follow up with me in 3-4 weeks upon discharge. MD MARINA Valentine/gregoria/sean , 01:45 PM , 02:04 PM
[2017-10-21 16:37] LABS: INR 2.6 Ratio; Prothrombin Time 26.7 sec (9.8-11.6)
[2017-10-21] MEDS: LACTOBACILLUS RHAMNOSUS GG PO SCH (18:23)
--- NOTE | 2017-10-21 19:51 | P.CONURO ---
History of Present Illness Service: Consult date: 10/21/17 Requesting Physician: Alysia Junior Reason for Consult: SPC evaluation Primary Care Provider: Roni Fernandez Family Provider: Michael Arreola MD Chief Complaint: shortness of breath History of Present Illness: 77-year-old gentleman with history chronic urinary retention who status post insertion of a suprapubic catheter by Dr. Morejon in February of this year. The tube has been changed out every month since insertion and the patient reports that after approximately 3 weeks it seems that the tube is not draining as well and there is seepage around the tube. The present suprapubic catheter was just changed out in the emergency room on October 19 of this year. He reports that the new tube has been draining well. Review of Systems All other systems reviewed negative except as stated in HPI PMFSH - History History Provided By: Family Member - Medical History Medical History: Medical History (Last Reviewed 10/22/17 @ 09:29 by Patricia Diaz) Acute diverticulitis Artificial pacemaker CHF (congestive heart failure) COPD (chronic obstructive pulmonary disease) Diabetes HTN (hypertension) Muscular dystrophy PNA (pneumonia) UTI (urinary tract infection) Atrial fibrillation Suprapubic catheter - Surgical History Surgical History: Surgical History (Last Reviewed 10/22/17 @ 09:29 by Patricia Diaz) History of appendectomy History of colon resection Hx of cardiac cath - Tobacco History Second Hand Smoke Exposure: No Tobacco Use In Past 30 Days: No Smoking Status: Former smoker Tobacco Type: Cigarettes - Alcohol History How Often Do You Have a Drink Containing Alcohol: Never - Substance Use History Substance History: No History of Abuse - Travel History Recent Travel in the [place] Within the Last 8 Weeks: No Recent Travel Out of the Country Within the Last 8 Weeks: No - Immunization History Tetanus Immunization: Unsure Hx Influenza Vaccine This Season: No Medications and Allergies Active Medications: Active Medications Acetaminophen (Tylenol) 650 mg PO Q4H PRN PRN Reason: Temp > 100.4 Al Hydroxide/Mg Hydroxide (Milk Of [place] Liq) 30 ml PO Q12H PRN PRN Reason: Mild Constipation Albuterol (Albuterol Neb (Yolanda)) 2.5 mg NEB Q6HR NEB YOLANDA Last Admin: 10/21/17 16:51 Dose: 2.5 mg Albuterol (Duoneb Neb (Yolanda)) 1 ampul NEB Q6HR ALT NEB [facility] Last Admin: 10/21/17 19:43 Dose: 1 ampul Aspirin (Ecotrin) 81 mg PO DAILY [facility] Last Admin: 10/21/17 10:31 Dose: 81 mg Atorvastatin Calcium (Lipitor) 10 mg PO DAILY [facility] Last Admin: 10/21/17 10:28 Dose: 10 mg Bisacodyl (Dulcolax Supp) 10 mg RECTAL DAILY PRN PRN Reason: SEVERE CONSITIPATION Ciprofloxacin HCl (Cipro) 250 mg PO Q12HR [facility] Last Admin: 10/21/17 10:34 Dose: 250 mg Escitalopram Oxalate (Lexapro) 10 mg PO DAILY [facility] Last Admin: 10/21/17 10:30 Dose: 10 mg Guaifenesin (Mucinex Er) 1,200 mg PO DAILY [facility] Last Admin: 10/21/17 10:30 Dose: 1,200 mg Ceftriaxone Sodium 1,000 mg/ (Sodium Chloride) 100 mls @ 200 mls/hr IV.SIG Q24H [facility] Last Infusion: 10/21/17 13:23 Dose: Infused Isosorbide Mononitrate (Imdur) 30 mg PO DAILY [facility] Last Admin: 10/21/17 10:30 Dose: 30 mg Lactobacillus Acidophilus (Lactinex Pkt) 1 gm PO TID [facility] Last Admin: 10/21/17 17:55 Dose: 1 gm Lactulose (Lactulose Liq) 30 ml PO DAILY PRN PRN Reason: SEVERE CONSITIPATION Levothyroxine Sodium (Synthroid) 112 mcg PO DAILY@0600 [facility] Last Admin: 10/21/17 06:11 Dose: 112 mcg Levothyroxine Sodium (Synthroid) 25 mcg PO DAILY@0600 [facility] Last Admin: 10/21/17 06:11 Dose: 25 mcg Magnesium Oxide (Mag-Ox) 400 mg PO HS [facility] Last Admin: 10/20/17 21:07 Dose: 400 mg Methylprednisolone Sodium Succinate (Solumedrol Inj) 60 mg IV.PUSH Q6H [facility] Last Admin: 10/21/17 17:55 Dose: 60 mg Miscellaneous (Pill Splitter) 1 each OTHER UNSCH PRN PRN Reason: SEE LABEL COMMENTS Montelukast Sodium (Singulair) 10 mg PO QPM [facility] Last Admin: 10/20/17 17:50 Dose: 10 mg Ondansetron HCl (Zofran Inj) 4 mg IV.PUSH Q6H PRN PRN Reason: NAUSEA OR VOMITING Pantoprazole Sodium (Protonix) 40 mg PO DAILY [facility] Last Admin: 10/21/17 10:30 Dose: 40 mg Patient Own Medication ( Lactobacillus Rhamnosus Gg [ Culturelle] 1 Cap) 0 each PO DAILY [facility] Last Admin: 10/21/17 18:23 Dose: Not Given Senna/Docusate Sodium (Laura-Colace) 1 tab PO BID [facility] Last Admin: 10/21/17 10:29 Dose: 1 tab Sennosides (Senokot) 17.2 mg PO Q12H PRN PRN Reason: Moderate Constipation Sodium Chloride (Ns Flush) 2 ml IV.FLUSH UNSCH PRN PRN Reason: FLUSH AFTER USING IV ACCESS Sotalol HCl (Betapace) 120 mg PO BID [facility] Last Admin: 10/21/17 10:30 Dose: 120 mg Tiotropium [place] (Spiriva 18 Mcg Inh) 18 mcg INH DAILY [facility] Last Admin: 10/21/17 10:35 Dose: 18 mcg Torsemide (Demadex) 10 mg PO MoWeFr [facility] Last Admin: 10/21/17 10:29 Dose: 10 mg Warfarin Sodium (Coumadin) 4 mg PO SuTuThSa [facility] Warfarin Sodium (Coumadin) 3 mg PO MoWeFr [facility] Last Admin: 10/19/17 17:40 Dose: 3 mg Zolpidem Tartrate (Ambien) 10 mg PO [facility] Last Admin: 10/20/17 21:07 Dose: 10 mg Allergies Allergy/AdvReac Type Severity Reaction Status Date / Time No Known Allergies Allergy Verified 10/19/17 04:47 Home Medications Medication Instructions Recorded Confirmed Type Lactobacillus rhamnosus GG 1 cap PO DAILY 10/19/17 10/19/17 History [Culturelle] acetaminophen [Tylenol] 325 mg PO Q4-6H PRN 10/19/17 10/19/17 History albuterol sulfate [Ventolin HFA] 2 puff INHALATION Q6H PRN 10/19/17 10/19/17 History aspirin [Aspir-81] 81 mg PO DAILY 10/19/17 10/19/17 History atorvastatin 10 mg PO DAILY 10/19/17 10/19/17 History ergocalciferol (vitamin D2) 50,000 unit PO QWEEK 10/19/17 10/19/17 History [Vitamin D2] escitalopram oxalate [Lexapro] 10 mg PO DAILY 10/19/17 10/19/17 History guaifenesin [Mucinex] 1,200 mg PO DAILY 10/19/17 10/19/17 History isosorbide mononitrate 30 mg PO DAILY 10/19/17 10/19/17 History levothyroxine 137 mcg PO DAILY 10/19/17 10/19/17 History magnesium 500 mg PO HS 10/19/17 10/19/17 History montelukast [Singulair] 10 mg PO QPM 10/19/17 10/19/17 History sotalol [Betapace] 120 mg/m2 PO BID 10/19/17 10/19/17 History tiotropium bromide [Spiriva with 1 cap INHALATION DAILY 10/19/17 10/19/17 History HandiHaler] torsemide 10 mg PO DIRECTED 10/19/17 10/19/17 History warfarin 3 mg PO DIRECTED 10/19/17 10/19/17 History warfarin 4 mg PO [id number] 10/19/17 10/19/17 History zolpidem 10 mg PO HS 10/19/17 10/19/17 History Physical Exam Vital Signs - 24 hr 10/20/17 19:53 10/20/17 20:00 10/20/17 21:00 Temperature 98.1 F Pulse Rate 58 L 62 56 L Respiratory Rate 16 22 Blood Pressure 139/66 Pulse Oximetry 98 3 L 10/20/17 22:00 10/20/17 22:36 10/20/17 23:00 Temperature 98.4 F Pulse Rate 62 60 62 Respiratory Rate 20 20 Blood Pressure 119/56 L Pulse Oximetry 99 10/21/17 00:00 10/21/17 01:00 10/21/17 02:00 Temperature Pulse Rate 64 64 64 Respiratory Rate Blood Pressure Pulse Oximetry 6 L 10/21/17 02:48 10/21/17 03:00 10/21/17 04:00 Temperature 98 F Pulse Rate 60 59 L 62 Respiratory Rate 16 20 Blood Pressure 153/68 H Pulse Oximetry 99 10/21/17 04:58 10/21/17 05:00 10/21/17 05:27 Temperature Pulse Rate 60 62 Respiratory Rate 20 Blood Pressure Pulse Oximetry 97 10/21/17 06:00 10/21/17 07:00 10/21/17 07:34 Temperature 97.8 F Pulse Rate 62 65 68 Respiratory Rate 18 16 Blood Pressure 145/69 H Pulse Oximetry 95 95 10/21/17 08:00 10/21/17 09:00 10/21/17 10:00 Temperature Pulse Rate 65 64 60 Respiratory Rate Blood Pressure Pulse Oximetry 95 10/21/17 11:00 10/21/17 11:26 10/21/17 12:00 Temperature 98.5 F Pulse Rate 62 93 H 62 Respiratory Rate 18 16 Blood Pressure 145/67 H Pulse Oximetry 95 10/21/17 13:00 10/21/17 13:50 10/21/17 14:00 Temperature Pulse Rate 66 64 56 L Respiratory Rate 16 Blood Pressure Pulse Oximetry 10/21/17 15:00 10/21/17 16:00 10/21/17 16:51 Temperature 98.5 F Pulse Rate 65 62 81 Respiratory Rate 18 16 Blood Pressure 125/63 Pulse Oximetry 95 10/21/17 17:00 10/21/17 18:00 10/21/17 19:46 Temperature Pulse Rate 84 62 64 Respiratory Rate 19 Blood Pressure Pulse Oximetry 96 Physical Exam: GENERAL: This is a well-nourished, well-developed patient, in no apparent distress. SKIN: No rashes, ecchymoses or lesions. Cool and dry. HEAD: Atraumatic. Normocephalic. No temporal or scalp tenderness. EYES: Pupils equal round and reactive. Extraocular motions intact. No scleral icterus. No injection or drainage. ENT: Nose without bleeding, purulent drainage or septal hematoma. Throat without erythema, tonsillar hypertrophy or exudate. Uvula midline. Airway patent. NECK: Trachea midline. No JVD or lymphadenopathy. Supple, nontender, no meningeal signs. CARDIOVASCULAR: Regular rate and rhythm without murmurs, gallops, or rubs. RESPIRATORY: Clear to auscultation. Breath sounds equal bilaterally. No wheezes , rales, or rhonchi. GASTROINTESTINAL: Abdomen soft, non-tender, nondistended. No hepato-splenomegaly , or palpable masses. No guarding. GENITOURINARY: SPC in proper position and draining clear yellow urine. Entry site clean without evidence of infection. MUSCULOSKELETAL: Extremities without clubbing, cyanosis, or edema. No joint tenderness, effusion, or edema noted. No calf tenderness. Negative Homans sign bilaterally. NEUROLOGICAL: Awake and alert. Cranial nerves II through XII intact. Motor and sensory grossly within normal limits. Five out of 5 muscle strength in all muscle groups. Normal speech. Laboratory Results - last 24 hr 10/19/17 10/21/17 10/21/17 05:50 04:46 04:46 WBC 4.9 RBC 4.07 L Hgb 11.4 L Hct 34.2 L MCV 84.1 MCH 28.0 MCHC 33.3 RDW 15.1 Plt Count 178 MPV 8.4 Neut % (Auto) 81.7 H Lymph % (Auto) 14.1 Bacon % (Auto) 4.1 Eos % (Auto) 0.0 Baso % (Auto) 0.1 Neut # (Auto) 4.0 Lymph # (Auto) 0.7 L Bacon # (Auto) 0.2 Eos # (Auto) 0.0 Baso # (Auto) 0.0 WBC Differential . Differential Comment Auto diff final PT 22.3 H INR 2.2 Sodium Potassium Chloride Carbon Dioxide Anion Gap BUN Creatinine Estimated GFR Random Glucose Calcium Phosphorus Magnesium Total Bilirubin AST ALT Alkaline Phosphatase Total Protein Albumin Urine Color Yellow Urine Clarity Cloudy H Urine pH 8.0 Ur Specific [place] 1.009 Urine Protein 100 H Urine Glucose (UA) Negative Urine Ketones Negative Urine Occult Blood Large H Urine Nitrate Negative Urine Bilirubin Negative Urine Urobilinogen Less than 2 Ur Leukocyte Esterase Large H Urine RBC Urine WBC Urine WBC Clumps Many H Urine Bacteria Rare H Micro UA Comment Cath-culture ind Urine Culture Comments Cath-cult indicated 10/21/17 10/21/17 04:46 15:21 WBC RBC Hgb Hct MCV MCH MCHC RDW Plt Count MPV Neut % (Auto) Lymph % (Auto) Bacon % (Auto) Eos % (Auto) Baso % (Auto) Neut # (Auto) Lymph # (Auto) Bacon # (Auto) Eos # (Auto) Baso # (Auto) WBC Differential Differential Comment PT 26.7 H INR 2.6 Sodium 137 Potassium 3.7 Chloride 97 L Carbon Dioxide 32.6 H Anion Gap 7 BUN 27 H Creatinine 0.53 L Estimated GFR Greater than 89 Random Glucose 204 H Calcium 8.7 Phosphorus 1.8 L Magnesium 1.9 Total Bilirubin 0.4 AST 17 ALT 23 Alkaline Phosphatase 82 Total Protein 6.3 L Albumin 3.0 L Urine Color Urine Clarity Urine pH Ur Specific [place] Urine Protein Urine Glucose (UA) Urine Ketones Urine Occult Blood Urine Nitrate Urine Bilirubin Urine Urobilinogen Ur Leukocyte Esterase Urine RBC Urine WBC Urine WBC Clumps Urine Bacteria Micro UA Comment Urine Culture Comments Microbiology 10/19/17 05:45 Aerobic Blood Culture - Preliminary Blood - Peripheral No growth in 2 days Anaerobic Blood Culture - Preliminary No growth in 2 days 10/19/17 05:45 Aerobic Blood Culture - Preliminary Blood - Peripheral No growth in 2 days Anaerobic Blood Culture - Preliminary No growth in 2 days 10/19/17 05:50 Urine Culture - Preliminary Catheterized Urine Pseudomonas species Staphylococcus aureus Proteus mirabilis Result Diagrams: 10/22/17 06:10 10/22/17 06:10 Imaging: ITS Impressions Chest X-Ray 10/21/17 06:00 CONCLUSION: Modestly improved bibasilar consolidation and small effusions. Assessment and Plan - Assessment (1) Urinary retention Code(s): R33.9 - Retention of urine, unspecified Status: Acute - Plan UROLOGIC IMPRESSION: 1. Chronic urinary retention 2. S/P SPC placement recently changed on 10/19 and functioning well RECOMMENDATIONS: 1. Change out SPC every three weeks 2. Apply Neosporin to SPC site bid 3. F/U with (Patient's established Urologist) as scheduled.
[2017-10-21] MEDS: Montelukast 10 MG Tablet PO SCH (20:59)
[2017-10-21] MEDS: Magnesium Oxide 400 MG Tablet PO SCH (21:00)
[2017-10-22 06:37] LABS: Hematocrit 35.8 % (39.0-51.0); Hemoglobin 11.9 gm/dL (13.0-17.0); Mean Corpuscular HGB Conc 33.2 % (32.0-36.0); Mean Corpuscular Hemoglobin 27.7 pg (27.0-34.0); Mean Corpuscular Volume 83.2 fL (80.0-100.0); Mean Platelet Volume 8.3 fL (7.0-11.0); Platelet Count 177 th/mm3 (150-450); Red Cell Distribution Width 14.9 % (11.6-17.2); White Blood Count 3.1 th/mm3 (4.0-11.0)
[2017-10-22 06:55] LABS: Anion Gap 8 meq/L (5-15); Blood Urea Nitrogen 22 mg/dL (7-18); Calcium 8.4 mg/dL (8.5-10.1); Carbon Dioxide 34.2 meq/L (21.0-32.0); Chloride 93 meq/L (98-107); Glomerular Filtration Rate Greater Than 89 mL/min (>89); Glucose,Random 218 mg/dL (74-106); Magnesium 1.8 mg/dL (1.5-2.5); Potassium 3.2 meq/L (3.5-5.1); Sodium 135 meq/L (136-145)
[2017-10-22 08:05] LABS: Alanine Aminotransferase 54 U/L (12-78); Alkaline Phosphatase 79 U/L (45-117); Aspartate Aminotransferase 38 U/L (15-37); Free T4 (Free Thyroxine) 1.19 ng/dL (0.76-1.46); Phosphorus 3.1 mg/dL (2.5-4.9); Thyroid Stimulating Hormone 0.229 uIU/mL (0.358-3.740); Total Protein 6.5 g/dL (6.4-8.2)
[2017-10-22] MEDS ORDERED: Potassium Chloride 10 MEQ ER Capsule PO ONE (09:02)
--- NOTE | 2017-10-22 09:15 | P.PNFP ---
Subjective Interval history: Pt is doing well this morning. He states he is back to baseline with regards to his breathing and his agrees. He has been on 2L O2 by [place], which is what he uses at home. He denies any fevers, chills, shortness of breath, of chest pain. He is tolerating po liquids and food. He would like to go home today. Results - Labs Result diagrams: 10/22/17 06:10 10/22/17 06:10 Abnormal lab results 10/19/17 10/21/17 10/22/17 Range/Units 05:50 15:21 06:10 WBC (4.0-11.0) th/mm3 RBC (4.50-5.90) mil/mm3 Hgb (13.0-17.0) gm/dL Hct (39.0-51.0) % PT 26.7 H (9.8-11.6) sec Sodium 135 L (136-145) meq/L Potassium 3.2 L (3.5-5.1) meq/L Chloride 93 L (98-107) meq/L Carbon Dioxide 34.2 H (21.0-32.0) meq/L BUN 22 H (7-18) mg/dL Creatinine 0.51 L (0.60-1.30) mg/dL Random Glucose 218 H (74-106) mg/dL Calcium 8.4 L (8.5-10.1) mg/dL AST 38 H (15-37) U/L Albumin 3.0 L (3.4-5.0) g/dL TSH 0.229 L (0.358-3.740) uIU/mL Urine Clarity Cloudy H (Clear) Urine Protein 100 H (Neg-Trace) mg/dL Urine Occult Blood Large H (Negative) Ur Leukocyte Esterase Large H (Negative) Urine WBC Clumps Many H (None) Urine Bacteria Rare H (None) /hpf 10/22/17 Range/Units 06:10 WBC 3.1 L (4.0-11.0) th/mm3 RBC 4.30 L (4.50-5.90) mil/mm3 Hgb 11.9 L (13.0-17.0) gm/dL Hct 35.8 L (39.0-51.0) % PT (9.8-11.6) sec Sodium (136-145) meq/L Potassium (3.5-5.1) meq/L Chloride (98-107) meq/L Carbon Dioxide (21.0-32.0) meq/L BUN (7-18) mg/dL Creatinine (0.60-1.30) mg/dL Random Glucose (74-106) mg/dL Calcium (8.5-10.1) mg/dL AST (15-37) U/L Albumin (3.4-5.0) g/dL TSH (0.358-3.740) uIU/mL Urine Clarity (Clear) Urine Protein (Neg-Trace) mg/dL Urine Occult Blood (Negative) Ur Leukocyte Esterase (Negative) Urine WBC Clumps (None) Urine Bacteria (None) /hpf Short CBC 10/22/17 Range/Units 06:10 WBC 3.1 L (4.0-11.0) th/mm3 Hgb 11.9 L (13.0-17.0) gm/dL Hct 35.8 L (39.0-51.0) % Plt Count 177 (150-450) th/mm3 BMP 10/22/17 06:10 Sodium 135 L Potassium 3.2 L Chloride 93 L Carbon Dioxide 34.2 H BUN 22 H Creatinine 0.51 L Calcium 8.4 L Liver Function 10/22/17 Range/Units 06:10 Total Bilirubin 0.4 (0.2-1.0) mg/dL AST 38 H (15-37) U/L ALT 54 (12-78) U/L Alkaline Phosphatase 79 (45-117) U/L Albumin 3.0 L (3.4-5.0) g/dL Urine 10/19/17 Range/Units 05:50 Urine Color Yellow (Yellw/Straw) Urine Clarity Cloudy H (Clear) Urine pH 8.0 (5.0-8.5) Ur Specific [place] 1.009 (1.002-1.035) Urine Protein 100 H (Neg-Trace) mg/dL Urine Glucose (UA) Negative (Negative) mg/dL Physical Exam Vital signs: Vital Signs 10/21/17 10:00 10/21/17 11:00 10/21/17 11:26 Temperature 98.5 F Pulse Rate 60 62 93 H Respiratory Rate 18 16 Blood Pressure 145/67 H Pulse Oximetry 95 10/21/17 12:00 10/21/17 13:00 10/21/17 13:50 Temperature Pulse Rate 62 66 64 Respiratory Rate 16 Blood Pressure Pulse Oximetry 10/21/17 14:00 10/21/17 15:00 10/21/17 16:00 Temperature 98.5 F Pulse Rate 56 L 65 62 Respiratory Rate 18 Blood Pressure 125/63 Pulse Oximetry 95 10/21/17 16:51 10/21/17 17:00 10/21/17 18:00 Temperature Pulse Rate 81 84 62 Respiratory Rate 16 Blood Pressure Pulse Oximetry 10/21/17 19:00 10/21/17 19:46 10/21/17 20:00 Temperature 98.6 F Pulse Rate 70 64 64 Respiratory Rate 16 19 Blood Pressure 127/68 Pulse Oximetry 99 96 99 10/21/17 21:00 10/21/17 22:00 10/21/17 23:00 Temperature 98.3 F Pulse Rate 64 66 60 Respiratory Rate 20 Blood Pressure 149/71 H Pulse Oximetry 96 10/22/17 00:00 10/22/17 00:40 10/22/17 01:00 Temperature Pulse Rate 82 83 82 Respiratory Rate 20 Blood Pressure Pulse Oximetry 10/22/17 02:00 10/22/17 03:00 10/22/17 04:00 Temperature 97.4 F L Pulse Rate 84 62 60 Respiratory Rate 16 Blood Pressure 159/73 H Pulse Oximetry 99 10/22/17 05:00 10/22/17 06:00 10/22/17 07:00 Temperature 98.2 F Pulse Rate 82 69 57 L Respiratory Rate Blood Pressure 152/85 H Pulse Oximetry 96 10/22/17 08:00 10/22/17 08:37 10/22/17 08:41 Temperature Pulse Rate 57 L 89 Respiratory Rate 16 Blood Pressure Pulse Oximetry 99 Intake & Output 10/21/17 10/22/17 10/22/17 18:59 06:59 18:59 Intake Total 1420 / 1420 480 / 480 Output Total 2099 / 2099 1050 / 1050 Balance -680 / -680 -570 / -570 Weight 129.5 kg Intake: IV 100 / 100 Rocephin Inj 1,000 MG In NS Inj 100 / 100 100 ML @ 200 mls/hr IV.SIG Q24H FARHAD Rx#:[id number] Oral 1320 / 1320 480 / 480 Output: Urine 1050 / 1050 Urine Amount (Catheter) 2099 Suprapubic 2099 Other: Date of Last Bowel Movement 10/21/17 10/21/17 10/21/17 # Bowel Movements 1 Narrative: GENERAL: Patient is an obese male on NC in NAD. He is talking full sentences. SKIN: Warm and dry. No obvious rashes or ecchymoses noted. HEAD: Atraumatic. Normocephalic. EYES: Pupils equal and round. No scleral icterus. No injection or drainage. ENT: No nasal bleeding or discharge. Mucous membranes pink and moist. NECK: Trachea midline. No JVD. CARDIOVASCULAR: Regular rate and rhythm. No murmurs. RESPIRATORY: Improved respiratory effort. No accessory muscle use. Breath sounds equal bilaterally. GASTROINTESTINAL: Abdomen soft, non-tender, obese. Suprapubic catheter in place under pannus. No drainage or blood. MUSCULOSKELETAL: Extremities without clubbing, cyanosis. 1+ pitting edema to midshin. NEUROLOGICAL: Awake and alert. No obvious cranial nerve deficits. Normal speech. PSYCHIATRIC: Appropriate mood and affect; insight and judgment normal. - Urinary Catheter Management Suprapubic Cath placed during this visit: yes, but has since been removed by the nurse Reason for continuing: Chronic Urinary Retention Insertion date: 10/19/17 Insertion time: 06:01 Removal date: 10/19/17 Removal time: 06:00 Assessment and Plan - Assessment (1) Acute and chronic respiratory failure ([id number]) Code(s): J96.20 - Acute and chronic respiratory failure, unspecified whether with hypoxia or hypercapnia Status: Acute Plan: Patient presented 10/20 with acute respiratory distress requiring continuous Bipap. He was found to have an O2 saturation of 75% on RA and increased work of breathing warranting ICU admission. Baseline is 2L/min O2 via nasal cannula with CPAP while sleeping. Clinically respiratory status is improving. Patient code status is No Code DNR, confirmed at time of admission. Chest x-ray 10/19: Bilateral airspace opacities and small to moderate right, small left pleural effusions, potentially on the basis of failure. No pneumothorax. Due to patient being on Bipap, a CT chest was not obtained. At time of admission DDx include, but not limited to: community acquired pneumonia vs COPD exacerbation vs PE vs CHF exacerbation. Admission ABG: pH 7.33, pCO2 68, pO2 65 , HCO3 35. WBC on admission was 14.3. Follow up ABG: pH 7.45, pCO2 49, pO2 78, HCO3 33. During ED course pt received one time dose of Lasix 40mg IV, DuoNeb 3, Solu- Medrol 125 mg IV, antibiotic coverage with Rocephin and Zithromax Plan: - Continue Solumedrol 60mg IV q 6hrs for now. Will decrease frequency tomorrow if clinically stable. - Monitor respiratory status closely. ABG improving. On NC this morning. - Alternate DuoNebs and Albuterol breathing treatments q 4hrs - Continue Rocephin 1,000 mg IV q 24hrs (10/19- current) - Discontinue Azithromycin 500mg IV q24hrs (10/19- 10/20) -> Switched to Ciprofloxacin yesterday 250mg q8hrs (10/20-current). This Ab provides better coverage for both CAP and UTI (2) Acute exacerbation of chronic obstructive pulmonary disease (COPD) Code(s): J44.1 - Chronic obstructive pulmonary disease with (acute) exacerbation Status: Chronic Plan: Patient has a history of muscular dystrophy and reported known COPD. He is on tiotropium and PRN albuterol at home. Will continue Duonebs and albuterol as noted above. Will continue tiotropium once clinically improved (i.e., tolerating nasal cannula). Please see plan above.We will resume the following home medications as well: - Singulair 10mg PO q HS - Mucinex 1,200 PO daily (3) Community acquired bacterial pneumonia Code(s): J15.9 - Unspecified bacterial pneumonia Status: Acute Plan: Management as above (4) UTI (urinary tract infection) due to urinary indwelling catheter Code(s): T83.511A - Infection and inflammatory reaction due to indwelling urethral catheter, initial encounter; N39.0 - Urinary tract infection, site not specified Status: Acute Plan: Pt presented with obstructed suprapubic urinary catheter, it was replaced this morning in ED and 800mL of urine collected. Pt with Hx of UTI in the past, abdominal pain that resolved after catheter replacement. - UA w/ urine protein, blood, large Leukocyte esterase, many WBC clumps, and rare bacteria. - WBC 14.3 on admission - Continue to treat with Rocephin at the moment - Urine growing Staph Aureus (pansensitive), Pseudomonas and Proteus ( pansensitive). Pt discharged home Ciprofloxacin 500mg q12hrs for 7 days. (recommended treatment for complicated UTI 7-14, pt received 3 days of antibiotics in hospital) (5) Elevated troponin level Code(s): R74.8 - Abnormal levels of other serum enzymes Status: Acute Plan: Patient has known history of CAD with severe shortness of breath on admission. He reportedly had recommendations for cardiac stenting but could not have stents in the past (unclear reason for this). Old EKGs show LBBB with new EKGs showing the same. Troponin levels 0.11 --> 0.55 --> 0.46 with stable EKG findings noted. No chest pain. Given stable troponin, suspect respiratory failure to be causative but will monitor patient closely for status changes. Of note, patient did have aspirin 81 mg and 324mg on 10/19 with attempts at nitropaste in ED upon arrival. This was discontinued given hypotension. Cardiology consulted given cardiac history and above findings, appreciate recommendations. -No recurrence of chest pain. - Will follow up as an outpatient (6) Pleural effusion Code(s): J90 - Pleural effusion, not elsewhere classified Status: Chronic Plan: Pleural effusions noted on Chest X-ray today, this finding seem to be chronic in nature but could be contributing to the patient shortness of breath. Will consider a CT chest if clinically worsens. (7) HTN (hypertension) Code(s): I10 - Essential (primary) hypertension Status: Acute Plan: Chronic in nature. Will monitor closely and continue pt's home medications - Aspirin 81 mg PO daily - Sotalol 120mg PO BID - isosorbide mononitrate 30mg PO extended release daily Blood pressures well controlled (8) Anxiety Code(s): F41.9 - Anxiety disorder, unspecified Status: Acute Plan: Pt is currently on anxiety medications at home. He did have some anxiety on day 1 of hospitalization but this has improved. Patient was given one dose of Ativan 1mg IV on day of admission. Not acute events since then Will continue home medication: Escitalopram 10mg PO daily (9) CHF (congestive heart failure) Code(s): I50.9 - Heart failure, unspecified Status: Acute Plan: Pt with chronic CHF that could be contributing to this patient's shortness of breath. Unclear which type of CHF he has. He received one dose of 40mg Lasix in ED on 10/19. BNP on admission was 113. He was given Lasix 40mg IV dose on 10/20 given increased weight (3kg increase on I/Os, inadequate fluid output). At this point we will continue patient's home medication of Torsemide 10mg M,W, and offer PRN Lasix IV as needed to improve fluid status. Steroids were discontinued prior to discharge. (10) Atrial fibrillation Code(s): I48.91 - Unspecified atrial fibrillation Status: Acute Plan: Pt with history of A fib apparently well controlled on home medications Will continue: - Warfarin: Patient's home regimen is 4 mg /Thu/Thu/Thu and 3 mg Thu/Thu/Thu. Will check INR daily. INR 2.3 on admission. Will decrease warfarin to 3mg daily for now and monitor INR closely (vit K production reduced with gut priscilla effects of antibiotics). For now patient will receive 3mg warfarin daily. - Sotalol 120mg BID po (11) Hypothyroidism Code(s): E03.9 - Hypothyroidism, unspecified Status: Chronic Plan: Pt currently stable on home medications. Will continue home dose. - Levothyroxine 137mg po daily (12) Suprapubic catheter Code(s): Z93.59 - Other cystostomy status Status: Chronic Plan: Patient with chronic suprapubic catheter which was changed on 10/19 in ED due to obstruction. UA abnormal and UTI being treated as noted. Will continue chronic indwelling catheter while inpatient and at discharge. Monitor I/Os closely -Catheter care with Neosporin BID - Replace catheter every 3 weeks per urology recommendations (13) Nutrition, metabolism, and development symptoms Code(s): R63.8 - Other symptoms and signs concerning food and fluid intake Status: Acute Plan: Diet: Cardiac and diabetic Fluids: PO GI prophylaxis: 40mg Protonix PO daily Electrolytes: monitor and replace as needed - K today 3.2, replaced with 40mEq of KCl po (14) DVT prophylaxis Status: Acute Plan: Continue with Warfarin 3mg daily - Due to muscle dystrophy, pt is at high risk of DVT, will also add SCDs bilateral and compression socks. - Assessment and Plan 77-yr-old male with complex PMH of muscular dystrophy, COPD, CHF, Afib, HTN, hypothyroidism, anxiety, and with a chronic suprapubic catheter, who presented on 10/19 with shortness of breath and chills. He was hypoxic to O2 sat of 75% on RA, and CXR showing opacifications and chronic pleural effusions. Pt is currently on Bipap. He was admitted to [facility] due to increased respiratory requirements. He is currently being treated for COPD exacerbation, PNA, and mild CHF exacerbation. PE also on differential but low given clinical improvement on Bipap. He also had obstructed catheter on admission and evidence of UTI, with cultures now growing Staph Aureus, Pseudomonas, and Proteus. All bacteria resulted to be sensitive to Ciprofloxacin. Due to sensitivities, and nature of this bacterial infection, will discharge patient on a 7 day course of Ciprofloxacin 500mg every 12 hrs, although it is hypothesized that Ciprofloxacin does not provide as well coverage for lung tissues, we believe it will be sufficient for his treatment, in conjunction with antibiotics received IV while inpatient. Pt to follow up with outpatient PCP. Pt discusses with Dr. Tyler and Dr. Flower (1) Acute and chronic respiratory failure ([id number]) Qualifiers: Respiratory failure complication: hypoxia and hypercapnia Qualified Code(s): J96.21 - Acute and chronic respiratory failure with hypoxia; J96.22 - Acute and chronic respiratory failure with hypercapnia
[2017-10-22] MEDS: Tiotropium Bromide 18 MCG/ACT Inhaler INH SCH (10:23)
[2017-10-22] MEDS: guaiFENesin 600 MG ER Tablet PO SCH (10:25)
[2017-10-22] MEDS: Isosorbide Mononitrate 30 MG ER 24HR Tablet (Imdur) PO SCH (10:25)
[2017-10-22] MEDS: Senna/Docusate Sodium 8.6/50 MG Tablet PO SCH (10:25)
[2017-10-22] MEDS: Escitalopram 10 MG Tablet PO SCH (10:26)
[2017-10-22] MEDS: Ciprofloxacin 250 MG Tablet PO SCH (10:27)
[2017-10-22 10:43] LABS: INR 2.6 Ratio; Prothrombin Time 26.4 sec (9.8-11.6)
[2017-10-22 12:30] VITALS: PULSE 84; RESP 14
[2017-10-22] MEDS: MethylPREDNISolone Sod Succinate Inj 125 MG/2 ML Vial IV.PUSH SCH (12:57)
[2017-10-22 14:20] VITALS: BP 161/86; TEMP 98.4; O2SAT 97
--- NOTE | 2017-11-24 11:55 | P.DS ---
Date of admission: 10/19/17 08:58 Primary care physician: Roni Fernandez Brief History from admission: Mr. Walker is a 77-year-old male with a past medical history of CHF, COPD, hypertension, muscular dystrophy, coronary artery disease, with a chronic suprapubic catheter who presented to emergency department this morning complaining of of chills, night sweats, and severe shortness of breath. When seen and evaluated patient was on BiPAP and unable to provide history. The history was obtained from his with permission from the patient. Patient's states patient was not feeling well last night around 11, he was making a lot of urine during the day but overnight he seemed to slow down his urine production, she thinks her suprapubic catheter was kinked, or obstructed. She gave him doses of Lasix and patient went to bed. Around 3 in the morning patient woke up with chills, the bed completely wet from sweats, and complaining of abdominal pain and shortness of breath. explains his shortness of breath was severe, and he was in distress, asking to go to the hospital. Prior to this episode patient denies shortness of breath, abdominal pain, or fevers and chills. Patient has a history of recurrent UTIs due to the chronic use of catheter, however since his new suprapubic catheter was placed on February 2017 he has been getting less infections. Patient also has a history of recurrent pneumonias in the past. 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 Patient's mobility is limited at baseline. He uses electronic devices to help with movement. Pt's medications reviewed. DS: Diagnosis - Discharge Diagnosis (1) Acute and chronic respiratory failure ([id number]) Status: Acute (2) Acute exacerbation of chronic obstructive pulmonary disease (COPD) Status: Chronic (3) Community acquired bacterial pneumonia Status: Acute (4) UTI (urinary tract infection) due to urinary indwelling catheter Status: Acute (5) Elevated troponin level Status: Acute (6) Pleural effusion Status: Chronic (7) HTN (hypertension) Status: Acute (8) Anxiety Status: Acute (9) CHF (congestive heart failure) Status: Acute (10) Atrial fibrillation Status: Acute (11) Hypothyroidism Status: Chronic (12) Suprapubic catheter Status: Chronic (13) Nutrition, metabolism, and development symptoms Status: Acute (14) DVT prophylaxis Status: Acute DS: Summary Hospital Course: Patient presented to the emergency department complaining of chills, night sweats, severe shortness of breath. He was immediately plans on BiPAP due to having an O2 saturation of 75% of room air. Checks x-ray with opacification and chronic pleural effusions. Patient also has a history of underlying anxiety and also had an obstructed catheter to UTI. He was placed on Rocephin and his catheter was replaced. Also found to have elevated troponins x2. He is acute on chronic respiratory failure differential diagnosis included community-acquired pneumonia versus COPD exacerbation versus a PE versus CHF exacerbation. Admissions ABG demonstrated a pH of 7.33, PCO2 of 68, p.o. was 65, and HCO3 of 35, during the ED he also received DuoNeb treatments x3 Solu-Medrol 125 mg IV and antibiotic coverage with Rocephin and Zithromax. During his hospitalizations his respiratory status improved significantly every day we continue to alternate duo nebs and albuterol breathing treatment, continued Rocephin and azithromycin as well as Solu-Medrol IV. For his urinary tract infection he receive Rocephin as well. Elevated troponins continued to be trended, EKG had stable findings patient had no chest pain, he has a known history of CAD with severe shortness of breath on admission troponin stabilizes with suspect acute respiratory failure to be cause of elevated troponins. Weight Reducing Technician was consulted. Patient has a history of anxiety and on day 1 hospitalization he had an increase in anxiety episode for which he received 1 mg of Ativan IV. All other patient's critical medical conditions were continued to be treated with at home medication. Patient continued to improve on day 3 hospitalizations was able to transition between nasal cannula and BiPAP intermittently as he does at home, baseline use of oxygen is around 3 L on nasal cannula. Patient currently was treated for COPD exacerbation, community-acquired pneumonia, and mild CHF exacerbation. Although PE was also in the differential diagnosis we suspect it was not the causative agent due to improved clinical picture. Patient's urinary cultures grew staph aureus and Pseudomonas and Proteus, all of them sensitive to ciprofloxacin. Patient was discharged home with a course of ciprofloxacin and advised to follow -up with his PCP, and pulmonary Dr. - Time Spent with Patient Total time spent providing and/or coordinating discharge services: Greater than 30 minutes - Quality: VTE Deep Vein Thrombosis/Pulmonary Embolism Present on Admission: No Exam Narrative: GENERAL: Patient is an obese male on NC in NAD. He is talking full sentences. SKIN: Warm and dry. No obvious rashes or ecchymoses noted. HEAD: Atraumatic. Normocephalic. EYES: Pupils equal and round. No scleral icterus. No injection or drainage. ENT: No nasal bleeding or discharge. Mucous membranes pink and moist. NECK: Trachea midline. No JVD. CARDIOVASCULAR: Regular rate and rhythm. No murmurs. RESPIRATORY: Improved respiratory effort. No accessory muscle use. Breath sounds equal bilaterally. GASTROINTESTINAL: Abdomen soft, non-tender, obese. Suprapubic catheter in place under pannus. No drainage or blood. MUSCULOSKELETAL: Extremities without clubbing, cyanosis. 1+ pitting edema to midshin. NEUROLOGICAL: Awake and alert. No obvious cranial nerve deficits. Normal speech. PSYCHIATRIC: Appropriate mood and affect; insight and judgment normal.. Results Procedures completed during hospitalization: none - Impressions ITS Impressions Chest X-Ray 10/21/17 06:00 CONCLUSION: Modestly improved bibasilar consolidation and small effusions. Discharge Plan - Discharge Disposition Patient Disposition: W/Home Health Service - Discharge Condition Condition: Fair - Discharge Order Discharge Orders: Discharge Order (Routine); Ordered 10/22/17 Ordered By: Octavia Norris - Physicians Team Primary Care Provider: Roni Fernandez Attending Provider: Homa Tyler Other Providers: Sarah Real MD ; Alysia Junoir MD ; Dawson Gordon MD ; [facility]
== END 2017-10-22 15:30 | disposition home health service (06) ==
LOC: NEPE 04:13 → NEDA 08:58 → HCPC 10:56
PROVIDERS: ADMIT Family Medicine; ATTEND Family Medicine

== ENCOUNTER 2017-11-25 12:01 | Inpatient (IN) ==
--- NOTE | 2017-11-25 12:28 | ED ---
HPI General Chief complaint: Arrhythmia / Palpitations Stated complaint: High heart rate x 3 days Time Seen by Provider: 11/25/17 12:24 Source: patient and family Mode of arrival: ambulatory Limitations: no limitations History of Present Illness HPI narrative: Patient presents with history of diarrhea with 4 episodes in the last 24 hours light brown; however patient has had diarrhea for the last 7 days.. No blood or mucus. No nausea vomiting or abdominal pain. In addition patient has tachycardia with atrial fibrillation. Pretibial edema is stable and not increased. Related Data Home Medications Medication Instructions Recorded Confirmed Lactobacillus rhamnosus GG 1 cap PO DAILY 10/19/17 11/25/17 [Culturelle] acetaminophen [Tylenol] 325 mg PO Q4-6H PRN 10/19/17 11/25/17 albuterol sulfate [Ventolin HFA] 2 puff INHALATION Q6H PRN 10/19/17 11/25/17 aspirin [Aspir-81] 81 mg PO DAILY 10/19/17 11/25/17 atorvastatin 10 mg PO DAILY 10/19/17 11/25/17 ergocalciferol (vitamin D2) 50,000 unit PO QWEEK 10/19/17 11/25/17 [Vitamin D2] escitalopram oxalate [Lexapro] 10 mg PO DAILY 10/19/17 11/25/17 guaifenesin [Mucinex] 1,200 mg PO DAILY 10/19/17 11/25/17 isosorbide mononitrate 30 mg PO DAILY 10/19/17 11/25/17 levothyroxine 137 mcg PO DAILY 10/19/17 11/25/17 magnesium 500 mg PO HS 10/19/17 11/25/17 montelukast [Singulair] 10 mg PO QPM 10/19/17 11/25/17 sotalol [Betapace] 120 mg/m2 PO BID 10/19/17 11/25/17 tiotropium bromide [Spiriva with 1 cap INHALATION DAILY 10/19/17 11/25/17 HandiHaler] torsemide 10 mg PO DIRECTED 10/19/17 11/25/17 warfarin 4 mg PO [id number] 10/19/17 11/25/17 warfarin 6 mg PO DIRECTED 10/19/17 11/25/17 zolpidem 10 mg PO HS 10/19/17 11/25/17 Previous Rx's Medication Instructions Recorded [id number] 1 applicatio TOPICAL BID g 10/22/17 [Triple Antibiotic] pantoprazole 40 mg PO DAILY tab 10/22/17 Allergies Allergy/AdvReac Type Severity Reaction Status Date / Time No Known Allergies Allergy Verified 11/25/17 12:08 Review of Systems ROS: all other systems reviewed are negative [facility] Medical History Medical History Atonic bladder (Acute) Acute diverticulitis (Acute) Artificial pacemaker (Acute) Atrial fibrillation (Acute) CHF (congestive heart failure) (Acute) COPD (chronic obstructive pulmonary disease) (Acute) Diabetes (Acute) HTN (hypertension) (Acute) Muscular dystrophy (Acute) PNA (pneumonia) (Acute) Suprapubic catheter (Acute) UTI (urinary tract infection) (Acute) Surgical History Surgical History History of appendectomy (Acute) History of colon resection (Acute) Hx of cardiac cath (Acute) Family History Family History Other Family history in first degree relatives is unremarkable Social History Social History Substance History: No History of Abuse Second Hand Smoke Exposure: No Smoking Status: Former smoker Tobacco Type: Cigarettes How Often Do You Have a Drink Containing Alcohol: Never Recent Travel in [facility] within the Last 8 Weeks: No Recent Out of Country Travel within the Last 8 Weeks: No Exam Narrative Exam Narrative: GENERAL: Alert and oriented in no acute distress SKIN: Focused skin assessment warm/dry. HEAD: Atraumatic. Normocephalic. EYES: Pupils equal and round. No scleral icterus. No injection or drainage. ENT: No nasal bleeding or discharge. Mucous membranes dry. NECK: Trachea midline. No JVD. CARDIOVASCULAR: Irregular rhythm 120/min. No murmur appreciated. RESPIRATORY: No accessory muscle use. Decreased breath sounds long-term up bilaterally. With crepitation at that level bilaterally. GASTROINTESTINAL: Abdomen soft, non-tender, nondistended. Hepatic and splenic margins not palpable. MUSCULOSKELETAL: No obvious deformities. No clubbing. No cyanosis. No edema. NEUROLOGICAL: Awake and alert. No obvious cranial nerve deficits. Motor grossly within normal limits. Normal speech. PSYCHIATRIC: Appropriate mood and affect; insight and judgment normal. Course Reevaluation(s) Reevaluation #1: Patient responded to medications with drop in rate. However required saline infusion for dehydration. Patient initially had tachycardia and a slow response to reduction of rate. With reduction of rate and also increase fluids patient has responded however still needs admission to ICU for careful monitoring. Time: 15:11 Initial Documented Vital Signs Temperature 98 F 11/25/17 12:08 Pulse Rate 128 H 11/25/17 12:08 Respiratory Rate 20 11/25/17 12:08 Blood Pressure 110/75 11/25/17 12:08 Pulse Oximetry 98 11/25/17 12:08 Last Documented Vital Signs Temperature 97.7 F 11/27/17 04:00 Pulse Rate 106 H 11/27/17 06:00 Respiratory Rate 30 H 11/27/17 06:00 Blood Pressure 161/80 H 11/27/17 06:00 Pulse Oximetry 93 L 11/27/17 06:00 Medical Decision Making [facility] Narrative Medical decision making narrative: Patient has significant medical problems with long history of congestive heart failure and atrial fibrillation. However given the presentation with significant diarrhea for prolonged period of time patient also had dehydration in addition to significant tachycardia with atrial fibrillation. Patient responded to reduction of rate however patient had to receive multiple 500 mL boluses to increase blood pressure to accepted level. Patient needs further cardiac evaluation and monitoring and requires the ICU for this process. Medical Screen Exam Complete: Yes Emergency Medical Condition: Yes Lab Data Result diagrams: 11/27/17 04:35 11/27/17 04:35 Lab Results 11/25/17 11/25/17 11/25/17 Range/Units 13:00 13:00 13:00 CBC w Diff Auto diff final WBC 9.4 (4.0-11.0) th/mm3 RBC 4.32 L (4.50-5.90) mil/mm3 Hgb 11.9 L (13.0-17.0) gm/dL Hct 36.2 L (39.0-51.0) % MCV 83.9 (80.0-100.0) fL MCH 27.5 (27.0-34.0) pg MCHC 32.8 (32.0-36.0) % RDW 15.4 (11.6-17.2) % Plt Count 295 (150-450) th/mm3 MPV 8.0 (7.0-11.0) fL Neut % (Auto) 73.6 H (16.0-70.0) % Lymph % (Auto) 19.0 (9.0-44.0) % [place] % (Auto) 5.9 (0.0-8.0) % Eos % (Auto) 1.3 (0.0-4.0) % Baso % (Auto) 0.2 (0.0-2.0) % Neut # (Auto) 6.9 (1.8-7.7) th/mm3 Lymph # (Auto) 1.8 (1.0-4.8) th/mm3 [place] # (Auto) 0.6 (0.0-0.9) th/mm3 Eos # (Auto) 0.1 (0.0-0.4) th/mm3 Baso # (Auto) 0.0 (0.0-0.2) th/mm3 WBC Differential . Differential Comment . PT (9.8-11.6) sec INR Ratio Sodium 138 (136-145) meq/L Potassium 4.7 (3.5-5.1) meq/L Chloride 99 (98-107) meq/L Carbon Dioxide 34.4 H (21.0-32.0) meq/L Anion Gap 5 (5-15) meq/L BUN 15 (7-18) mg/dL Creatinine 0.31 L (0.60-1.30) mg/dL Estimated GFR Greater than 89 (>89) mL/min POC Glucose (68-110) mg/dl Random Glucose 159 H (74-106) mg/dL Calcium 8.6 (8.5-10.1) mg/dL Phosphorus (2.5-4.9) mg/dL Magnesium (1.5-2.5) mg/dL Total Bilirubin 0.4 (0.2-1.0) mg/dL AST 18 (15-37) U/L ALT 24 (12-78) U/L Alkaline Phosphatase 105 (45-117) U/L Total Creatine Kinase (39-308) U/L Troponin I (0.02-0.05) ng/mL B-Natriuretic Peptide 188 H (0-100) pg/mL Total Protein 6.4 (6.4-8.2) g/dL Albumin 3.1 L (3.4-5.0) g/dL TSH (0.358-3.740) uIU/mL Urine Color (Yellw/Straw) Urine Clarity (Clear) Urine pH (5.0-8.5) Ur Specific [place] (1.002-1.035) Urine Protein (Neg-Trace) mg/dL Urine Glucose (UA) (Negative) mg/dL Urine Ketones (Negative) mg/dL Urine Occult Blood (Negative) Urine Nitrate (Negative) Urine Bilirubin (Negative) Urine Urobilinogen (Less than 2) mg/dL Ur Leukocyte Esterase (Negative) Urine WBC (0-5) /hpf Ur Squamous Epith Cells (0-5) /hpf Amorphous Sediment (None) /hpf Urine Mucus (Occasional) /lpf Micro UA Comment Ur Microscopic Review Urine Culture Comments Nasal Screen MRSA (PCR) (Negative) Stl C.difficile DNA Amp (Negative) St C. diff Tox Epid 027 (Negative) Urine Opiates Screen (Neg) Ur Barbiturates Screen (Neg) Ur Amphetamine Screen (Neg) U Benzodiazepines Scrn (Neg) Urine Cocaine Screen (Neg) U Cannabinoids Screen (Neg) 11/25/17 11/25/17 11/25/17 Range/Units 13:00 13:00 13:00 CBC w Diff WBC (4.0-11.0) th/mm3 RBC (4.50-5.90) mil/mm3 Hgb (13.0-17.0) gm/dL Hct (39.0-51.0) % MCV (80.0-100.0) fL MCH (27.0-34.0) pg MCHC (32.0-36.0) % RDW (11.6-17.2) % Plt Count (150-450) th/mm3 MPV (7.0-11.0) fL Neut % (Auto) (16.0-70.0) % Lymph % (Auto) (9.0-44.0) % [place] % (Auto) (0.0-8.0) % Eos % (Auto) (0.0-4.0) % Baso % (Auto) (0.0-2.0) % Neut # (Auto) (1.8-7.7) th/mm3 Lymph # (Auto) (1.0-4.8) th/mm3 [place] # (Auto) (0.0-0.9) th/mm3 Eos # (Auto) (0.0-0.4) th/mm3 Baso # (Auto) (0.0-0.2) th/mm3 WBC Differential Differential Comment PT 23.9 H (9.8-11.6) sec INR 2.4 Ratio Sodium (136-145) meq/L Potassium (3.5-5.1) meq/L Chloride (98-107) meq/L Carbon Dioxide (21.0-32.0) meq/L Anion Gap (5-15) meq/L BUN (7-18) mg/dL Creatinine (0.60-1.30) mg/dL Estimated GFR (>89) mL/min POC Glucose (68-110) mg/dl Random Glucose (74-106) mg/dL Calcium (8.5-10.1) mg/dL Phosphorus 3.5 (2.5-4.9) mg/dL Magnesium 1.9 (1.5-2.5) mg/dL Total Bilirubin (0.2-1.0) mg/dL AST (15-37) U/L ALT (12-78) U/L Alkaline Phosphatase (45-117) U/L Total Creatine Kinase 26 L (39-308) U/L Troponin I Less than 0.02 L (0.02-0.05) ng/mL B-Natriuretic Peptide (0-100) pg/mL Total Protein (6.4-8.2) g/dL Albumin (3.4-5.0) g/dL TSH (0.358-3.740) uIU/mL Urine Color Straw (Yellw/Straw) Urine Clarity Clear (Clear) Urine pH 5.0 (5.0-8.5) Ur Specific [place] 1.010 (1.002-1.035) Urine Protein Negative (Neg-Trace) mg/dL Urine Glucose (UA) Negative (Negative) mg/dL Urine Ketones Negative (Negative) mg/dL Urine Occult Blood Trace (Negative) Urine Nitrate Negative (Negative) Urine Bilirubin Negative (Negative) Urine Urobilinogen 0.2 (Less than 2) mg/dL Ur Leukocyte Esterase Small H (Negative) Urine WBC 0-5 (0-5) /hpf Ur Squamous Epith Cells 0-5 (0-5) /hpf Amorphous Sediment Occasional H (None) /hpf Urine Mucus Occasional (Occasional) /lpf Micro UA Comment Culture not ind Ur Microscopic Review Microscopic reviewed Urine Culture Comments Culture not ind Nasal Screen MRSA (PCR) (Negative) Stl C.difficile DNA Amp (Negative) St C. diff Tox Epid 027 (Negative) Urine Opiates Screen (Neg) Ur Barbiturates Screen (Neg) Ur Amphetamine Screen (Neg) U Benzodiazepines Scrn (Neg) Urine Cocaine Screen (Neg) U Cannabinoids Screen (Neg) 11/25/17 11/25/17 11/25/17 Range/Units 16:05 17:11 18:00 CBC w Diff WBC (4.0-11.0) th/mm3 RBC (4.50-5.90) mil/mm3 Hgb (13.0-17.0) gm/dL Hct (39.0-51.0) % MCV (80.0-100.0) fL MCH (27.0-34.0) pg MCHC (32.0-36.0) % RDW (11.6-17.2) % Plt Count (150-450) th/mm3 MPV (7.0-11.0) fL Neut % (Auto) (16.0-70.0) % Lymph % (Auto) (9.0-44.0) % [place] % (Auto) (0.0-8.0) % Eos % (Auto) (0.0-4.0) % Baso % (Auto) (0.0-2.0) % Neut # (Auto) (1.8-7.7) th/mm3 Lymph # (Auto) (1.0-4.8) th/mm3 [place] # (Auto) (0.0-0.9) th/mm3 Eos # (Auto) (0.0-0.4) th/mm3 Baso # (Auto) (0.0-0.2) th/mm3 WBC Differential Differential Comment PT (9.8-11.6) sec INR Ratio Sodium (136-145) meq/L Potassium (3.5-5.1) meq/L Chloride (98-107) meq/L Carbon Dioxide (21.0-32.0) meq/L Anion Gap (5-15) meq/L BUN (7-18) mg/dL Creatinine (0.60-1.30) mg/dL Estimated GFR (>89) mL/min POC Glucose 139 H (68-110) mg/dl Random Glucose (74-106) mg/dL Calcium (8.5-10.1) mg/dL Phosphorus (2.5-4.9) mg/dL Magnesium (1.5-2.5) mg/dL Total Bilirubin (0.2-1.0) mg/dL AST (15-37) U/L ALT (12-78) U/L Alkaline Phosphatase (45-117) U/L Total Creatine Kinase (39-308) U/L Troponin I (0.02-0.05) ng/mL B-Natriuretic Peptide (0-100) pg/mL Total Protein (6.4-8.2) g/dL Albumin (3.4-5.0) g/dL TSH (0.358-3.740) uIU/mL Urine Color (Yellw/Straw) Urine Clarity (Clear) Urine pH (5.0-8.5) Ur Specific [place] (1.002-1.035) Urine Protein (Neg-Trace) mg/dL Urine Glucose (UA) (Negative) mg/dL Urine Ketones (Negative) mg/dL Urine Occult Blood (Negative) Urine Nitrate (Negative) Urine Bilirubin (Negative) Urine Urobilinogen (Less than 2) mg/dL Ur Leukocyte Esterase (Negative) Urine WBC (0-5) /hpf Ur Squamous Epith Cells (0-5) /hpf Amorphous Sediment (None) /hpf Urine Mucus (Occasional) /lpf Micro UA Comment Ur Microscopic Review Urine Culture Comments Nasal Screen MRSA (PCR) (Negative) Stl C.difficile DNA Amp Negative (Negative) St C. diff Tox Epid 027 Negative (Negative) Urine Opiates Screen Neg (Neg) Ur Barbiturates Screen Neg (Neg) Ur Amphetamine Screen Neg (Neg) U Benzodiazepines Scrn Neg (Neg) Urine Cocaine Screen Neg (Neg) U Cannabinoids Screen Neg (Neg) 11/25/17 11/25/17 11/26/17 Range/Units 18:00 23:00 04:50 CBC w Diff WBC (4.0-11.0) th/mm3 RBC (4.50-5.90) mil/mm3 Hgb (13.0-17.0) gm/dL Hct (39.0-51.0) % MCV (80.0-100.0) fL MCH (27.0-34.0) pg MCHC (32.0-36.0) % RDW (11.6-17.2) % Plt Count (150-450) th/mm3 MPV (7.0-11.0) fL Neut % (Auto) (16.0-70.0) % Lymph % (Auto) (9.0-44.0) % [place] % (Auto) (0.0-8.0) % Eos % (Auto) (0.0-4.0) % Baso % (Auto) (0.0-2.0) % Neut # (Auto) (1.8-7.7) th/mm3 Lymph # (Auto) (1.0-4.8) th/mm3 [place] # (Auto) (0.0-0.9) th/mm3 Eos # (Auto) (0.0-0.4) th/mm3 Baso # (Auto) (0.0-0.2) th/mm3 WBC Differential Differential Comment PT (9.8-11.6) sec INR Ratio Sodium 140 (136-145) meq/L Potassium 4.0 (3.5-5.1) meq/L Chloride 101 (98-107) meq/L Carbon Dioxide 33.9 H (21.0-32.0) meq/L Anion Gap 5 (5-15) meq/L BUN 12 (7-18) mg/dL Creatinine 0.28 L (0.60-1.30) mg/dL Estimated GFR Greater than 89 (>89) mL/min POC Glucose (68-110) mg/dl Random Glucose 142 H (74-106) mg/dL Calcium 8.2 L (8.5-10.1) mg/dL Phosphorus 2.4 L D (2.5-4.9) mg/dL Magnesium 2.1 (1.5-2.5) mg/dL Total Bilirubin (0.2-1.0) mg/dL AST (15-37) U/L ALT (12-78) U/L Alkaline Phosphatase (45-117) U/L Total Creatine Kinase (39-308) U/L Troponin I Less than 0.02 L Less than 0.02 L (0.02-0.05) ng/mL B-Natriuretic Peptide (0-100) pg/mL Total Protein (6.4-8.2) g/dL Albumin (3.4-5.0) g/dL TSH (0.358-3.740) uIU/mL Urine Color (Yellw/Straw) Urine Clarity (Clear) Urine pH (5.0-8.5) Ur Specific [place] (1.002-1.035) Urine Protein (Neg-Trace) mg/dL Urine Glucose (UA) (Negative) mg/dL Urine Ketones (Negative) mg/dL Urine Occult Blood (Negative) Urine Nitrate (Negative) Urine Bilirubin (Negative) Urine Urobilinogen (Less than 2) mg/dL Ur Leukocyte Esterase (Negative) Urine WBC (0-5) /hpf Ur Squamous Epith Cells (0-5) /hpf Amorphous Sediment (None) /hpf Urine Mucus (Occasional) /lpf Micro UA Comment Ur Microscopic Review Urine Culture Comments Nasal Screen MRSA (PCR) Not detected (Negative) Stl C.difficile DNA Amp (Negative) St C. diff Tox Epid 027 (Negative) Urine Opiates Screen (Neg) Ur Barbiturates Screen (Neg) Ur Amphetamine Screen (Neg) U Benzodiazepines Scrn (Neg) Urine Cocaine Screen (Neg) U Cannabinoids Screen (Neg) 11/26/17 11/26/17 11/26/17 Range/Units 04:50 04:50 04:50 CBC w Diff Auto diff final WBC 9.0 (4.0-11.0) th/mm3 RBC 4.18 L (4.50-5.90) mil/mm3 Hgb 11.5 L (13.0-17.0) gm/dL Hct 35.6 L (39.0-51.0) % MCV 85.3 (80.0-100.0) fL MCH 27.6 (27.0-34.0) pg MCHC 32.3 (32.0-36.0) % RDW 14.5 (11.6-17.2) % Plt Count 234 (150-450) th/mm3 MPV 8.0 (7.0-11.0) fL Neut % (Auto) 72.1 H (16.0-70.0) % Lymph % (Auto) 20.8 (9.0-44.0) % [place] % (Auto) 5.2 (0.0-8.0) % Eos % (Auto) 1.5 (0.0-4.0) % Baso % (Auto) 0.4 (0.0-2.0) % Neut # (Auto) 6.5 (1.8-7.7) th/mm3 Lymph # (Auto) 1.9 (1.0-4.8) th/mm3 [place] # (Auto) 0.5 (0.0-0.9) th/mm3 Eos # (Auto) 0.1 (0.0-0.4) th/mm3 Baso # (Auto) 0.0 (0.0-0.2) th/mm3 WBC Differential . Differential Comment . PT 25.5 H (9.8-11.6) sec INR 2.5 Ratio Sodium (136-145) meq/L Potassium (3.5-5.1) meq/L Chloride (98-107) meq/L Carbon Dioxide (21.0-32.0) meq/L Anion Gap (5-15) meq/L BUN (7-18) mg/dL Creatinine (0.60-1.30) mg/dL Estimated GFR (>89) mL/min POC Glucose (68-110) mg/dl Random Glucose (74-106) mg/dL Calcium (8.5-10.1) mg/dL Phosphorus (2.5-4.9) mg/dL Magnesium (1.5-2.5) mg/dL Total Bilirubin (0.2-1.0) mg/dL AST (15-37) U/L ALT (12-78) U/L Alkaline Phosphatase (45-117) U/L Total Creatine Kinase (39-308) U/L Troponin I (0.02-0.05) ng/mL B-Natriuretic Peptide (0-100) pg/mL Total Protein (6.4-8.2) g/dL Albumin (3.4-5.0) g/dL TSH 0.723 (0.358-3.740) uIU/mL Urine Color (Yellw/Straw) Urine Clarity (Clear) Urine pH (5.0-8.5) Ur Specific [place] (1.002-1.035) Urine Protein (Neg-Trace) mg/dL Urine Glucose (UA) (Negative) mg/dL Urine Ketones (Negative) mg/dL Urine Occult Blood (Negative) Urine Nitrate (Negative) Urine Bilirubin (Negative) Urine Urobilinogen (Less than 2) mg/dL Ur Leukocyte Esterase (Negative) Urine WBC (0-5) /hpf Ur Squamous Epith Cells (0-5) /hpf Amorphous Sediment (None) /hpf Urine Mucus (Occasional) /lpf Micro UA Comment Ur Microscopic Review Urine Culture Comments Nasal Screen MRSA (PCR) (Negative) Stl C.difficile DNA Amp (Negative) St C. diff Tox Epid 027 (Negative) Urine Opiates Screen (Neg) Ur Barbiturates Screen (Neg) Ur Amphetamine Screen (Neg) U Benzodiazepines Scrn (Neg) Urine Cocaine Screen (Neg) U Cannabinoids Screen (Neg) 11/26/17 11/26/17 11/26/17 Range/Units 06:55 11:40 16:17 CBC w Diff WBC (4.0-11.0) th/mm3 RBC (4.50-5.90) mil/mm3 Hgb (13.0-17.0) gm/dL Hct (39.0-51.0) % MCV (80.0-100.0) fL MCH (27.0-34.0) pg MCHC (32.0-36.0) % RDW (11.6-17.2) % Plt Count (150-450) th/mm3 MPV (7.0-11.0) fL Neut % (Auto) (16.0-70.0) % Lymph % (Auto) (9.0-44.0) % [place] % (Auto) (0.0-8.0) % Eos % (Auto) (0.0-4.0) % Baso % (Auto) (0.0-2.0) % Neut # (Auto) (1.8-7.7) th/mm3 Lymph # (Auto) (1.0-4.8) th/mm3 [place] # (Auto) (0.0-0.9) th/mm3 Eos # (Auto) (0.0-0.4) th/mm3 Baso # (Auto) (0.0-0.2) th/mm3 WBC Differential Differential Comment PT (9.8-11.6) sec INR Ratio Sodium (136-145) meq/L Potassium (3.5-5.1) meq/L Chloride (98-107) meq/L Carbon Dioxide (21.0-32.0) meq/L Anion Gap (5-15) meq/L BUN (7-18) mg/dL Creatinine (0.60-1.30) mg/dL Estimated GFR (>89) mL/min POC Glucose 142 H 169 H 172 H (68-110) mg/dl Random Glucose (74-106) mg/dL Calcium (8.5-10.1) mg/dL Phosphorus (2.5-4.9) mg/dL Magnesium (1.5-2.5) mg/dL Total Bilirubin (0.2-1.0) mg/dL AST (15-37) U/L ALT (12-78) U/L Alkaline Phosphatase (45-117) U/L Total Creatine Kinase (39-308) U/L Troponin I (0.02-0.05) ng/mL B-Natriuretic Peptide (0-100) pg/mL Total Protein (6.4-8.2) g/dL Albumin (3.4-5.0) g/dL TSH (0.358-3.740) uIU/mL Urine Color (Yellw/Straw) Urine Clarity (Clear) Urine pH (5.0-8.5) Ur Specific [place] (1.002-1.035) Urine Protein (Neg-Trace) mg/dL Urine Glucose (UA) (Negative) mg/dL Urine Ketones (Negative) mg/dL Urine Occult Blood (Negative) Urine Nitrate (Negative) Urine Bilirubin (Negative) Urine Urobilinogen (Less than 2) mg/dL Ur Leukocyte Esterase (Negative) Urine WBC (0-5) /hpf Ur Squamous Epith Cells (0-5) /hpf Amorphous Sediment (None) /hpf Urine Mucus (Occasional) /lpf Micro UA Comment Ur Microscopic Review Urine Culture Comments Nasal Screen MRSA (PCR) (Negative) Stl C.difficile DNA Amp (Negative) St C. diff Tox Epid 027 (Negative) Urine Opiates Screen (Neg) Ur Barbiturates Screen (Neg) Ur Amphetamine Screen (Neg) U Benzodiazepines Scrn (Neg) Urine Cocaine Screen (Neg) U Cannabinoids Screen (Neg) 11/26/17 11/27/17 11/27/17 Range/Units 21:22 04:35 04:35 CBC w Diff Auto diff final WBC 6.7 (4.0-11.0) th/mm3 RBC 3.89 L (4.50-5.90) mil/mm3 Hgb 11.1 L (13.0-17.0) gm/dL Hct 32.2 L (39.0-51.0) % MCV 82.8 (80.0-100.0) fL MCH 28.7 (27.0-34.0) pg MCHC 34.6 (32.0-36.0) % RDW 14.7 (11.6-17.2) % Plt Count 214 (150-450) th/mm3 MPV 8.6 (7.0-11.0) fL Neut % (Auto) 67.8 (16.0-70.0) % Lymph % (Auto) 23.1 (9.0-44.0) % [place] % (Auto) 7.1 (0.0-8.0) % Eos % (Auto) 1.8 (0.0-4.0) % Baso % (Auto) 0.2 (0.0-2.0) % Neut # (Auto) 4.5 (1.8-7.7) th/mm3 Lymph # (Auto) 1.6 (1.0-4.8) th/mm3 [place] # (Auto) 0.5 (0.0-0.9) th/mm3 Eos # (Auto) 0.1 (0.0-0.4) th/mm3 Baso # (Auto) 0.0 (0.0-0.2) th/mm3 WBC Differential . Differential Comment . PT 21.4 H (9.8-11.6) sec INR 2.1 Ratio Sodium (136-145) meq/L Potassium (3.5-5.1) meq/L Chloride (98-107) meq/L Carbon Dioxide (21.0-32.0) meq/L Anion Gap (5-15) meq/L BUN (7-18) mg/dL Creatinine (0.60-1.30) mg/dL Estimated GFR (>89) mL/min POC Glucose 179 H (68-110) mg/dl Random Glucose (74-106) mg/dL Calcium (8.5-10.1) mg/dL Phosphorus (2.5-4.9) mg/dL Magnesium (1.5-2.5) mg/dL Total Bilirubin (0.2-1.0) mg/dL AST (15-37) U/L ALT (12-78) U/L Alkaline Phosphatase (45-117) U/L Total Creatine Kinase (39-308) U/L Troponin I (0.02-0.05) ng/mL B-Natriuretic Peptide (0-100) pg/mL Total Protein (6.4-8.2) g/dL Albumin (3.4-5.0) g/dL TSH (0.358-3.740) uIU/mL Urine Color (Yellw/Straw) Urine Clarity (Clear) Urine pH (5.0-8.5) Ur Specific [place] (1.002-1.035) Urine Protein (Neg-Trace) mg/dL Urine Glucose (UA) (Negative) mg/dL Urine Ketones (Negative) mg/dL Urine Occult Blood (Negative) Urine Nitrate (Negative) Urine Bilirubin (Negative) Urine Urobilinogen (Less than 2) mg/dL Ur Leukocyte Esterase (Negative) Urine WBC (0-5) /hpf Ur Squamous Epith Cells (0-5) /hpf Amorphous Sediment (None) /hpf Urine Mucus (Occasional) /lpf Micro UA Comment Ur Microscopic Review Urine Culture Comments Nasal Screen MRSA (PCR) (Negative) Stl C.difficile DNA Amp (Negative) St C. diff Tox Epid 027 (Negative) Urine Opiates Screen (Neg) Ur Barbiturates Screen (Neg) Ur Amphetamine Screen (Neg) U Benzodiazepines Scrn (Neg) Urine Cocaine Screen (Neg) U Cannabinoids Screen (Neg) 11/27/17 Range/Units 04:35 CBC w Diff WBC (4.0-11.0) th/mm3 RBC (4.50-5.90) mil/mm3 Hgb (13.0-17.0) gm/dL Hct (39.0-51.0) % MCV (80.0-100.0) fL MCH (27.0-34.0) pg MCHC (32.0-36.0) % RDW (11.6-17.2) % Plt Count (150-450) th/mm3 MPV (7.0-11.0) fL Neut % (Auto) (16.0-70.0) % Lymph % (Auto) (9.0-44.0) % [place] % (Auto) (0.0-8.0) % Eos % (Auto) (0.0-4.0) % Baso % (Auto) (0.0-2.0) % Neut # (Auto) (1.8-7.7) th/mm3 Lymph # (Auto) (1.0-4.8) th/mm3 [place] # (Auto) (0.0-0.9) th/mm3 Eos # (Auto) (0.0-0.4) th/mm3 Baso # (Auto) (0.0-0.2) th/mm3 WBC Differential Differential Comment PT (9.8-11.6) sec INR Ratio Sodium 140 (136-145) meq/L Potassium 3.3 L (3.5-5.1) meq/L Chloride 102 (98-107) meq/L Carbon Dioxide 30.2 (21.0-32.0) meq/L Anion Gap 8 (5-15) meq/L BUN 15 (7-18) mg/dL Creatinine 0.28 L (0.60-1.30) mg/dL Estimated GFR Greater than 89 (>89) mL/min POC Glucose (68-110) mg/dl Random Glucose 126 H (74-106) mg/dL Calcium 8.0 L (8.5-10.1) mg/dL Phosphorus 2.1 L (2.5-4.9) mg/dL Magnesium 1.7 (1.5-2.5) mg/dL Total Bilirubin (0.2-1.0) mg/dL AST (15-37) U/L ALT (12-78) U/L Alkaline Phosphatase (45-117) U/L Total Creatine Kinase (39-308) U/L Troponin I (0.02-0.05) ng/mL B-Natriuretic Peptide (0-100) pg/mL Total Protein (6.4-8.2) g/dL Albumin (3.4-5.0) g/dL TSH (0.358-3.740) uIU/mL Urine Color (Yellw/Straw) Urine Clarity (Clear) Urine pH (5.0-8.5) Ur Specific [place] (1.002-1.035) Urine Protein (Neg-Trace) mg/dL Urine Glucose (UA) (Negative) mg/dL Urine Ketones (Negative) mg/dL Urine Occult Blood (Negative) Urine Nitrate (Negative) Urine Bilirubin (Negative) Urine Urobilinogen (Less than 2) mg/dL Ur Leukocyte Esterase (Negative) Urine WBC (0-5) /hpf Ur Squamous Epith Cells (0-5) /hpf Amorphous Sediment (None) /hpf Urine Mucus (Occasional) /lpf Micro UA Comment Ur Microscopic Review Urine Culture Comments Nasal Screen MRSA (PCR) (Negative) Stl C.difficile DNA Amp (Negative) St C. diff Tox Epid 027 (Negative) Urine Opiates Screen (Neg) Ur Barbiturates Screen (Neg) Ur Amphetamine Screen (Neg) U Benzodiazepines Scrn (Neg) Urine Cocaine Screen (Neg) U Cannabinoids Screen (Neg) Imaging Data Radiologist's impression: Chest X-Ray 11/25/17 12:34 CONCLUSION: Under aerated with minimal bibasilar parental changes. Moderate compensated cardiomegaly. Discharge Plan Discharge Disposition Patient Disposition: 30 Still Patient Discharge Order Discharge Orders: Discharge Order (Routine); Ordered 11/25/17 Ordered By: Constantino Richey Physicians Team ED Provider: Constantino Richey Primary Care Provider: Michael Arreola Attending Provider: Anand Blake ED Status: Left Department Discharge Information Discharge Date/Time: 11/25/17 16:50
[2017-11-25] MEDS ORDERED: Esmolol 2,500 mg/250 mL Premix 2,500 MG/250 ML BAG IV.CONT PRN (12:32)
[2017-11-25] MEDS ORDERED: Sod Chloride 0.9% Inj 1,000 ML IV.CONT SCH (12:45)
[2017-11-25 13:19] LABS: Bilirubin,Urine Negative (Negative); Clarity,Urine Clear (Clear); Glucose,Urine (UA) Negative (Negative); Leukocyte Esterase,Urine Small (Negative); Nitrite,Urine Negative (Negative); Urobilinogen,Urine 0.2 mg/dL (Less than 2)
[2017-11-25] MEDS ORDERED: Esmolol Bolus Inj 100 MG/10 ML Vial IV.PUSH ONE (13:20)
[2017-11-25 13:21] LABS: Baso % (Auto) 0.2 % (0.0-2.0); Eos # (Auto) 0.1 th/mm3 (0.0-0.4); Eos % (Auto) 1.3 % (0.0-4.0); Hematocrit 36.2 % (39.0-51.0); Hemoglobin 11.9 gm/dL (13.0-17.0); Lymph # (Auto) 1.8 th/mm3 (1.0-4.8); Mean Corpuscular HGB Conc 32.8 % (32.0-36.0); Mean Corpuscular Hemoglobin 27.5 pg (27.0-34.0); Mean Corpuscular Volume 83.9 fL (80.0-100.0); Mono # (Auto) 0.6 th/mm3 (0.0-0.9); Mono % (Auto) 5.9 % (0.0-8.0); Neut # (Auto) 6.9 th/mm3 (1.8-7.7); Neut % (Auto) 73.6 % (16.0-70.0); Platelet Count 295 th/mm3 (150-450); Red Blood Count 4.32 mil/mm3 (4.50-5.90); Red Cell Distribution Width 15.4 % (11.6-17.2); White Blood Count 9.4 th/mm3 (4.0-11.0)
[2017-11-25 13:23] LABS: Color,Urine Straw (Yellw/Straw)
[2017-11-25 13:28] LABS: Chloride 99 meq/L (98-107); Potassium 4.7 meq/L (3.5-5.1); Sodium 138 meq/L (136-145)
--- NOTE | 2017-11-25 13:28 | XR ---
EXAM DATE: 11/25/2017 12:34 PM EDT AGE/SEX: 77 years / Male INDICATIONS: Short of breath. Tachycardia. CLINICAL DATA: This is the patient's initial encounter. Patient reports that signs and symptoms have been present for 3 days and indicates a pain score of 0/10. MEDICAL/SURGICAL HISTORY: Diverticulitis. Chronic obstructive pulmonary disease. Multiple scl erosis. A-fib. CHF. Diabetic. Hypertension. Pacemaker. Appendectomy. Colon resection. Cardiac ca th. Suprapubic catheter. COMPARISON: [facility] – [place], CHEST 1V SINGLE AP, 10/21/2017. . FINDINGS: Pacemaker implanted left chest. Minimal bibasilar parenchymal changes. Mild cardiomegaly without over t failure. No pleural effusion. No pneumothorax. CONCLUSION: Under aerated with minimal bibasilar parental changes. Moderate compensated cardiomegaly. Electronically signed by: Torito Bashir MD 11/25/2017 1:27 PM EDT
[2017-11-25 13:30] LABS: Amorphous Sediment,Urine Occasional /hpf; Mucus,Urine Occasional /lpf (Occasional); Squamous Epithelial Cell,Urine 0-5 /hpf (0-5); WBC,Urine 0-5 /hpf (0-5)
[2017-11-25 13:31] LABS: Calcium 8.6 mg/dL (8.5-10.1)
[2017-11-25 13:32] LABS: Albumin 3.1 g/dL (3.4-5.0); Anion Gap 5 meq/L (5-15); Blood Urea Nitrogen 15 mg/dL (7-18); Carbon Dioxide 34.4 meq/L (21.0-32.0); Glucose,Random 159 mg/dL (74-106)
[2017-11-25 13:34] LABS: INR 2.4 Ratio; Prothrombin Time 23.9 sec (9.8-11.6)
[2017-11-25 13:35] LABS: Alanine Aminotransferase 24 U/L (12-78); Aspartate Aminotransferase 18 U/L (15-37); Glomerular Filtration Rate Greater Than 89 mL/min (>89)
[2017-11-25 13:36] LABS: Total Protein 6.4 g/dL (6.4-8.2)
[2017-11-25 13:38] LABS: Alkaline Phosphatase 105 U/L (45-117)
[2017-11-25] MEDS: Sodium Chlor 0.9% Inj 500 ML IV.SIG SCH ×2 (13:45→15:30)
[2017-11-25] MEDS ORDERED: Potassium Phosphate 500 MG Soluble Tablet PO PRN ×2 (15:42)
[2017-11-25] MEDS ORDERED: Potassium Chloride 25 MEQ Effervescent Tablet PO PRN (15:42)
[2017-11-25] MEDS ORDERED: Potassium Chlor 40 mEq Premix 40 MEQ/100 ML PIGGYBACK IV.SIG PRN ×2 (15:42)
[2017-11-25] MEDS ORDERED: Potassium Chlor 20 mEq Premix 20 MEQ/100 ML PIGGYBACK IV.SIG PRN ×2 (15:42)
[2017-11-25] MEDS ORDERED: Magnesium Sulfate Inj 4 GM in Sodium Chlor 0.9% Inj 92 ML IV.SIG PRN (15:42)
[2017-11-25] MEDS ORDERED: Sodium Phosphate Inj 30 MMOL in Sodium Chlor 0.9% Inj 250 ML IV.SIG PRN (15:42)
[2017-11-25] MEDS ORDERED: Magnesium Sulfate Inj 2 GM in Sodium Chlor 0.9% Inj 96 ML IV.SIG PRN (15:42)
[2017-11-25] MEDS ORDERED: Potassium Phosphate Inj 30 MMOL in Sodium Chlor 0.9% Inj 250 ML IV.SIG PRN (15:42)
[2017-11-25] MEDS ORDERED: Magnesium Oxide 400 MG Tablet PO PRN (15:42)
[2017-11-25 15:54] LABS: Magnesium 1.9 mg/dL (1.5-2.5)
[2017-11-25 15:58] LABS: Phosphorus 3.5 mg/dL (2.5-4.9)
[2017-11-25 16:03] LABS: Creatine Kinase 26 U/L (39-308)
[2017-11-25 16:20] LABS: Amphetamine Urine With Conf Neg (Neg); Barbiturate Urine With Conf Neg (Neg); Benzodiazepine Urine With Conf Neg (Neg)
--- NOTE | 2017-11-25 16:35 | P.HP ---
History of Present Illness Primary Care Physician: Michael Arreola MD Chief Complaint: Diarrhea, generalized weakness and palpitations History of Present Illness: This is a pleasant 77-year-old male patient with a known medical history of muscular dystrophy with chronic suprapubic cath, CHF, hypertension, atrial fibrillation on Coumadin, hyperlipidemia and hypothyroidism who presented to the ED with complaints of generalized weakness, chills, diarrhea x 7 days and palpitations. States that he has been having episodes of diarrhea at least 4 episodes every day for the past 7 days with associated chills as well as overall feeling of being dehydrated due to diarrhea. He denies any blood or black stools. Denies any abdominal pain, nausea or vomiting. It should be noted that patient was recently hospitalized between co 10/19/17 to 10/22/17 and treated for OPD exacerbation, community-acquired pneumonia and CHF exacerbation. At that time he was treated with Rocephin, azithromycin for treatment of UTI which grew staph aureus and Pseudomonas and Proteus. Patient was discharged on a course of ciprofloxacin. Patient was discharged home and per report today he has been having remittent diarrhea since discharge the hospital. Patient's filler room attendant is Dr. Junior, he last saw him during his hospitalization for elevated troponin. This was likely believed to be secondary to demand ischemia at the time of admission due to his hypoxia. Medications were continued at that time. 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 [facility] PT and nursing also assists. - Diagnosis (1) Atrial fibrillation with RVR (2) Diarrhea Inpatient Certification: I certify that the inpatient services were ordered in accordance with Medicare regulations governing the order. This includes certification that hospital inpatient services are reasonable and necessary and in the case of services not specified as inpatient-only under 42 CFR 419.22(n), that they are appropriately provided as inpatient services in accordance to with the 2-midnight benchmark under 43 CFR 412.3(e) Estimated Total Length of Stay (Days): 7 Plans for Post Hospital Care: Not yet determined [facility] - History History Provided By: Patient, Family Member - Medical History Medical History: Medical History (Last Updated 11/25/17 @ 17:35 by Ekaterina Kim) Atonic bladder Acute diverticulitis Artificial pacemaker Atrial fibrillation CHF (congestive heart failure) COPD (chronic obstructive pulmonary disease) Diabetes HTN (hypertension) Muscular dystrophy PNA (pneumonia) Suprapubic catheter UTI (urinary tract infection) - Surgical History Surgical History: Surgical History (Last Reviewed 11/25/17 @ 17:25 by Ekaterina Kim) History of appendectomy History of colon resection Hx of cardiac cath - Family History Family History: Family History (Last Updated 11/25/17 @ 17:25 by Ekaterina Kim) Other Family history in first degree relatives is unremarkable - Tobacco History Second Hand Smoke Exposure: No Tobacco Use In Past 30 Days: No Smoking Status: Former smoker Tobacco Type: Cigarettes - Alcohol History How Often Do You Have a Drink Containing Alcohol: Never - Substance Use History Substance History: No History of Abuse - Travel History Recent Travel in the [place] Within the Last 8 Weeks: No Recent Travel Out of the Country Within the Last 8 Weeks: No - Immunization History Tetanus Immunization: Unsure Hx Influenza Vaccine This Season: No Medications and Allergies Active Medications: Active Medications Acetaminophen (Tylenol) 650 mg PO Q6H PRN PRN Reason: TEMPERATURE > 101 F Albuterol (Duoneb Neb (Prn)) 1 ampul NEB Q2HR NEB PRN PRN Reason: WHEEZING Albuterol (Duoneb Neb (Yolanda)) 1 ampul NEB Q6HR NEB YOLANDA Aspirin (Ecotrin) 81 mg PO DAILY YOLANDA Atorvastatin Calcium (Lipitor) 10 mg PO DAILY YOLANDA Chlorhexidine Gluconate (Chlorhexidine 2% Cloth) 3 pack TOPICAL DAILY@0400 YOLANDA Stop: 12/01/17 03:59 Chlorhexidine Gluconate (Chlorhexidine 2% Cloth) 3 pack TOPICAL DAILY@0400 PRN PRN Reason: Extra cloth needed Stop: 12/01/17 03:59 Diltiazem HCl (Cardizem) 30 mg PO Q6H YOLANDA Ergocalciferol (Vitamin D2) 50,000 unit PO QWEEK YOLANDA Escitalopram Oxalate (Lexapro) 10 mg PO DAILY YOLANDA Sodium Chloride (Ns Inj) 500 mls @ 0 mls/hr IV.SIG BOLUS YOLANDA Last Admin: 11/25/17 15:30 Dose: 500 mls/hr Ciprofloxacin/Dextrose (Cipro 400 Mg/200 Ml Inj) 400 mg in 200 mls @ 200 mls/ hr IV.SIG Q12H YOLANDA Magnesium Sulfate 2 gm/ Sodium (Chloride) 100 mls @ 50 mls/hr IV.SIG ONCE ONE Stop: 11/25/17 18:59 Metronidazole/Sodium Chloride (Flagyl 500 Mg Inj) 100 mls @ 100 mls/hr IV.SIG Q6H YOLANDA Magnesium Sulfate 4 gm/ Sodium (Chloride) 100 mls @ 50 mls/hr IV.SIG UNSCH PRN PRN Reason: For Magnesium 0.9 - 1.1 mg/dL Magnesium Sulfate 2 gm/ Sodium (Chloride) 100 mls @ 50 mls/hr IV.SIG UNSCH PRN PRN Reason: For Magnesium 1.2 - 1.6 mg/dL Sodium Chloride (Ns Inj) 1,000 mls @ 84 mls/hr IV.CONT .[id number] YOLANDA Potassium Chloride (Kcl 20 Meq Premix Inj) 20 meq in 100 mls @ 50 mls/hr IV.SIG Q2H PRN PRN Reason: For Potassium 3.3 - 3.5 mEq/L Potassium Chloride (Kcl 40 Meq Premix Inj) 40 meq in 100 mls @ 25 mls/hr IV.SIG UNSCH PRN PRN Reason: For Potassium 3.3 - 3.5 mEq/L Potassium Chloride (Kcl 20 Meq Premix Inj) 20 meq in 100 mls @ 50 mls/hr IV.SIG Q2H PRN PRN Reason: For Potassium 2.8 - 3.2 mEq/L Potassium Phosphate 30 mmol/ (Sodium Chloride) 260 mls @ 42 mls/hr IV.SIG UNSCH PRN PRN Reason: SEE LABEL COMMENTS Potassium Chloride (Kcl 40 Meq Premix Inj) 40 meq in 100 mls @ 25 mls/hr IV.SIG Q2H PRN PRN Reason: For Potassium 2.8 - 3.2 mEq/L Sodium Phosphate 30 mmol/ (Sodium Chloride) 260 mls @ 42 mls/hr IV.SIG UNSCH PRN PRN Reason: For Phosphorus < 2.5 mg/dL Magnesium Oxide (Mag-Ox) 800 mg PO UNSCH PRN PRN Reason: For Magnesium 1.2 - 1.6 mg/dL Montelukast Sodium (Singulair) 10 mg PO QPM YOLANDA Non-Formulary Medication (Levothyroxine [Levothyroxine]) 137 mcg PO DAILY YOLANDA Non-Formulary Medication (Sotalol [Betapace]) 120 mg/m2 PO BID YOLANDA Ondansetron HCl (Zofran Inj) 4 mg IV.PUSH Q6H PRN PRN Reason: NAUSEA OR VOMITING Potassium Bicarb/Potassium Chloride (K-Lyte Cl Eff) 50 meq PO UNSCH PRN PRN Reason: For Potassium 3.3 - 3.5 mEq/L Potassium Phosphate (K-Phos Original) 2,000 mg PO Q4H PRN PRN Reason: Phosphorus Less Than 2.5 mg/dL Potassium Phosphate (K-Phos Original) 2,000 mg PO UNSCH PRN PRN Reason: SEE LABEL COMMENTS Sodium Chloride (Ns Flush) 2 ml IV.FLUSH UNSCH PRN PRN Reason: FLUSH AFTER USING IV ACCESS Tiotropium [place] (Spiriva 18 Mcg Inh) mcg INH DAILY YOLANDA Allergies Allergy/AdvReac Type Severity Reaction Status Date / Time No Known Allergies Allergy Verified 11/25/17 12:08 Home Medications Medication Instructions Recorded Confirmed Type Lactobacillus rhamnosus GG 1 cap PO DAILY 10/19/17 11/25/17 History [Culturelle] acetaminophen [Tylenol] 325 mg PO Q4-6H PRN 10/19/17 11/25/17 History albuterol sulfate [Ventolin HFA] 2 puff INHALATION Q6H PRN 10/19/17 11/25/17 History aspirin [Aspir-81] 81 mg PO DAILY 10/19/17 11/25/17 History atorvastatin 10 mg PO DAILY 10/19/17 11/25/17 History ergocalciferol (vitamin D2) 50,000 unit PO QWEEK 10/19/17 11/25/17 History [Vitamin D2] escitalopram oxalate [Lexapro] 10 mg PO DAILY 10/19/17 11/25/17 History guaifenesin [Mucinex] 1,200 mg PO DAILY 10/19/17 11/25/17 History isosorbide mononitrate 30 mg PO DAILY 10/19/17 11/25/17 History levothyroxine 137 mcg PO DAILY 10/19/17 11/25/17 History magnesium 500 mg PO HS 10/19/17 11/25/17 History montelukast [Singulair] 10 mg PO QPM 10/19/17 11/25/17 History sotalol [Betapace] 120 mg/m2 PO BID 10/19/17 11/25/17 History tiotropium bromide [Spiriva with 1 cap INHALATION DAILY 10/19/17 11/25/17 History HandiHaler] torsemide 10 mg PO DIRECTED 10/19/17 11/25/17 History warfarin 4 mg PO [id number] 10/19/17 11/25/17 History warfarin 6 mg PO DIRECTED 10/19/17 11/25/17 History zolpidem 10 mg PO HS 10/19/17 11/25/17 History Exam Vital signs: Vital Signs 11/25/17 12:08 11/25/17 12:20 11/25/17 12:32 Temperature 98 F Pulse Rate 128 H 73 130 H Respiratory Rate 20 20 Blood Pressure 110/75 82/66 L Pulse Oximetry 98 98 11/25/17 13:17 11/25/17 13:56 11/25/17 14:13 Temperature Pulse Rate 128 H 125 H 78 Respiratory Rate 20 18 20 Blood Pressure 104/66 114/74 76/50 L Pulse Oximetry 94 L 98 11/25/17 14:35 11/25/17 15:01 11/25/17 15:03 Temperature Pulse Rate 90 93 H Respiratory Rate 20 18 Blood Pressure 89/60 L 91/54 L Pulse Oximetry 98 97 97 11/25/17 15:46 Temperature Pulse Rate 79 Respiratory Rate 20 Blood Pressure 92/69 L Pulse Oximetry Intake & Output 11/24/17 11/25/17 11/25/17 18:59 06:59 18:59 Intake Total 500 / 500 Balance 500 / 500 Weight 122.7 kg Intake: IV 500 / 500 NS Inj 500 ML @ Wide Open IV. 500 / 500 SIG BOLUS YOLANDA Rx#:[id number] Narrative: GENERAL: Well-developed, well-nourished elderly male patient in [facility]. On supplemental O2. SKIN: Warm and dry. No rash. HEAD: Normocephalic. Atraumatic. Right upper lip blister, scabbing and dry, chronic basal cell carcinoma. EYES: Pupils equal and round. No scleral icterus. No injection or drainage. ENT: No nasal bleeding or discharge. Mucous membranes pink and moist. NECK: Supple. Trachea midline. CARDIOVASCULAR: Irregularly irregular heart rate. RESPIRATORY: No accessory muscle use. Clear to auscultation. Breath sounds equal bilaterally. GASTROINTESTINAL: Abdomen soft, non-tender, nondistended. Normoactive bowel sounds x4. Previous surgical scar in mid abdomen region. : Suprapubic catheter in place, site clean dry and intact, no erythema or drainage, catheter present. Dressing dry and intact. MUSCULOSKELETAL: No obvious deformities. Extremities without clubbing, cyanosis , or edema. NEUROLOGICAL: Awake and alert. No obvious cranial nerve deficits. Motor grossly within normal limits. 4/5 muscle strength in bilateral upper and lower extremities. Normal speech. PSYCHIATRIC: Appropriate mood and affect; insight and judgment normal. Results - Labs CBC & Chem 7: 11/25/17 13:00 11/25/17 13:00 Labs: Laboratory Results - last 24 hr 11/25/17 11/25/17 11/25/17 13:00 13:00 13:00 CBC w Diff Auto diff final WBC 9.4 RBC 4.32 L Hgb 11.9 L Hct 36.2 L MCV 83.9 MCH 27.5 MCHC 32.8 RDW 15.4 Plt Count 295 MPV 8.0 Neut % (Auto) 73.6 H Lymph % (Auto) 19.0 [place] % (Auto) 5.9 Eos % (Auto) 1.3 Baso % (Auto) 0.2 Neut # (Auto) 6.9 Lymph # (Auto) 1.8 [place] # (Auto) 0.6 Eos # (Auto) 0.1 Baso # (Auto) 0.0 WBC Differential . Differential Comment . PT INR Sodium 138 Potassium 4.7 Chloride 99 Carbon Dioxide 34.4 H Anion Gap 5 BUN 15 Creatinine 0.31 L Estimated GFR Greater than 89 Random Glucose 159 H Calcium 8.6 Phosphorus Magnesium Total Bilirubin 0.4 AST 18 ALT 24 Alkaline Phosphatase 105 Total Creatine Kinase Troponin I B-Natriuretic Peptide 188 H Total Protein 6.4 Albumin 3.1 L Urine Color Urine Clarity Urine pH Ur Specific [place] Urine Protein Urine Glucose (UA) Urine Ketones Urine Occult Blood Urine Nitrate Urine Bilirubin Urine Urobilinogen Ur Leukocyte Esterase Urine WBC Ur Squamous Epith Cells Amorphous Sediment Urine Mucus Micro UA Comment Ur Microscopic Review Urine Culture Comments Ur Barbiturates Screen Ur Amphetamine Screen U Benzodiazepines Scrn Urine Cocaine Screen 11/25/17 11/25/17 11/25/17 13:00 13:00 13:00 CBC w Diff WBC RBC Hgb Hct MCV MCH MCHC RDW Plt Count MPV Neut % (Auto) Lymph % (Auto) [place] % (Auto) Eos % (Auto) Baso % (Auto) Neut # (Auto) Lymph # (Auto) [place] # (Auto) Eos # (Auto) Baso # (Auto) WBC Differential Differential Comment PT 23.9 H INR 2.4 Sodium Potassium Chloride Carbon Dioxide Anion Gap BUN Creatinine Estimated GFR Random Glucose Calcium Phosphorus 3.5 Magnesium 1.9 Total Bilirubin AST ALT Alkaline Phosphatase Total Creatine Kinase 26 L Troponin I Less than 0.02 L B-Natriuretic Peptide Total Protein Albumin Urine Color Straw Urine Clarity Clear Urine pH 5.0 Ur Specific [place] 1.010 Urine Protein Negative Urine Glucose (UA) Negative Urine Ketones Negative Urine Occult Blood Trace Urine Nitrate Negative Urine Bilirubin Negative Urine Urobilinogen 0.2 Ur Leukocyte Esterase Small H Urine WBC 0-5 Ur Squamous Epith Cells 0-5 Amorphous Sediment Occasional H Urine Mucus Occasional Micro UA Comment Culture not ind Ur Microscopic Review Microscopic reviewed Urine Culture Comments Culture not ind Ur Barbiturates Screen Ur Amphetamine Screen U Benzodiazepines Scrn Urine Cocaine Screen 11/25/17 16:05 CBC w Diff WBC RBC Hgb Hct MCV MCH MCHC RDW Plt Count MPV Neut % (Auto) Lymph % (Auto) [place] % (Auto) Eos % (Auto) Baso % (Auto) Neut # (Auto) Lymph # (Auto) [place] # (Auto) Eos # (Auto) Baso # (Auto) WBC Differential Differential Comment PT INR Sodium Potassium Chloride Carbon Dioxide Anion Gap BUN Creatinine Estimated GFR Random Glucose Calcium Phosphorus Magnesium Total Bilirubin AST ALT Alkaline Phosphatase Total Creatine Kinase Troponin I B-Natriuretic Peptide Total Protein Albumin Urine Color Urine Clarity Urine pH Ur Specific [place] Urine Protein Urine Glucose (UA) Urine Ketones Urine Occult Blood Urine Nitrate Urine Bilirubin Urine Urobilinogen Ur Leukocyte Esterase Urine WBC Ur Squamous Epith Cells Amorphous Sediment Urine Mucus Micro UA Comment Ur Microscopic Review Urine Culture Comments Ur Barbiturates Screen Neg Ur Amphetamine Screen Neg U Benzodiazepines Scrn Neg Urine Cocaine Screen Neg - Imaging Impressions Chest X-Ray 11/25/17 12:34 CONCLUSION: Under aerated with minimal bibasilar parental changes. Moderate compensated cardiomegaly. Caprini VTE Risk Assessment Caprini VTE Risk Assessment: Moderate/High Risk (score >= 2) Caprini Risk Assessment Model: Point Value = 1 Point Value = 2 Point Value = 3 Point Value = 5 Age 41-60 Minor surgery BMI > 25 kg/m2 Swollen legs Varicose veins or History of unexplained or recurrent spontaneous Oral contraceptives or hormone replacement Sepsis (< 1 month) Serious lung disease, including pneumonia (< 1 month) Abnormal pulmonary function Acute myocardial infarction Congestive heart failure (< 1 month) History of inflammatory bowel disease Medical patient at bed rest Age 61-74 Arthroscopic surgery Major open surgery (> 45 min) Laparoscopic surgery (> 45 min) Malignancy Confined to bed (> 72 hours) Immobilizing plaster cast Central venous access Age >= 75 History of VTE Family history of VTE Factor V Leiden Prothrombin [id number] Lupus anticoagulant Anticardiolipin antibodies Elevated serum homocysteine Heparin-induced thrombocytopenia Other congenital or acquired thrombophilia Stroke (< 1 month) Elective arthroplasty Hip, pelvis, or leg fracture Acute spinal cord injury (< 1 month) Prophylaxis Regimen: Total Risk Factor Score Risk Level Prophylaxis Regimen 0-1 Low Early ambulation 2 Moderate Order ONE of the following: *Sequential Compression Device (SCD) *Heparin 5000 units SQ BID 3-4 Higher Order ONE of the following medications: *Heparin 5000 units SQ TID *Enoxaparin/Lovenox 40 mg SQ daily (WT < 150 kg, CrCl > 30 mL/min) *Enoxaparin/Lovenox 30 mg SQ daily (WT < 150 kg, CrCl > 10-29 mL/min) *Enoxaparin/Lovenox 30 mg SQ BID (WT < 150 kg, CrCl > 30 mL/min) AND/OR *Sequential Compression Device (SCD) 5 or more Highest Order ONE of the following medications: *Heparin 5000 units SQ TID (Preferred with Epidurals) *Enoxaparin/Lovenox 40 mg SQ daily (WT < 150 kg, CrCl > 30 mL/min) *Enoxaparin/Lovenox 30 mg SQ daily (WT < 150 kg, CrCl > 10-29 mL/min) *Enoxaparin/Lovenox 30 mg SQ BID (WT < 150 kg, CrCl > 30 mL/min) AND *Sequential Compression Device (SCD) Assessment and Plan - Assessment (1) Atrial fibrillation with RVR Code(s): I48.91 - Unspecified atrial fibrillation Status: Acute (2) Diarrhea Code(s): R19.7 - Diarrhea, unspecified Status: Acute - Plan This is a 77-year-old male patient with: Atrial fibrillation RVR on anticoagulation -Patient presented to the ED in A fib RVR. -EKG reviewed showing a flutter rvr with HR in the 120's. -Patient received Cardizem IV and Esmolol IV push in ED which did improve the heart rate, heart still 110's on monitor. -Patient was hypotensive secondary to IV rate control, was given 1 L NS bolus in ED. -BP initially 76/50 but now improving with systolic in the 90's. Continued on IVF. -Patient admitted to ICU for closer monitoring. Continue cardiac telemetry, monitor for rate control. -Will resume home Sotalol and add Cardizem 30 mg PO QID. Cardizem gtt if no improvement. -Will trend serial EKGs and serial troponins. Initial troponin flat. Follow trend. -INR therapeutic, 2.4. For now will hold Coumadin and recheck in am, patient getting antibiotics for diarrhea. Diarrhea Dehydration -Patient complaints of diarrhea x 7 days. -Will check stool studies including c diff. -Ensure hydration, continue IVF. -Started on Cipro and Flagyl IV. Follow cultures. Hypothyroidism, chronic: Continue home statin. History of muscular dystrophy, wheelchair bound at home Chronic suprapubic catheter secondary to above -PT has been consulted, evaluation pending. -Catheter care per nursing team. Monitor intake and output closely. UA negative. History of COPD not in exacerbation, history of sleep apnea uses BiPAP at home Chronic respiratory failure with use of home O2 -Patient uses 2 L oxygen at home. Will resume BiPAP at night. -Stable at this time. Continue to monitor. DVT Prophylaxis: SCDs. Coumadin.
[2017-11-25] MEDS ORDERED: Mag Sulf 1 gm/100 ml Premix 100 ML IV.SIG SCH (17:00)
[2017-11-25] MEDS ORDERED: Magnesium Sulfate Inj 2 GM in Sodium Chlor 0.9% Inj 96 ML IV.SIG ONE (17:00)
[2017-11-25] MEDS ORDERED: dilTIAZem Inj 125 MG in Sodium Chlor 0.9% Inj 100 ML IV.CONT PRN (17:37)
[2017-11-25] MEDS: dilTIAZem 30 MG Tablet PO SCH (17:44)
[2017-11-25] MEDS: Montelukast 10 MG Tablet PO SCH (17:44)
[2017-11-25] MEDS: Sod Chloride 0.9% Inj 1,000 ML IV.CONT SCH (17:46)
[2017-11-25] MEDS ORDERED: dilTIAZem 30 MG Tablet PO SCH (18:00)
[2017-11-25] MEDS: Ciprofloxacin 400 MG/200 ML 400 MG/200 ML PIGGYBACK IV.SIG SCH (18:12)
[2017-11-26] MEDS: dilTIAZem 30 MG Tablet PO SCH ×5 (01:25→23:28)
[2017-11-26] MEDS ORDERED: Chlorhexidine Gluconate 2% 1 Pack (2 Cloths) TOPICAL PRN (04:00)
[2017-11-26 05:09] LABS: Baso % (Auto) 0.4 % (0.0-2.0); Eos # (Auto) 0.1 th/mm3 (0.0-0.4); Eos % (Auto) 1.5 % (0.0-4.0); Hematocrit 35.6 % (39.0-51.0); Hemoglobin 11.5 gm/dL (13.0-17.0); Lymph # (Auto) 1.9 th/mm3 (1.0-4.8); Lymph % (Auto) 20.8 % (9.0-44.0); Mean Corpuscular HGB Conc 32.3 % (32.0-36.0); Mean Corpuscular Hemoglobin 27.6 pg (27.0-34.0); Mean Corpuscular Volume 85.3 fL (80.0-100.0); Mono # (Auto) 0.5 th/mm3 (0.0-0.9); Mono % (Auto) 5.2 % (0.0-8.0); Neut # (Auto) 6.5 th/mm3 (1.8-7.7); Neut % (Auto) 72.1 % (16.0-70.0); Platelet Count 234 th/mm3 (150-450); Red Blood Count 4.18 mil/mm3 (4.50-5.90); Red Cell Distribution Width 14.5 % (11.6-17.2)
[2017-11-26 05:17] LABS: Chloride 101 meq/L (98-107); Sodium 140 meq/L (136-145)
[2017-11-26 05:22] LABS: Anion Gap 5 meq/L (5-15); Calcium 8.2 mg/dL (8.5-10.1); Carbon Dioxide 33.9 meq/L (21.0-32.0); Glucose,Random 142 mg/dL (74-106); Magnesium 2.1 mg/dL (1.5-2.5)
[2017-11-26 05:23] LABS: Blood Urea Nitrogen 12 mg/dL (7-18); INR 2.5 Ratio; Prothrombin Time 25.5 sec (9.8-11.6)
[2017-11-26 05:26] LABS: Glomerular Filtration Rate Greater Than 89 mL/min (>89)
[2017-11-26 05:34] LABS: Phosphorus 2.4 mg/dL (2.5-4.9)
[2017-11-26] MEDS: Sod Chloride 0.9% Inj 1,000 ML IV.CONT SCH ×2 (05:34→18:58)
[2017-11-26] MEDS: Chlorhexidine Gluconate 2% 1 Pack (2 Cloths) TOPICAL SCH (05:35)
[2017-11-26] MEDS: Ciprofloxacin 400 MG/200 ML 400 MG/200 ML PIGGYBACK IV.SIG SCH (05:44)
[2017-11-26] MEDS ORDERED: Levothyroxine 112 MCG Tablet PO SCH (06:00)
[2017-11-26] MEDS: Levothyroxine 112 MCG Tablet PO SCH (06:23)
[2017-11-26] MEDS: Tiotropium Bromide 18 MCG/ACT Inhaler INH SCH (08:26)
--- NOTE | 2017-11-26 08:40 | P.PNIM ---
Subjective Interval history: Follow-up A. fib RVR and diarrhea. Patient seen and examined, sitting up in bed comfortably no apparent distress. Daughter is at bedside as well. Patient denies any acute events overnight. He states he slept very well. Spoke to bedside RN who denies any new acute events. Patient has been off the Cardizem drip since 530 this morning. Heart rate is more improved. Awaiting echocardiogram this morning. Patient denies any chest pain, shortness of breath , headache, dumping, nausea, vomiting, dysuria. Does report of 2 bouts of diarrhea overnight, this has been improving. C. difficile negative. Patient tolerating p.o. intake well. Vital signs stable. Afebrile. PT has been working with patient with recommendations to resume home health care when able. Weakness is improving. Physical Exam Vital signs: Vital Signs 11/25/17 12:08 11/25/17 12:20 11/25/17 12:32 Temperature 98 F Pulse Rate 128 H 73 130 H Respiratory Rate 20 20 Blood Pressure 110/75 82/66 L Pulse Oximetry 98 98 11/25/17 13:17 11/25/17 13:56 11/25/17 14:13 Temperature Pulse Rate 128 H 125 H 78 Respiratory Rate 20 18 20 Blood Pressure 104/66 114/74 76/50 L Pulse Oximetry 94 L 98 11/25/17 14:35 11/25/17 15:01 11/25/17 15:03 Temperature Pulse Rate 90 93 H Respiratory Rate 20 18 Blood Pressure 89/60 L 91/54 L Pulse Oximetry 98 97 97 11/25/17 15:46 11/25/17 16:00 11/25/17 17:43 Temperature 98.1 F Pulse Rate 79 125 H 124 H Respiratory Rate 20 22 Blood Pressure 92/69 L 120/80 Pulse Oximetry 11/25/17 18:18 11/25/17 19:09 11/25/17 19:21 Temperature Pulse Rate 124 H 122 H 122 H Respiratory Rate 19 11 L 13 Blood Pressure 123/90 138/98 H 137/95 H Pulse Oximetry 98 99 99 11/25/17 19:30 11/25/17 19:44 11/25/17 19:45 Temperature Pulse Rate 122 H 116 H Respiratory Rate 9 L 9 L Blood Pressure 149/107 H 139/96 H Pulse Oximetry 99 98 98 11/25/17 20:00 11/25/17 21:00 11/25/17 21:15 Temperature Pulse Rate 110 H 106 H Respiratory Rate 12 14 Blood Pressure 134/95 H 136/95 H Pulse Oximetry 97 99 97 11/25/17 21:21 11/25/17 21:30 11/25/17 21:45 Temperature Pulse Rate 109 H 108 H 92 H Respiratory Rate 20 14 19 Blood Pressure 132/95 H 100/68 Pulse Oximetry 98 97 95 11/25/17 22:00 11/26/17 00:15 11/26/17 01:15 Temperature Pulse Rate 90 84 82 Respiratory Rate 14 20 15 Blood Pressure 122/77 124/78 112/75 Pulse Oximetry 92 L 94 L 96 11/26/17 02:00 11/26/17 03:00 11/26/17 04:00 Temperature 98.2 F Pulse Rate 74 84 84 Respiratory Rate 21 15 16 Blood Pressure 107/68 97/60 L 99/65 L Pulse Oximetry 93 L 94 L 94 L 11/26/17 04:57 11/26/17 05:00 11/26/17 06:00 Temperature 98.3 F Pulse Rate 85 84 92 H Respiratory Rate 22 14 15 Blood Pressure 94/56 L 95/67 L Pulse Oximetry 96 96 11/26/17 07:00 Temperature Pulse Rate 100 H Respiratory Rate 20 Blood Pressure 104/78 Pulse Oximetry 96 Intake & Output 11/25/17 11/26/17 11/26/17 18:59 06:59 18:59 Intake Total 1340 / 1340 2500 / 2500 200 / 200 Output Total 700 / 700 300 / 300 Balance 640 / 640 2200 / 2200 200 / 200 Weight 122.7 kg Intake: IV 1100 / 1100 2500 / 2500 200 / 200 NS Inj 1,000 ML @ 84 mls/hr IV. 1000 / 1000 CONT .[id number] FARHAD Rx#: [id number] Cipro 400 MG/200 ML Inj 400 mg 200 / 200 200 / 200 In 200 ml @ 200 mls/hr IV.SIG Q12H FARHAD Rx#:[id number] Magnesium Sulfate Inj 2 GM In 100 / 100 NS Inj 96 ML @ 50 mls/hr IV.SIG ONCE ONE Rx#:[id number] NS Inj 500 ML @ Wide Open IV. 1000 / 1000 SIG BOLUS FARHAD Rx#:[id number] Flagyl 500 MG Inj 100 ML @ 100 100 / 100 200 / 200 mls/hr IV.SIG Q6H FARHAD Rx#: [id number] Oral 240 / 240 Output: Urine Amount (Catheter) 700 / 700 300 / 300 Suprapubic 700 / 700 300 / 300 Other: Date of Last Bowel Movement 11/25/17 Narrative: GENERAL: Well-developed, well-nourished elderly male patient in NAD. On supplemental O2. SKIN: Warm and dry. No rash. Sacrum with healed scars, no open areas. HEAD: Normocephalic. Atraumatic. Right upper lip blister, scabbing and dry, chronic basal cell carcinoma. EYES: Pupils equal and round. No scleral icterus. No injection or drainage. ENT: No nasal bleeding or discharge. Mucous membranes pink and moist. NECK: Supple. Trachea midline. CARDIOVASCULAR: Irregularly irregular heart rate. RESPIRATORY: No accessory muscle use. Clear to auscultation. Breath sounds equal bilaterally. GASTROINTESTINAL: Abdomen soft, non-tender, nondistended. Normoactive bowel sounds x4. Previous surgical scar in mid abdomen region. : Suprapubic catheter in place, site clean dry and intact, no erythema or drainage, catheter present. Dressing dry and intact. MUSCULOSKELETAL: No obvious deformities. Extremities without clubbing, cyanosis , or edema. NEUROLOGICAL: Awake and alert. No obvious cranial nerve deficits. Motor grossly within normal limits. 4/5 muscle strength in bilateral upper and lower extremities. Normal speech. PSYCHIATRIC: Appropriate mood and affect; insight and judgment normal. - Urinary Catheter Management Suprapubic Cath placed during this visit: yes Reason for continuing: Terminally ill/Comfort care Insertion date: 12/11/17 Results - Labs CBC & Chem 7: 11/26/17 04:50 11/26/17 04:50 Laboratory Results - last 24 hr 11/25/17 11/25/17 11/25/17 13:00 13:00 13:00 CBC w Diff Auto diff final WBC 9.4 RBC 4.32 L Hgb 11.9 L Hct 36.2 L MCV 83.9 MCH 27.5 MCHC 32.8 RDW 15.4 Plt Count 295 MPV 8.0 Neut % (Auto) 73.6 H Lymph % (Auto) 19.0 Tillman % (Auto) 5.9 Eos % (Auto) 1.3 Baso % (Auto) 0.2 Neut # (Auto) 6.9 Lymph # (Auto) 1.8 Tillman # (Auto) 0.6 Eos # (Auto) 0.1 Baso # (Auto) 0.0 WBC Differential . Differential Comment . PT INR Sodium 138 Potassium 4.7 Chloride 99 Carbon Dioxide 34.4 H Anion Gap 5 BUN 15 Creatinine 0.31 L Estimated GFR Greater than 89 POC Glucose Random Glucose 159 H Calcium 8.6 Phosphorus Magnesium Total Bilirubin 0.4 AST 18 ALT 24 Alkaline Phosphatase 105 Total Creatine Kinase Troponin I B-Natriuretic Peptide 188 H Total Protein 6.4 Albumin 3.1 L Urine Color Urine Clarity Urine pH Ur Specific [place] Urine Protein Urine Glucose (UA) Urine Ketones Urine Occult Blood Urine Nitrate Urine Bilirubin Urine Urobilinogen Ur Leukocyte Esterase Urine WBC Ur Squamous Epith Cells Amorphous Sediment Urine Mucus Micro UA Comment Ur Microscopic Review Urine Culture Comments Nasal Screen MRSA (PCR) Urine Opiates Screen Ur Barbiturates Screen Ur Amphetamine Screen U Benzodiazepines Scrn Urine Cocaine Screen U Cannabinoids Screen 11/25/17 11/25/17 11/25/17 13:00 13:00 13:00 CBC w Diff WBC RBC Hgb Hct MCV MCH MCHC RDW Plt Count MPV Neut % (Auto) Lymph % (Auto) Tillman % (Auto) Eos % (Auto) Baso % (Auto) Neut # (Auto) Lymph # (Auto) [place] # (Auto) Eos # (Auto) Baso # (Auto) WBC Differential Differential Comment PT 23.9 H INR 2.4 Sodium Potassium Chloride Carbon Dioxide Anion Gap BUN Creatinine Estimated GFR POC Glucose Random Glucose Calcium Phosphorus 3.5 Magnesium 1.9 Total Bilirubin AST ALT Alkaline Phosphatase Total Creatine Kinase 26 L Troponin I Less than 0.02 L B-Natriuretic Peptide Total Protein Albumin Urine Color Straw Urine Clarity Clear Urine pH 5.0 Ur Specific [place] 1.010 Urine Protein Negative Urine Glucose (UA) Negative Urine Ketones Negative Urine Occult Blood Trace Urine Nitrate Negative Urine Bilirubin Negative Urine Urobilinogen 0.2 Ur Leukocyte Esterase Small H Urine WBC 0-5 Ur Squamous Epith Cells 0-5 Amorphous Sediment Occasional H Urine Mucus Occasional Micro UA Comment Culture not ind Ur Microscopic Review Microscopic reviewed Urine Culture Comments Culture not ind Nasal Screen MRSA (PCR) Urine Opiates Screen Ur Barbiturates Screen Ur Amphetamine Screen U Benzodiazepines Scrn Urine Cocaine Screen U Cannabinoids Screen 11/25/17 11/25/17 11/25/17 16:05 17:11 18:00 CBC w Diff WBC RBC Hgb Hct MCV MCH MCHC RDW Plt Count MPV Neut % (Auto) Lymph % (Auto) [place] % (Auto) Eos % (Auto) Baso % (Auto) Neut # (Auto) Lymph # (Auto) [place] # (Auto) Eos # (Auto) Baso # (Auto) WBC Differential Differential Comment PT INR Sodium Potassium Chloride Carbon Dioxide Anion Gap BUN Creatinine Estimated GFR POC Glucose 139 H Random Glucose Calcium Phosphorus Magnesium Total Bilirubin AST ALT Alkaline Phosphatase Total Creatine Kinase Troponin I B-Natriuretic Peptide Total Protein Albumin Urine Color Urine Clarity Urine pH Ur Specific [place] Urine Protein Urine Glucose (UA) Urine Ketones Urine Occult Blood Urine Nitrate Urine Bilirubin Urine Urobilinogen Ur Leukocyte Esterase Urine WBC Ur Squamous Epith Cells Amorphous Sediment Urine Mucus Micro UA Comment Ur Microscopic Review Urine Culture Comments Nasal Screen MRSA (PCR) Not detected Urine Opiates Screen Neg Ur Barbiturates Screen Neg Ur Amphetamine Screen Neg U Benzodiazepines Scrn Neg Urine Cocaine Screen Neg U Cannabinoids Screen Neg 11/25/17 11/26/17 11/26/17 23:00 04:50 04:50 CBC w Diff Auto diff final WBC 9.0 RBC 4.18 L Hgb 11.5 L Hct 35.6 L MCV 85.3 MCH 27.6 MCHC 32.3 RDW 14.5 Plt Count 234 MPV 8.0 Neut % (Auto) 72.1 H Lymph % (Auto) 20.8 Tillman % (Auto) 5.2 Eos % (Auto) 1.5 Baso % (Auto) 0.4 Neut # (Auto) 6.5 Lymph # (Auto) 1.9 Tillman # (Auto) 0.5 Eos # (Auto) 0.1 Baso # (Auto) 0.0 WBC Differential . Differential Comment . PT INR Sodium 140 Potassium 4.0 Chloride 101 Carbon Dioxide 33.9 H Anion Gap 5 BUN 12 Creatinine 0.28 L Estimated GFR Greater than 89 POC Glucose Random Glucose 142 H Calcium 8.2 L Phosphorus 2.4 L D Magnesium 2.1 Total Bilirubin AST ALT Alkaline Phosphatase Total Creatine Kinase Troponin I Less than 0.02 L Less than 0.02 L B-Natriuretic Peptide Total Protein Albumin Urine Color Urine Clarity Urine pH Ur Specific [place] Urine Protein Urine Glucose (UA) Urine Ketones Urine Occult Blood Urine Nitrate Urine Bilirubin Urine Urobilinogen Ur Leukocyte Esterase Urine WBC Ur Squamous Epith Cells Amorphous Sediment Urine Mucus Micro UA Comment Ur Microscopic Review Urine Culture Comments Nasal Screen MRSA (PCR) Urine Opiates Screen Ur Barbiturates Screen Ur Amphetamine Screen U Benzodiazepines Scrn Urine Cocaine Screen U Cannabinoids Screen 11/26/17 11/26/17 04:50 06:55 CBC w Diff WBC RBC Hgb Hct MCV MCH MCHC RDW Plt Count MPV Neut % (Auto) Lymph % (Auto) [place] % (Auto) Eos % (Auto) Baso % (Auto) Neut # (Auto) Lymph # (Auto) [place] # (Auto) Eos # (Auto) Baso # (Auto) WBC Differential Differential Comment PT 25.5 H INR 2.5 Sodium Potassium Chloride Carbon Dioxide Anion Gap BUN Creatinine Estimated GFR POC Glucose 142 H Random Glucose Calcium Phosphorus Magnesium Total Bilirubin AST ALT Alkaline Phosphatase Total Creatine Kinase Troponin I B-Natriuretic Peptide Total Protein Albumin Urine Color Urine Clarity Urine pH Ur Specific [place] Urine Protein Urine Glucose (UA) Urine Ketones Urine Occult Blood Urine Nitrate Urine Bilirubin Urine Urobilinogen Ur Leukocyte Esterase Urine WBC Ur Squamous Epith Cells Amorphous Sediment Urine Mucus Micro UA Comment Ur Microscopic Review Urine Culture Comments Nasal Screen MRSA (PCR) Urine Opiates Screen Ur Barbiturates Screen Ur Amphetamine Screen U Benzodiazepines Scrn Urine Cocaine Screen U Cannabinoids Screen - Imaging Impressions Chest X-Ray 11/25/17 12:34 CONCLUSION: Under aerated with minimal bibasilar parental changes. Moderate compensated cardiomegaly. Assessment and Plan - Assessment (1) Atrial fibrillation with RVR Code(s): I48.91 - Unspecified atrial fibrillation Status: Acute (2) Diarrhea Code(s): R19.7 - Diarrhea, unspecified Status: Acute - Plan This is a 77-year-old male patient with: Atrial fibrillation RVR on anticoagulation. Improved. History of compensated diastolic heart failure, not in exacerbation -Patient presented to the ED in A fib RVR. Admitted to ICU for closer monitoring. -Initial EKG reviewed showing a flutter rvr with HR in the 120's. -Patient received Cardizem IV and Esmolol IV push in ED which did improve the heart rate, heart still 110's on monitor. -Serial EKGs and serial troponins ordered. Serial troponins flat. EKG reviewed with no significant changes. -Overnight was placed on Cardizem drip due to increase in heart rate. Has been turned off since 530 this morning. Will continue to monitor BP and heart rate trends. -Patient was initially hypotensive secondary to IV rate control given in ED, was given 1 L NS bolus at that time. -BP initially 76/50 but now improving with systolic in the 100's. IV fluids DC' d. Tolerating p.o. intake well. -Echocardiogram ordered, EF evaluation. Pending and follow. -For now, will resume home Sotalol and Cardizem 30 mg PO QID. Depending on echocardiogram results, may switch sotalol to Coreg. -Continue cardiac telemetry, monitor for rate control. -INR therapeutic today, will continue Coumadin today. Diarrhea, improving. Dehydration, improving. -Patient complaints of diarrhea x 7 days. -C. difficile negative. Stool studies pending. -Initially started on Cipro and Flagyl IV. Patient is without fever and leukocytosis. Diarrhea improving. Will DC antibiotics. Hypothyroidism, chronic: Continue home statin. History of muscular dystrophy, wheelchair bound at home Chronic suprapubic catheter secondary to above -PT has been consulted, appreciate evaluation. Recommendations to resume home health care upon discharge. -Patient has been doing well and at baseline. -Catheter care per nursing team. Monitor intake and output closely. UA negative. History of COPD not in exacerbation, history of sleep apnea uses BiPAP at home Chronic respiratory failure with use of home O2 -Patient uses 2 L oxygen at home. Will resume BiPAP at night. -Stable at this time. Continue to monitor. History of decubitus ulcer -Sacrum evaluated. No open areas. Presence of previous scarring. -Daughter requesting to speak with the wound care nurse. -Without any open areas - recommendations are to encourage pressure relief, barrier creams and close monitoring. -Encouraged Q2h repositioning. DVT Prophylaxis: SCDs. Coumadin.
[2017-11-26] MEDS: Escitalopram 10 MG Tablet PO SCH (09:30)
[2017-11-26] MEDS: Acetaminophen 325 MG Tablet PO PRN ×2 (09:30→18:59)
[2017-11-26] MEDS ORDERED: Dextrose 50% in Water 50 ML Vial IV.PUSH PRN (09:52)
[2017-11-26] MEDS: Insulin NovoLOG Aspart Correctional Sugar Inj SQ SCH ×3 (12:28→21:28)
--- NOTE | 2017-11-26 12:48 | ECHRPT ---
Indication: Heart Failure CONCLUSIONS Normal left ventricular size. Wall thickness is measured at the upper limits of normal. The left ventricular systolic function is normal with an estimated ejection fraction in the range of 55-60%. Aortic valve sclerosis is present. Trace aortic valve regurgitation. There is trace tricuspid valve regurgitation. The estimated pulmonary arterial pressure is 43 mmHg. The inferior vena cava is dilated. BP: / HR: Rhythm: MEASUREMENTS (Male / Female) Normal Values Technical Quality:Technically difficult study 2D ECHO LV Diastolic Diameter PLAX 3.9 cm 4.2 - 5.9 / 3.9 - 5.3 cm LV Systolic Diameter PLAX 3.0 cm IVS Diastolic Thickness 1.1 cm 0.6 - 1.0 / 0.6 - 0.9 cm LVPW Diastolic Thickness 1.1 cm 0.6 - 1.0 / 0.6 - 0.9 cm LV Relative Wall Thickness 0.6 LVOT Diameter 2.1 cm Aortic Root Diameter 3.7 cm LA Systolic Diameter LX 2.9 cm 3.0 - 4.0 / 2.7 - 3.8 cm M-MODE AV Cusp Separation MM 2.2 cm DOPPLER AV Peak Velocity 130.0 cm/s AV Peak Gradient 6.8 mmHg LVOT Peak Velocity 73.3 cm/s LVOT Peak Gradient 2.1 mmHg AV Area Cont Eq pk 2.0 cm Mitral E Point Velocity 112.0 cm/s Mitral A Point Velocity 41.5 cm/s Mitral E to A Ratio 2.7 LV E' Lateral Velocity 6.9 cm/s Mitral E to LV E' Lateral Ratio 16.2 LV E' Septal Velocity 10.5 cm/s Mitral E to LV E' Septal Ratio 10.7 TR Peak Velocity 289.0 cm/s TR Peak Gradient 33.4 mmHg Right Atrial Pressure 10.0 mmHg Pulmonary Artery Systolic Pressu 43.4 mmHg Right Ventricular Systolic Press 43.4 mmHg PV Peak Velocity 122.0 cm/s PV Peak Gradient 6.0 mmHg FINDINGS LEFT VENTRICLE Normal left ventricular size. Wall thickness is measured at the upper limits of normal. The left ventricular systolic function is normal with an estimated ejection fraction in the range of 55-60%. RIGHT VENTRICLE Normal right ventricular size and systolic function. LEFT ATRIUM The left atrial size is normal. RIGHT ATRIUM The right atrial size is normal. ATRIAL SEPTUM Normal atrial septal thickness without atrial level shunting by limited color doppler interrogation. AORTA The aortic root and proximal ascending aorta are normal in size on limited imaging. MITRAL VALVE Structurally normal mitral valve. No mitral valve stenosis or regurgitation. AORTIC VALVE Trileaflet aortic valve. Aortic valve sclerosis is present. Trace aortic valve regurgitation. TRICUSPID VALVE There is trace tricuspid valve regurgitation. The estimated pulmonary arterial pressure is 43 mmHg. PULMONARY VALVE No pulmonary valve regurgitation or stenosis. VESSELS The inferior vena cava is dilated. PERICARDIUM No pericardial effusion. Evan Tirado MD, FACC (Electronically Signed) Final Date:26 November 2017 12:47
[2017-11-26] MEDS ORDERED: Sodium Chlor 0.9% Inj 500 ML IV.SIG ONE (14:00)
--- NOTE | 2017-11-26 17:21 | ECG ---
Date Performed: 11/25/2017 Time Performed: 12:49:26 PTAGE: 77 years EKG: SUPRAVENTRICULAR TACHYCARDIA, MOST CONSISTENT WITH ATRIAL FLUTTER AND VARIABLE BLOCK, BUT A RHYTHM STRIP WAS ADVISED FOR A MORE SPECIFIC DIAGNOSIS. SINCE PRIOR TRACING THE SUPRAVENTRICULAR TAC HYCARDIA IS NEW, BUT OTHERWISE NO SIGNIFICANT SERIAL CHANGE. MARKED LEFT AXIS DEVIATION POSSIBLE ANT ERIOR MYOCARDIAL INFARCTION ABNORMAL ECG PREVIOUS TRACING : 10/19/2017 20.57 DOCTOR: Lucille Salcedo Interpretating Date/Time 11/26/2017 17:20:57
[2017-11-26] MEDS: Montelukast 10 MG Tablet PO SCH (17:58)
[2017-11-27] MEDS: Acetaminophen 325 MG Tablet PO PRN (01:09)
[2017-11-27] MEDS: Chlorhexidine Gluconate 2% 1 Pack (2 Cloths) TOPICAL SCH (03:07)
[2017-11-27] MEDS: dilTIAZem 30 MG Tablet PO SCH ×2 (05:52→16:17)
[2017-11-27] MEDS: Sod Chloride 0.9% Inj 1,000 ML IV.CONT SCH (05:52)
[2017-11-27] MEDS: Levothyroxine 112 MCG Tablet PO SCH (05:52)
[2017-11-27 05:54] LABS: Chloride 102 meq/L (98-107); Potassium 3.3 meq/L (3.5-5.1); Sodium 140 meq/L (136-145)
[2017-11-27 05:55] LABS: INR 2.1 Ratio; Prothrombin Time 21.4 sec (9.8-11.6)
[2017-11-27 05:58] LABS: Blood Urea Nitrogen 15 mg/dL (7-18); Glucose,Random 126 mg/dL (74-106); Magnesium 1.7 mg/dL (1.5-2.5)
[2017-11-27 06:00] LABS: Anion Gap 8 meq/L (5-15); Baso % (Auto) 0.2 % (0.0-2.0); Carbon Dioxide 30.2 meq/L (21.0-32.0); Eos # (Auto) 0.1 th/mm3 (0.0-0.4); Eos % (Auto) 1.8 % (0.0-4.0); Hematocrit 32.2 % (39.0-51.0); Hemoglobin 11.1 gm/dL (13.0-17.0); Lymph # (Auto) 1.6 th/mm3 (1.0-4.8); Lymph % (Auto) 23.1 % (9.0-44.0); Mean Corpuscular HGB Conc 34.6 % (32.0-36.0); Mean Corpuscular Hemoglobin 28.7 pg (27.0-34.0); Mean Corpuscular Volume 82.8 fL (80.0-100.0); Mean Platelet Volume 8.6 fL (7.0-11.0); Mono # (Auto) 0.5 th/mm3 (0.0-0.9); Mono % (Auto) 7.1 % (0.0-8.0); Neut # (Auto) 4.5 th/mm3 (1.8-7.7); Neut % (Auto) 67.8 % (16.0-70.0); Platelet Count 214 th/mm3 (150-450); Red Blood Count 3.89 mil/mm3 (4.50-5.90); Red Cell Distribution Width 14.7 % (11.6-17.2); White Blood Count 6.7 th/mm3 (4.0-11.0)
[2017-11-27 06:01] LABS: Glomerular Filtration Rate Greater Than 89 mL/min (>89)
[2017-11-27 06:02] LABS: Phosphorus 2.1 mg/dL (2.5-4.9)
--- NOTE | 2017-11-27 09:01 | P.DS ---
Date of admission: 11/25/17 15:28 Primary care physician: Michael Arreola MD Brief History from admission: This is a pleasant 77-year-old male patient with a known medical history of muscular dystrophy with chronic suprapubic cath, CHF, hypertension, atrial fibrillation on Coumadin, hyperlipidemia and hypothyroidism who presented to the ED with complaints of generalized weakness, chills, diarrhea x 7 days and palpitations. States that he has been having episodes of diarrhea at least 4 episodes every day for the past 7 days with associated chills as well as overall feeling of being dehydrated due to diarrhea. He denies any blood or black stools. Denies any abdominal pain, nausea or vomiting. It should be noted that patient was recently hospitalized between id 10/19/17 to 10/22/17 and treated for OPD exacerbation, community-acquired pneumonia and CHF exacerbation. At that time he was treated with Rocephin, azithromycin for treatment of UTI which grew staph aureus and Pseudomonas and Proteus. Patient was discharged on a course of ciprofloxacin. Patient was discharged home and per report today he has been having remittent diarrhea since discharge the hospital. 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 Junior, he last saw him during his hospitalization for elevated troponin. This was likely believed to be secondary to demand ischemia at the time of admission due to his hypoxia. Medications were continued at that time. Patient lives at home with his daughter whom takes care of him full time staff interpreter. [facility] PT and nursing also assists. Patient update on day of discharge: Patient seen and examined, lying in bed comfortably in nad. No reports of any acute events overnight. States that he is feeling much improved. Eager to go home. Tele reviewed and heart rate controlled. Some swelling in lower extremities, given lasix. Diuresing well. Eating well. Denies any ab pain, n/v/ d. DS: Diagnosis - Discharge Diagnosis (1) Atrial fibrillation with RVR Status: Acute (2) Diarrhea Status: Acute DS: Medications - Discharge Medications Prescriptions: diltiazem HCl [Cardizem CD] 120 mg PO DAILY 30 Days #30 cap DS: Summary Hospital Course: This is a 77-year-old male patient with atrial fibrillation RVR on anticoagulation with history of compensated diastolic heart failure, not in exacerbation. Patient presented to the ED in A fib RVR. Admitted to ICU for closer monitoring. Initial EKG reviewed showing a flutter rvr with HR in the 120's. Patient received Cardizem IV and Esmolol IV push in ED which did improve the heart rate, heart still 110's on monitor. Serial EKGs and serial troponins ordered. Serial troponins flat. EKG reviewed with no significant changes. Overnight was placed on Cardizem drip due to increase in heart rate. Was weaned off. Patient was initially hypotensive secondary to IV rate control given in ED, was given 1 L NS bolus at that time. BP initially 76/50 now improved. Echocardiogram ordered, EF evaluated compensated diastolic function. INR therapeutic today, will continue Coumadin today. Diarrhea, improving. Dehydration, improving. Patient complaints of diarrhea x 7 days. C. difficile negative. Stool studies negative. Initially started on Cipro and Flagyl IV. Patient is without fever and leukocytosis. Diarrhea improving. Will DC antibiotics. Hypothyroidism, chronic: Continue home statin. History of muscular dystrophy, wheelchair bound at home, chronic suprapubic catheter secondary to above. PT has been consulted, appreciate evaluation. Recommendations to resume home health care upon discharge. Patient has been doing well and at baseline. Catheter care per nursing team. Monitor intake and output closely. UA negative. History of COPD not in exacerbation, history of sleep apnea uses BiPAP at home and chronic respiratory failure with use of home O2. Patient uses 2 L oxygen at home. Will resume BiPAP at night. History of decubitus ulcer. Sacrum evaluated. No open areas. Presence of previous scarring. Daughter requesting to speak with the wound care nurse. Without any open areas - recommendations are to encourage pressure relief, barrier creams and close monitoring. Encouraged Q2h repositioning. Patient stable upon DC. - Time Spent with Patient Total time spent providing and/or coordinating discharge services: Greater than 30 minutes - Quality: VTE Deep Vein Thrombosis/Pulmonary Embolism Present on Admission: No Exam Vital signs: Vital Signs 11/26/17 09:19 11/26/17 10:00 11/26/17 10:10 Temperature Pulse Rate 93 H 106 H Respiratory Rate 22 25 H 15 Blood Pressure 131/93 H Pulse Oximetry 98 96 11/26/17 11:00 11/26/17 12:00 11/26/17 13:00 Temperature 97.4 F L Pulse Rate 98 H 108 H 102 H Respiratory Rate 17 28 H 28 H Blood Pressure 92/67 L 90/67 L 131/86 Pulse Oximetry 95 96 98 11/26/17 14:00 11/26/17 15:00 11/26/17 15:58 Temperature Pulse Rate 92 H 98 H 99 H Respiratory Rate 18 17 12 Blood Pressure 120/92 H 119/75 Pulse Oximetry 96 95 11/26/17 16:00 11/26/17 16:01 11/26/17 17:00 Temperature Pulse Rate 90 90 98 H Respiratory Rate 15 13 21 Blood Pressure 125/75 133/87 Pulse Oximetry 97 97 98 11/26/17 18:00 11/26/17 19:16 11/26/17 20:02 Temperature 98.5 F 98.6 F Pulse Rate 82 84 82 Respiratory Rate 22 18 21 Blood Pressure 92/70 L 118/75 134/64 Pulse Oximetry 95 97 96 11/26/17 20:40 11/26/17 21:00 11/26/17 22:07 Temperature Pulse Rate 83 76 80 Respiratory Rate 20 19 17 Blood Pressure 126/70 101/72 Pulse Oximetry 97 96 86 L 11/26/17 23:31 11/27/17 00:00 11/27/17 01:03 Temperature 97.2 F L Pulse Rate 88 86 96 H Respiratory Rate 16 17 21 Blood Pressure 117/65 113/73 149/102 H Pulse Oximetry 97 96 95 11/27/17 02:08 11/27/17 03:00 11/27/17 03:06 Temperature Pulse Rate 84 88 Respiratory Rate 20 13 20 Blood Pressure 115/65 126/79 Pulse Oximetry 94 L 94 L 11/27/17 04:00 11/27/17 04:16 11/27/17 05:00 Temperature 97.7 F Pulse Rate 98 H 97 H 100 H Respiratory Rate 16 18 21 Blood Pressure 125/74 138/100 H Pulse Oximetry 97 97 11/27/17 06:00 Temperature Pulse Rate 106 H Respiratory Rate 30 H Blood Pressure 161/80 H Pulse Oximetry 93 L Intake & Output 11/26/17 11/27/17 11/27/17 18:59 06:59 18:59 Intake Total 2190 / 2190 1000 / 1000 Output Total 1902 / 1902 Balance 288 / 288 1000 / 1000 Intake: IV 1830 / 1830 1000 / 1000 NS Inj 1,000 ML @ 84 mls/hr IV. 1000 / 1000 1000 / 1000 CONT .[id number] FARHAD Rx#: [id number] Cardizem Inj 125 MG In NS Inj 30 / 30 100 ML @ 5 MG/HR 5 mls/hr IV. CONT TITRATE PRN Rx#:[id number] Cipro 400 MG/200 ML Inj 400 mg 200 / 200 In 200 ml @ 200 mls/hr IV.SIG Q12H FARHAD Rx#:[id number] NS Inj 500 ML @ Wide Open IV. 500 / 500 SIG BOLUS ONE Rx#:[id number] Flagyl 500 MG Inj 100 ML @ 100 100 / 100 mls/hr IV.SIG Q6H FARHAD Rx#: [id number] Oral 360 / 360 Output: Urine 1900 / 1900 Stool 2 / 2 Other: Post Void Residual 300 Date of Last Bowel Movement 11/26/17 11/25/17 Narrative: GENERAL: Well-developed, well-nourished elderly male patient in [facility]. On supplemental O2. SKIN: Warm and dry. No rash. HEAD: Normocephalic. Atraumatic. Right upper lip blister, scabbing and dry, chronic basal cell carcinoma. EYES: Pupils equal and round. No scleral icterus. No injection or drainage. ENT: No nasal bleeding or discharge. Mucous membranes pink and moist. NECK: Supple. Trachea midline. CARDIOVASCULAR: Irregularly irregular heart rate. RESPIRATORY: No accessory muscle use. Clear to auscultation. Breath sounds equal bilaterally. GASTROINTESTINAL: Abdomen soft, non-tender, nondistended. Normoactive bowel sounds x4. Previous surgical scar in mid abdomen region. : Suprapubic catheter in place, site clean dry and intact, no erythema or drainage, catheter present. Dressing dry and intact. MUSCULOSKELETAL: No obvious deformities. Extremities without clubbing, cyanosis , or edema. NEUROLOGICAL: Awake and alert. No obvious cranial nerve deficits. Motor grossly within normal limits. 4/5 muscle strength in bilateral upper and lower extremities. Normal speech. PSYCHIATRIC: Appropriate mood and affect; insight and judgment normal. Results Procedures completed during hospitalization: See below. Labs on day of discharge: Labs from last 24 hours 11/27/17 11/27/17 11/27/17 04:35 04:35 04:35 CBC w Diff Auto diff final WBC 6.7 RBC 3.89 L Hgb 11.1 L Hct 32.2 L MCV 82.8 MCH 28.7 MCHC 34.6 RDW 14.7 Plt Count 214 MPV 8.6 Neut % (Auto) 67.8 Lymph % (Auto) 23.1 [place] % (Auto) 7.1 Eos % (Auto) 1.8 Baso % (Auto) 0.2 Neut # (Auto) 4.5 Lymph # (Auto) 1.6 [place] # (Auto) 0.5 Eos # (Auto) 0.1 Baso # (Auto) 0.0 WBC Differential . Differential Comment . PT 21.4 H INR 2.1 Sodium 140 Potassium 3.3 L Chloride 102 Carbon Dioxide 30.2 Anion Gap 8 BUN 15 Creatinine 0.28 L Estimated GFR Greater than 89 POC Glucose Random Glucose 126 H Calcium 8.0 L Phosphorus 2.1 L Magnesium 1.7 TSH Stl C.difficile DNA Amp St C. diff Tox Epid 027 11/26/17 11/26/17 11/26/17 21:22 16:17 11:40 CBC w Diff WBC RBC Hgb Hct MCV MCH MCHC RDW Plt Count MPV Neut % (Auto) Lymph % (Auto) [place] % (Auto) Eos % (Auto) Baso % (Auto) Neut # (Auto) Lymph # (Auto) [place] # (Auto) Eos # (Auto) Baso # (Auto) WBC Differential Differential Comment PT INR Sodium Potassium Chloride Carbon Dioxide Anion Gap BUN Creatinine Estimated GFR POC Glucose 179 H 172 H 169 H Random Glucose Calcium Phosphorus Magnesium TSH Stl C.difficile DNA Amp St C. diff Tox Epid 027 11/26/17 11/25/17 04:50 18:00 CBC w Diff WBC RBC Hgb Hct MCV MCH MCHC RDW Plt Count MPV Neut % (Auto) Lymph % (Auto) [place] % (Auto) Eos % (Auto) Baso % (Auto) Neut # (Auto) Lymph # (Auto) [place] # (Auto) Eos # (Auto) Baso # (Auto) WBC Differential Differential Comment PT INR Sodium Potassium Chloride Carbon Dioxide Anion Gap BUN Creatinine Estimated GFR POC Glucose Random Glucose Calcium Phosphorus Magnesium TSH 0.723 Stl C.difficile DNA Amp Negative St C. diff Tox Epid 027 Negative - Impressions ITS Impressions Chest X-Ray 11/25/17 12:34 CONCLUSION: Under aerated with minimal bibasilar parental changes. Moderate compensated cardiomegaly. Discharge Plan - Discharge Disposition Patient Disposition: 06 Disch W/Home Health Service - Discharge Condition Condition: Stable - Discharge Order Discharge Orders: Discharge Order (Routine); Ordered 11/25/17 Ordered By: Constantino Frances Clear for Discharge (Routine); Ordered 11/27/17 Ordered By: Ekaterina Kim - Discharge Details Discharge Comment: Resume home health care. - Physicians Team Primary Care Provider: Michael Arreola Attending Provider: Anand Blake
[2017-11-27] MEDS: Escitalopram 10 MG Tablet PO SCH (09:09)
[2017-11-27] MEDS: Insulin NovoLOG Aspart Correctional Sugar Inj SQ SCH ×3 (09:09→17:32)
[2017-11-27] MEDS: Tiotropium Bromide 18 MCG/ACT Inhaler INH SCH (09:09)
--- NOTE | 2017-11-27 09:10 | P.DCO ---
- Diagnosis (1) Atrial fibrillation with RVR Status: Acute (2) Diarrhea Status: Acute - Physical Therapy Order: Evaluate and treat, Improve ambulation, Strength and gait training - Home Health Nursing Order: Medical education, Signs/symptoms of disease process, Medication education-adverse effect, Nursing assessment with vital signs - Case Management Consult Yes - Certification I have seen patient Ricki Walker on 11/27/17. My clinical findings support the need for the requested home health care services because: Deconditioned with increased weakness I certify that my clinical findings support that this patient is homebound because: Unsteady gait/balance Attestation/Additional Detail: Please resume [facility].
[2017-11-27] MEDS ORDERED: dilTIAZem CD 120 MG Capsule PO ONE (10:00)
[2017-11-27 12:40] VITALS: TEMP 97.8
[2017-11-27 13:50] VITALS: RESP 20
[2017-11-27 14:49] VITALS: BP 128/79; PULSE 84; O2SAT 97
== END 2017-11-27 15:50 | disposition home health service (06) ==
LOC: PHED 12:01 → PHEDA 15:28 → PHICU 16:50
PROVIDERS: ADMIT Internal Medicine; ATTEND Internal Medicine